=== PATIENT | male | born 1935 | race Caucasian/White ===

== ENCOUNTER 2017-02-02 19:50 | Inpatient (IN) | payer MEDICARE, BC ==
[~2017-02-02] VITALS: Ht 175.3 cm; Wt 74.8 kg
[2017-02-02] MEDS ORDERED: IODIXANOL 320 MG/ML 10 ML VIAL (for Rad CT) IVCONTRAST ONE (19:51)
[2017-02-02 19:54] VITALS: BP 140/73; PULSE 87; RESP 20; TEMP 98.4; O2SAT 96
[2017-02-02] MEDS ORDERED: ASPIRIN 81 MG CHEW TAB PO ONE (20:30)
[2017-02-02] MEDS ORDERED: SODIUM CHLORIDE 0.9% FLUSH 10 ML FLUSH IVF PRN (20:30)
--- NOTE | 2017-02-02 20:37 | PD ---
HPI Chief Complaint: Chest Pain Time Seen by Provider: 20:18 Travel History International Travel<30 days: No Contact w/Intl Traveler<30days: No Traveled to known affect area: No History of Present Illness HPI 81-year-old male with PMH of HTN, DM presents to the ED for evaluation of 3 day history of substernal chest pain. Described as a pressure. He rated 6/10 maximally, 2/10 on presentation. Patient denies associated radiation, shortness of breath, palpitations, nausea, vomiting, diaphoresis. He can identify no alleviating or exacerbating factors. He is a current smoker. He endorses chronic nonproductive cough, no worse today. He states that he drove his RV from [place] approximately 8 days ago. He denies lower extremity edema or calf pain. He does not take any blood thinners. He's never had a cardiac evaluation. He is followed by , podiatry. No primary care in the area. PFSH Past Medical History High Cholesterol: Yes COPD: Yes Diabetes: Yes Patient Takes Glucophage: No Diminished Hearing: Yes Hypertension: Yes Tetanus Vaccination: Unknown Influenza Vaccination: No Past Surgical History Cholecystectomy: Yes Social History Alcohol Use: Yes (OCCASSIONALLY) Tobacco Use: Yes (PIPE) Substance Use: No Allergies-Medications (Allergen,Severity, Reaction): Coded Allergies: No Known Allergies (Unverified , 02/02/17) Reported Meds & Prescriptions Reported Meds & Active Scripts Active Reported Jardiance (Empagliflozin) 10 Mg Tab 10 Mg PO DAILY Multiple Vitamin 1 Tab 1 Tab PO DAILY Vitamin D3 (Cholecalciferol) 1,000 Unit Chew 1,000 Units CHEW BID Januvia (Sitagliptin Phosphate) 100 Mg Tab 100 Mg PO DAILY Levemir Flextouch Pen Inj (Insulin Detemir) 300 unit/3 ML Pen 45 Units SQ HS Pravastatin 10 Mg Tab 10 Mg PO DAILY Glimepiride 4 Mg Tab 4 Mg PO DAILY Lisinopril-Hctz 20-12.5 Mg Tab 1 Tab PO DAILY Metformin (Metformin HCl) 1,000 Mg Tab 1,000 Mg PO BID With a meal Review of Systems Except as stated in HPI: all other systems reviewed are Neg Physical Exam Narrative GENERAL: Well-nourished, well-developed white male in no acute distress. SKIN: Focused skin assessment warm/dry. Chronic wounds of the fourth and fifth toes of the right lower extremity. Well granulated, localized erythema. No warmth, drainage, lymphatic streaking. HEAD: Normocephalic. EYES: No scleral icterus. No injection or drainage. NECK: Supple, trachea midline. No JVD or lymphadenopathy. CARDIOVASCULAR: Regular rate and rhythm without murmurs, gallops, or rubs. RESPIRATORY: Breath sounds clear and equal bilaterally. No accessory muscle use. GASTROINTESTINAL: Abdomen soft, protuberant, nondistended. Mild tenderness to palpation in the epigastric region. Active bowel sounds. MUSCULOSKELETAL: No cyanosis, or edema. Negative Homans sign bilaterally. BACK: Nontender without obvious deformity. No CVA tenderness. Data Data Last Documented VS Vital Signs Date Time Temp Pulse Resp B/P (MAP) Pulse Ox O2 Delivery O2 Flow Rate FiO2 02/02/17 20:42 78 18 138/72 (94) 95 Room Air 02/02/17 19:54 98.4 Orders Orders Electrocardiogram (02/02/17 20:29) Ckmb (Isoenzyme) Profile (02/02/17 20:29) Complete Blood Count With Diff (02/02/17 20:29) Comprehensive Metabolic Panel (02/02/17 20:29) Magnesium (Mg) (02/02/17 20:29) Prothrombin Time / Inr (Pt) (02/02/17 20:29) Act Partial Throm Time (Ptt) (02/02/17 20:29) Troponin I (02/02/17 20:29) Chest, Single Ap (02/02/17 20:29) Ecg Monitoring (02/02/17 20:29) Bilateral Bp Monitoring (02/02/17 20:29) Iv Access Insert/Monitor (02/02/17 20:29) Oximetry (02/02/17 20:29) Aspirin Chew (Aspirin Chew) (02/02/17 20:30) Sodium Chloride 0.9% Flush (Ns Flush) (02/02/17 20:30) Lipase (02/02/17 20:38) Ct Pulmonary Angiogram (02/02/17 22:22) Labs Laboratory Tests Test 02/02/17 20:40 White Blood Count 8.7 TH/MM3 Red Blood Count 4.18 MIL/MM3 Hemoglobin 13.8 GM/DL Hematocrit 40.6 % Mean Corpuscular Volume 97.3 FL Mean Corpuscular Hemoglobin 32.9 PG Mean Corpuscular Hemoglobin Concent 33.8 % Red Cell Distribution Width 13.6 % Platelet Count 174 TH/MM3 Mean Platelet Volume 10.1 FL Neutrophils (%) (Auto) 82.0 % Lymphocytes (%) (Auto) 6.9 % Monocytes (%) (Auto) 9.6 % Eosinophils (%) (Auto) 1.0 % Basophils (%) (Auto) 0.5 % Neutrophils # (Auto) 7.1 TH/MM3 Lymphocytes # (Auto) 0.6 TH/MM3 Monocytes # (Auto) 0.8 TH/MM3 Eosinophils # (Auto) 0.1 TH/MM3 Basophils # (Auto) 0.0 TH/MM3 CBC Comment DIFF FINAL Differential Comment Prothrombin Time 10.8 SEC Prothromb Time International Ratio 1.0 RATIO Activated Partial Thromboplast Time 27.5 SEC Alanine Aminotransferase (ALT/SGPT) 442 U/L Lipase 217 U/L MDM Medical Decision Making Medical Screen Exam Complete: Yes Emergency Medical Condition: Yes Differential Diagnosis Chest pain versus PNA versus ACS versus PE versus anemia versus GERD versus pancreatitis versus other Narrative Course 81-year-old male with PMH of HTN, DM presents to the ED for evaluation of 3 day history of constant substernal chest pain. Described as a pressure. He rated 6 /10 maximally, 2/10 on presentation. He endorses chronic nonproductive cough, no worse today. He states that he drove his RV from [place] approximately 8 days ago. He does not take any blood thinners. He's never had a cardiac evaluation. He is followed by , podiatry. No local PCP. Vitals reviewed. Physical exam reveals epigastric tenderness to palpation but is otherwise unremarkable. IV was established. Patient was administered ASA by mouth. EKG rate 84, sinus rhythm. NH interval 156, QRS 103, QTC 399. Left axis deviation. Incomplete RBBB. No acute ST changes. Reviewed by Dr. Will. CXR: Patchy bilateral lower lobe infiltrates. Cardiac enzymes:pending CTA chest: pending CBC: No leukocytosis or anemia. CMP: pending Lipase: 217 Labs and CTA pending at end of shift. The patient is signed out to Dr. Will. Please see her note for disposition. Savannah Whaley Feb 02, 2017 20:37
[2017-02-02 20:42] VITALS: BP 138/72; PULSE 78; RESP 18; O2SAT 95
[2017-02-02] MEDS ORDERED: EMPA1TAB PO (20:55)
[2017-02-02] MEDS ORDERED: PRAV10TA PO (20:55)
[2017-02-02] MEDS ORDERED: GLIM4TAB PO (20:55)
[2017-02-02] MEDS ORDERED: INSU1INJ5 SQ (20:55)
[2017-02-02] MEDS ORDERED: SITA1TAB2 PO (20:55)
[2017-02-02] MEDS ORDERED: LISI20TA PO (20:55)
[2017-02-02] MEDS ORDERED: CHOL100025 CHEW (20:55)
[2017-02-02] MEDS ORDERED: MULTTAB67 PO (20:55)
[2017-02-02] MEDS ORDERED: METF1000 PO (20:55)
[2017-02-02 21:06] LABS: AUTOMATED NEUTROPHIL # 7.1 TH/MM3 (1.8-7.7); BASOPHIL % 0.5 % (0.0-2.0); EOSINOPHIL # 0.1 TH/MM3 (0-0.4); HEMATOCRIT 40.6 % (39.0-51.0); HEMO FLAGS DIFF FINAL; LYMPH % 6.9 % (9.0-44.0); LYMPHOCYTE # 0.6 TH/MM3 (1.0-4.8); MEAN CELL VOLUME 97.3 FL (80.0-100.0); MEAN CORPUSCULAR HEMOGLOBIN 32.9 PG (27.0-34.0); MEAN CORPUSCULAR HGB CONC 33.8 % (32.0-36.0); MONO % 9.6 % (0.0-8.0); PLATELET COUNT 174 TH/MM3 (150-450); RED BLOOD COUNT 4.18 MIL/MM3 (4.50-5.90); RED CELL DISTRIBUTION WIDTH 13.6 % (11.6-17.2); WHITE BLOOD COUNT 8.7 TH/MM3 (4.0-11.0)
[2017-02-02 21:17] LABS: ALT (GPT) 442 U/L (12-78)
[2017-02-02 21:25] LABS: APTT (PATIENT) 27.5 SEC (24.3-30.1); PROTHROMBIN TIME - PATIENT 10.8 SEC (9.8-11.6)
--- NOTE | 2017-02-02 21:46 | RADRPT ---
EXAM DATE/TIME: 02/02/2017 20:45 [facility] COMPARISON: No previous studies available for comparison. INDICATIONS : Chest pain. MEDICAL HISTORY : None. SURGICAL HISTORY : None. ENCOUNTER: Initial ACUITY: 1 day PAIN SCORE: 7/10 LOCATION: Bilateral chest FINDINGS: There are patchy infiltrates in the anteromedial lungs bilaterally, right greater than left. Both he midiaphragms remain well delineated. The heart is upper limits normal size for AP technique. Upper lungs are clear. CONCLUSION: Patchy bilateral lower lung infiltrates. Kevin Magana MD on February 02, 2017 at 21:44 Board Certified Radiologist. This report was verified electronically.
[2017-02-02 22:58] LABS: ALKALINE PHOSPHATASE 572 U/L (45-117); ANION GAP 9 MEQ/L (5-15); AST (GOT) 172 U/L (15-37); BICARBONATE 20.7 MEQ/L (21.0-32.0); BLOOD UREA NITROGEN 37 MG/DL (7-18); CHLORIDE 102 MEQ/L (98-107); CREATINE KINASE 152 U/L (39-308); GLOMERULAR FILTRATION RATE 38 ML/MIN (>89); MAGNESIUM 2.1 MG/DL (1.5-2.5); POTASSIUM 4.7 MEQ/L (3.5-5.1); SODIUM (NA) 132 MEQ/L (136-145); TOTAL BILIRUBIN ADULT 5.6 MG/DL (0.2-1.0)
--- NOTE | 2017-02-02 23:08 | PD ---
Physical Exam Date Seen by Provider: Feb 02, 2017 Time Seen by Provider: 23:02 Narrative accepted in transfer of care GENERAL: Well-developed well-nourished male in no acute distress no respiratory distress SKIN: Warm and dry. Appears mildly jaundiced HEAD: Normocephalic. EYES: Mild scleral icterus. No injection or drainage. NECK: Supple, trachea midline. No JVD or lymphadenopathy. CARDIOVASCULAR: Regular rate and rhythm without murmurs, gallops, or rubs. RESPIRATORY: Breath sounds equal bilaterally. No accessory muscle use. GASTROINTESTINAL: Abdomen soft, tender to palpation and right upper quadrant without guarding or rebound, nondistended. MUSCULOSKELETAL: No cyanosis, or edema. BACK: Nontender without obvious deformity. No CVA tenderness. Data Data Last Documented VS Vital Signs Date Time Temp Pulse Resp B/P (MAP) Pulse Ox O2 Delivery O2 Flow Rate FiO2 02/02/17 23:19 74 18 132/74 (93) 95 Room Air 02/02/17 19:54 98.4 Orders Orders Electrocardiogram (02/02/17 20:29) Ckmb (Isoenzyme) Profile (02/02/17 20:29) Complete Blood Count With Diff (02/02/17 20:29) Comprehensive Metabolic Panel (02/02/17 20:29) Magnesium (Mg) (02/02/17 20:29) Prothrombin Time / Inr (Pt) (02/02/17 20:29) Act Partial Throm Time (Ptt) (02/02/17 20:29) Troponin I (02/02/17 20:29) Chest, Single Ap (02/02/17 20:29) Ecg Monitoring (02/02/17 20:29) Bilateral Bp Monitoring (02/02/17 20:29) Iv Access Insert/Monitor (02/02/17 20:29) Oximetry (02/02/17 20:29) Aspirin Chew (Aspirin Chew) (02/02/17 20:30) Sodium Chloride 0.9% Flush (Ns Flush) (02/02/17 20:30) Lipase (02/02/17 20:38) Ct Pulmonary Angiogram (02/02/17 22:22) CKMB (02/02/17 20:40) CKMB% (02/02/17 20:40) Ct Abd/Pel W Iv Contrast(Rout) (02/02/17 ) Iodixanol 320 Inj (Rad Ct) (Visipaque 32 (02/02/17 19:51) Urinalysis - C+S If Indicated (02/03/17 00:18) Labs Laboratory Tests Test 02/02/17 20:40 White Blood Count 8.7 TH/MM3 Red Blood Count 4.18 MIL/MM3 Hemoglobin 13.8 GM/DL Hematocrit 40.6 % Mean Corpuscular Volume 97.3 FL Mean Corpuscular Hemoglobin 32.9 PG Mean Corpuscular Hemoglobin Concent 33.8 % Red Cell Distribution Width 13.6 % Platelet Count 174 TH/MM3 Mean Platelet Volume 10.1 FL Neutrophils (%) (Auto) 82.0 % Lymphocytes (%) (Auto) 6.9 % Monocytes (%) (Auto) 9.6 % Eosinophils (%) (Auto) 1.0 % Basophils (%) (Auto) 0.5 % Neutrophils # (Auto) 7.1 TH/MM3 Lymphocytes # (Auto) 0.6 TH/MM3 Monocytes # (Auto) 0.8 TH/MM3 Eosinophils # (Auto) 0.1 TH/MM3 Basophils # (Auto) 0.0 TH/MM3 CBC Comment DIFF FINAL Differential Comment Prothrombin Time 10.8 SEC Prothromb Time International Ratio 1.0 RATIO Activated Partial Thromboplast Time 27.5 SEC Blood Urea Nitrogen 37 MG/DL Creatinine 1.74 MG/DL Random Glucose 178 MG/DL Total Protein 8.2 GM/DL Albumin 3.4 GM/DL Calcium Level 8.6 MG/DL Magnesium Level 2.1 MG/DL Alkaline Phosphatase 572 U/L Aspartate Amino Transf (AST/SGOT) 172 U/L Alanine Aminotransferase (ALT/SGPT) 442 U/L Total Bilirubin 5.6 MG/DL Sodium Level 132 MEQ/L Potassium Level 4.7 MEQ/L Chloride Level 102 MEQ/L Carbon Dioxide Level 20.7 MEQ/L Anion Gap 9 MEQ/L Estimat Glomerular Filtration Rate 38 ML/MIN Total Creatine Kinase 152 U/L Creatine Kinase MB 4.0 NG/ML Troponin I LESS THAN 0.02 NG/ML Lipase 217 U/L [facility] Medical Record Reviewed: Yes Supervised Visit with YA: No Interpretation(s) EKG: Normal sinus rhythm rate 84 incomplete right bundle branch block pattern left anterior fascicular block no acute ST elevation or depression or ectopy noted Last Impressions Chest X-Ray 11/21/17 2029 Signed Impressions: Service Date/Time: Thursday, February 02, 2017 20:45 - CONCLUSION: Patchy bilateral lower lung infiltrates. Kevin Magana MD CBC & BMP Diagram 02/02/17 20:40 Total Protein 8.2, Albumin 3.4, Calcium Level 8.6, Magnesium Level 2.1, Alkaline Phosphatase 572 H, Aspartate Amino Transf (AST/SGOT) 172 H, Alanine Aminotransferase (ALT/SGPT) 442 H, Total Bilirubin 5.6 H Vital Signs Date Time Temp Pulse Resp B/P (MAP) Pulse Ox O2 Delivery O2 Flow Rate FiO2 02/02/17 23:19 74 18 132/74 (93) 95 Room Air 02/02/17 20:42 78 18 138/72 (94) 95 Room Air 02/02/17 19:54 98.4 87 20 140/73 (95) 96 Troponin I: Less than 0.02, not elevated; CK total 152, not elevated CK-MB however is elevated but MB percent is 2.60% which is not elevated Coagulation studies grossly normal range CT pulmonary angiogram: CONCLUSION: 1. No pulmonary embolus or other acute cardiopulmonary disease demonstrated. 2. Coronary artery calcification. 3. Old right rib fractures. 4. Small hiatal hernia. CT abd/pel: CONCLUSION: 1. Vague mass of the pancreatic head, malignant until proven otherwise. Tumor is locally advanced. Please see above. 2. No evidence of metastatic disease. 3. Small to moderate hiatal hernia. 4. Benign appearing left renal cysts. 5. Sigmoid colon diverticulosis without diverticulitis. Shai Armijo MD on February 03, 2017 at 0:14 Board Certified Radiologist. This report was verified electronically. Shai Armijo MD on February 03, 2017 at 0:09 Board Certified Radiologist. This report was verified electronically. Differential Diagnosis Chest pain, ACS, PE, pneumonia, bronchitis, musculoskeletal pain, pleurisy Narrative Course Patient identified to have patchy infiltrates on chest x-ray patient with recent long distance travel chemistries pending with plan to send patient for CT pulmonary angiogram injury imaging. Patient otherwise stable voicing no concerns or complaints. 11:35 PM patient's chemistries have been resulted patient is identified to have elevated LFTs specifically total bilirubin of 5.6 which fits with patient's physical exam as patient does appear jaundiced with scleral icterus patient is identified at bedside to have dark urine suspect urobilinogen and will send off urine specimen for resulting patient is noted left upper quadrant abdominal pain 3 days. Patient's had no fever or chills. Patient has chronic cough. Patient has history of chronic renal insufficiency. Patient is identified to have elevated BUN/creatinine with creatinine 1.74 and GFR of 38. D-dimer to patient's regimen to see if needed proceed with VQ scan in the interim while canceled CT pulmonary angiogram with contrast and will order CT abdomen and pelvis noncontrast. Physician Communication Physician Communication call placed to [facility] service MD --per Dr Irving will accept for admission Diagnosis Primary Impression: Chest pain Additional Impressions: Pancreatic mass Abnormal LFTs Diabetic foot ulcer Renal insufficiency Admitting Information Admitting Physician Requests: Admit Sofía Will MD Feb 02, 2017 23:08
[2017-02-02 23:19] VITALS: BP 132/74; PULSE 74; RESP 18; O2SAT 95
[2017-02-03] VITALS (10 sets, daily range): BP systolic 117–133; BP diastolic 58–72; PULSE 65–85; RESP 18–20; TEMP 97.4–98.1; O2SAT 92–97
--- NOTE | 2017-02-03 00:12 | RADRPT ---
EXAM DATE/TIME: 02/02/2017 23:50 [facility] COMPARISON: No previous studies available for comparison. INDICATIONS : Shortness of breath. IV CONTRAST: 50 cc Visipaque (iodixanol) IV ; Cumulative dose for multiple exams. RADIATION DOSE: 23.38 CTDIvol (mGy) MEDICAL HISTORY : Hypertension. Chronic obstructive pulmonary disease. Diabetes mellitus type 2. SURGICAL HISTORY : None. ENCOUNTER: Initial ACUITY: 1 day PAIN SCALE: 5/10 LOCATION: Bilateral chest TECHNIQUE: Volumetric scanning of the chest was performed using a pulmonary embolism protocol MIP images were re constructed. Using automated exposure control and adjustment of the mA and/or kV according to patien t size, radiation dose was kept as low as reasonably achievable to obtain optimal diagnostic quality images. DICOM format image data is available electronically for review and comparison. Follow-up recommendations for detected pulmonary nodules are based at a minimum on nodule size and pa tient risk factors according to Fleischner Society Guidelines. FINDINGS: PULMONARY ARTERIES: No filling defects are seen in the pulmonary arteries through the segmental level. LUNGS: There is no consolidation or pneumothorax . No concerning pulmonary nodule is visualized. PLEURAE: There is no pleural thickening or pleural effusion. MEDIASTINUM: There is good visualization of the great vessels of the middle mediastinum. No evidence of mediastin al or hilar adenopathy/mass. Heart size within normal limits. There is coronary artery calcification noted, especially the left anterior descending. Small hiatal hernia noted. MUSCULOSKELETAL: No acute bony abnormality demonstrated. There are old, healed right rib fractures. MISCELLANEOUS: The visualized upper abdominal organs demonstrate no acute abnormality. CONCLUSION: 1. No pulmonary embolus or other acute cardiopulmonary disease demonstrated. 2. Coronary artery calcification. 3. Old right rib fractures. 4. Small hiatal hernia. Shai Armijo MD on February 03, 2017 at 0:09 Board Certified Radiologist. This report was verified electronically.
--- NOTE | 2017-02-03 00:22 | RADRPT ---
EXAM DATE/TIME: 02/02/2017 23:50 [facility] COMPARISON: No previous studies available for comparison. INDICATIONS : Right upper qaudrant pain. IV CONTRAST: 50 cc Visipaque (iodixanol) IV ; Cumulative dose for multiple exams. ORAL CONTRAST: No oral contrast ingested. RADIATION DOSE: 11.56 CTDIvol (mGy) MEDICAL HISTORY : Hypertension. Chronic obstructive pulmonary disease. Diabetes mellitus type 2. SURGICAL HISTORY : None. ENCOUNTER: Initial ACUITY: 1 day PAIN SCALE: 6/10 LOCATION: Right upper quadrant TECHNIQUE: Volumetric scanning of the abdomen and pelvis was performed. Using automated exposure control and ad justment of the mA and/or kV according to patient size, radiation dose was kept as low as reasonably achievable to obtain optimal diagnostic quality images. DICOM format image data is available electro nically for review and comparison. FINDINGS: Although very vague, there is a suspected mildly lobulated, mostly hypodensity/hypoenhancing mass of the pancreatic head estimated at 2.7 x 3.7 x 3.1 cm in size. There is intrahepatic and extrahepatic b iliary distention. There is also pancreatic duct distention and atrophy of the tail. Lateral margin o f the superior mesenteric vein is irregular and similar findings are seen of the inferior margin of t he proximal portal vein. A believe there may be a small and definitely nonocclusive thrombus within t he proximal portal vein on series 5 image 33. This could be tumor thrombus versus bland thrombus. No focal liver lesion. Spleen and adrenal glands are normal. Several cysts are seen of the left kidne y measuring up to 2.5 cm in size. Small to moderate hiatal hernia noted. There is diverticulosis of the sigmoid colon without evidence of diverticulitis. Atherosclerosis seen of the abdominal aorta and iliac arteries. No aneurysm. No acute bony abnormality demonstrated. Degenerative changes are seen of the spine, sacroiliac joints and pubic symphysis with some reactive appearing sclerosis. I don't see a lytic or sclerotic lesion. CONCLUSION: 1. Vague mass of the pancreatic head, malignant until proven otherwise. Tumor is locally advanced. Pl ease see above. 2. No evidence of metastatic disease. 3. Small to moderate hiatal hernia. 4. Benign appearing left renal cysts. 5. Sigmoid colon diverticulosis without diverticulitis. Shai Armijo MD on February 03, 2017 at 0:14 Board Certified Radiologist. This report was verified electronically.
[2017-02-03] MEDS ORDERED: SODIUM CHLORIDE 0.9% FLUSH 10 ML FLUSH IV FLUSH PRN (01:45)
[2017-02-03] MEDS ORDERED: GLUCAGON 1 MG/ML VIAL OTHER PRN (01:45)
[2017-02-03] MEDS ORDERED: ACETAMINOPHEN 500 MG CPLT PO PRN (01:45)
[2017-02-03] MEDS ORDERED: DEXTROSE 50% IN WATER 50 ML VIAL(D50) IV PUSH PRN (01:45)
--- NOTE | 2017-02-03 01:54 | HHI.HP ---
[facility] Service [facility] Primary Care Physician No Primary Care Physician Admission Diagnosis chest pain; pancreatic mass; diabetic foot ulcer; renal insufficienc Diagnoses: Travel History International Travel<30 Days: No Contact w/Intl Traveler <30 Da: No Traveled to Known Affected Are: No History of Present Illness 81-year-old male presents to the emergency department with a one to two-week history of increasing chest and abdominal pain. Patient has a past medical history significant for hypertension and insulin-dependent diabetes mellitus. He reports that his chest pain is present at rest. He describes it as a sharp pressure that is similar to when he had gallbladder disease. He states he started feeling worse today and his brought him to the emergency department. He denies associated shortness of breath or nausea/vomiting. He does report a 10 pound weight loss over the past 2 weeks. EKG showed an incomplete RBBB with no acute ST changes. Initial troponin negative. CT of the abdomen/pelvis significant for a mass of the pancreatic head, malignant until proven otherwise. The tumor is locally advanced. Review of Systems Denies fever or chills Denies blurry vision, otorrhea, rhinorrhea Denies sore throat and cough Positive chest pain. No palpitations or shortness of breath Positive epigastric pain Denies constipation/diarrhea/nausea/vomiting Denies muscle pain/weakness No rashes Past Family Social History Past Medical History Type 2 diabetes mellitus, insulin-dependent Hypertension Hyperlipidemia Diabetic nephropathy Diabetic ulcers Past Surgical History Cholecystectomy Left knee arthroplasty Right knee repair Reported Medications Reported Meds & Active Scripts Active Reported Jardiance (Empagliflozin) 10 Mg Tab 10 Mg PO DAILY Multiple Vitamin 1 Tab 1 Tab PO DAILY Vitamin D3 (Cholecalciferol) 1,000 Unit Chew 1,000 Units CHEW BID Januvia (Sitagliptin Phosphate) 100 Mg Tab 100 Mg PO DAILY Levemir Flextouch Pen Inj (Insulin Detemir) 300 unit/3 ML Pen 45 Units SQ HS Pravastatin 10 Mg Tab 10 Mg PO DAILY Glimepiride 4 Mg Tab 4 Mg PO DAILY Lisinopril-Hctz 20-12.5 Mg Tab 1 Tab PO DAILY Metformin (Metformin HCl) 1,000 Mg Tab 1,000 Mg PO BID With a meal Allergies: Coded Allergies: No Known Allergies (Unverified , 02/02/17) Family History Denies family history of heart disease or diabetes Social History Smokes a pipe. Rare alcohol. No illicit drugs. Physical Exam Vital Signs Vital Signs Date Time Temp Pulse Resp B/P (MAP) Pulse Ox O2 Delivery O2 Flow Rate FiO2 02/02/17 23:19 74 18 132/74 (93) 95 Room Air 02/02/17 20:42 78 18 138/72 (94) 95 Room Air 02/02/17 19:54 98.4 87 20 140/73 (95) 96 Physical Exam GENERAL: male lying in bed SKIN: No rashes. 2 diabetic ulcers noted between right toes 3-4 and 4-5. Ulcer between toes 3-4 dry. Ulcer between toes 4-5 with purulent drainage. HEAD: Atraumatic. Normocephalic. No temporal or scalp tenderness. EYES: Pupils equal round and reactive. Extraocular motions intact. No scleral icterus. No injection or drainage. ENT: Nose without bleeding, purulent drainage or septal hematoma. Throat without erythema, tonsillar hypertrophy or exudate. Uvula midline. Airway patent. NECK: Trachea midline. No JVD or lymphadenopathy. Supple, nontender, no meningeal signs. CARDIOVASCULAR: Regular rate and rhythm without murmurs, gallops, or rubs. RESPIRATORY: Clear to auscultation. Breath sounds equal bilaterally. No wheezes , rales, or rhonchi. GASTROINTESTINAL: Abdomen soft, nondistended. Diffusely tender to palpation in the epigastric region. No hepato-splenomegaly, or palpable masses. No guarding. MUSCULOSKELETAL: Extremities without clubbing, cyanosis, or edema. No joint tenderness, effusion, or edema noted. No calf tenderness. Negative Homans sign bilaterally. NEUROLOGICAL: Awake and alert. Cranial nerves II through XII intact. Motor and sensory grossly within normal limits. Five out of 5 muscle strength in all muscle groups. Normal speech. Laboratory Laboratory Tests Test 02/02/17 20:40 White Blood Count 8.7 Red Blood Count 4.18 Hemoglobin 13.8 Hematocrit 40.6 Mean Corpuscular Volume 97.3 Mean Corpuscular Hemoglobin 32.9 Mean Corpuscular Hemoglobin Concent 33.8 Red Cell Distribution Width 13.6 Platelet Count 174 Mean Platelet Volume 10.1 Neutrophils (%) (Auto) 82.0 Lymphocytes (%) (Auto) 6.9 Monocytes (%) (Auto) 9.6 Eosinophils (%) (Auto) 1.0 Basophils (%) (Auto) 0.5 Neutrophils # (Auto) 7.1 Lymphocytes # (Auto) 0.6 Monocytes # (Auto) 0.8 Eosinophils # (Auto) 0.1 Basophils # (Auto) 0.0 CBC Comment DIFF FINAL Differential Comment Prothrombin Time 10.8 Prothromb Time International Ratio 1.0 Activated Partial Thromboplast Time 27.5 Blood Urea Nitrogen 37 Creatinine 1.74 Random Glucose 178 Total Protein 8.2 Albumin 3.4 Calcium Level 8.6 Magnesium Level 2.1 Alkaline Phosphatase 572 Aspartate Amino Transf (AST/SGOT) 172 Alanine Aminotransferase (ALT/SGPT) 442 Total Bilirubin 5.6 Sodium Level 132 Potassium Level 4.7 Chloride Level 102 Carbon Dioxide Level 20.7 Anion Gap 9 Estimat Glomerular Filtration Rate 38 Total Creatine Kinase 152 Creatine Kinase MB 4.0 Troponin I LESS THAN 0.02 Lipase 217 Result Diagram: 02/02/17203902/02/172039 Imaging Last Impressions CT Angiography 02/02/172221 Signed Impressions: Service Date/Time: Thursday, February 02, 2017 23:50 - CONCLUSION: 1. No pulmonary embolus or other acute cardiopulmonary disease demonstrated. 2. Coronary artery calcification. 3. Old right rib fractures. 4. Small hiatal hernia. Shai Armijo MD Chest X-Ray 02/02/172028 Signed Impressions: Service Date/Time: Thursday, February 02, 2017 20:45 - CONCLUSION: Patchy bilateral lower lung infiltrates. Kevin Magana MD Abdomen/Pelvis CT 02/02/17 0000 Signed Impressions: Service Date/Time: Thursday, February 02, 2017 23:50 - CONCLUSION: 1. Vague mass of the pancreatic head, malignant until proven otherwise. Tumor is locally advanced. Please see above. 2. No evidence of metastatic disease. 3. Small to moderate hiatal hernia. 4. Benign appearing left renal cysts. 5. Sigmoid colon diverticulosis without diverticulitis. MD Dianne Greeni VTE Risk Assessment Caprini VTE Risk Assessment: Mod/High Risk (score >= 2) Caprini Risk Assessment Model Point Value = 1 Point Value = 2 Point Value = 3 Point Value = 5 Age 41-60 Minor surgery BMI > 25 kg/m2 Swollen legs Varicose veins or History of unexplained or recurrent spontaneous Oral contraceptives or hormone replacement Sepsis (< 1 month) Serious lung disease, including pneumonia (< 1 month) Abnormal pulmonary function Acute myocardial infarction Congestive heart failure (< 1 month) History of inflammatory bowel disease Medical patient at bed rest Age 61-74 Arthroscopic surgery Major open surgery (> 45 min) Laparoscopic surgery (> 45 min) Malignancy Confined to bed (> 72 hours) Immobilizing plaster cast Central venous access Age >= 75 History of VTE Family history of VTE Factor V Leiden Prothrombin [id number] Lupus anticoagulant Anticardiolipin antibodies Elevated serum homocysteine Heparin-induced thrombocytopenia Other congenital or acquired thrombophilia Stroke (< 1 month) Elective arthroplasty Hip, pelvis, or leg fracture Acute spinal cord injury (< 1 month) Prophylaxis Regimen Total Risk Factor Score Risk Level Prophylaxis Regimen 0-1 Low Early ambulation 2 Moderate Order ONE of the following: *Sequential Compression Device (SCD) *Heparin 5000 units SQ BID 3-4 Higher Order ONE of the following medications: *Heparin 5000 units SQ TID *Enoxaparin/Lovenox 40 mg SQ daily (WT < 150 kg, CrCl > 30 mL/min) *Enoxaparin/Lovenox 30 mg SQ daily (WT < 150 kg, CrCl > 10-29 mL/min) *Enoxaparin/Lovenox 30 mg SQ BID (WT < 150 kg, CrCl > 30 mL/min) AND/OR *Sequential Compression Device (SCD) 5 or more Highest Order ONE of the following medications: *Heparin 5000 units SQ TID (Preferred with Epidurals) *Enoxaparin/Lovenox 40 mg SQ daily (WT < 150 kg, CrCl > 30 mL/min) *Enoxaparin/Lovenox 30 mg SQ daily (WT < 150 kg, CrCl > 10-29 mL/min) *Enoxaparin/Lovenox 30 mg SQ BID (WT < 150 kg, CrCl > 30 mL/min) AND *Sequential Compression Device (SCD) Assessment and Plan Assessment and Plan 81-year-old male with a past medical history significant for hypertension, hyperlipidemia, diabetic nephropathy and type 2 diabetes mellitus presents with a two-week history of atypical chest pain. CT of the abdomen/pelvis significant for mass in the head of the pancreas with local invasion. 1. Atypical chest pain EKG showed normal sinus rhythm with incomplete right bundle branch block, reviewed by me. No ST segment elevations or depressions ACS rule out pending; serial troponins/EKGs 2. Pancreatic mass CT of the abdomen and pelvis significant for locally invasive mass in the head of the pancreas Patient with 10 pound unintentional weight loss over 2 weeks Transaminitis with elevated T bili CA 19-9 pending Oncology consulted, appreciate recommendations 3. Hypertension Patient reports he has been hypotensive at home (90s/50s) and has not taken his antihypertensive medications in approximately 4-5 days Holding home and hypertensives as patient is currently normotensive Monitor and restart home regimen prn 4. Type 2 diabetes mellitus Patient takes oral anti-hyperglycemics in addition to 45 units of Levemir daily at bedtime Holding home Levemir today as patient has not eaten, restart Levemir tomorrow SSI 4. Diabetic nephropathy Patient with known CKD secondary to his diabetes Creatinine 1.74, baseline unknown Gentle hydration and monitor FEN Heart healthy diet Electrolytes: monitor and replete prn Heparin Spoke with ED physician at length Susy Irving MD Feb 03, 2017 01:54
[2017-02-03 02:28] LABS: BLOOD, URINE NEG (NEG); COMMENT (UR) CULT NOT INDICATED; CULTURE IF INDICATED CULT NOT INDICATED; GLUCOSE,URINE 1000 mg/dL (NEG); KETONE, URINE NEG (NEG); MUCUS URINE FEW /lpf (OCC); NITRITE,URINE NEG (NEG); PH, URINE 5.5 (5.0-8.5); URINE COLOR YELLOW (YELLW/STRAW)
[2017-02-03] MEDS: SODIUM CHLOR 0.9% 1000 ML INJ 1,000 ML IV SCH ×2 (02:38→14:37)
[2017-02-03 03:23] LABS: CREATINE KINASE 97 U/L (39-308)
[2017-02-03 04:46] LABS: AUTOMATED NEUTROPHIL # 6.3 TH/MM3 (1.8-7.7); BASOPHIL % 0.4 % (0.0-2.0); EOSINOPHIL # 0.1 TH/MM3 (0-0.4); EOSINOPHIL % 0.9 % (0.0-4.0); HEMATOCRIT 39.2 % (39.0-51.0); HEMO FLAGS DIFF FINAL; LYMPH % 8.6 % (9.0-44.0); LYMPHOCYTE # 0.7 TH/MM3 (1.0-4.8); MEAN CELL VOLUME 97.5 FL (80.0-100.0); MEAN CORPUSCULAR HEMOGLOBIN 32.6 PG (27.0-34.0); MEAN CORPUSCULAR HGB CONC 33.4 % (32.0-36.0); MONO % 12.2 % (0.0-8.0); NEUT % 77.9 % (16.0-70.0); PLATELET COUNT 168 TH/MM3 (150-450); RED BLOOD COUNT 4.02 MIL/MM3 (4.50-5.90); RED CELL DISTRIBUTION WIDTH 13.3 % (11.6-17.2); WHITE BLOOD COUNT 8.1 TH/MM3 (4.0-11.0)
[2017-02-03 05:16] LABS: ANION GAP 9 MEQ/L (5-15); AST (GOT) 141 U/L (15-37); BICARBONATE 18.6 MEQ/L (21.0-32.0); BLOOD UREA NITROGEN 33 MG/DL (7-18); CHLORIDE 105 MEQ/L (98-107); GLOMERULAR FILTRATION RATE 51 ML/MIN (>89); SODIUM (NA) 133 MEQ/L (136-145)
[2017-02-03 05:17] LABS: ALT (GPT) 390 U/L (12-78)
[2017-02-03 05:19] LABS: ALKALINE PHOSPHATASE 533 U/L (45-117); TOTAL BILIRUBIN ADULT 5.5 MG/DL (0.2-1.0)
[2017-02-03] MEDS: HEPARIN SODIUM - SQ 10,000 UNITS/ML VIAL SQ SCH ×3 (05:25→20:40)
[2017-02-03] MEDS: INSULIN ASPART SUPPLEMENTAL SCALE SQ SCH ×4 (08:00→22:35)
[2017-02-03] MEDS: SODIUM CHLORIDE 0.9% FLUSH 10 ML FLUSH IV FLUSH SCH ×2 (09:00→20:41)
[2017-02-03] MEDS ORDERED: PRAVASTATIN SOD 10 MG TAB PO SCH (09:00)
--- NOTE | 2017-02-03 09:16 | MB ---
cc: AMAURI CHANDLER M.D. DATE OF CONSULTATION: 02/03/[address] Irving. REASON FOR CONSULTATION Oncology was consulted to render opinion regarding patient with pancreatic mass. HISTORY OF PRESENT ILLNESS The patient is a 81-year-old male who presented to the emergency room complaining of mid epigastric/chest pain for 1-2 weeks. He is not a very good historian. He stated the pain is more pressure like and is constant, there is no radiation to the back. The pain was progressively getting worse and he was brought into the emergency room. He has lost about 10 pounds over the last 2 weeks. He denies any nausea or vomiting. He denies any change in bowel habit. Denies any melena or hematochezia. He has no fever or chills, night sweat. He denies any shortness of breath or cough. He denies any change in urinary habit. He denies any other pain. PAST MEDICAL HISTORY 1. Hypertension. 2. Diabetes mellitus on insulin. 3. Hyperlipidemia. 4. Chronic kidney disease. PAST SURGICAL HISTORY 1. Cholecystectomy. 2. Bilateral knee surgery. FAMILY HISTORY One sister is healthy and he has a son who is healthy. SOCIAL HISTORY Drinks occasionally. She smokes pipe. His primary residence is in [place]. He spends his winter in the [place]. He has no local physician. ALLERGIES He has no known drug allergies. MEDICATIONS 1. Pravastatin. 2. Insulin. REVIEW OF SYSTEMS CONSTITUTIONAL: As above. EYES: Negative. ENT: Negative. CARDIOVASCULAR: Denies chest pressure, palpitation. RESPIRATORY: Denies shortness of breath or cough. GI: As above. : Negative. MUSCULOSKELETAL: Negative. HEMATOLOGY: Negative. ENDOCRINE: Negative. DERMATOLOGY: Negative. PSYCHIATRIC: Negative. NEUROLOGIC: Negative. PHYSICAL EXAMINATION VITAL SIGNS: Temperature 98, blood pressure 117/68, O2 saturation 94% on room air. GENERAL: He is alert and oriented x3, hard in hearing. HEENT: Atraumatic, normocephalic. Pupils equal, round, reactive to light. Extraocular muscles intact. No scleral icterus. Oropharynx dry mucosa. NECK: No thyromegaly. No palpable masses. LYMPHATIC: No palpable cervical, clavicular, axillary or inguinal lymph node. CARDIOVASCULAR: Regular, S1-S2. No murmur. LUNGS: Clear to auscultation bilaterally. No wheezing or rhonchi. ABDOMEN: Soft, a little tender in mid epigastric area. I could not palpate any mass. EXTREMITIES: No cyanosis, clubbing or edema. SKIN: No rash or petechiae. NEUROLOGIC: Nonfocal. LABORATORY DATA Reviewed. ASSESSMENT 1. Obstructive jaundice. He presented with mid epigastric pain for 1-2 weeks. He also lost about [address] abdomen and pelvis showed vague 2.7 x 3.7 x 3.1 mass in the head of pancreas. There was pancreatic ductal dilation and pancreatic tail atrophy. There is also intrahepatic and extrahepatic biliary distension. There is possibly tumor thrombus versus bland thrombus in the proximal portal vein. No metastatic disease or adenopathy noted on CT scan. This is worrisome for primary pancreatic cancer. The CA 19-9 is still pending. I would like to get an MRI for further evaluation but given his chronic kidney disease and just received CT contrast, will hold off on getting MRI at this time. I am going to consult gastroenterology for possible EUS and biopsy. He will also need ERCP with stent placement. If his disease is localized will consult a surgeon to see if the patient is a candidate for surgery. Given his advanced age and borderline performance status, he may not be a surgical candidate. The patient's primary residence is in [place]. He is also going to talk to his and he may be considering going back to [place] to get his treatment. 2. Hypertension. 3. Diabetes mellitus on insulin. 4. Chronic kidney disease. 5. Hyperlipidemia. RECOMMENDATION 1. Consult GI for evaluation of obstructive jaundice and possible EUS and biopsy of pancreatic mass. 2. Await tumor marker. 3. Will get MRI if renal function improves. 4. May need surgical consult if he has localized pancreatic cancer. 5. Extensive discussion with the patient. Thank you Dr. Irving for asking me to see this patient. MD FRANCISCA Alexander/GILL /8:24 AM /8:58 AM TIGIST
--- NOTE | 2017-02-03 09:42 | EKG ---
Date Performed: 02/02/2017 Time Performed: 20:27:10 PTAGE: 81 years EKG: Sinus rhythm INCOMPLETE RIGHT BUNDLE BRANCH BLOCK LEFT ANTERIOR FASCICULAR BLOCK ABNORMAL ECG NO PREVIOUS TRACING DOCTOR: Kervin Smith Interpretating Date/Time 02/03/2017 09:40:12
--- NOTE | 2017-02-03 09:59 | PD.CONS ---
HPI History of Present Illness This is a 81 year old male who presented to the emergency room for evaluation of midepigastric/chest pain for the past few weeks. He describes this as a "gassy" type discomfort in his chest and mid epigastric area that is intermittent. He denies any aggravating or alleviating factors, but did not try any OTC medications. He is not currently having any abdominal pain, nausea , vomiting, heartburn, reflux, constipation, diarrhea. He reports that his appetite has been good, but that he has lost about 10 lbs over the past few weeks. His reports that he had a low grade fever of 99.3 at home prior to coming to the hospital. His noticed last night here in the hospital that his eyes were yellow. He came to the ER for further evaluation and was noted to have elevated LFTs- T. Bili 5.5, AST 141, ALT 390, Alk Phosph 533. Ca19-[address] scan abdomen/pelvis (02/02/17) revealed vague mass of the pancreatic head, malignant until proven otherwise. Tumor is locally advanced. Please see above. No evidence of metastatic disease. Small to moderate hiatal hernia. Benign-appearing left renal cyst. Sigmoid colon diverticulosis without diverticulitis. GI was consulted for further evaluation of obstructive jaundice and for EUS with FNA. (Azalea Martinez) PFSH Past Medical History Type 2 diabetes mellitus, insulin-dependent Hypertension Hyperlipidemia Diabetic ulcers right 4/5th toes Chronic kidney disease Past Surgical History Cholecystectomy Left knee arthroplasty Right knee repair Colonoscopy (Azalea Martinez) Coded Allergies: No Known Allergies (Unverified , 02/02/17) Medications Last Impressions CT Angiography 02/02/172221 Signed Impressions: Service Date/Time: Thursday, February 02, 2017 23:50 - CONCLUSION: 1. No pulmonary embolus or other acute cardiopulmonary disease demonstrated. 2. Coronary artery calcification. 3. Old right rib fractures. 4. Small hiatal hernia. Shai Armijo MD Chest X-Ray 02/02/172028 Signed Impressions: Service Date/Time: Thursday, February 02, 2017 20:45 - CONCLUSION: Patchy bilateral lower lung infiltrates. Kevin Magana MD Abdomen/Pelvis CT 02/02/17 0000 Signed Impressions: Service Date/Time: Thursday, February 02, 2017 23:50 - CONCLUSION: 1. Vague mass of the pancreatic head, malignant until proven otherwise. Tumor is locally advanced. Please see above. 2. No evidence of metastatic disease. 3. Small to moderate hiatal hernia. 4. Benign appearing left renal cysts. 5. Sigmoid colon diverticulosis without diverticulitis. Shai Armijo MD Family History No family hx of cancer Social History Smokes a pipe. Rare alcohol. No illicit drugs. (Azalea Martinez) Review of Systems Constitutional: COMPLAINS OF: Fever, Weight loss, DENIES: Change in appetite Respiratory: DENIES: Cough Cardiovascular: COMPLAINS OF: Chest pain Gastrointestinal: COMPLAINS OF: Abdominal pain, DENIES: Black stools, Bloody stools, Constipation, Diarrhea, Nausea, Vomiting, Anorexia, Swelling of Abdomen , Heartburn Musculoskeletal: DENIES: Back pain Integumentary: COMPLAINS OF: Jaundice Neurologic: DENIES: Headache Psychiatric: DENIES: Confusion (Azalea Martinez) GI Exam Vitals I&O Vital Signs Date Time Temp Pulse Resp B/P (MAP) Pulse Ox O2 Delivery O2 Flow Rate FiO2 02/03/17 08:57 85 02/03/17 07:28 98.0 71 20 117/68 (84) 94 02/03/17 05:03 66 02/03/17 04:49 97.9 85 18 127/72 (90) 92 02/03/17 03:15 98.0 74 18 123/72 (89) 95 02/03/17 02:54 02/03/17 02:25 67 18 128/65 (86) 97 Room Air 02/02/17 23:19 74 18 132/74 (93) 95 Room Air 02/02/17 20:42 78 18 138/72 (94) 95 Room Air 02/02/17 19:54 98.4 87 20 140/73 (95) 96 I/O 02/02/17 02/02/17 02/02/17 02/03/17 02/03/17 02/03/17 07:00 15:00 23:00 07:00 15:00 23:00 Output Total 800 ml Balance -800 ml Output Urine Total 800 ml # Voids 1 [address] Angiography 02/02/172221 Signed Impressions: Service Date/Time: Thursday, February 02, 2017 23:50 - CONCLUSION: 1. No pulmonary embolus or other acute cardiopulmonary disease demonstrated. 2. Coronary artery calcification. 3. Old right rib fractures. 4. Small hiatal hernia. Shai Armijo MD Chest X-Ray 02/02/172028 Signed Impressions: Service Date/Time: Thursday, February 02, 2017 20:45 - CONCLUSION: Patchy bilateral lower lung infiltrates. Kevin Magana MD Abdomen/Pelvis CT 02/02/17 0000 Signed Impressions: Service Date/Time: Thursday, February 02, 2017 23:50 - CONCLUSION: 1. Vague mass of the pancreatic head, malignant until proven otherwise. Tumor is locally advanced. Please see above. 2. No evidence of metastatic disease. 3. Small to moderate hiatal hernia. 4. Benign appearing left renal cysts. 5. Sigmoid colon diverticulosis without diverticulitis. Shai Armijo MD Laboratory Test 02/02/17 20:40 02/03/17 02:00 02/03/17 02:35 02/03/17 04:23 White Blood Count 8.7 TH/MM3 8.1 TH/MM3 Red Blood Count 4.18 MIL/MM3 4.02 MIL/MM3 Hemoglobin 13.8 GM/DL 13.1 GM/DL Hematocrit 40.6 % 39.2 % Mean Corpuscular Volume 97.3 FL 97.5 FL Mean Corpuscular Hemoglobin 32.9 PG 32.6 PG Mean Corpuscular Hemoglobin Concent 33.8 % 33.4 % Red Cell Distribution Width 13.6 % 13.3 % Platelet Count 174 TH/MM3 168 TH/MM3 Mean Platelet Volume 10.1 FL 9.9 FL Neutrophils (%) (Auto) 82.0 % 77.9 % Lymphocytes (%) (Auto) 6.9 % 8.6 % Monocytes (%) (Auto) 9.6 % 12.2 % Eosinophils (%) (Auto) 1.0 % 0.9 % Basophils (%) (Auto) 0.5 % 0.4 % Neutrophils # (Auto) 7.1 TH/MM3 6.3 TH/MM3 Lymphocytes # (Auto) 0.6 TH/MM3 0.7 TH/MM3 Monocytes # (Auto) 0.8 TH/MM3 1.0 TH/MM3 Eosinophils # (Auto) 0.1 TH/MM3 0.1 TH/MM3 Basophils # (Auto) 0.0 TH/MM3 0.0 TH/MM3 CBC Comment DIFF FINAL DIFF FINAL Differential Comment Prothrombin Time 10.8 SEC Prothromb Time International Ratio 1.0 RATIO Activated Partial Thromboplast Time 27.5 SEC Blood Urea Nitrogen 37 MG/DL 33 MG/DL Creatinine 1.74 MG/DL 1.34 MG/DL Random Glucose 178 MG/DL 137 MG/DL Total Protein 8.2 GM/DL 7.6 GM/DL Albumin 3.4 GM/DL 3.2 GM/DL Calcium Level 8.6 MG/DL 8.6 MG/DL Magnesium Level 2.1 MG/DL Alkaline Phosphatase 572 U/L 533 U/L Aspartate Amino Transf (AST/SGOT) 172 U/L 141 U/L Alanine Aminotransferase (ALT/SGPT) 442 U/L 390 U/L Total Bilirubin 5.6 MG/DL 5.5 MG/DL Sodium Level 132 MEQ/L 133 MEQ/L Potassium Level 4.7 MEQ/L 4.0 MEQ/L Chloride Level 102 MEQ/L 105 MEQ/L Carbon Dioxide Level 20.7 MEQ/L 18.6 MEQ/L Anion Gap 9 MEQ/L 9 MEQ/L Estimat Glomerular Filtration Rate 38 ML/MIN 51 ML/MIN Total Creatine Kinase 152 U/L 97 U/L Creatine Kinase MB 4.0 NG/ML Troponin I LESS THAN 0.02 NG/ML LESS THAN 0.02 NG/ML Lipase 217 U/L Urine Color YELLOW Urine Turbidity CLEAR Urine pH 5.5 Urine Specific [place] 1.037 Urine Protein TRACE mg/dL Urine Glucose (UA) 1000 mg/dL Urine Ketones NEG mg/dL Urine Occult Blood NEG Urine Nitrite NEG Urine Bilirubin SMALL Urine Urobilinogen LESS THAN 2.0 MG/DL Urine Leukocyte Esterase NEG Urine RBC 1 /hpf Urine WBC LESS THAN 1 /hpf Urine Amorphous Sediment RARE Urine Mucus FEW /lpf Microscopic Urinalysis Comment CULT NOT INDICATED CA 19-9 Antigen 1646.6 U/ML Test 02/03/17 08:43 Physical Examination HEENT: Normocephalic; atraumatic; + jaundice CHEST: CTA CARDIAC: RRR ABDOMEN: Soft, nondistended, mild RUQ tenderness; no hepatosplenomegaly; bowel sounds are present in all four quadrants. EXTREMITIES: No clubbing, cyanosis, or edema. SKIN: Normal; no rash; no jaundice. HAND SEWER: No focal deficits; alert and oriented times three. (Azalea Martinez) Assessment and Plan Plan ASSESSMENT: - Obstructive jaundice. Presented with "gassy" chest/epigastric discomfort. Noted to have elevated LFTs T. Bili 5.5, AST 141, ALT 390, Alk Phosph 533. CT scan abdomen/pelvis (02/02) revealed vague mass of the pancreatic head, malignant until proven otherwise. Tumor is locally advanced. Please see above. No evidence of metastatic disease. Small to moderate hiatal hernia. Benign- appearing left renal cyst. Sigmoid colon diverticulosis without diverticulitis. Ca19-9 1646.6. Oncology following, requesting eval. for obstructive jaundice and EUS with FNA. Afebrile. WBC nL. Will plan for ERCP with possible stent placement/brushings tomorrow. - Pancreatic head mass with elevated Ca19-[address] as above. 10 lb weight loss. Oncology following. Will proceed with ERCP with brushings stent placement. If nondiagnostic, will need EUS with FNA. - Abdominal pain, mild. Likely related to obstructive process as described above. PPI. - HTN, DM, Hyperlipidemia, Diabetic foot ulcer right 4/5th toes per attending. PLAN: - Plan for ERCP with possible stent placement and brushings - Obtain consents - NPO after MN - Hold Heparin after MN - Protonix 40mg po daily - Oncology following - Supportive care - LFT, CBC in am - Possible EUS with FNA, pending results of ERCP - Further recommendations to follow based on results of above - Pt seen and examined by Dr. Torres and myself and this note is written on his behalf (Azalea Martinez) Physician Comments Seen and examined with GEOFF, Probable pancreatic cancer with biliary obstruction. Had food earlier today so ercp/ biopsy/stent planned for tomorrow. EUS later as needed. Discussedw ith pt. and at e bedside. Will follow. Thankyou (Giuliana Torres MD) Azalea Martinez Feb 03, 2017 09:59 Giuliana Torres MD Feb 03, 2017 15:33
[2017-02-03 10:10] LABS: CREATINE KINASE 78 U/L (39-308)
--- NOTE | 2017-02-03 10:34 | HHI.PR ---
Subjective Remarks Follow up for abdominal pain, pancreatic mass. The patient reports his abdominal pain has subsided currently. He is currently eating breakfast and tolerating oral intake. He denies any nausea/vomiting. He was unaware of any diagnosis of a mass previously. He is from [place], in [place] for the winter, plan to stay until May. He denies any family history of cancers. He has smoked a pipe intermittently throughout his life. Denies any heavy alcohol use. Objective Vitals Vital Signs Date Time Temp Pulse Resp B/P (MAP) Pulse Ox O2 Delivery O2 Flow Rate FiO2 02/03/17 08:57 85 02/03/17 07:28 98.0 71 20 117/68 (84) 94 02/03/17 05:03 66 02/03/17 04:49 97.9 85 18 127/72 (90) 92 02/03/17 03:15 98.0 74 18 123/72 (89) 95 02/03/17 02:54 02/03/17 02:25 67 18 128/65 (86) 97 Room Air 02/02/17 23:19 74 18 132/74 (93) 95 Room Air 02/02/17 20:42 78 18 138/72 (94) 95 Room Air 02/02/17 19:54 98.4 87 20 140/73 (95) 96 I/O 02/02/17 02/02/17 02/02/17 02/03/17 02/03/17 02/03/17 07:00 15:00 23:00 07:00 15:00 23:00 Output Total 800 ml Balance -800 ml Output Urine Total 800 ml # Voids 1 1 Result Diagram: 02/03/1742202/03/[address] Angiography 02/02/172221 Signed Impressions: Service Date/Time: Thursday, February 02, 2017 23:50 - CONCLUSION: 1. No pulmonary embolus or other acute cardiopulmonary disease demonstrated. 2. Coronary artery calcification. 3. Old right rib fractures. 4. Small hiatal hernia. Shai Armijo MD Chest X-Ray 02/02/172028 Signed Impressions: Service Date/Time: Thursday, February 02, 2017 20:45 - CONCLUSION: Patchy bilateral lower lung infiltrates. Kevin Magana MD Abdomen/Pelvis CT 02/02/17 0000 Signed Impressions: Service Date/Time: Thursday, February 02, 2017 23:50 - CONCLUSION: 1. Vague mass of the pancreatic head, malignant until proven otherwise. Tumor is locally advanced. Please see above. 2. No evidence of metastatic disease. 3. Small to moderate hiatal hernia. 4. Benign appearing left renal cysts. 5. Sigmoid colon diverticulosis without diverticulitis. Shai Armijo MD Objective Remarks GENERAL: Well-nourished, well-developed pleasant elderly male patient in NAD. SKIN: Warm and dry. No rash. HEENT: Normocephalic. Atraumatic. Pupils equal and round. +scleral icterus. Mucous membranes pink and moist. NECK: Supple. Trachea midline. CARDIOVASCULAR: Regular rate and rhythm. S1, S2 noted. No murmur appreciated. RESPIRATORY: No accessory muscle use. Clear to auscultation. Breath sounds equal bilaterally. GASTROINTESTINAL: Abdomen soft, non-tender, nondistended. Normoactive bowel sounds x4. No palpable masses. MUSCULOSKELETAL: No obvious deformities. Extremities without clubbing, cyanosis , or edema. NEUROLOGICAL: Awake and alert. No obvious cranial nerve deficits. Motor grossly within normal limits. Normal speech. PSYCHIATRIC: Appropriate mood and affect; insight and judgment normal. Medications and IVs Current Medications Medications (Trade) Dose Ordered Sig/Leonel Route Start Time Stop Time Status Last Admin (NS Flush) 2 ml BID IV FLUSH 02/03/17 09:00 (NS Flush) 2 ml UNSCH PRN IV FLUSH 02/03/17 01:45 (Tylenol) 500 mg Q4H PRN PO 02/03/17 01:45 (Heparin Inj) 5,000 units Q8HR SQ 02/03/17 06:00 02/03/17 05:25 (D50w (Vial) Inj) 50 ml UNSCH PRN IV PUSH 02/03/17 01:45 (Glucagon Inj) 1 mg UNSCH PRN OTHER 02/03/17 01:45 (NovoLOG SUPPLEMENTAL SCALE) 1 ACHS SLIDING SCALE SQ 02/03/17 08:00 (Pravachol) 10 mg DAILY PO 02/03/17 09:00 02/03/17 09:37 Sodium Chloride 1,000 ml @ 84 mls/hr [id number] IV 02/03/17 02:00 02/03/17 02:38 A/P Problem List: (1) Pancreatic mass ICD Code: K86.9 - Disease of pancreas, unspecified Status: Acute (2) Abnormal LFTs ICD Code: R79.89 - Other specified abnormal findings of blood chemistry Status: Acute (3) Renal insufficiency ICD Code: N28.9 - Disorder of kidney and ureter, unspecified Status: Acute Assessment and Plan 81-year-old male with a PMH significant for HTN, HLD, DM, and diabetic nephropathy presents with a 2-week history of atypical chest pain. CT of the abdomen/pelvis significant for mass in the head of the pancreas with local invasion. Pancreatic mass: new diagnosis, found on imaging in the ED. CT abd/pelvis images reviewed, shows significant for locally invasive mass in the head of the pancreas. Patient with 10 pound unintentional weight loss over 2 weeks. -Transaminitis with elevated T bili, +scleral icterus on exam -CA 19-9 elevated at 1646 -Oncology consulted, appreciate recommendations -Consult GI for EUS/biopsy -supportive treatment with IVF, antiemetics, and pain control prn Atypical chest pain: suspect referred pain from pancreatic mass, however need to rule out ACS -EKG reviewed, showed NSR, incomplete RBBB; No ST segment elevations or depressions -ACS ruled out with negative serial cardiac enzymes x3 and EKG without acute ischemic changes -chest pain resolved currently Hypertension: Patient reports he has been hypotensive at home (90s/50s) and has not taken his antihypertensive medications in approximately 4-5 days. BP appears fairly well controlled here. -continue to hold home antihypertensives as patient is currently normotensive -Monitor BP and restart home regimen if needed Type 2 diabetes mellitus: Patient takes oral anti-hyperglycemics in addition to 45 units of Levemir daily at bedtime -Continue to hold home levemir for now as patient has minimal oral intake and will likely be NPO for procedure -Monitor Accu-cheks and cover with SSI MARK on CKD stage III secondary to Diabetic nephropathy: patient with known CKD secondary to his diabetes. Cr 1.74 upon arrival. -continue on IVF -renal function improving, Cr 1.34 -Avoid nephrotoxins DVT Prophylaxis: teds/SCDs, avoid chemoprophylaxis with likely upcoming procedure Yamile Lopez PA-C Feb 03, 2017 10:34 am
--- NOTE | 2017-02-03 18:14 | PD.WCN.NOT ---
Wound Consult Description: Received consult from Doctor Irving for wound management of R toes Communicated with: DEVENDRA Curry [address] [place] [address] and Doctor Bull Recommendation: 1. Consult podiatry for diabetic foot ulcers to R fourth and fifth toes 2.Please cleanse wounds to R fourth toe and R fifth toe with normal saline only and pat dry. Apply mary thick santyl ointment to R fifth toe only and cover with Maxorb II and dry 2x2 gauze pad Cover R fourth toe wound with maxorb II (Calcium alginate) and dry 2x2 gauze pad over wound bed Weave dry gauze between all toes to seperate and secure dressings with rolled gauze and tape. Change dressings daily, until seen by podiatry. Additional Information: Patient seen on [address] [place] [address] for evaluation of wound management for R fourth and fifth toes. Removed Calcium alginate and dry gauze in place to R fourth and fifth toes to reveal wounds. R fourth toe wound measures 0.6cm x 0.6cm x ~0.1cm. Wound bed presents with 100 % pink tissue and minimal serous drainage, that is without odor. Periwound is noted with maceration that is circumferential. R fifth toe wound measures 1.5cm x 1cm x slough. Wound bed presents with ~80% pink tissue and ~20% yellow adherent slough. Wound has serous drainage that is minimal without odor. Periwound is noted with dry discolored hyperkeratotic tissue from 9 and 12 o'clock and maceration between 1 and 6 o'clock. Cleansed both R toe wounds with normal saline and applied Calcium alginate over wound beds and covered with dry 2x2 gauze pads. Weaved gauze between interspaces of other toes on R foot before securing dressing with rolled gauze and tape. Natalie Carranza [facility] Feb 03, 2017 18:14
[2017-02-04] VITALS (8 sets, daily range): BP systolic 106–137; BP diastolic 57–69; PULSE 52–70; RESP 16–20; TEMP 97.6–97.9; O2SAT 93–97
[2017-02-04] MEDS: SODIUM CHLOR 0.9% 1000 ML INJ 1,000 ML IV SCH ×2 (02:21→14:59)
[2017-02-04 07:27] LABS: AUTOMATED NEUTROPHIL # 3.7 TH/MM3 (1.8-7.7); BASOPHIL % 0.7 % (0.0-2.0); EOSINOPHIL # 0.1 TH/MM3 (0-0.4); EOSINOPHIL % 2.4 % (0.0-4.0); HEMATOCRIT 37.3 % (39.0-51.0); HEMO FLAGS DIFF FINAL; LYMPHOCYTE # 0.8 TH/MM3 (1.0-4.8); MEAN CELL VOLUME 98.4 FL (80.0-100.0); MEAN CORPUSCULAR HGB CONC 33.5 % (32.0-36.0); MONO % 11.3 % (0.0-8.0); NEUT % 70.6 % (16.0-70.0); PLATELET COUNT 146 TH/MM3 (150-450); RED BLOOD COUNT 3.79 MIL/MM3 (4.50-5.90); RED CELL DISTRIBUTION WIDTH 13.6 % (11.6-17.2); WHITE BLOOD COUNT 5.2 TH/MM3 (4.0-11.0)
[2017-02-04 07:46] LABS: ALT (GPT) 280 U/L (12-78); ANION GAP 11 MEQ/L (5-15); AST (GOT) 107 U/L (15-37); BICARBONATE 16.2 MEQ/L (21.0-32.0); BLOOD UREA NITROGEN 25 MG/DL (7-18); CHLORIDE 110 MEQ/L (98-107); GLOMERULAR FILTRATION RATE 74 ML/MIN (>89); POTASSIUM 4.2 MEQ/L (3.5-5.1); SODIUM (NA) 137 MEQ/L (136-145)
[2017-02-04 07:49] LABS: ALKALINE PHOSPHATASE 485 U/L (45-117); TOTAL BILIRUBIN ADULT 5.2 MG/DL (0.2-1.0)
--- NOTE | 2017-02-04 07:55 | PD.ONC.PN ---
Subjective Subjective Remarks Feeling better. No abdominal pain/N/V. Await ERCP. Objective Data Date Time Temp Pulse Resp B/P (MAP) Pulse Ox O2 Delivery O2 Flow Rate FiO2 02/04/17 04:00 97.8 59 18 132/66 (88) 93 02/04/17 00:00 97.8 68 18 137/68 (91) 96 02/04/17 00:00 Room Air 02/03/17 20:05 67 02/03/17 20:00 97.4 76 20 133/64 (87) 95 02/03/17 16:00 98.1 65 18 128/58 (81) 94 02/03/17 11:36 97.6 75 20 125/69 (87) 94 02/03/17 08:57 85 02/04/17 02/04/17 02/04/17 07:00 15:00 23:00 Intake Total 0 ml Output Total 550 ml Balance -550 ml Result Diagram: 02/04/1761602/04/1717 Laboratory Results Laboratory Tests Test 02/03/17 08:43 02/04/17 06:17 Total Creatine Kinase 78 U/L Troponin I LESS THAN 0.02 NG/ML White Blood Count 5.2 TH/MM3 Red Blood Count 3.79 MIL/MM3 Hemoglobin 12.5 GM/DL Hematocrit 37.3 % Mean Corpuscular Volume 98.4 FL Mean Corpuscular Hemoglobin 33.0 PG Mean Corpuscular Hemoglobin Concent 33.5 % Red Cell Distribution Width 13.6 % Platelet Count 146 TH/MM3 Mean Platelet Volume 10.2 FL Neutrophils (%) (Auto) 70.6 % Lymphocytes (%) (Auto) 15.0 % Monocytes (%) (Auto) 11.3 % Eosinophils (%) (Auto) 2.4 % Basophils (%) (Auto) 0.7 % Neutrophils # (Auto) 3.7 TH/MM3 Lymphocytes # (Auto) 0.8 TH/MM3 Monocytes # (Auto) 0.6 TH/MM3 Eosinophils # (Auto) 0.1 TH/MM3 Basophils # (Auto) 0.0 TH/MM3 CBC Comment DIFF FINAL Differential Comment Blood Urea Nitrogen 25 MG/DL Creatinine 0.98 MG/DL Random Glucose 149 MG/DL Total Protein 6.9 GM/DL Albumin 2.7 GM/DL Calcium Level 8.4 MG/DL Alkaline Phosphatase 485 U/L Aspartate Amino Transf (AST/SGOT) 107 U/L Alanine Aminotransferase (ALT/SGPT) 280 U/L Total Bilirubin 5.2 MG/DL Sodium Level 137 MEQ/L Potassium Level 4.2 MEQ/L Chloride Level 110 MEQ/L Carbon Dioxide Level 16.2 MEQ/L Anion Gap 11 MEQ/L Estimat Glomerular Filtration Rate 74 ML/MIN Administered Medications Medications (Trade) Dose Ordered Sig/Leonel Route PRN Reason Start Time Stop Time Status Last Admin Dose Admin Sodium Chloride (NS Flush) 2 ml BID IV FLUSH 02/03/17 09:00 02/03/17 20:41 Heparin Sodium (Porcine) (Heparin Inj) 5,000 units Q8HR SQ 02/03/17 06:00 Future Hold 02/03/17 20:40 Insulin Aspart (NovoLOG SUPPLEMENTAL SCALE) 1 ACHS SLIDING SCALE SQ 02/03/17 08:00 02/03/17 22:35 Sodium Chloride 1,000 ml @ 84 mls/hr [id number] IV 02/03/17 02:00 02/04/17 02:21 Objective Remarks GENERAL: Well-nourished, well-developed patient. Hard in hearing. SKIN: Warm and dry. HEAD: Normocephalic. EYES: +scleral icterus. No injection or drainage. NECK: Supple, trachea midline. No JVD or lymphadenopathy. LYMPHATIC: No adenopathy. CARDIOVASCULAR: Regular rate and rhythm without murmurs. RESPIRATORY: Breath sounds equal bilaterally. No accessory muscle use. GASTROINTESTINAL: Abdomen soft, slightly tender MEQ, distended, +BS EXTREMITIES: No cyanosis, or edema. MUSCULOSKELETAL: Adequate muscle tone. NEUROLOGICAL: No obvious focal deficit. Awake, alert, and oriented x3. PSYCHIATRIC: Appropriate mood and affect; insight and judgment normal. Assessment/Plan Assessment 1. Obstructive jaundice. He presented with mid epigastric pain for 1-2 weeks. He also lost about [address] abdomen and pelvis showed vague 2.7 x 3.7 x 3.1 mass in the head of pancreas. There was pancreatic ductal dilation and pancreatic tail atrophy. There is also intrahepatic and extrahepatic biliary distension. There is possibly tumor thrombus versus bland thrombus in the proximal portal vein. No metastatic disease or adenopathy noted on CT scan. Ca19-9 - 1646. This is worrisome for primary pancreatic cancer. 2. Hypertension. 3. Diabetes mellitus on insulin. 4. Chronic kidney disease, creatinine has trended back down. 5. Hyperlipidemia. Plan RECOMMENDATION 1. Await ERCP and possible stent placement, may need EUS and biopsy. 2. Get MRI when renal function improves. 3. May need surgical consult if he has localized pancreatic cancer. 4. Continue DVT prophy with heparin. Bebeto Urias MD Feb 04, 2017 07:55
[2017-02-04] MEDS: INSULIN ASPART SUPPLEMENTAL SCALE SQ SCH ×4 (08:00→20:15)
[2017-02-04] MEDS ORDERED: SODIUM CHLORID 0.9% 500 ML IV PRN (08:15)
[2017-02-04] MEDS ORDERED: CHLORHEXIDINE GLUCONATE 2 % 1 PACK (2 CLOTHS) TOPICAL PRN (08:15)
[2017-02-04] MEDS ORDERED: LACTATED RINGER'S 1000 ML IV PRN (08:15)
[2017-02-04] MEDS ORDERED: METOPROLOL TARTRATE 25 MG TAB PO PRN (08:15)
[2017-02-04] MEDS ORDERED: POVIDONE IODINE 5% (ANTISEPSIS KIT) 4 APPLICATIONS EACH NARE PRN (08:15)
[2017-02-04] MEDS: PANTOPRAZOLE SOD 40 MG DELAYED RELEASE TAB PO SCH (08:15)
[2017-02-04] MEDS: SODIUM CHLORIDE 0.9% FLUSH 10 ML FLUSH IV FLUSH SCH ×2 (08:17→20:15)
--- NOTE | 2017-02-04 09:57 | GIPROC ---
[facility] [address] [facility]. [facility], [address] ERCP PROCEDURE REPORT EXAM DATE: 02/04/2017 PATIENT NAME: Isaac Jewell MR #: [id number] BIRTHDATE: 1935 ATTENDING: Giuliana Torres MD ORDER #: [id number] [employer] LABORER: Teodoro Ponce and Sharon Simon STATUS: inpatient INDICATIONS: The patient is a 81 yr old male here for an ERCP due to abnormal blood work and jaundice PROCEDURE PERFORMED: ERCP with stent placement ERCP with biopsy MEDICATIONS: None and Per Anesthesia. CONSENT: The patient understands the risks and benefits of the procedure and understands that these risks include, but are not limited to: sedation, allergic reaction, infection, perforation and/or bleeding. Alternative means of evaluation and treatment include, among others: physical exam, x-rays, and/or surgical intervention. The patient elects to proceed with this endoscopic procedure. medical equipment was checked for proper function. Hand hygiene and appropriate measures for infection prevention was taken. After the risks, benefits and alternatives of the procedure were thoroughly explained, Informed was verified, confirmed and timeout was successfully executed by the treatment team. With the patient in left semi-prone position, medications were administered intravenously.The Pentax [id number] was passed from the mouth into the esophagus and further advanced from the esophagus into the stomach. From stomach scope was directed to the second portion of the duodenum. Major papilla was aligned with the duodenoscope. The scope position was confirmed fluoroscopically. Rest of the findings/therapeutics are given below. The scope was then completely withdrawn from the patient and the procedure completed. The pulse, BP, and O2 saturation were monitored and documented by the physician and the nursing staff throughout the entire procedure. The patient was cared for as planned according to standard protocol. The patient was then discharged to recovery in stable condition and with appropriate post procedure care. 3 cm stricture/mass distal CBD. Normal IHD, and CHD. Brushings obtained. 8.5 x 7 cm stent placed. Multiple superficial ulcers in the duodenum with duodenitis. ADVERSE EVENT: There were no complications. IMPRESSIONS: 3 cm stricture/mass distal CBD. Normal IHD, and CHD. Brushings obtained. 8.5 x 7 cm stent placed. Multiple superficial ulcers in the duodenum with duodenitis RECOMMENDATIONS: 1. Antibiotics 2. Await biopsy results 3. Liver enzymes REPEAT EXAM: Return 2 months ERCP Giuliana Torres MD eSigned: Giuliana Torres MD 02/04/2017 9:57 AM cc:
[2017-02-04] MEDS ORDERED: DO NOT ADM ANY ANTICOAGULANT DRUGS PRN (10:04)
--- NOTE | 2017-02-04 10:10 | RADRPT ---
EXAM DATE/TIME: 02/04/2017 09:33 [facility] COMPARISON: No previous studies available for comparison. INDICATIONS : Obstruction. FLUORO TIME: 2.98 minutes IMAGE COUNT: 2 CONTRAST: Instilled by Ordering Physician MEDICAL HISTORY : Hypertension. Chronic obstructive pulmonary disease. Diabetes mellitus type II. SURGICAL HISTORY : None. ENCOUNTER: Initial ACUITY: 1 day PAIN SCORE: Non-responsive. LOCATION: abdomen, biliary FINDINGS: An ERCP was performed by the ordering physician. There is a stent in the biliary system on the 2nd image. CONCLUSION: ERCP as above. Kevin Magana MD on February 04, 2017 at 10:08 Board Certified Radiologist. This report was verified electronically.
[2017-02-04] MEDS ORDERED: MORPHINE SULFATE 4 MG/ML INJ IV PUSH PRN (11:45)
[2017-02-04] MEDS ORDERED: NALOXONE HCL 0.4 MG/ML AMP IV PUSH PRN (11:45)
[2017-02-04] MEDS ORDERED: MIDAZOLAM HCL 2 MG/2 ML VIAL IV ONE (12:00)
[2017-02-04] MEDS ORDERED: PROPOFOL 200 MG/20 ML AMP IV ONE (12:00)
--- NOTE | 2017-02-04 12:09 | MB ---
cc: JAZZY BUSTOS DPM DATE OF CONSULTATION: 02/04/2017 REASON FOR CONSULTATION Right foot fourth and fifth digit ulcer with cellulitis. HISTORY OF PRESENT ILLNESS This is a 81-year-old male who was admitted with a 1-2 week history of increasing chest pain, abdominal pain. He has a past medical history of hypertension and diabetes. He is currently undergoing evaluation by GI, obstructive jaundice with pancreatic mass. GI has performed biopsy of the mass. Currently I am seeing the patient bedside. They do not live here year-round. Apparently the patient was followed by a wound care doctor in which debridements were being performed of the digit, specifically the right fourth digit and there appeared to be bone exposure at sometime, no mention of osteomyelitis per the past history but it appears to be improving. PAST MEDICAL HISTORY Past medical history is positive for: 1. Type 2 diabetes, insulin dependent. 2. Hypertension. 3. Hyperlipidemia. 4. Diabetic nephropathy. 5. Diabetic ulcers. PAST SURGICAL HISTORY 1. Cholecystectomy. 2. Left knee arthroplasty. 3. Right knee arthroplasty. OUTPATIENT MEDICATIONS 1. Jardiance. 2. Multivitamins. 3. Januvia. 4. Levemir. 5. Pravastatin. 6. Glimepiride. 7. Lisinopril. 8. Metformin. ALLERGIES None listed. FAMILY HISTORY Noncontributory. SOCIAL HISTORY Smokes a pipe. Rare alcohol usage. No illicit drug use. INPATIENT MEDICATIONS Reviewed. No mention of antibiotics. Wound care Santyl has been ordered. ALLERGIES None listed. PHYSICAL EXAMINATION VITAL SIGNS: Temperature is 97.9, pulse rate 59, respiratory rate 20, blood pressure 117/69, sating 96% on room air. This is an alert and somewhat tired, softly spoken male. He appears to be uncomfortable. Weight is 72.7 kilograms. He is able to move the upper and lower extremities. Upon evaluating the right lower extremity there is a partial borderline full thickness ulcer of the medial aspect of the fourth digit. It does not probe directly to bone, but possibly down to joint capsule. There appears to be a mixed fibrotic granular base. There is a similar type wound of the medial aspect of the fifth digit with very mild superficial heme callus, both these ulcers measure just about the size of a number two pencil eraser. There appears to be mild swelling with minimal drainage. No odor. Pulses are hard to palpate but they are audible via Doppler. The foot is warm. There is significant decrease in sensation to light touch and deep pressure below the ankle. Left lower extremity pulses are decreased as well, similar minimal sensation below the ankle but there is no open lesions. LABORATORY DATA White blood cell 5.2, hemoglobin/hematocrit 12 and 37, platelet count is 146. Chem-7 sodium 137, potassium 4.2, chloride 110, CO2 16.2, BUN is 25, random glucose is 149, bilirubin 5.2, AST 107, ALT 180, alkaline phosphatase 485. IMAGING STUDIES None specific to the extremity. 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 Wound culture taken. Continue wound care. Agree with plan from wound care nurse. X-rays ordered. I will advise pending the x-rays and the patient's progression and also pending the microbial findings. If positive the patient may need oral versus IV antibiotics. I will follow along. JOSE Aceves/GILL /11:11 AM /11:34 AM
--- NOTE | 2017-02-04 12:39 | RADRPT ---
EXAM DATE/TIME: 02/04/2017 10:14 [facility] COMPARISON: No previous studies available for comparison. INDICATIONS : Right foot swelling. MEDICAL HISTORY : Hypertension. Chronic obstructive pulmonary disease. Diabetes mellitus type II. SURGICAL HISTORY : None. ENCOUNTER: Initial ACUITY: 1 day PAIN SCORE: 0/10 LOCATION: Right foot FINDINGS: Three view examination of the right foot demonstrates no fracture or dislocation. The tarsal bones appear intact. The interphalangeal and metatarsophalangeal joints are intact. The there is a well-c orticated ossific fragment adjacent to the medial metaphysis of the distal phalanx of the 1st digit s uggesting old avulsion injury. The calcaneus is intact. Mild soft tissue thickening lateral to the 5th MTP joint. Bony mineralization is normal. CONCLUSION: No evidence of recent bony injury. Kevin Magana MD on February 04, 2017 at 12:36 Board Certified Radiologist. This report was verified electronically.
--- NOTE | 2017-02-04 14:47 | HHI.PR ---
Subjective Remarks Follow-up pancreatic mass. Tolerated ERCP. Complains of minimal abdominal pain. Seen with . Discussed with RN and podiatry. Objective Vitals Vital Signs Date Time Temp Pulse Resp B/P (MAP) Pulse Ox O2 Delivery O2 Flow Rate FiO2 02/04/17 12:17 68 02/04/17 12:00 97.6 70 20 137/65 (89) 97 02/04/17 10:29 97.6 54 20 140/74 (96) 97 Room Air 02/04/17 10:15 60 20 138/72 (94) 99 Room Air 02/04/17 10:04 97.4 57 14 153/73 (99) 99 Nasal Cannula 2 02/04/17 08:00 97.9 59 20 117/69 (85) 96 02/04/17 04:00 97.8 59 18 132/66 (88) 93 02/04/17 00:00 97.8 68 18 137/68 (91) 96 02/04/17 00:00 Room Air 02/03/17 20:05 67 02/03/17 20:00 97.4 76 20 133/64 (87) 95 02/03/17 16:00 98.1 65 18 128/58 (81) 94 I/O 02/03/17 02/03/17 02/03/17 02/04/17 02/04/17 02/04/17 07:00 15:00 23:00 07:00 15:00 23:00 Intake Total 1000 ml 0 ml 561 ml Output Total 1000 ml 200 ml 550 ml Balance 0 ml -200 ml -550 ml 561 ml Intake Oral 0 ml 0 ml IV Total 1000 ml 261 ml Other 300 ml Output Urine Total 1000 ml 200 ml 550 ml # Voids 1 0 # Bowel Movements 0 Result Diagram: 02/04/1761602/04/1717 Imaging Last Impressions GI Procedure 02/04/17 0000 Signed Impressions: Service Date/Time: January 09:33 - CONCLUSION: ERCP as above. Kevin Magana MD Foot X-Ray 02/04/17 0000 Signed Impressions: Service Date/Time: January 10:14 - CONCLUSION: No evidence of recent bony injury. Kevin Magana MD CT Angiography 02/02/172221 Signed Impressions: Service Date/Time: Thursday, February 02, 2017 23:50 - CONCLUSION: 1. No pulmonary embolus or other acute cardiopulmonary disease demonstrated. 2. Coronary artery calcification. 3. Old right rib fractures. 4. Small hiatal hernia. Shai Armijo MD Chest X-Ray 02/02/172028 Signed Impressions: Service Date/Time: Thursday, February 02, 2017 20:45 - CONCLUSION: Patchy bilateral lower lung infiltrates. Kevin Magana MD Abdomen/Pelvis CT 02/02/17 0000 Signed Impressions: Service Date/Time: Thursday, February 02, 2017 23:50 - CONCLUSION: 1. Vague mass of the pancreatic head, malignant until proven otherwise. Tumor is locally advanced. Please see above. 2. No evidence of metastatic disease. 3. Small to moderate hiatal hernia. 4. Benign appearing left renal cysts. 5. Sigmoid colon diverticulosis without diverticulitis. Shai Armijo MD Objective Remarks GENERAL: Well-nourished, well-developed pleasant elderly male patient in mild distress due to pain SKIN: Warm and dry. No rash. HEENT: Normocephalic. Atraumatic. Pupils equal and round. +scleral icterus. Mucous membranes pink and moist. CARDIOVASCULAR: Regular rate and rhythm. S1, S2 noted. No murmur appreciated. RESPIRATORY: No accessory muscle use. Clear to auscultation. Breath sounds equal bilaterally. GASTROINTESTINAL: Abdomen soft, slightly tender epigastric, nondistended. Normoactive bowel sounds x4. No palpable masses. MUSCULOSKELETAL: No obvious deformities. Extremities without clubbing, cyanosis , or edema. NEUROLOGICAL: Awake and alert. No obvious cranial nerve deficits. Motor grossly within normal limits. Normal speech. PSYCHIATRIC: Appropriate mood and affect; insight and judgment normal. Procedures ERCP A/P Problem List: (1) Pancreatic mass ICD Code: K86.9 - Disease of pancreas, unspecified Status: Acute (2) Abnormal LFTs ICD Code: R79.89 - Other specified abnormal findings of blood chemistry Status: Acute (3) Renal insufficiency ICD Code: N28.9 - Disorder of kidney and ureter, unspecified Status: Acute Assessment and Plan 81-year-old male with a PMH significant for HTN, HLD, DM, and diabetic nephropathy presents with a 2-week history of atypical chest pain. CT of the abdomen/pelvis significant for mass in the head of the pancreas with local invasion. Pancreatic mass: new diagnosis, found on imaging in the ED. CT abd/pelvis images reviewed, shows significant for locally invasive mass in the head of the pancreas. Patient with 10 pound unintentional weight loss over 2 weeks. -Transaminitis with elevated T bili, +scleral icterus on exam -CA 19-9 elevated at 1646 -Oncology consulted, appreciate recommendations. Will order MRI if renal function continues to improve -ERCP with 3 cm stricture/mass distal CBD status post stenting. Follow-up biopsy. Start Zosyn -supportive treatment with IVF, antiemetics, and pain control prn Atypical chest pain: suspect referred pain from pancreatic mass, however need to rule out ACS -EKG reviewed, showed NSR, incomplete RBBB; No ST segment elevations or depressions -ACS ruled out with negative serial cardiac enzymes x3 and EKG without acute ischemic changes -chest pain resolved currently Hypertension: Patient reports he has been hypotensive at home (90s/50s) and has not taken his antihypertensive medications in approximately 4-5 days. BP appears fairly well controlled here. -continue to hold home antihypertensives as patient is currently normotensive -Monitor BP and restart home regimen if needed Type 2 diabetes mellitus: Patient takes oral anti-hyperglycemics in addition to 45 units of Levemir daily at bedtime -Continue to hold home levemir for now as patient has minimal oral intake -Monitor Accu-cheks and cover with SSI MARK on CKD stage III secondary to Diabetic nephropathy: patient with known CKD secondary to his diabetes. Cr 1.74 upon arrival. -continue on IVF -renal function improving, -Avoid nephrotoxins Diabetic foot ulcers. Wound care. Follow-up imaging study without bony changes. Podiatry consulted DVT Prophylaxis: teds/SCDs, restart chemoprophylaxis Luke Deleon MD Feb 04, 2017 14:47
[2017-02-04] MEDS: PIPERACIL-TAZO 3.375 GM PREMIX 50 ML IV SCH ×2 (15:45→20:14)
[2017-02-04] MEDS: HEPARIN SODIUM - SQ 10,000 UNITS/ML VIAL SQ SCH (20:18)
[2017-02-05] VITALS (9 sets, daily range): BP systolic 101–132; BP diastolic 52–74; PULSE 52–67; RESP 16–20; TEMP 97.6–98.1; O2SAT 96–98
[2017-02-05] MEDS: SODIUM CHLOR 0.9% 1000 ML INJ 1,000 ML IV SCH ×2 (01:55→16:15)
[2017-02-05] MEDS: PIPERACIL-TAZO 3.375 GM PREMIX 50 ML IV SCH ×4 (01:56→20:50)
[2017-02-05] MEDS: HEPARIN SODIUM - SQ 10,000 UNITS/ML VIAL SQ SCH ×3 (04:33→20:51)
[2017-02-05] MEDS: INSULIN ASPART SUPPLEMENTAL SCALE SQ SCH ×4 (08:00→20:50)
[2017-02-05 08:27] LABS: ANION GAP 7 MEQ/L (5-15); AST (GOT) 96 U/L (15-37); BICARBONATE 19.8 MEQ/L (21.0-32.0); BLOOD UREA NITROGEN 18 MG/DL (7-18); CHLORIDE 109 MEQ/L (98-107); GLOMERULAR FILTRATION RATE 70 ML/MIN (>89); POTASSIUM 3.7 MEQ/L (3.5-5.1); SODIUM (NA) 136 MEQ/L (136-145)
[2017-02-05 08:29] LABS: ALT (GPT) 228 U/L (12-78)
[2017-02-05 08:30] LABS: ALKALINE PHOSPHATASE 431 U/L (45-117); TOTAL BILIRUBIN ADULT 3.4 MG/DL (0.2-1.0)
--- NOTE | 2017-02-05 08:46 | EKG ---
Date Performed: 02/03/2017 Time Performed: 07:38:31 PTAGE: 81 years EKG: Sinus rhythm WITH MARKED SINUS ARRHYTHMIA MARKED LEFT AXIS DEVIATION ABNORMAL ECG PREVIOUS TRACING : 02/03/2017 02.28 DOCTOR: Kervin Smith Interpretating Date/Time 02/05/2017 08:44:38
--- NOTE | 2017-02-05 08:48 | EKG ---
Date Performed: 02/03/2017 Time Performed: 02:28:57 PTAGE: 81 years EKG: Sinus rhythm WITH OCCASIONAL SUPRAVENTRICULAR PREMATURE COMPLEXES MARKED LEFT AXIS DEVIATION ABNORMAL ECG PREVIOUS TRACING : 02/02/2017 20.27 DOCTOR: Kervin Smith Interpretating Date/Time 02/05/2017 08:46:31
[2017-02-05] MEDS ORDERED: INSULIN DETEMIR 100 UNITS/ML VIAL SQ ONE (09:00)
[2017-02-05] MEDS: SODIUM CHLORIDE 0.9% FLUSH 10 ML FLUSH IV FLUSH SCH ×2 (09:54→20:51)
[2017-02-05] MEDS: PANTOPRAZOLE SOD 40 MG DELAYED RELEASE TAB PO SCH (09:54)
--- NOTE | 2017-02-05 10:10 | HHI.GIFU ---
Subjective Remarks Sitting on edge of bed in no distress. Would like diet advanced. No fevers. Denies n/v/abdominal pain. (Azalea Martinez) Objective Vitals I&O Vital Signs Date Time Temp Pulse Resp B/P (MAP) Pulse Ox O2 Delivery O2 Flow Rate FiO2 02/05/17 09:26 97 Nasal Cannula 2.00 02/05/17 08:00 98.1 57 16 118/60 (79) 97 02/05/17 04:00 97.9 55 18 101/52 (68) 96 02/05/17 00:00 97.6 61 18 127/74 (91) 97 02/04/17 20:00 97.7 64 16 106/57 (73) 97 02/04/17 20:00 52 02/04/17 20:00 Nasal Cannula 2.00 02/04/17 19:17 97 Nasal Cannula 2.00 02/04/17 16:00 97.9 66 20 130/63 (85) 97 02/04/17 12:17 68 02/04/17 12:00 97.6 70 20 137/65 (89) 97 02/04/17 10:39 Nasal Cannula 2.00 02/04/17 10:29 97.6 54 20 140/74 (96) 97 Room Air 02/04/17 10:15 60 20 138/72 (94) 99 Room Air I/O 02/04/17 02/04/17 02/04/17 02/05/17 02/05/17 02/05/17 07:00 15:00 23:00 07:00 15:00 23:00 Intake Total 0 ml 1383 ml 50 ml 1398 ml Output Total 550 ml 100 ml Balance -550 ml 1383 ml -50 ml 1398 ml Intake Oral 0 ml 480 ml 240 ml IV Total 603 ml 50 ml 1158 ml Other 300 ml Output Urine Total 550 ml 100 ml # Voids 0 3 # Bowel Movements 0 1 Laboratory Laboratory Tests Test 02/05/17 07:42 Blood Urea Nitrogen 18 Creatinine 1.02 Random Glucose 121 Total Protein 6.4 Albumin 2.6 Calcium Level 8.1 Alkaline Phosphatase 431 Aspartate Amino Transf (AST/SGOT) 96 Alanine Aminotransferase (ALT/SGPT) 228 Total Bilirubin 3.4 Sodium Level 136 Potassium Level 3.7 Chloride Level 109 Carbon Dioxide Level 19.8 Anion Gap 7 Estimat Glomerular Filtration Rate 70 Date/Time Source Procedure Growth Status 02/04/17 11:00 Wound Toe Gram Stain - Final Resulted 02/04/17 11:00 Wound Toe Wound Culture Pending Resulted Imaging Last Impressions GI Procedure 02/04/17 0000 Signed Impressions: Service Date/Time: January 09:33 - CONCLUSION: ERCP as above. Kevin Magana MD Foot X-Ray 02/04/17 0000 Signed Impressions: Service Date/Time: January 10:14 - CONCLUSION: No evidence of recent bony injury. Kevin Magana MD CT Angiography 02/02/172221 Signed Impressions: Service Date/Time: Thursday, February 02, 2017 23:50 - CONCLUSION: 1. No pulmonary embolus or other acute cardiopulmonary disease demonstrated. 2. Coronary artery calcification. 3. Old right rib fractures. 4. Small hiatal hernia. Shai Armijo MD Chest X-Ray 02/02/172028 Signed Impressions: Service Date/Time: Thursday, February 02, 2017 20:45 - CONCLUSION: Patchy bilateral lower lung infiltrates. Kevin Magana MD Abdomen/Pelvis CT 02/02/17 0000 Signed Impressions: Service Date/Time: Thursday, February 02, 2017 23:50 - CONCLUSION: 1. Vague mass of the pancreatic head, malignant until proven otherwise. Tumor is locally advanced. Please see above. 2. No evidence of metastatic disease. 3. Small to moderate hiatal hernia. 4. Benign appearing left renal cysts. 5. Sigmoid colon diverticulosis without diverticulitis. Shai Armijo MD Physical Exam HEENT: Normocephalic; atraumatic; no jaundice. CHEST: CTA CARDIAC: RRR ABDOMEN: Soft, nondistended, nontender; no hepatosplenomegaly; bowel sounds are present in all four quadrants. EXTREMITIES: No clubbing, cyanosis, or edema. SKIN: Normal; no rash; no jaundice. 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 (Azalea Martinez) Assessment and Plan Plan ASSESSMENT: - Obstructive jaundice. CT scan abdomen/pelvis (02/02/17) revealed vague mass of the pancreatic head, malignant until proven otherwise. Tumor is locally advanced. Please see above. No evidence of metastatic disease. Small to moderate hiatal hernia. Benign-appearing left renal cyst. Sigmoid colon diverticulosis without diverticulitis. Ca19- 9 1646.6. S/P ERCP with stent placement (02/04/17)---> 3 cm stricture/mass distal CBD. Normal IHD, and CHD. Brushings obtained. 8.5 x 7 cm stent placed. Multiple superficial ulcers in the duodenum with duodenitis. Brushings pending. Rpt. labs trending down. T. Bili 3.4, 96, 228, 431. No abdominal pain. - Pancreatic head mass with elevated Ca19-[address] as above. 10 lb weight loss. Oncology following. S/P ERCP as above, brushings from CBD stricture pending. If nondiagnostic, will need EUS with FNA. - Abdominal pain, mild. Likely related to obstructive process as described above. IMPROVED. PPI. - HTN, DM, Hyperlipidemia, Diabetic foot ulcer right 4/5th toes per attending. PLAN: - Heart healthy diabetic diet - Await brushings from CBD stricture - Protonix 40mg po daily - Monitor labs - Oncology following - May need EUS with FNA - Further recommendations to follow based on results of above - Pt seen and examined by Dr. Torres and myself and this note is written on his behalf (Azalea Martinez) Physician Comments Seen and examined with GEOFF, s/p ercp/stent. Await brushings. Needs EUS. Advance diet Check CA 19-9. (Giuliana Torres MD) Azalea Martinez Feb 05, 2017 10:10 Giuliana Torres MD Feb 05, 2017 14:19
[2017-02-05] MEDS ORDERED: OXYC-392 PO (13:18)
[2017-02-05] MEDS ORDERED: PANT40TA3 PO (13:18)
[2017-02-05] MEDS ORDERED: INSU1INJ5 SQ (13:18)
--- NOTE | 2017-02-05 13:19 | HHI.DCPOC ---
Discharge Care Plan Diagnosis: (1) Pancreatic mass Your Health Problems Are: Difficulty with ADL Exercise Tolerance Goals to Promote Your Health * To prevent worsening of your condition and complications * To maintain your health at the optimal level Directions to Meet Your Goals Take your medications as prescribed Follow your dietary instruction Follow activity as directed Keep your appointments as scheduled Take your immunizations and boosters as scheduled If your symptoms worsen call your PCP, if no PCP go to Urgent Care Center or Emergency Room Smoking is Dangerous to Your Health. Avoid second hand smoke Call the 24-hour hour crisis hotline for domestic abuse at Luke Deleon MD Feb 05, 2017 13:19
[2017-02-05] MEDS ORDERED: AUGM875T3 PO (13:22)
--- NOTE | 2017-02-05 13:24 | HHI.PR ---
Subjective Remarks Follow-up. Prostatic mass. He is feeling much better denies abdominal pain and tolerating diet. Seen with . Discussed with GI, could be discharged today with outpatient EUS with FNA. Discussed with oncology, obtain MRI of the abdomen. Objective Vitals Vital Signs Date Time Temp Pulse Resp B/P (MAP) Pulse Ox O2 Delivery O2 Flow Rate FiO2 02/05/17 12:00 97.9 64 16 132/68 (89) 98 02/05/17 09:26 97 Nasal Cannula 2.00 02/05/17 08:00 98.1 57 16 118/60 (79) 97 02/05/17 08:00 Room Air 02/05/17 04:00 97.9 55 18 101/52 (68) 96 02/05/17 00:00 97.6 61 18 127/74 (91) 97 02/04/17 20:00 97.7 64 16 106/57 (73) 97 02/04/17 20:00 52 02/04/17 20:00 Nasal Cannula 2.00 02/04/17 19:17 97 Nasal Cannula 2.00 02/04/17 16:00 97.9 66 20 130/63 (85) 97 I/O 02/04/17 02/04/17 02/04/17 02/05/17 02/05/17 02/05/17 07:00 15:00 23:00 07:00 15:00 23:00 Intake Total 0 ml 1383 ml 50 ml 1398 ml Output Total 550 ml 100 ml Balance -550 ml 1383 ml -50 ml 1398 ml Intake Oral 0 ml 480 ml 240 ml IV Total 603 ml 50 ml 1158 ml Other 300 ml Output Urine Total 550 ml 100 ml # Voids 0 3 # Bowel Movements 0 1 Result Diagram: 02/04/17 0617 02/05/17 0742 Imaging Last Impressions GI Procedure 02/04/17 0000 Signed Impressions: Service Date/Time: January 09:33 - CONCLUSION: ERCP as above. Kevin Magana MD Foot X-Ray 02/04/17 0000 Signed Impressions: Service Date/Time: January 10:14 - CONCLUSION: No evidence of recent bony injury. Kevin Magana MD CT Angiography 02/02/172221 Signed Impressions: Service Date/Time: Thursday, February 02, 2017 23:50 - CONCLUSION: 1. No pulmonary embolus or other acute cardiopulmonary disease demonstrated. 2. Coronary artery calcification. 3. Old right rib fractures. 4. Small hiatal hernia. Shai Armijo MD Chest X-Ray 02/02/172028 Signed Impressions: Service Date/Time: Thursday, February 02, 2017 20:45 - CONCLUSION: Patchy bilateral lower lung infiltrates. Kevin Magana MD Abdomen/Pelvis CT 02/02/17 0000 Signed Impressions: Service Date/Time: Thursday, February 02, 2017 23:50 - CONCLUSION: 1. Vague mass of the pancreatic head, malignant until proven otherwise. Tumor is locally advanced. Please see above. 2. No evidence of metastatic disease. 3. Small to moderate hiatal hernia. 4. Benign appearing left renal cysts. 5. Sigmoid colon diverticulosis without diverticulitis. Shai Armijo MD Objective Remarks GENERAL: Well-nourished, well-developed pleasant elderly male patient in no distress SKIN: Warm and dry. No rash. HEENT: Normocephalic. Atraumatic. Pupils equal and round. +scleral icterus. Mucous membranes pink and moist. CARDIOVASCULAR: Regular rate and rhythm. S1, S2 noted. No murmur appreciated. RESPIRATORY: No accessory muscle use. Clear to auscultation. Breath sounds equal bilaterally. GASTROINTESTINAL: Abdomen soft, nontender, nondistended. Normoactive bowel sounds x4. MUSCULOSKELETAL: No obvious deformities. Extremities without clubbing, cyanosis , or edema. NEUROLOGICAL: Awake and alert. No obvious cranial nerve deficits. Motor grossly within normal limits. Normal speech. PSYCHIATRIC: Appropriate mood and affect; insight and judgment normal. Procedures ERCP A/P Problem List: (1) Pancreatic mass ICD Code: K86.9 - Disease of pancreas, unspecified Status: Acute (2) Abnormal LFTs ICD Code: R79.89 - Other specified abnormal findings of blood chemistry Status: Acute (3) Renal insufficiency ICD Code: N28.9 - Disorder of kidney and ureter, unspecified Status: Acute Assessment and Plan 81-year-old male with a PMH significant for HTN, HLD, DM, and diabetic nephropathy presents with a 2-week history of atypical chest pain. CT of the abdomen/pelvis significant for mass in the head of the pancreas with local invasion. Pancreatic mass: new diagnosis, found on imaging in the ED. CT abd/pelvis images reviewed, shows significant for locally invasive mass in the head of the pancreas. Patient with 10 pound unintentional weight loss over 2 weeks. -Transaminitis with elevated T bili, +scleral icterus on exam -CA 19-9 elevated at 1646 -Oncology consulted, appreciate recommendations. Will order MRI if renal function continues to improve -ERCP with 3 cm stricture/mass distal CBD status post stenting. Follow-up biopsy. Continues shows and switch to Augmentin on discharge -supportive treatment with IVF discontinue if tolerating diet, antiemetics, and pain control prn counseled regarding narcotics Atypical chest pain: suspect referred pain from pancreatic mass, however need to rule out ACS -EKG reviewed, showed NSR, incomplete RBBB; No ST segment elevations or depressions -ACS ruled out with negative serial cardiac enzymes x3 and EKG without acute ischemic changes -chest pain resolved currently Hypertension: Patient reports he has been hypotensive at home (90s/50s) and has not taken his antihypertensive medications in approximately 4-5 days. BP appears fairly well controlled here. -continue to hold home antihypertensives as patient is currently normotensive -Monitor BP and restart home regimen if needed Type 2 diabetes mellitus: Patient takes oral anti-hyperglycemics in addition to 45 units of Levemir daily at bedtime -Hyperglycemic will restart Levemir at a lower dose and adjust accordingly. Continue to hold by mouth medications. If discharge May restart jardiance if needed but we'll continue to hold metformin, glipizide and Januvia secondary to abnormal liver function tests -Monitor Accu-cheks and cover with SSI MARK on CKD stage III secondary to Diabetic nephropathy: patient with known CKD secondary to his diabetes. Cr 1.74 upon arrival. -continue on IVF -renal function improving, -Avoid nephrotoxins Diabetic foot ulcers. Wound care. Follow-up imaging study without bony changes. Podiatry consulted follow-up culture DVT Prophylaxis: teds/SCDs, restart chemoprophylaxis Discharge Planning Possible discharge later today pending MRI Luke Deleon MD Feb 05, 2017 13:24
--- NOTE | 2017-02-05 13:27 | HHI.DS ---
Discharge Summary Admission Date Feb 03, 2017 at 10:03 Discharge Date: Feb 07, 2017 Admitting Diagnosis chest pain; pancreatic mass; diabetic foot ulcer; renal insufficienc (1) Pancreatic mass ICD Code: K86.9 - Disease of pancreas, unspecified Diagnosis: Principal Status: Acute (2) Abnormal LFTs ICD Code: R79.89 - Other specified abnormal findings of blood chemistry Diagnosis: Principal Status: Acute Procedures ERCP, right foot fourth digit amputation Brief History - From Admission 81-year-old male presents to the emergency department with a one to two-week history of increasing chest and abdominal pain. Patient has a past medical history significant for hypertension and insulin-dependent diabetes mellitus. He reports that his chest pain is present at rest. He describes it as a sharp pressure that is similar to when he had gallbladder disease. He states he started feeling worse today and his brought him to the emergency department. He denies associated shortness of breath or nausea/vomiting. He does report a 10 pound weight loss over the past 2 weeks. EKG showed an incomplete RBBB with no acute ST changes. Initial troponin negative. CT of the abdomen/pelvis significant for a mass of the pancreatic head, malignant until proven otherwise. The tumor is locally advanced. CBC/BMP: 02/04/17 0617 02/05/17 0742 Significant Findings Laboratory Tests Test 02/02/17 20:40 02/03/17 02:00 02/03/17 02:35 02/03/17 04:23 Red Blood Count 4.18 MIL/MM3 (4.50-5.90) 4.02 MIL/MM3 (4.50-5.90) Neutrophils (%) (Auto) 82.0 % (16.0-70.0) 77.9 % (16.0-70.0) Lymphocytes (%) (Auto) 6.9 % (9.0-44.0) 8.6 % (9.0-44.0) Monocytes (%) (Auto) 9.6 % (0.0-8.0) 12.2 % (0.0-8.0) Lymphocytes # (Auto) 0.6 TH/MM3 (1.0-4.8) 0.7 TH/MM3 (1.0-4.8) Blood Urea Nitrogen 37 MG/DL (7-18) 33 MG/DL (7-18) Creatinine 1.74 MG/DL (0.60-1.30) 1.34 MG/DL (0.60-1.30) Random Glucose 178 MG/DL (74-106) 137 MG/DL (74-106) Alkaline Phosphatase 572 U/L (45-117) 533 U/L (45-117) Aspartate Amino Transf (AST/SGOT) 172 U/L (15-37) 141 U/L (15-37) Alanine Aminotransferase (ALT/SGPT) 442 U/L (12-78) 390 U/L (12-78) Total Bilirubin 5.6 MG/DL (0.2-1.0) 5.5 MG/DL (0.2-1.0) Sodium Level 132 MEQ/L (136-145) 133 MEQ/L (136-145) Carbon Dioxide Level 20.7 MEQ/L (21.0-32.0) 18.6 MEQ/L (21.0-32.0) Estimat Glomerular Filtration Rate 38 ML/MIN (>89) 51 ML/MIN (>89) Creatine Kinase MB 4.0 NG/ML (0.5-3.6) Troponin I LESS THAN 0.02 NG/ML LESS THAN 0.02 NG/ML Urine Specific [place] 1.037 (1.002-1.035) Urine Glucose (UA) 1000 mg/dL (NEG) Urine Bilirubin SMALL (NEG) Urine Mucus FEW /lpf (OCC) Monocytes # (Auto) 1.0 TH/MM3 (0-0.9) Albumin 3.2 GM/DL (3.4-5.0) CA 19-9 Antigen 1646.6 U/ML (0.0-35.0) Test 02/03/17 08:43 02/04/17 06:17 02/05/17 07:42 Troponin I LESS THAN 0.02 NG/ML Red Blood Count 3.79 MIL/MM3 (4.50-5.90) Hemoglobin 12.5 GM/DL (13.0-17.0) Hematocrit 37.3 % (39.0-51.0) Platelet Count 146 TH/MM3 (150-450) Neutrophils (%) (Auto) 70.6 % (16.0-70.0) Monocytes (%) (Auto) 11.3 % (0.0-8.0) Lymphocytes # (Auto) 0.8 TH/MM3 (1.0-4.8) Blood Urea Nitrogen 25 MG/DL (7-18) Random Glucose 149 MG/DL (74-106) 121 MG/DL (74-106) Albumin 2.7 GM/DL (3.4-5.0) 2.6 GM/DL (3.4-5.0) Calcium Level 8.4 MG/DL (8.5-10.1) 8.1 MG/DL (8.5-10.1) Alkaline Phosphatase 485 U/L (45-117) 431 U/L (45-117) Aspartate Amino Transf (AST/SGOT) 107 U/L (15-37) 96 U/L (15-37) Alanine Aminotransferase (ALT/SGPT) 280 U/L (12-78) 228 U/L (12-78) Total Bilirubin 5.2 MG/DL (0.2-1.0) 3.4 MG/DL (0.2-1.0) Chloride Level 110 MEQ/L (98-107) 109 MEQ/L (98-107) Carbon Dioxide Level 16.2 MEQ/L (21.0-32.0) 19.8 MEQ/L (21.0-32.0) Estimat Glomerular Filtration Rate 74 ML/MIN (>89) 70 ML/MIN (>89) Imaging Last Impressions GI Procedure 02/04/17 0000 Signed Impressions: Service Date/Time: January 09:33 - CONCLUSION: ERCP as above. Kevin Magana MD Foot X-Ray 02/04/17 0000 Signed Impressions: Service Date/Time: January 10:14 - CONCLUSION: No evidence of recent bony injury. Kevin Magana MD CT Angiography 02/02/172221 Signed Impressions: Service Date/Time: Thursday, February 02, 2017 23:50 - CONCLUSION: 1. No pulmonary embolus or other acute cardiopulmonary disease demonstrated. 2. Coronary artery calcification. 3. Old right rib fractures. 4. Small hiatal hernia. Shai Armijo MD Chest X-Ray 02/02/172028 Signed Impressions: Service Date/Time: Thursday, February 02, 2017 20:45 - CONCLUSION: Patchy bilateral lower lung infiltrates. Kevin Magana MD Abdomen/Pelvis CT 02/02/17 0000 Signed Impressions: Service Date/Time: Thursday, February 02, 2017 23:50 - CONCLUSION: 1. Vague mass of the pancreatic head, malignant until proven otherwise. Tumor is locally advanced. Please see above. 2. No evidence of metastatic disease. 3. Small to moderate hiatal hernia. 4. Benign appearing left renal cysts. 5. Sigmoid colon diverticulosis without diverticulitis. Shai Armijo MD PE at Discharge GENERAL: Well-nourished, well-developed pleasant elderly male patient in no distress SKIN: Warm and dry. No rash. HEENT: Normocephalic. Atraumatic. Pupils equal and round. +scleral icterus. Mucous membranes pink and moist. CARDIOVASCULAR: Regular rate and rhythm. S1, S2 noted. No murmur appreciated. RESPIRATORY: No accessory muscle use. Clear to auscultation. Breath sounds equal bilaterally. GASTROINTESTINAL: Abdomen soft, nontender, nondistended. Normoactive bowel sounds x4. MUSCULOSKELETAL: No obvious deformities. Extremities without clubbing, cyanosis , or edema. NEUROLOGICAL: Awake and alert. No obvious cranial nerve deficits. Motor grossly within normal limits. Normal speech. PSYCHIATRIC: Appropriate mood and affect; insight and judgment normal. Hospital Course 81-year-old male with a PMH significant for HTN, HLD, DM, and diabetic nephropathy presents with a 2-week history of atypical chest pain. CT of the abdomen/pelvis significant for mass in the head of the pancreas with local invasion. Pancreatic mass: new diagnosis, found on imaging in the ED. CT abd/pelvis images reviewed, shows significant for locally invasive mass in the head of the pancreas. Patient with 10 pound unintentional weight loss over 2 weeks. -Transaminitis with elevated T bili, +scleral icterus on exam -CA 19-9 elevated at 1646 -Oncology consulted, appreciate recommendations. Discussed findings of splenic vein thrombosis, will monitor for now as patient is asymptomatic -ERCP with 3 cm stricture/mass distal CBD status post stenting. Follow-up biopsy. Continue IV Zosyn. Discussed with GI, preferred to undergo EUS with FNA outpatient -supportive treatment with IVF discontinue if tolerating diet, antiemetics, and pain control prn counseled regarding narcotics Atypical chest pain: suspect referred pain from pancreatic mass, however need to rule out ACS -EKG reviewed, showed NSR, incomplete RBBB; No ST segment elevations or depressions -ACS ruled out with negative serial cardiac enzymes x3 and EKG without acute ischemic changes -chest pain resolved currently Hypertension: Patient reports he has been hypotensive at home (90s/50s) and has not taken his antihypertensive medications in approximately 4-5 days. BP appears fairly well controlled here. -continue to hold home antihypertensives as patient is currently normotensive -Monitor BP and restart home regimen if needed Type 2 diabetes mellitus: Patient takes oral anti-hyperglycemics in addition to 45 units of Levemir daily at bedtime -Improving continue Levemir 20 units in the morning and decrease Levemir to 12 units at bedtime. Continue to hold by mouth medications. If discharge May restart jardiance if needed but we'll continue to hold metformin, glipizide and Januvia secondary to abnormal liver function tests -Monitor Accu-cheks and cover with SSI MARK on CKD stage III secondary to Diabetic nephropathy: patient with known CKD secondary to his diabetes. Cr 1.74 upon arrival. 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 Per ID, culture growing coag negative likely contaminant and recommends no antibiotic after surgery DVT Prophylaxis: teds/SCDs, restart chemoprophylaxis postoperatively Pt Condition on Discharge: Stable Discharge Disposition: Discharge Home Discharge Time: > 30 minutes Discharge Instructions DIET: Follow Instructions for: Diabetic Diet Activities you can perform: Regular-No Restrictions Activities to Avoid: Driving Follow up Referrals: Gastroenterology - 1 Week Oncology - 1 Week PCP Follow-up - 1 Week Podiatry - 1 Week New Medications: Amoxicillin-Clavulanate (Augmentin) 875-125 Mg Tab 1 TAB PO BID for Infection, #14 TAB 0 Refills Insulin Detemir Inj (Levemir Inj) 1,000 unit/ 10 ML Vial 20 UNITS SQ DAILYAC for Blood Sugar Management, #30 INJECTION Do not mix with any other Insulin. Insulin Detemir Inj (Levemir Inj) 1,000 unit/ 10 ML Vial 12 UNITS SQ HS for Blood Sugar Management, #30 INJECTION Do not mix with any other Insulin. Oxycodone (Oxycodone) 5 Mg Tab 5 MG PO Q8H PRN for pain, #21 TAB Pantoprazole (Pantoprazole) 40 Mg Tab 40 MG PO DAILY for Manage Heartburn, #30 TAB Changed Medications: Insulin Detemir Inj (Levemir Flextouch Pen Inj) 300 unit/3 ML Pen 15 UNITS SQ HS for Blood Sugar Management for 30 Days, #30 PEN 0 Refills ( Changed from: 45 UNITS) Continued Medications: Cholecalciferol (Vitamin D3) 1,000 Unit Chew 1000 UNITS CHEW BID for Nutritional Supplement, #1 BOTTLE 0 Refills Empagliflozin (Jardiance) 10 Mg Tab 10 MG PO DAILY for Blood Sugar Management, #30 TAB 0 Refills Multiple Vitamin (Multiple Vitamin) 1 Tab 1 TAB PO DAILY for Nutritional Supplement, TAB 0 Refills Discontinued Medications: Glimepiride (Glimepiride) 4 Mg Tab 4 MG PO DAILY for Blood Sugar Management, #60 TAB 0 Refills Lisinopril-Hctz (Lisinopril-Hctz) 20-12.5 Mg Tab 1 TAB PO DAILY for Blood Pressure Management, #30 TAB 0 Refills Metformin (Metformin) 1,000 Mg Tab 1000 MG PO BID for Blood Sugar Management, #30 TAB 0 Refills With a meal Pravastatin (Pravastatin) 10 Mg Tab 10 MG PO DAILY for Cholesterol Management, #30 TAB 0 Refills Sitagliptin (Januvia) 100 Mg Tab 100 MG PO DAILY for Blood Sugar Management, #30 TAB 0 Refills Luke Deleon MD Feb 05, 2017 13:27
--- NOTE | 2017-02-05 14:00 | PD.ONC.PN ---
Subjective Subjective Remarks Afebrile Feeling much better "I haven't had to take a pain pill since yesterday" Trying to decide whether to pursue treatment here or back in [place] Objective Data Date Time Temp Pulse Resp B/P (MAP) Pulse Ox O2 Delivery O2 Flow Rate FiO2 02/05/17 12:00 97.9 64 16 132/68 (89) 98 02/05/17 09:26 97 Nasal Cannula 2.00 02/05/17 08:00 98.1 57 16 118/60 (79) 97 02/05/17 08:00 Room Air 02/05/17 04:00 97.9 55 18 101/52 (68) 96 02/05/17 00:00 97.6 61 18 127/74 (91) 97 02/04/17 20:00 97.7 64 16 106/57 (73) 97 02/04/17 20:00 52 02/04/17 20:00 Nasal Cannula 2.00 02/04/17 19:17 97 Nasal Cannula 2.00 02/04/17 16:00 97.9 66 20 130/63 (85) 97 02/05/17 02/05/17 02/05/17 07:00 15:00 23:00 Intake Total 1398 ml Balance 1398 ml Result Diagram: 02/04/17 0617 02/05/17 0742 Laboratory Results Laboratory Tests Test 02/05/17 07:42 Blood Urea Nitrogen 18 MG/DL Creatinine 1.02 MG/DL Random Glucose 121 MG/DL Total Protein 6.4 GM/DL Albumin 2.6 GM/DL Calcium Level 8.1 MG/DL Alkaline Phosphatase 431 U/L Aspartate Amino Transf (AST/SGOT) 96 U/L Alanine Aminotransferase (ALT/SGPT) 228 U/L Total Bilirubin 3.4 MG/DL Sodium Level 136 MEQ/L Potassium Level 3.7 MEQ/L Chloride Level 109 MEQ/L Carbon Dioxide Level 19.8 MEQ/L Anion Gap 7 MEQ/L Estimat Glomerular Filtration Rate 70 ML/MIN Culture Results Microbiology Date/Time Source Procedure Growth Status 02/04/17 11:00 Wound Toe Gram Stain - Final Resulted 02/04/17 11:00 Wound Toe Wound Culture - Preliminary Resulted Administered Medications Medications (Trade) Dose Ordered Sig/Leonel Route PRN Reason Start Time Stop Time Status Last Admin Dose Admin Sodium Chloride (NS Flush) 2 ml BID IV FLUSH 02/03/17 09:00 02/05/17 09:54 Heparin Sodium (Porcine) (Heparin Inj) 5,000 units Q8HR SQ 02/03/17 06:00 Future hold 02/05/17 04:33 Insulin Aspart (NovoLOG SUPPLEMENTAL SCALE) 1 ACHS SLIDING SCALE SQ 02/03/17 08:00 02/05/17 12:23 Sodium Chloride 1,000 ml @ 84 mls/hr [id number] IV 02/03/17 02:00 02/05/17 01:55 Pantoprazole Sodium (Protonix) 40 mg DAILY PO 02/04/17 09:00 02/05/17 09:54 Oxycodone HCl (Roxicodone) 5 mg Q4H PRN PO PAIN SCALE 3 TO 5 02/04/17 11:45 02/04/17 17:29 Piperacillin Sod/ Tazobactam Sod 50 ml @ 100 mls/hr Q6H IV 02/04/17 15:00 02/05/17 09:54 Objective Remarks GENERAL: Older male, sitting up on side of bed in no acute distress. SKIN: Warm and dry. HEAD: Normocephalic. +AMBLER EYES: +scleral icterus. No injection or drainage. NECK: Supple, trachea midline. No JVD or lymphadenopathy. CARDIOVASCULAR: Regular rate and rhythm without murmurs. RESPIRATORY: Breath sounds equal bilaterally. No accessory muscle use. GASTROINTESTINAL: Abdomen protuberant, but soft. + BS EXTREMITIES: No cyanosis, or edema. MUSCULOSKELETAL: Adequate muscle tone. NEUROLOGICAL: No obvious focal deficit. Awake, alert, and oriented x3. Assessment/Plan Assessment 1. Obstructive jaundice. He presented with mid epigastric pain for 1-2 weeks. He also lost about [address] abdomen and pelvis showed vague 2.7 x 3.7 x 3.1 mass in the head of pancreas. There was pancreatic ductal dilation and pancreatic tail atrophy. There is also intrahepatic and extrahepatic biliary distension. There is possibly tumor thrombus versus bland thrombus in the proximal portal vein. No metastatic disease or adenopathy noted on CT scan. Ca19-9 - 1646. This is worrisome for primary pancreatic cancer. 2. Hypertension. 3. Diabetes mellitus on insulin. 4. Chronic kidney disease, creatinine has trended back down. 5. Hyperlipidemia. Plan 1. Okay for discharge from oncology standpoint 2. Await results of pathology from recent ERCP 3. Facesheet faxed to new patient referrals 4. Follow-up in clinic once a diagnosis has been established Attending Statement The exam, history, and the medical decision-making described in the above note were completed with the assistance of the mid-level provider. I reviewed and agree with the findings presented. I attest that I had a [id number] encounter with the patient on the same day, and personally performed and documented my assessment and findings in the medical record. (late entry) Pt has no new symptoms, LFT improving after stent placement. Cytology pending. Discussed with . If cytology inconclusive, will need EUS and biopsy but Gi plan to do procedure as outpt. F/u oncology after d/c. Discussed with pt's . Latisha Mathias Feb 05, 2017 14:00 Bebeto Urias MD Feb 08, 2017 06:57
--- NOTE | 2017-02-05 14:35 | PD.POD ---
Subjective Remarks pt in the MRI scanner not in room spoke with Past Med/Surg/Social History Social History Smoking Status: Current Every Day Smoker Objective Vital Signs Vital Signs Date Time Temp Pulse Resp B/P (MAP) Pulse Ox O2 Delivery O2 Flow Rate FiO2 02/05/17 12:00 97.9 64 16 132/68 (89) 98 02/05/17 09:26 97 Nasal Cannula 2.00 02/05/17 08:00 98.1 57 16 118/60 (79) 97 02/05/17 08:00 Room Air 02/05/17 04:00 97.9 55 18 101/52 (68) 96 02/05/17 00:00 97.6 61 18 127/74 (91) 97 02/04/17 20:00 97.7 64 16 106/57 (73) 97 02/04/17 20:00 52 02/04/17 20:00 Nasal Cannula 2.00 02/04/17 19:17 97 Nasal Cannula 2.00 02/04/17 16:00 97.9 66 20 130/63 (85) 97 Coded Allergies: No Known Allergies (Unverified , 02/02/17) Medications and IVs Administered Medications Medications (Trade) Dose Ordered Sig/Leonel Route PRN Reason Start Time Stop Time Status Last Admin Dose Admin Sodium Chloride (NS Flush) 2 ml BID IV FLUSH 02/03/17 09:00 02/05/17 09:54 Heparin Sodium (Porcine) (Heparin Inj) 5,000 units Q8HR SQ 02/03/17 06:00 Future hold 02/05/17 04:33 Insulin Aspart (NovoLOG SUPPLEMENTAL SCALE) 1 ACHS SLIDING SCALE SQ 02/03/17 08:00 02/05/17 12:23 Sodium Chloride 1,000 ml @ 84 mls/hr [id number] IV 02/03/17 02:00 02/05/17 01:55 Pantoprazole Sodium (Protonix) 40 mg DAILY PO 02/04/17 09:00 02/05/17 09:54 Oxycodone HCl (Roxicodone) 5 mg Q4H PRN PO PAIN SCALE 3 TO 5 02/04/17 11:45 02/04/17 17:29 Piperacillin Sod/ Tazobactam Sod 50 ml @ 100 mls/hr Q6H IV 02/04/17 15:00 02/05/17 09:54 Other Results Laboratory Tests Test 02/04/17 06:17 White Blood Count 5.2 TH/MM3 Red Blood Count 3.79 MIL/MM3 Hemoglobin 12.5 GM/DL Hematocrit 37.3 % Mean Corpuscular Volume 98.4 FL Mean Corpuscular Hemoglobin 33.0 PG Mean Corpuscular Hemoglobin Concent 33.5 % Red Cell Distribution Width 13.6 % Platelet Count 146 TH/MM3 Mean Platelet Volume 10.2 FL Neutrophils (%) (Auto) 70.6 % Lymphocytes (%) (Auto) 15.0 % Monocytes (%) (Auto) 11.3 % Eosinophils (%) (Auto) 2.4 % Basophils (%) (Auto) 0.7 % Neutrophils # (Auto) 3.7 TH/MM3 Lymphocytes # (Auto) 0.8 TH/MM3 Monocytes # (Auto) 0.6 TH/MM3 Eosinophils # (Auto) 0.1 TH/MM3 Basophils # (Auto) 0.0 TH/MM3 CBC Comment DIFF FINAL Differential Comment Laboratory Tests Test 02/04/17 06:17 02/05/17 07:42 Blood Urea Nitrogen 25 MG/DL 18 MG/DL Creatinine 0.98 MG/DL 1.02 MG/DL Random Glucose 149 MG/DL 121 MG/DL Total Protein 6.9 GM/DL 6.4 GM/DL Albumin 2.7 GM/DL 2.6 GM/DL Calcium Level 8.4 MG/DL 8.1 MG/DL Alkaline Phosphatase 485 U/L 431 U/L Aspartate Amino Transf (AST/SGOT) 107 U/L 96 U/L Alanine Aminotransferase (ALT/SGPT) 280 U/L 228 U/L Total Bilirubin 5.2 MG/DL 3.4 MG/DL Sodium Level 137 MEQ/L 136 MEQ/L Potassium Level 4.2 MEQ/L 3.7 MEQ/L Chloride Level 110 MEQ/L 109 MEQ/L Carbon Dioxide Level 16.2 MEQ/L 19.8 MEQ/L Anion Gap 11 MEQ/L 7 MEQ/L Estimat Glomerular Filtration Rate 74 ML/MIN 70 ML/MIN Microbiology Date/Time Source Procedure Growth Status 02/04/17 11:00 Wound Toe Gram Stain - Final Resulted 02/04/17 11:00 Wound Toe Wound Culture - Preliminary Resulted Last 72 hours Impressions GI Procedure 02/04/17 0000 Signed Impressions: Service Date/Time: January 09:33 - CONCLUSION: ERCP as above. Kevin Magana MD Foot X-Ray 02/04/17 0000 Signed Impressions: Service Date/Time: January 10:14 - CONCLUSION: No evidence of recent bony injury. Kevin Magana MD CT Angiography 02/02/172221 Signed Impressions: Service Date/Time: Thursday, February 02, 2017 23:50 - CONCLUSION: 1. No pulmonary embolus or other acute cardiopulmonary disease demonstrated. 2. Coronary artery calcification. 3. Old right rib fractures. 4. Small hiatal hernia. Shai Armijo MD Chest X-Ray 02/02/172028 Signed Impressions: Service Date/Time: Thursday, February 02, 2017 20:45 - CONCLUSION: Patchy bilateral lower lung infiltrates. Kevin Magana MD Xray appear per my read to have mild radiolucency of the 4th digit PIPJ, possible OM, MRI ordered. Assessment & Plan Diagnosis: (1) Diabetic foot ulcer ICD Codes: E11.621 - Type 2 diabetes mellitus with foot ulcer; L97.509 - Non- pressure chronic ulcer of other part of unspecified foot with unspecified severity Status: Acute A/P MRI ordered to R/O OM, spoke with and medicine, continue woundcare for now however if OM will likely need digit amp. Problem Qualifiers (1) Diabetic foot ulcer: Germain Lewis DPM Feb 05, 2017 14:35
[2017-02-05] MEDS ORDERED: GADODIAMIDE PF 287 MG/ML 20 ML VIAL (for RAD MRI) IVCONTRAST ONE (16:11)
--- NOTE | 2017-02-05 16:12 | RADRPT ---
EXAM DATE/TIME: 02/05/2017 14:25 [facility] COMPARISON: No previous studies available for comparison. INDICATIONS : Pancreatic mass. CONTRAST: 20 cc Omniscan (gadodiamide) IV MEDICAL HISTORY : Renal insufficiency, chronic. Hypertension. Diabetes mellitus type 2. SURGICAL HISTORY : Cholecystectomy. ENCOUNTER: Initial ACUITY: 1 day PAIN SCORE: 4/10 LOCATION: Abdomen. TECHNIQUE: Multiplanar, multisequence magnetic resonance imaging of the abdomen was performed wit hout and with intravenous contrast. FINDINGS: Multiplanar, multisequence imaging of the abdomen was performed with and without contra st. The MRI does show a small area of thrombus between the splenic vein and the SMV. The pancreas adjacent to that is somewhat inhomogeneous. There is not an obvious mass on the MRI but I am still c oncerned about the appearance of the CT scan and the fact that there is some adjacent thrombus. Ther e does appear to be some ductal dilatation proximal to the pancreatic neck region a secondary sign of malignancy. I do not see a significant amount of atrophy involving the tail of the pancreas. The c ommon bile duct is unremarkable. The liver is mildly inhomogeneous without any focal masses. There are a few benign renal cysts, left greater than right. CONCLUSION: I agree the appearance of the CT scan is somewhat concerning but I do not clearly see a mass on this exam. There is some thrombus in the splenic vein portal vein confluence. There is d uctal dilatation of the pancreatic duct proximal to that region of the pancreas but it is difficult t o call a mass on this exam. Kervin Jain MD on February 05, 2017 at 16:04 Board Certified Radiologist. This report was verified electronically.
--- NOTE | 2017-02-05 16:33 | RADRPT ---
EXAM DATE/TIME: 02/05/2017 14:25 [facility] COMPARISON: No previous studies available for comparison. INDICATIONS : Osteomyelitis. Foot pain. CONTRAST: 20 cc Omniscan (gadodiamide) IV MEDICAL HISTORY : Hypertension. Diabetes mellitus type 2. Renal insufficiency, chronic. SURGICAL HISTORY : Cholecystectomy. ENCOUNTER: Initial ACUITY: 1 day PAIN SCORE: 0/10 LOCATION: Right foot TECHNIQUE: Multiplanar, multisequence MRI examination was performed without contrast and after th e intravenous administration of gadolinium. FINDINGS: Multiplanar, multisequence of the right foot was performed with and without contrast. There does appear to be abnormal marrow in the fourth middle phalangeal bone. There is bony edema an d marked enhancement of the entire fourth toe concerning for osteomyelitis. The fifth toe marrow is relatively well preserved. No discreet ulceration is identified on the axial images. On the coronal T2 images there is low-grade edema in the fifth distal phalangeal bone but I do not se e any definite marrow replacement on the T1 images. 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 CONCLUSION: 1. Abnormal signal in the fourth toe concerning for osteomyelitis. Specifically the middle phalangea l bone is diffusely replaced in marrow signal. I am also concerned about the fourth distal phalangea l bone. Kervin Jain MD on February 05, 2017 at 16:15 Board Certified Radiologist. This report was verified electronically.
[2017-02-05] MEDS ORDERED: VANCOMYCIN INJ 1,450 MG in SODIUM CHLORID 0.9% 500 ML INJ 500 ML IV ONE (17:15)
[2017-02-05] MEDS ORDERED: Vancomycin Consult Pharmacy 1 EA OTHER SCH (17:15)
[2017-02-05] MEDS ORDERED: VANCOMYCIN INJ 1,750 MG in SODIUM CHLORID 0.9% 500 ML INJ 500 ML IV ONE (19:00)
[2017-02-05] MEDS ORDERED: INSULIN DETEMIR 100 UNITS/ML VIAL SQ SCH (21:00)
[2017-02-05] MEDS ORDERED: INSULIN DETEMIR 45 UNIT SQ SCH (21:00)
[2017-02-06] VITALS (7 sets, daily range): BP systolic 108–133; BP diastolic 55–73; PULSE 59–94; RESP 16–20; TEMP 97.6–98.9; O2SAT 95–98
[2017-02-06] MEDS: PIPERACIL-TAZO 3.375 GM PREMIX 50 ML IV SCH ×4 (03:20→21:30)
[2017-02-06] MEDS: SODIUM CHLOR 0.9% 1000 ML INJ 1,000 ML IV SCH ×2 (06:29→21:29)
[2017-02-06] MEDS: INSULIN ASPART SUPPLEMENTAL SCALE SQ SCH ×4 (08:00→21:31)
[2017-02-06] MEDS ORDERED: INSULIN DETEMIR 100 UNITS/ML VIAL SQ SCH ×2 (08:15→21:00)
[2017-02-06] MEDS: PANTOPRAZOLE SOD 40 MG DELAYED RELEASE TAB PO SCH (08:16)
[2017-02-06] MEDS: COLLAGENASE OINT 30 GM TUBE TOPICAL SCH (08:16)
[2017-02-06] MEDS: SODIUM CHLORIDE 0.9% FLUSH 10 ML FLUSH IV FLUSH SCH ×2 (08:16→21:00)
[2017-02-06] MEDS ORDERED: DEXTROSE 50% IN WATER 50 ML SYRINGE ONE (08:28)
[2017-02-06 08:31] LABS: ANION GAP 10 MEQ/L (5-15); AST (GOT) 70 U/L (15-37); BICARBONATE 18.5 MEQ/L (21.0-32.0); BLOOD UREA NITROGEN 20 MG/DL (7-18); CHLORIDE 109 MEQ/L (98-107); GLOMERULAR FILTRATION RATE 64 ML/MIN (>89); MAGNESIUM 1.8 MG/DL (1.5-2.5); POTASSIUM 3.9 MEQ/L (3.5-5.1); SODIUM (NA) 137 MEQ/L (136-145)
[2017-02-06 08:32] LABS: ALT (GPT) 186 U/L (12-78)
[2017-02-06 08:34] LABS: ALKALINE PHOSPHATASE 394 U/L (45-117); TOTAL BILIRUBIN ADULT 2.2 MG/DL (0.2-1.0)
--- NOTE | 2017-02-06 10:10 | PD.POD ---
Subjective Remarks Agrees to surgery, understands Om from MR Past Med/Surg/Social History Social History Smoking Status: Current Every Day Smoker Objective Vital Signs Vital Signs Date Time Temp Pulse Resp B/P (MAP) Pulse Ox O2 Delivery O2 Flow Rate FiO2 02/06/17 08:00 98.9 64 16 123/64 (83) 96 02/06/17 04:00 97.9 62 20 108/55 (72) 95 02/06/17 03:56 Room Air 02/06/17 00:37 Room Air 02/06/17 00:00 98.0 64 20 121/57 (78) 96 02/05/17 20:00 Room Air 02/05/17 20:00 98.1 67 20 131/63 (85) 97 02/05/17 19:06 98 Nasal Cannula 2.00 02/05/17 14:00 63 02/05/17 12:00 97.9 64 16 132/68 (89) 98 Coded Allergies: No Known Allergies (Unverified , 02/02/17) Medications and IVs Administered Medications Medications (Trade) Dose Ordered Sig/Leonel Route PRN Reason Start Time Stop Time Status Last Admin Dose Admin Sodium Chloride (NS Flush) 2 ml BID IV FLUSH 02/03/17 09:00 02/05/17 20:51 Heparin Sodium (Porcine) (Heparin Inj) 5,000 units Q8HR SQ 02/03/17 06:00 Future Hold 02/05/17 20:51 Insulin Aspart (NovoLOG SUPPLEMENTAL SCALE) 1 ACHS SLIDING SCALE SQ 02/03/17 08:00 02/05/17 20:50 Sodium Chloride 1,000 ml @ 84 mls/hr [id number] IV 02/03/17 02:00 02/06/17 06:29 Pantoprazole Sodium (Protonix) 40 mg DAILY PO 02/04/17 09:00 02/06/17 08:16 Oxycodone HCl (Roxicodone) 5 mg Q4H PRN PO PAIN SCALE 3 TO 5 02/04/17 11:45 02/04/17 17:29 Piperacillin Sod/ Tazobactam Sod 50 ml @ 100 mls/hr Q6H IV 02/04/17 15:00 02/06/17 09:10 Insulin Detemir (Levemir Inj) 15 units HS SQ 02/05/17 21:00 02/05/17 20:50 Collagenase (Santyl Oint) 1 applic DAILY TOPICAL 02/06/17 09:00 02/06/17 08:16 Other Results Laboratory Tests Test 02/05/17 07:42 02/06/17 07:09 Blood Urea Nitrogen 18 MG/DL 20 MG/DL Creatinine 1.02 MG/DL 1.11 MG/DL Random Glucose 121 MG/DL 65 MG/DL Total Protein 6.4 GM/DL 6.8 GM/DL Albumin 2.6 GM/DL 2.6 GM/DL Calcium Level 8.1 MG/DL 8.3 MG/DL Alkaline Phosphatase 431 U/L 394 U/L Aspartate Amino Transf (AST/SGOT) 96 U/L 70 U/L Alanine Aminotransferase (ALT/SGPT) 228 U/L 186 U/L Total Bilirubin 3.4 MG/DL 2.2 MG/DL Sodium Level 136 MEQ/L 137 MEQ/L Potassium Level 3.7 MEQ/L 3.9 MEQ/L Chloride Level 109 MEQ/L 109 MEQ/L Carbon Dioxide Level 19.8 MEQ/L 18.5 MEQ/L Anion Gap 7 MEQ/L 10 MEQ/L Estimat Glomerular Filtration Rate 70 ML/MIN 64 ML/MIN Magnesium Level 1.8 MG/DL Microbiology Date/Time Source Procedure Growth Status 02/04/17 11:00 Wound Toe Gram Stain - Final Complete 02/04/17 11:00 Wound Culture - Final Staph Sp Coagulase Negative Complete Microbiology Date/Time Source Procedure Growth Status 02/04/17 11:00 Wound Toe Gram Stain - Final Complete 02/04/17 11:00 Wound Culture - Final Staph Sp Coagulase Negative Complete Last 72 hours Impressions Foot MRI 02/05/17 0000 Signed Impressions: Service Date/Time: Sunday, February 05, 2017 14:25 - CONCLUSION: 1. Abnormal signal in the fourth toe concerning for osteomyelitis. Specifically the middle phalangeal bone is diffusely replaced in marrow signal. I am also concerned about the fourth distal phalangeal bone. Kervin Jain MD Abdomen MRI 02/05/17 0000 Signed Impressions: Service Date/Time: Sunday, February 05, 2017 14:25 - CONCLUSION: I agree the appearance of the CT scan is somewhat concerning but I do not clearly see a mass on this exam. There is some thrombus in the splenic vein portal vein confluence. There is ductal dilatation of the pancreatic duct proximal to that region of the pancreas but it is difficult to call a mass on this exam. Kervin Jain MD GI Procedure 02/04/17 0000 Signed Impressions: Service Date/Time: January 09:33 - CONCLUSION: ERCP as above. Kevin Magana MD Foot X-Ray 02/04/17 0000 Signed Impressions: Service Date/Time: January 10:14 - CONCLUSION: No evidence of recent bony injury. Kevin Magana MD Exam-Podiatry Remarks Right lower extremity there is a partial borderline full thickness ulcer of the medial aspect of the fourth digit. It does not probe directly to bone, but possibly down to joint capsule. There appears to be a mixed fibrotic granular base. There is a similar type wound of the medial aspect of the fifth digit with very mild superficial heme callus, both these ulcers measure just about the size of a number two pencil eraser. There appears to be mild swelling with minimal drainage, improved. No odor. Pulses are hard to palpate but they are audible via Doppler. The foot is warm. There is significant decrease in sensation to light touch and deep pressure below the ankle. Left lower extremity pulses are decreased as well, similar minimal sensation below the ankle but there is no open lesions. Assessment & Plan Diagnosis: (1) Diabetic foot ulcer ICD Codes: E11.621 - Type 2 diabetes mellitus with foot ulcer; L97.509 - Non- pressure chronic ulcer of other part of unspecified foot with unspecified severity Status: Acute A/P MRI reviewed, Plan for surgery in AM, right 4th digit amputation. Mild risk of poor healing due to decreased circulation CORNELIUS's ordered for base line, if bleeding is an issue will consult vascular after surgery. Problem Qualifiers (1) Diabetic foot ulcer: Germain Lewis DPLata Feb 06, 2017 10:10
--- NOTE | 2017-02-06 13:42 | HHI.PR ---
Subjective Remarks Follow-up osteomyelitis. He want to proceed with surgery. Discussed with podiatry patient will receive MAC and local, he has good exercise tolerance walks up 20 step stairs 3 times a day without symptoms. Denies abdominal pain. Objective Vitals Vital Signs Date Time Temp Pulse Resp B/P (MAP) Pulse Ox O2 Delivery O2 Flow Rate FiO2 02/06/17 12:00 97.9 59 16 126/71 (89) 98 02/06/17 09:00 96 Room Air 02/06/17 08:15 21 02/06/17 08:00 98.9 64 16 123/64 (83) 96 02/06/17 04:00 97.9 62 20 108/55 (72) 95 02/06/17 03:56 Room Air 02/06/17 00:37 Room Air 02/06/17 00:00 98.0 64 20 121/57 (78) 96 02/05/17 20:00 Room Air 02/05/17 20:00 98.1 67 20 131/63 (85) 97 02/05/17 19:06 98 Nasal Cannula 2.00 02/05/17 14:00 63 I/O 02/05/17 02/05/17 02/05/17 02/06/17 02/06/17 02/06/17 07:00 15:00 23:00 07:00 15:00 23:00 Intake Total 1398 ml 1367.5 ml 1191 ml Balance 1398 ml 1367.5 ml 1191 ml Intake Oral 240 ml 800 ml 240 ml IV Total 1158 ml 567.5 ml 951 ml # Voids 3 3 4 # Bowel Movements 1 0 2 Result Diagram: 02/04/17 0617 02/06/17 0709 Imaging Last Impressions Foot MRI 02/05/17 0000 Signed Impressions: Service Date/Time: Sunday, February 05, 2017 14:25 - CONCLUSION: 1. Abnormal signal in the fourth toe concerning for osteomyelitis. Specifically the middle phalangeal bone is diffusely replaced in marrow signal. I am also concerned about the fourth distal phalangeal bone. Kervin Jain MD Abdomen MRI 02/05/17 0000 Signed Impressions: Service Date/Time: Sunday, February 05, 2017 14:25 - CONCLUSION: I agree the appearance of the CT scan is somewhat concerning but I do not clearly see a mass on this exam. There is some thrombus in the splenic vein portal vein confluence. There is ductal dilatation of the pancreatic duct proximal to that region of the pancreas but it is difficult to call a mass on this exam. Kervin Jain MD GI Procedure 02/04/17 0000 Signed Impressions: Service Date/Time: January 09:33 - CONCLUSION: ERCP as above. Kevin Magana MD Foot X-Ray 02/04/17 0000 Signed Impressions: Service Date/Time: January 10:14 - CONCLUSION: No evidence of recent bony injury. Kevin Magana MD CT Angiography 02/02/172221 Signed Impressions: Service Date/Time: Thursday, February 02, 2017 23:50 - CONCLUSION: 1. No pulmonary embolus or other acute cardiopulmonary disease demonstrated. 2. Coronary artery calcification. 3. Old right rib fractures. 4. Small hiatal hernia. Shai Armijo MD Chest X-Ray 02/02/[id number] Signed Impressions: Service Date/Time: Thursday, February 02, 2017 20:45 - CONCLUSION: Patchy bilateral lower lung infiltrates. Kevin Magana MD Abdomen/Pelvis CT 02/02/17 0000 Signed Impressions: Service Date/Time: Thursday, February 02, 2017 23:50 - CONCLUSION: 1. Vague mass of the pancreatic head, malignant until proven otherwise. Tumor is locally advanced. Please see above. 2. No evidence of metastatic disease. 3. Small to moderate hiatal hernia. 4. Benign appearing left renal cysts. 5. Sigmoid colon diverticulosis without diverticulitis. Shai Armijo MD Objective Remarks GENERAL: Well-nourished, well-developed pleasant elderly male patient in no distress SKIN: Warm and dry. No rash. HEENT: Normocephalic. Atraumatic. Pupils equal and round. +scleral icterus. Mucous membranes pink and moist. CARDIOVASCULAR: Regular rate and rhythm. S1, S2 noted. No murmur appreciated. RESPIRATORY: No accessory muscle use. Clear to auscultation. Breath sounds equal bilaterally. GASTROINTESTINAL: Abdomen soft, nontender, nondistended. Normoactive bowel sounds x4. MUSCULOSKELETAL: No obvious deformities. Extremities without clubbing, cyanosis , or edema. Dry dressing right foot NEUROLOGICAL: Awake and alert. No obvious cranial nerve deficits. Motor grossly within normal limits. Normal speech. PSYCHIATRIC: Appropriate mood and affect; insight and judgment normal. Procedures ERCP A/P Problem List: (1) Pancreatic mass ICD Code: K86.9 - Disease of pancreas, unspecified Status: Acute (2) Abnormal LFTs ICD Code: R79.89 - Other specified abnormal findings of blood chemistry Status: Acute Assessment and Plan 81-year-old male with a PMH significant for HTN, HLD, DM, and diabetic nephropathy presents with a 2-week history of atypical chest pain. CT of the abdomen/pelvis significant for mass in the head of the pancreas with local invasion. Pancreatic mass: new diagnosis, found on imaging in the ED. CT abd/pelvis images reviewed, shows significant for locally invasive mass in the head of the pancreas. Patient with 10 pound unintentional weight loss over 2 weeks. -Transaminitis with elevated T bili, +scleral icterus on exam -CA 19-9 elevated at 1646 -Oncology consulted, appreciate recommendations. Discussed findings of splenic vein thrombosis, will monitor for now as patient is asymptomatic -ERCP with 3 cm stricture/mass distal CBD status post stenting. Follow-up biopsy. Continue IV Zosyn. Will alert GI patient still in-house will proceed with EUS with FNA -supportive treatment with IVF discontinue if tolerating diet, antiemetics, and pain control prn counseled regarding narcotics Atypical chest pain: suspect referred pain from pancreatic mass, however need to rule out ACS -EKG reviewed, showed NSR, incomplete RBBB; No ST segment elevations or depressions -ACS ruled out with negative serial cardiac enzymes x3 and EKG without acute ischemic changes -chest pain resolved currently Hypertension: Patient reports he has been hypotensive at home (90s/50s) and has not taken his antihypertensive medications in approximately 4-5 days. BP appears fairly well controlled here. -continue to hold home antihypertensives as patient is currently normotensive -Monitor BP and restart home regimen if needed Type 2 diabetes mellitus: Patient takes oral anti-hyperglycemics in addition to 45 units of Levemir daily at bedtime -Erratic control hyperglycemic yesterday afternoon but hypoglycemic this morning. Start Levemir 12 units in the morning and decrease Levemir to 12 units at bedtime. Continue to hold by mouth medications. If discharge May restart jardiance if needed but we'll continue to hold metformin, glipizide and Januvia secondary to abnormal liver function tests -Monitor Accu-cheks and cover with SSI MARK on CKD stage III secondary to Diabetic nephropathy: patient with known CKD secondary to his diabetes. Cr 1.74 upon arrival. -continue on IVF -renal function improving, -Avoid nephrotoxins Diabetic foot infection with osteomyelitis for surgery in the morning. IV vancomycin added to IV Zosyn. Consult infectious disease. DVT Prophylaxis: teds/SCDs, restart chemoprophylaxis postoperatively Discharge Planning Not ready for discharge Luke Deleon MD Feb 06, 2017 13:42
[2017-02-06] MEDS ORDERED: VANCOMYCIN INJ 1,250 MG in SODIUM CHLOR 0.9% 250 ML INJ 250 ML IV SCH (14:00)
--- NOTE | 2017-02-06 14:23 | RADRPT ---
EXAM DATE/TIME: 02/06/2017 00:00 [facility] COMPARISON: No previous studies available for comparison. INDICATIONS : Diabetic Foot Ulcer TECHNIQUE: Five-station segmental examination of the lower extremities was performed. Pulsed-cuff waveform tracings and pressures were recorded. Ankle-brachial indices and toe-brachial indices were calculated. PRESSURES (mmHg): Brachial (arm): Right 123 Left IV Site Lower Thigh: Right 161 Left 163 Calf: Right 128 Left 120 Ankle: Right 75 Left 128 Toe: Right 61 Left 95 CORNELIUS: Right 0.61 Left 1.04 TBI: Right 0.50 Left 0.77 PULSED CUFF WAVEFORMS: Diminished amplitude bilaterally at the ankles. CONCLUSION: 1. Moderate obstructive disease right lower extremity. Mil Peralta MD on February 06, 2017 at 14:20 Board Certified Radiologist. This report was verified electronically.
--- NOTE | 2017-02-06 14:51 | MB ---
cc: RUFINA DOMINGUEZ MD, JOSE R. MD DATE OF CONSULTATION: 02/06/[address] Deleon. REASON FOR CONSULTATION Diabetic foot infection, osteomyelitis on MRI. HISTORY OF PRESENT ILLNESS This is a 81-year-old white male who presented to the emergency department on 02/02 with chest pain. The patient is down here from [place]. He reports that he has had a wound of his right foot involving the fourth toe for about four weeks. The patient's is at bedside and she also volunteered information on the patient's condition. He was evaluated in the emergency department and admitted for workup of the chest pain. He was found to have a pancreatic mass. The patient was also evaluated for the right fourth toe wound and x-ray of the foot was performed on 02/04 which showed no evidence of bony injury. The patient had previously seen a roll contour grinder. He had further evaluation of the toe and an MRI was performed and it showed abnormal signal in the fourth toe concerning for osteomyelitis specifically at the middle phalangeal bone. There was also concern about the fourth distal phalangeal bone as well. The right fourth toe is mildly erythematous. The right fifth toe has pruritic discoloration at the tip. A culture was taken from the wound and there was heavy growth of three different morphologies of Staph coagulase-negative. There is no drainage coming from the toe currently. I see no visible significant ulceration at the fourth toe. The patient denies fever, chills or nausea. He is awake and alert. He communicates very little. The patient was evaluated by Podiatry and plans are for resection of the fourth toe on the right foot because of osteomyelitis tomorrow. PAST MEDICAL HISTORY 1. Type 2 diabetes mellitus. 2. Hypertension. 3. Hyperlipidemia. 4. Diabetic neuropathy. 5. Cholecystectomy. 6. Left knee arthroplasty. 7. Right knee repair. 8. History of stage IV kidney disease. ALLERGIES NO KNOWN DRUG ALLERGIES. MEDICATIONS 1. Piperacillin/tazobactam. 2. Levemir. 3. Oxycodone p.r.n. SOCIAL HISTORY The patient is . The patient uses tobacco by a pipe. Occasional alcohol. No illicit drugs. FAMILY HISTORY Noncontributory. REVIEW OF SYSTEMS Negative on 10-point review. PHYSICAL EXAMINATION GENERAL: This is a well-developed male who is in no acute distress. He is awake and alert and oriented. VITAL SIGNS: Temperature 98.9, blood pressure 123/64, respirations 16, heart rate 64. HEENT: Extraocular movements grossly intact. Pupils reactive to light without icterus. Oropharynx - moist mucosa without lesions. NECK: Supple without adenopathy. LUNGS: Clear to auscultation. HEART: Regular, S1 and S2. No murmurs, rubs or gallops. ABDOMEN: Bowel sounds present, soft, nontender. RECTAL: Not performed. EXTREMITIES: No clubbing, cyanosis or edema. The right fourth toe with very minimal edema and no swelling. The right fifth toe has purplish dry eschar at the tip and there is a tiny pressure-type ulceration approximately 2 mm in diameter at the inner aspect of the left fifth toe where it abuts the fourth toe. SKIN: No diffuse rash. NEUROLOGIC: Nonfocal. LABORATORY DATA WBC 5.2, platelets 146, hemoglobin 12.5, estimated GFR 64, creatinine 1.1, BUN 20. IMPRESSION 1. Osteomyelitis of the right fourth toe. 2. Diabetes mellitus. 3. Stage IV chronic kidney disease. RECOMMENDATIONS Since the plan is to perform amputation of the right fourth toe, the antibiotics can be discontinued after the surgical procedure is performed since he will not require antibiotics after the amputation. The culture of the foot has Staph coagulase negative which is likely skin contaminants. I recommend stopping antibiotics after the surgical procedure is performed and the patient can be monitored for wound healing after the surgery. Thank you this consultation. The patient can be discharged from my standpoint after he has the procedure and is cleared by Podiatry. Rufina Dominguez MD FD/MELISSA /12:17 PM /2:13 PM
[2017-02-07] VITALS: BP 121/65; PULSE 61; RESP 18; TEMP 97.7; O2SAT 96
[2017-02-07] MEDS: SODIUM CHLOR 0.9% 1000 ML INJ 1,000 ML IV SCH (01:20)
[2017-02-07] MEDS: PIPERACIL-TAZO 3.375 GM PREMIX 50 ML IV SCH ×2 (02:32→09:03)
[2017-02-07 04:00] VITALS: BP 127/68; PULSE 64; RESP 21; TEMP 98.1; O2SAT 95
[2017-02-07] MEDS ORDERED: BUPIVACAINE HCL PF 0.5% 30 ML VIAL ONE (07:03)
[2017-02-07] MEDS ORDERED: NEOMYCIN/POLYMYXIN 1 ML G.U. IRRIGANT ONE (07:05)
[2017-02-07] MEDS ORDERED: INSULIN DETEMIR 100 UNITS/ML VIAL SQ SCH (08:00)
[2017-02-07] MEDS ORDERED: DO NOT ADM ANY ANTICOAGULANT DRUGS PRN (08:05)
[2017-02-07] MEDS: INSULIN ASPART SUPPLEMENTAL SCALE SQ SCH (08:24)
--- NOTE | 2017-02-07 08:30 | HHI.PR ---
Immediate Post Op Note Procedure Date: Feb 07, 2017 Pre Op Diagnosis: (1) Osteomyelitis of toe of right foot (2) Diabetic foot ulcer Post Op Diagnosis: (1) Osteomyelitis of toe of right foot (2) Diabetic foot ulcer Surgeon: Germain Rosario Marketing Analytics Analyst(s): scrub Procedure: Right 4th digit amputation Findings: good bleeding at the time of surgery, margin of amputation appears to have no signs of infection Additional Information: Pt is clear to follow up out pt 3-5 days, PO ABX for 7 days ok at this point, heel WB in post op shoe Complications: none Specimen(s) removed: digit for path, deep wound cx Anesthesia: TIVA, Local Drains: None IVF Tourniquet time (min at mmHg) 8 min 215 mmhg ankle right Patient Condition: Good Implant/Devices: SEE IMPLANT LOG (if applicable) Date/Time of Procedure: SEE SURGICAL CARE RECORD Germain RosarioM Feb 07, 2017 08:30
[2017-02-07 09:00] VITALS: BP 138/71; PULSE 58; RESP 20; TEMP 98; O2SAT 95
[2017-02-07] MEDS: COLLAGENASE OINT 30 GM TUBE TOPICAL SCH (09:04)
[2017-02-07] MEDS: PANTOPRAZOLE SOD 40 MG DELAYED RELEASE TAB PO SCH (09:04)
[2017-02-07] MEDS: SODIUM CHLORIDE 0.9% FLUSH 10 ML FLUSH IV FLUSH SCH (09:04)
--- NOTE | 2017-02-07 09:13 | MP ---
cc: JAZZY BUSTOS M DATE OF SURGERY: 02/07/2017 PREOPERATIVE DIAGNOSIS: Right foot fourth digit ulcer with osteomyelitis. POSTOPERATIVE DIAGNOSIS: Right foot fourth digit ulcer with osteomyelitis. OPERATION: Right fourth digit amputation. COMPLICATIONS None SPECIMEN Digit for pathological analysis. Deep wound culture for microbial analysis. ANESTHESIA TIVA with local anesthesia. DRAINS: None. IV FLUIDS Please see anesthesia report. TOURNIQUET TIME 8 minutes at a setting of 215 mmHg about the patient's right ankle. CONDITION: Good. INTRAOPERATIVE FINDINGS Good bleeding at amputation site with no signs of infection. JUSTIFICATION FOR PROCEDURE: The patient is a 81 year-old male who was admitted for epigastric pain. There was noted to be a pancreatic mass. Upon further evaluation the patient has a chronic diabetic foot ulcer that has a history of bone exposure. Radiographic findings per my read showed radiolucency of the fourth digit proximal phalanx. MRI confirmed suspicion for likely osteomyelitis. I advised the patient digit amputation is likely the best option. However, long-term IV antibiotics may help. We opted to move forward with digit amputation to prevent any possible renal complication due to new onset diagnosis of suspicious pancreatic mass. No guarantees were given or implied regarding the outcome. The patient understood there is a possibility of delayed healing, poor healing and need for more surgery at a later date. PROCEDURE IN DETAIL Under mild sedation the patient is brought to the operating room, placed on the operative table in the supine position. Following the induction of total IV antibiotics, local anesthesia was obtained about the forefoot utilizing standard block fashion. The right foot was then scrubbed, prepped and draped in the usual aseptic fashion. The foot was elevated, exsanguinated and previously placed mid ankle tourniquet was inflated 215 mmHg. An elliptical fishmouth type incision was made at the level of the right fourth digit. The digit was then sharply disarticulated to the level of the fourth MPJ. The articular surface of the fourth metatarsal head was intact without any signs of softness or clinical signs of osteomyelitis. The skin appeared to be viable. Upon relieving the tourniquet there is good perfusion to the amputation site. No pulsatile bleeding. However, the Bovie was needed to ligate venous and arterial structures. The wound was then flushed with copious amounts of normal saline. Deep culture taken. Deep reapproximation of tissue took place utilizing Vicryl. Skin was closed utilizing nylon. A bulky bandage placed. The patient transferred from OR to PACU with all vital signs stable. Per podiatry the patient can followup outpatient on empiric antibiotics for 5-7 days. Postoperative shoe has been ordered. The patient is a heel weight bear to tolerance. Will likely follow the patient in the clinic, or if the patient is still in the hospital for the next 3-5 days we will of course change the bandage. JOSE Aceves /8:33 AM /8:45 AM
--- NOTE | 2017-02-07 10:32 | HHI.PR ---
Subjective Remarks Follow-up right fourth toe osteomyelitis. Patient tolerated surgery does not have any complaints no nausea and pain. Discussed with podiatry and RN. Patient agrees to proceed with EUS, we'll contact GI Objective Vitals Vital Signs Date Time Temp Pulse Resp B/P (MAP) Pulse Ox O2 Delivery O2 Flow Rate FiO2 02/07/17 08:45 56 16 128/72 (90) 96 Room Air 02/07/17 08:30 54 16 129/76 (93) 96 Room Air 02/07/17 08:15 98.0 58 16 117/69 (85) 96 02/07/17 04:00 98.1 64 21 127/68 (87) 95 02/07/17 04:00 Room Air 02/07/17 00:00 Room Air 02/07/17 00:00 97.7 61 18 121/65 (83) 96 02/06/17 20:00 69 02/06/17 20:00 97.6 64 20 133/73 (93) 96 02/06/17 20:00 Room Air 02/06/17 17:42 97 21 02/06/17 16:00 97.6 61 18 123/65 (84) 97 02/06/17 12:00 97.9 59 16 126/71 (89) 98 I/O 02/06/17 02/06/17 02/06/17 02/07/17 02/07/17 02/07/17 07:00 15:00 23:00 07:00 15:00 23:00 Intake Total 1191 ml 1490 ml 50 ml 210 ml Output Total 650 ml 5 ml Balance 1191 ml 1490 ml -600 ml 205 ml Intake Oral 240 ml 1440 ml 0 ml IV Total 951 ml 50 ml 50 ml 10 ml Other 200 ml Output Urine Total 650 ml Estimated Blood Loss 5 ml # Voids 4 6 # Bowel Movements 2 2 2 Result Diagram: 02/04/17 0617 02/06/17 0709 Imaging Last Impressions Foot MRI 02/05/17 0000 Signed Impressions: Service Date/Time: Sunday, February 05, 2017 14:25 - CONCLUSION: 1. Abnormal signal in the fourth toe concerning for osteomyelitis. Specifically the middle phalangeal bone is diffusely replaced in marrow signal. I am also concerned about the fourth distal phalangeal bone. Kervin Jain MD Abdomen MRI 02/05/17 0000 Signed Impressions: Service Date/Time: Sunday, February 05, 2017 14:25 - CONCLUSION: I agree the appearance of the CT scan is somewhat concerning but I do not clearly see a mass on this exam. There is some thrombus in the splenic vein portal vein confluence. There is ductal dilatation of the pancreatic duct proximal to that region of the pancreas but it is difficult to call a mass on this exam. Kervin Jain MD GI Procedure 02/04/17 0000 Signed Impressions: Service Date/Time: January 09:33 - CONCLUSION: ERCP as above. Kevin Magana MD Foot X-Ray 02/04/17 0000 Signed Impressions: Service Date/Time: January 10:14 - CONCLUSION: No evidence of recent bony injury. Kevin Magana MD CT Angiography 02/02/172221 Signed Impressions: Service Date/Time: Thursday, February 02, 2017 23:50 - CONCLUSION: 1. No pulmonary embolus or other acute cardiopulmonary disease demonstrated. 2. Coronary artery calcification. 3. Old right rib fractures. 4. Small hiatal hernia. Shai Armijo MD Chest X-Ray 02/02/172028 Signed Impressions: Service Date/Time: Thursday, February 02, 2017 20:45 - CONCLUSION: Patchy bilateral lower lung infiltrates. Kevin Magana MD Abdomen/Pelvis CT 02/02/17 0000 Signed Impressions: Service Date/Time: Thursday, February 02, 2017 23:50 - CONCLUSION: 1. Vague mass of the pancreatic head, malignant until proven otherwise. Tumor is locally advanced. Please see above. 2. No evidence of metastatic disease. 3. Small to moderate hiatal hernia. 4. Benign appearing left renal cysts. 5. Sigmoid colon diverticulosis without diverticulitis. Shai Armijo MD Objective Remarks GENERAL: Well-nourished, well-developed pleasant elderly male patient in no distress SKIN: Warm and dry. No rash. HEENT: Normocephalic. Atraumatic. Pupils equal and round. +scleral icterus. Mucous membranes pink and moist. CARDIOVASCULAR: Regular rate and rhythm. S1, S2 noted. No murmur appreciated. RESPIRATORY: No accessory muscle use. Clear to auscultation. Breath sounds equal bilaterally. GASTROINTESTINAL: Abdomen soft, nontender, nondistended. Normoactive bowel sounds x4. MUSCULOSKELETAL: No obvious deformities. Extremities without clubbing, cyanosis , or edema. Dry dressing right foot NEUROLOGICAL: Awake and alert. No obvious cranial nerve deficits. Motor grossly within normal limits. Normal speech. Procedures ERCP Right foot fourth digit amputation A/P Problem List: (1) Pancreatic mass ICD Code: K86.9 - Disease of pancreas, unspecified Status: Acute (2) Abnormal LFTs ICD Code: R79.89 - Other specified abnormal findings of blood chemistry Status: Acute Assessment and Plan 81-year-old male with a PMH significant for HTN, HLD, DM, and diabetic nephropathy presents with a 2-week history of atypical chest pain. CT of the abdomen/pelvis significant for mass in the head of the pancreas with local invasion. Pancreatic mass: new diagnosis, found on imaging in the ED. CT abd/pelvis images reviewed, shows significant for locally invasive mass in the head of the pancreas. Patient with 10 pound unintentional weight loss over 2 weeks. -Transaminitis with elevated T bili, +scleral icterus on exam -CA 19-9 elevated at 1646 -Oncology consulted, appreciate recommendations. Discussed findings of splenic vein thrombosis, will monitor for now as patient is asymptomatic -ERCP with 3 cm stricture/mass distal CBD status post stenting. Follow-up biopsy. Continue IV Zosyn. Discussed with GI, preferred to undergo EUS with FNA outpatient -supportive treatment with IVF discontinue if tolerating diet, antiemetics, and pain control prn counseled regarding narcotics Atypical chest pain: suspect referred pain from pancreatic mass, however need to rule out ACS -EKG reviewed, showed NSR, incomplete RBBB; No ST segment elevations or depressions -ACS ruled out with negative serial cardiac enzymes x3 and EKG without acute ischemic changes -chest pain resolved currently Hypertension: Patient reports he has been hypotensive at home (90s/50s) and has not taken his antihypertensive medications in approximately 4-5 days. BP appears fairly well controlled here. -continue to hold home antihypertensives as patient is currently normotensive -Monitor BP and restart home regimen if needed Type 2 diabetes mellitus: Patient takes oral anti-hyperglycemics in addition to 45 units of Levemir daily at bedtime -Improving continue Levemir 20 units in the morning and decrease Levemir to 12 units at bedtime. Continue to hold by mouth medications. If discharge May restart jardiance if needed but we'll continue to hold metformin, glipizide and Januvia secondary to abnormal liver function tests -Monitor Accu-cheks and cover with SSI MARK on CKD stage III secondary to Diabetic nephropathy: patient with known CKD secondary to his diabetes. Cr 1.74 upon arrival. 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 Per ID, culture growing coag negative likely contaminant and recommends no antibiotic after surgery DVT Prophylaxis: teds/SCDs, restart chemoprophylaxis postoperatively Discharge Planning Possible discharge today if pain under control Luke Deleon MD Feb 07, 2017 10:32
[2017-02-07] MEDS ORDERED: LEVEMIR SQ ×2 (10:36)
[2017-02-07] MEDS ORDERED: PROPOFOL 200 MG/20 ML AMP IV ONE (12:00)
[2017-02-07] MEDS ORDERED: MIDAZOLAM HCL 2 MG/2 ML VIAL IV ONE (12:00)
[2017-02-08] MEDS ORDERED: PHARMACY ORDERED LAB ONE (13:45)
== END 2017-02-07 11:55 | disposition home or self-care (01) | DRG 503 ==
LOC: NEPC 19:50 → NEDA 02-03 00:46 → UNDOADMIN 02-03 00:46 → NEDA 02-03 01:38 → INTOOBSV 02-03 01:38 → NEPHCDU 02-03 02:39 → OBSVTOIN 02-03 10:03 → N04B 02-03 14:47
PROVIDERS: ADMIT Internal Medicine; ATTEND Internal Medicine
PROC: 0FB98ZX Excision of Common Bile Duct, Via Natural or Artificial Opening Endoscopic, Diagnostic (ICD-10-PCS; 2017-02-04)
PROC: 0F798DZ Dilation of Common Bile Duct with Intraluminal Device, Via Natural or Artificial Opening Endoscopic (ICD-10-PCS; 2017-02-04)
PROC: 0Y6V0Z0 Detachment at Right 4th Toe, Complete, Open Approach (ICD-10-PCS; principal; 2017-02-07 07:28)
DX: M86.171 Other acute osteomyelitis, right ankle and foot (principal); K83.1 Obstruction of bile duct; N18.4 Chronic kidney disease, stage 4 (severe); N17.9 Acute kidney failure, unspecified; E11.21 Type 2 diabetes mellitus with diabetic nephropathy; E11.621 Type 2 diabetes mellitus with foot ulcer; L97.519 Non-pressure chronic ulcer of other part of right foot with unspecified severity; Z79.4 Long term (current) use of insulin; Z79.84 Long term (current) use of oral hypoglycemic drugs; K86.9 Disease of pancreas, unspecified; R94.5 Abnormal results of liver function studies; K29.80 Duodenitis without bleeding; I10 Essential (primary) hypertension; E78.5 Hyperlipidemia, unspecified; F17.290 Nicotine dependence, other tobacco product, uncomplicated; R07.89 Other chest pain; H91.90 Unspecified hearing loss, unspecified ear; J44.9 Chronic obstructive pulmonary disease, unspecified; K44.9 Diaphragmatic hernia without obstruction or gangrene; K57.30 Diverticulosis of large intestine without perforation or abscess without bleeding
CPT/HCPCS: 71010; 71275; 73630; 73720; 74177; 74183; 74330; 80053; 81001; 82550; 82552; 82948; 83690; 83735; 84484; 85025; 85610; 85730; 86301; 86403; 87015; 87070; 87102; 87116; 87205; 87206; 88305; 88311; 93005; 93923; A9579; C1769; C2625; J1644; J1815; J2250; J2543; J3010; J3370; J7030; J7040; J7050; Q9967

== ENCOUNTER 2017-02-11 14:19 | Inpatient (IN) | payer MEDICARE, BC ==
[2017-02-11] VITALS (7 sets, daily range): BP systolic 99–157; BP diastolic 61–78; PULSE 64–90; RESP 16–28; TEMP 96.5–102; O2SAT 88–98
[~2017-02-11] VITALS: Ht 165.1 cm; Wt 76.5 kg
[~2017-02-11 14:19] MED LIST: AUGM875T3 PO; CHOL100025 CHEW; EMPA1TAB PO; INSU1INJ5 SQ; LEVEMIR SQ; LIDOCAINE HCL 1% PF 5 ML SYRINGE OTHER ONE; MULTTAB67 PO; OXYC-392 PO; PANT40TA3 PO; PHENYLEPH/NS 1000 MCG/10 ML SYR IV ONE; PROPOFOL 200 MG/20 ML AMP IV ONE
--- NOTE | 2017-02-11 14:33 | PD ---
HPI Chief Complaint: altered mental status Time Seen by Provider: 14:33 Travel History International Travel<30 days: No Contact w/Intl Traveler<30days: No Traveled to known affect area: No History of Present Illness HPI 81-year-old male was brought to the emergency room by EMS with history of altered mental status has progressively worsening as per his and low-grade fever. 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 He is on Augmentin. His temperature was 102 on route. Patient looks lethargic but upon asking he answers the questions appropriately. Rest of his vital signs appear to be stable. His came in the room shortly after patient's arrival and gave further history. He has been taking his medications like is supposed to. She was concerned about him for past couple days given his low-grade temperature and his increased sleepiness but today when he thinks that worse she decided to call 911. Patient has history of a pancreatic mass he said. His blood pressure wasn't 300s as per EMS. [facility] Past Medical History Narrative Medical List of his past medical, surgical, social and family history is reviewed from the nursing note. Arthritis: No Asthma: No Heart Rhythm Problems: No Cancer: No Cardiovascular Problems: Yes High Cholesterol: Yes Chest Pain: Yes Congestive Heart Failure: No COPD: Yes Diabetes: Yes (type 2 diabetes) Diminished Hearing: Yes GERD: No Genitourinary: Yes Hiatal Hernia: No Hypertension: Yes Immune Disorder: No Kidney Stones: No Musculoskeletal: No Neurologic: No Psychiatric: No Reproductive: No Respiratory: Yes Renal Failure: No Sickle Cell Disease: No Sleep Apnea: No Thyroid Disease: No Ulcer: No Past Surgical History Abdominal Surgery: Yes Body Medical Devices: screws in knee Cholecystectomy: Yes Joint Replacement: Yes (knee replacement) Social History Alcohol Use: Yes (OCCASSIONALLY) Tobacco Use: Yes (PIPE) Substance Use: No Allergies-Medications (Allergen,Severity, Reaction): Coded Allergies: No Known Allergies (Unverified , 02/02/17) Comments No known drug allergies. Reported Meds & Prescriptions Reported Meds & Active Scripts Active Levemir Inj (Insulin Detemir) 1,000 unit/ 10 ML Vial 12 Units SQ HS Do not mix with any other Insulin. Levemir Inj (Insulin Detemir) 1,000 unit/ 10 ML Vial 20 Units SQ DAILYAC Do not mix with any other Insulin. Augmentin (Amoxicillin-Clavulanate) 875-125 Mg Tab 1 Tab PO BID Pantoprazole (Pantoprazole Sodium) 40 Mg Tab 40 Mg PO DAILY Oxycodone (Oxycodone HCl) 5 Mg Tab 5 Mg PO Q8H PRN Levemir Flextouch Pen Inj (Insulin Detemir) 300 unit/3 ML Pen 15 Units SQ HS 30 Days Reported Jardiance (Empagliflozin) 10 Mg Tab 10 Mg PO DAILY Multiple Vitamin 1 Tab 1 Tab PO DAILY Vitamin D3 (Cholecalciferol) 1,000 Unit Chew 1,000 Units CHEW BID Narrative Medication List of his home medications reviewed from the nursing note. Review of Systems ROS Limitations: Altered Mental Status Except as stated in HPI: all other systems reviewed are Neg General / Constitutional: Positive: Fever Physical Exam Narrative GENERAL: Lethargic but answers questions appropriately, moderate distress SKIN: Focused skin assessment warm/dry. Right middle toe amputated with surrounding skin on the dorsum of the foot red and warm to touch HEAD: Atraumatic. Normocephalic. EYES: Pupils equal and round. No scleral icterus. No injection or drainage. ENT: No nasal bleeding or discharge. Mucous membranes pink and moist. NECK: Trachea midline. No JVD. CARDIOVASCULAR: Regular rate and rhythm. No murmur appreciated. RESPIRATORY: No accessory muscle use. Clear to auscultation. Breath sounds equal bilaterally. GASTROINTESTINAL: Abdomen soft, non-tender, nondistended. Hepatic and splenic margins not palpable. MUSCULOSKELETAL: No obvious deformities. No clubbing. No cyanosis. No edema. NEUROLOGICAL: Lethargic, GCS of 14. No obvious cranial nerve deficits. Motor grossly within normal limits. Normal speech. PSYCHIATRIC: Appropriate mood and affect; insight and judgment normal. Data Data Last Documented VS Vital Signs Date Time Temp Pulse Resp B/P (MAP) Pulse Ox O2 Delivery O2 Flow Rate FiO2 02/11/17 15:39 28 98 Nasal Cannula 2.00 02/11/17 15:37 99.2 90 Orders Orders Sepsis Workup Initiated (02/11/17 ) Complete Blood Count With Diff (02/11/17 14:36) Comprehensive Metabolic Panel (02/11/17 14:36) Lactic Acid Sepsis Protocol (02/11/17 14:36) Urinalysis - C+S If Indicated (02/11/17 14:36) Blood Culture (02/11/17 14:36) Chest, Single Ap (02/11/17 14:36) Blood Glucose (02/11/17 14:36) Ecg Monitoring (02/11/17 14:36) Iv Access Insert/Monitor (02/11/17 14:36) Oximetry (02/11/17 14:36) Oxygen Administration (02/11/17 14:36) Piperacil-Tazo 4.5 Gm Premix (Zosyn 4.5 (02/11/17 14:36) Vancomycin Inj (Vancomycin Inj) (02/11/17 14:36) Sodium Chlor 0.9% 1000 Ml Inj (Ns 1000 M (02/11/17 14:36) Sodium Chlor 0.9% 1000 Ml Inj (Ns 1000 M (02/11/17 14:36) Sodium Chlor 0.9% 1000 Ml Inj (Ns 1000 M (02/11/17 14:36) Acetaminophen (Tylenol) (02/11/17 14:45) Foot, Limited (2vws) (02/11/17 ) Abdomen, Upright Only (02/11/17 16:05) Consent (02/11/17 16:11) Diet Npo (02/11/17 Dinner) Consult Gastroenterology (02/11/17 ) Admit Order (Ed Use Only) (02/11/17 16:30) Labs Laboratory Tests Test 02/11/17 14:30 02/11/17 14:50 Urine Color YELLOW Urine Turbidity CLEAR Urine pH 7.0 Urine Specific [place] 1.027 Urine Protein TRACE mg/dL Urine Glucose (UA) 1000 mg/dL Urine Ketones NEG mg/dL Urine Occult Blood NEG Urine Nitrite NEG Urine Bilirubin NEG Urine Urobilinogen LESS THAN 2.0 MG/DL Urine Leukocyte Esterase NEG Urine WBC LESS THAN 1 /hpf Microscopic Urinalysis Comment CULT NOT INDICATED White Blood Count 9.7 TH/MM3 Red Blood Count 4.30 MIL/MM3 Hemoglobin 14.3 GM/DL Hematocrit 42.3 % Mean Corpuscular Volume 98.3 FL Mean Corpuscular Hemoglobin 33.4 PG Mean Corpuscular Hemoglobin Concent 33.9 % Red Cell Distribution Width 13.7 % Platelet Count 227 TH/MM3 Mean Platelet Volume 11.0 FL Neutrophils (%) (Auto) 95.2 % Lymphocytes (%) (Auto) 0.8 % Monocytes (%) (Auto) 2.3 % Eosinophils (%) (Auto) 0.2 % Basophils (%) (Auto) 1.5 % Neutrophils # (Auto) 9.3 TH/MM3 Lymphocytes # (Auto) 0.1 TH/MM3 Monocytes # (Auto) 0.2 TH/MM3 Eosinophils # (Auto) 0.0 TH/MM3 Basophils # (Auto) 0.1 TH/MM3 CBC Comment DIFF FINAL Differential Comment Blood Urea Nitrogen 24 MG/DL Creatinine 1.53 MG/DL Random Glucose 282 MG/DL Total Protein 8.9 GM/DL Albumin 3.6 GM/DL Calcium Level 9.6 MG/DL Alkaline Phosphatase 856 U/L Aspartate Amino Transf (AST/SGOT) 661 U/L Alanine Aminotransferase (ALT/SGPT) 563 U/L Total Bilirubin 3.8 MG/DL Sodium Level 131 MEQ/L Potassium Level 4.5 MEQ/L Chloride Level 96 MEQ/L Carbon Dioxide Level 25.8 MEQ/L Anion Gap 9 MEQ/L Estimat Glomerular Filtration Rate 44 ML/MIN Lactic Acid Level 1.9 mmol/L MDM Medical Decision Making Medical Screen Exam Complete: Yes Emergency Medical Condition: Yes Medical Record Reviewed: Yes Differential Diagnosis Sepsis, postsurgical infection, pneumonia, UTI Narrative Course 5 PM blood test results came back and patient has significantly elevated LFTs. He also has left shift on the CBC. I looked at his previous LFTs and the one from today is definitely increased. Patient had a CAT scan done before he left the hospital which showed the pancreatic mass. I discussed the case with Dr. Boudreaux from GI and as per her patient does not require an MRCP because he had an ERCP done during this past admission and a biliary stent put in. Just a plain x -ray is sufficient at this point to confirm the position of the biliary stent. I discussed all this with his and patient is admitted. He was given antibiotic and fluid as per sepsis protocol. Critical Care Narrative Aggregate critical care time was 30 minutes. Time to perform other separately billable procedures was not included in the critical care time. My time did not include minutes spent treating any other patients simultaneously or on activities that did not directly contribute to the patient's treatment. The services I provided to this patient were to treat and/or prevent clinically significant deterioration that could result in: Sepsis, sepsis protocol I provided critical care services requiring my management, as noted below: Chart data review, documentation time, medication orders and management, vital sign assessments/reviewing monitor data, ordering and reviewing lab tests, ordering and interpreting/reviewing x-rays and diagnostic studies, care of the patient and discussion of the patient with the admitting physicians. Procedures EKG Prior to Arrival: No Physician Communication Physician Communication Dr. Boudreaux Diagnosis Primary Impression: Altered mental status Qualified Codes: R40.0 - Somnolence Additional Impressions: Sepsis Qualified Codes: A41.9 - Sepsis, unspecified organism Status post amputation of toe of right foot Hyperglycemia Pancreatic cancer Qualified Codes: C25.7 - Malignant neoplasm of other parts of pancreas Admitting Information Admitting Physician Requests: it Roe Acosta MD Feb 11, 2017 14:33
[2017-02-11] MEDS ORDERED: PIPERACIL-TAZO 4.5 GM PREMIX 100 ML IV STA (14:36)
[2017-02-11] MEDS ORDERED: SODIUM CHLOR 0.9% 1000 ML INJ 400 ML IV ONE (14:36)
[2017-02-11] MEDS ORDERED: SODIUM CHLOR 0.9% 1000 ML INJ 1,000 ML IV ONE ×2 (14:36)
[2017-02-11] MEDS ORDERED: VANCOMYCIN INJ 1,000 MG in SODIUM CHLOR 0.9% 250 ML INJ 250 ML IV STA (14:36)
[2017-02-11] MEDS ORDERED: ACETAMINOPHEN 325 MG TAB PO ONE (14:45)
[2017-02-11 15:17] LABS: BLOOD, URINE NEG (NEG); GLUCOSE,URINE 1000 mg/dL (NEG); KETONE, URINE NEG (NEG); NITRITE,URINE NEG (NEG); URINE COLOR YELLOW (YELLW/STRAW)
[2017-02-11 15:17] LABS: AUTOMATED NEUTROPHIL # 9.3 TH/MM3 (1.8-7.7); BASOPHIL # 0.1 TH/MM3 (0-0.2); BASOPHIL % 1.5 % (0.0-2.0); EOSINOPHIL % 0.2 % (0.0-4.0); HEMATOCRIT 42.3 % (39.0-51.0); HEMO FLAGS DIFF FINAL; LYMPH % 0.8 % (9.0-44.0); LYMPHOCYTE # 0.1 TH/MM3 (1.0-4.8); MEAN CELL VOLUME 98.3 FL (80.0-100.0); MEAN CORPUSCULAR HEMOGLOBIN 33.4 PG (27.0-34.0); MEAN CORPUSCULAR HGB CONC 33.9 % (32.0-36.0); MONO % 2.3 % (0.0-8.0); NEUT % 95.2 % (16.0-70.0); PLATELET COUNT 227 TH/MM3 (150-450); RED CELL DISTRIBUTION WIDTH 13.7 % (11.6-17.2); WHITE BLOOD COUNT 9.7 TH/MM3 (4.0-11.0)
[2017-02-11 15:20] LABS: COMMENT (UR) CULT NOT INDICATED; CULTURE IF INDICATED CULT NOT INDICATED
[2017-02-11 15:27] LABS: ALT (GPT) 563 U/L (12-78); ANION GAP 9 MEQ/L (5-15); AST (GOT) 661 U/L (15-37); BICARBONATE 25.8 MEQ/L (21.0-32.0); BLOOD UREA NITROGEN 24 MG/DL (7-18); CHLORIDE 96 MEQ/L (98-107); GLOMERULAR FILTRATION RATE 44 ML/MIN (>89); POTASSIUM 4.5 MEQ/L (3.5-5.1); SODIUM (NA) 131 MEQ/L (136-145)
[2017-02-11 15:30] LABS: ALKALINE PHOSPHATASE 856 U/L (45-117); TOTAL BILIRUBIN ADULT 3.8 MG/DL (0.2-1.0)
--- NOTE | 2017-02-11 15:41 | RADRPT ---
EXAM DATE/TIME: 02/11/2017 15:05 [facility] COMPARISON: MRI FOOT RIGHT W & W/O CONTRAST, February 05, 2017, 14:25. FOOT RIGHT COMPLETE ([id number]), January 142016, 10:14. INDICATIONS : Fever. Status post amputation of the fourth digit last week for osteomyelitis. MEDICAL HISTORY : Diabetes mellitus type II. Hypertension Renal insufficiency. SURGICAL HISTORY : 4th digit right foot amputated last week. ENCOUNTER: Initial ACUITY: 1 day PAIN SCORE: Non-responsive. LOCATION: Right foot FINDINGS: AP, lateral and oblique views of the right foot was obtained and demonstrates interval amputation of the fourth digit to the level of the metatarsal. The other bony structures are intact with no destruc tive change or periosteal new bone formation. Mild degenerative changes are present. There is soft ti ssue prominence over the distal foot. CONCLUSION: Status post interval amputation of the fourth digit. The remaining bony structures ar e intact. Viraj Ramirez MD on February 11, 2017 at 15:33 Board Certified Radiologist. This report was verified electronically.
--- NOTE | 2017-02-11 16:24 | PD.CONS ---
HPI History of Present Illness This is a 81 year old who was recently hospitalized for obstructive jaundice. During that hospitalization, he had a CT scan (02/02/17)---> vague mass of the pancreatic head, malignant until proven otherwise. Tumor is locally advanced. Please see above. No evidence of metastatic disease. Small to moderate hiatal hernia. Benign-appearing left renal cyst. Sigmoid colon diverticulosis without diverticulitis. Ca19-9 1646.6. S/P ERCP with stent placement (02/04/17)- --> 3 cm stricture/mass distal CBD. Normal IHD, and CHD. Brushings obtained. 8.5 x 7 cm stent placed. Multiple superficial ulcers in the duodenum with duodenitis. Brushings of distal common bile duct with few groups of highly atypical glandular epithelial cells suspicious for adenocarcinoma. Of note, he also had right foot fourth toe amputation for osteomyelitis during that hospitalization. He was discharged home on 02/07. His significant other reports that he has been fatigued, but was doing well at home. He woke up this morning and ate breakfast. Afterwards, he took a nap. When he woke up this afternoon, he was extremely lethargic with significant generalized weakness. His reports that he was so weak, that he could barely walk. He has not had any nausea/vomiting. He is not having any abdominal pain. He had a bowel movement earlier today. He felt warm and his took took his temperature and it was 99.0 at home. However, on arrival to the emergency room this was 102.0. He last ate at breakfast, had rice Krispies and Rasberries at 9am. (Azalea Martinez) PFSH Past Medical History Type 2 diabetes mellitus, insulin-dependent Hypertension Hyperlipidemia Diabetic ulcers right 4/5th toes Chronic kidney disease Pancreatic head mass, CBD brushings- Brushings of distal common bile duct with few groups of highly atypical glandular epithelial cells suspicious for adenocarcinoma. Obstructive jaundice Past Surgical History Cholecystectomy Left knee arthroplasty Right knee repair Colonoscopy ERCP (Azalea Martinez) Coded Allergies: No Known Allergies (Unverified , 02/02/17) Medications Allergies Coded Allergies Type Severity Reaction Last Updated Verified No Known Allergies 02/02/17 No Active Scripts Medications Dose Route/Sig Max Daily Dose Days Date Category Dose Instructions Levemir Inj (Insulin Detemir) 1,000 unit/ 10 ML Vial 12 Units SQ HS 02/07/17 Rx Do not mix with any other Insulin. Levemir Inj (Insulin Detemir) 1,000 unit/ 10 ML Vial 20 Units SQ DAILYAC 02/07/17 Rx Do not mix with any other Insulin. Augmentin (Amoxicillin-Clavulanate) 875-125 Mg Tab 1 Tab PO BID 02/05/17 Rx Pantoprazole (Pantoprazole Sodium) 40 Mg Tab 40 Mg PO DAILY 02/05/17 Rx Oxycodone (Oxycodone HCl) 5 Mg Tab 5 Mg PO Q8H PRN 02/05/17 Rx Levemir Flextouch Pen Inj (Insulin Detemir) 300 unit/3 ML Pen 15 Units SQ HS 30 02/05/17 Rx Jardiance (Empagliflozin) 10 Mg Tab 10 Mg PO DAILY 02/02/17 Reported Multiple Vitamin 1 Tab 1 Tab PO DAILY 02/02/17 Reported Vitamin D3 (Cholecalciferol) 1,000 Unit Chew 1,000 Units CHEW BID 02/02/17 Reported Family History No family hx of cancer Social History Smokes a pipe. Rare alcohol. No illicit drugs. (Azalea Martinez) Review of Systems Constitutional: COMPLAINS OF: Fatigue, Fever, Chills Psychiatric: COMPLAINS OF: Confusion ROS lethargic, poor historian (Azalea Martinez) GI Exam Vitals I&O Vital Signs Date Time Temp Pulse Resp B/P (MAP) Pulse Ox O2 Delivery O2 Flow Rate FiO2 02/11/17 15:39 28 98 Nasal Cannula 2.00 02/11/17 15:37 99.2 90 28 157/77 (103) 88 Room Air 2.00 02/11/17 15:14 16 96 Room Air 02/11/17 15:14 98 Room Air 02/11/17 15:14 96 Room Air 02/11/17 14:50 102.0 87 16 152/78 (102) 98 Imaging Last Impressions Foot X-Ray 02/11/17 0000 Signed Impressions: Service Date/Time: January 15:05 - CONCLUSION: Status post interval amputation of the fourth digit. The remaining bony structures are intact. Viraj Ramirez MD Laboratory Test 02/11/17 14:30 02/11/17 14:50 Urine Color YELLOW Urine Turbidity CLEAR Urine pH 7.0 Urine Specific [place] 1.027 Urine Protein TRACE mg/dL Urine Glucose (UA) 1000 mg/dL Urine Ketones NEG mg/dL Urine Occult Blood NEG Urine Nitrite NEG Urine Bilirubin NEG Urine Urobilinogen LESS THAN 2.0 MG/DL Urine Leukocyte Esterase NEG Urine WBC LESS THAN 1 /hpf Microscopic Urinalysis Comment CULT NOT INDICATED White Blood Count 9.7 TH/MM3 Red Blood Count 4.30 MIL/MM3 Hemoglobin 14.3 GM/DL Hematocrit 42.3 % Mean Corpuscular Volume 98.3 FL Mean Corpuscular Hemoglobin 33.4 PG Mean Corpuscular Hemoglobin Concent 33.9 % Red Cell Distribution Width 13.7 % Platelet Count 227 TH/MM3 Mean Platelet Volume 11.0 FL Neutrophils (%) (Auto) 95.2 % Lymphocytes (%) (Auto) 0.8 % Monocytes (%) (Auto) 2.3 % Eosinophils (%) (Auto) 0.2 % Basophils (%) (Auto) 1.5 % Neutrophils # (Auto) 9.3 TH/MM3 Lymphocytes # (Auto) 0.1 TH/MM3 Monocytes # (Auto) 0.2 TH/MM3 Eosinophils # (Auto) 0.0 TH/MM3 Basophils # (Auto) 0.1 TH/MM3 CBC Comment DIFF FINAL Differential Comment Blood Urea Nitrogen 24 MG/DL Creatinine 1.53 MG/DL Random Glucose 282 MG/DL Total Protein 8.9 GM/DL Albumin 3.6 GM/DL Calcium Level 9.6 MG/DL Alkaline Phosphatase 856 U/L Aspartate Amino Transf (AST/SGOT) 661 U/L Alanine Aminotransferase (ALT/SGPT) 563 U/L Total Bilirubin 3.8 MG/DL Sodium Level 131 MEQ/L Potassium Level 4.5 MEQ/L Chloride Level 96 MEQ/L Carbon Dioxide Level 25.8 MEQ/L Anion Gap 9 MEQ/L Estimat Glomerular Filtration Rate 44 ML/MIN Lactic Acid Level 1.9 mmol/L Date/Time Source Procedure Growth Status 02/11/17 14:50 Blood Peripheral Aerobic Blood Culture Pending Received 02/11/17 14:50 Blood Peripheral Anaerobic Blood Culture Pending Received Physical Examination HEENT: Normocephalic; atraumatic; + mildly jaundice. CHEST: Resp even/unlabored CARDIAC: RRR ABDOMEN: Soft, nondistended, nontender; no hepatosplenomegaly; bowel sounds are present in all four quadrants. EXTREMITIES: right foot drsg d/i SKIN: Normal; no rash; no jaundice. [employer]: Lethargic, poor historian (Azalea Martinez) Assessment and Plan Plan ASSESSMENT: - Biliary obstruction, suspected cholangitis. Recently hospitalized and found to have a pancreatic head mass with elevated Ca19-9 1646.6. S/P ERCP with stent placement (02/04/17)---> 3 cm stricture/mass distal CBD. Normal IHD, and CHD. Brushings obtained. 8.5 x 7 cm stent placed. Multiple superficial ulcers in the duodenum with duodenitis. Brushings of distal common bile duct with few groups of highly atypical glandular epithelial cells suspicious for adenocarcinoma. He was evaluated Dr. Urias, but the pathology was still pending at the time of discharge. He was doing well, but had the sudden onset of lethargy and severe weakness, confusion. T. Max on arrival to ER 102. LFTs elevated in obstructive pattern- T. Bili 3.8, AST 661, ALT 563, ALk PHopsh 856. No abdominal pain or n/v, but confused and poor historian. Plan for ERCP with possible stent exchange today. Zosyn. Had rice crispies and rasberries at 9am. - Sepsis, suspected cholangitis. S/P one time dose of zosyn and vanco. Add Zosyn. - Metabolic encephalopathy, secondary to above/fever. - Resp. Insufficiency. Hypoxia 88 2L, RR 28. Per attending. - MARK, Creat 1.53. - Recent OM, S/P amputation of right fourth toe. - HTN, DM, Hyperlipidemia, Diabetic foot ulcer right 4/5th toes per attending. PLAN: - Plan for ercp with possible stent exchange - Obtain consents - NPO - Add zosyn - Add Lipase - CBC, CMP in am - Consult Dr. Urias, known to you - Supportive care - Further recommendations to follow based on results of above - Pt seen and examined by Dr. Hardin and myself and this ntoe is written on his behalf (Azalea Martinez) Plan Patient was seen and examined, possible cholangitis, plan for ERCP with stent exchange today (Rena Hardin MD) Azalea Martinez Feb 11, 2017 16:24 Rena Hardin MD Feb 12, 2017 14:55
--- NOTE | 2017-02-11 16:26 | RADRPT ---
EXAM DATE/TIME: 02/11/2017 16:13 [facility] COMPARISON: GI LAB ERCP, February 04, 2017, 9:33. INDICATIONS : Evaluate CBD stent position MEDICAL HISTORY : Renal insufficiency, chronic. Hypertension. Diabetes mellitus type 2. SURGICAL HISTORY : Cholecystectomy. Common bile duct stent ENCOUNTER: Initial ACUITY: 1 day PAIN SCORE: Non-responsive. LOCATION: Abdomen FINDINGS: 2 AP erect views of the chest were obtained and demonstrate a relative paucity of bowel gas with chucho ral loops of nondilated air containing bowel in the central left abdomen. There is no evidence of aleksandar e air. Patient is status post cholecystectomy with surgical clips in right upper quadrant. There is b lunting of the costophrenic angles the heart size appears prominent. A biliary stent catheter is chris tly visualized projecting over the central and right abdomen. CONCLUSION: 1. Nonspecific gas pattern. 2. The biliary stent catheter is projected over the central and right of the abdomen. Viraj Ramirez MD on February 11, 2017 at 16:22 Board Certified Radiologist. This report was verified electronically.
--- NOTE | 2017-02-11 16:27 | HHI.HP ---
[facility] Service Family Medicine Primary Care Physician No Primary Care Physician Admission Diagnosis Diagnoses: International Travel<30 Days: No Contact w/Intl Traveler<30days: No Known Affected Area: No History of Present Illness 81-year-old male with a complicated recent past medical history. Patient was recently evaluated and discharged on February 07. Discharge summary reviewed. Patient recently diagnosed with pancreatic mass, biopsy results concerning and suspicious for pancreatic adenocarcinoma. Patient is also status post amputation of the right fourth toe. Patient has been taking Augmentin twice a day as directed since discharge. In the course of his last hospitalization, the patient was closely followed by gastroenterology, infectious disease, podiatry, oncology (Dr Urias). The patient returns with his today because of disorientation around 1 PM this afternoon. The patient's says he was his normal self yesterday and even this morning. However early in the afternoon today he started to feel cold and tired. He then became disoriented and confused. He was feeling weak and "out of it", per the . She states he looked uncoordinated. He is not in any pain. He denies fever. He denies nausea, vomiting, chest pain , shortness of breath. Review of Systems Constitutional: COMPLAINS OF: Fatigue, Chills, DENIES: Fever Eyes: DENIES: Blurred vision, Diplopia Ears, nose, mouth, throat: DENIES: Hearing loss, Vertigo Respiratory: DENIES: Cough, Shortness of breath Cardiovascular: DENIES: Chest pain, Syncope Gastrointestinal: DENIES: Abdominal pain, Black stools Neurologic: DENIES: Headache Psychiatric: DENIES: Anxiety, Confusion Past Family Social History Past Medical History Type 2 diabetes mellitus, insulin-dependent Hypertension Hyperlipidemia Diabetic nephropathy Diabetic ulcers Pancreatic mass Past Surgical History Cholecystectomy Left knee arthroplasty Right knee repair Reported Medications Reported Meds & Active Scripts Active Levemir Inj (Insulin Detemir) 1,000 unit/ 10 ML Vial 12 Units SQ HS Do not mix with any other Insulin. Levemir Inj (Insulin Detemir) 1,000 unit/ 10 ML Vial 20 Units SQ DAILYAC Do not mix with any other Insulin. Augmentin (Amoxicillin-Clavulanate) 875-125 Mg Tab 1 Tab PO BID Pantoprazole (Pantoprazole Sodium) 40 Mg Tab 40 Mg PO DAILY Oxycodone (Oxycodone HCl) 5 Mg Tab 5 Mg PO Q8H PRN Levemir Flextouch Pen Inj (Insulin Detemir) 300 unit/3 ML Pen 15 Units SQ HS 30 Days Reported Jardiance (Empagliflozin) 10 Mg Tab 10 Mg PO DAILY Multiple Vitamin 1 Tab 1 Tab PO DAILY Vitamin D3 (Cholecalciferol) 1,000 Unit Chew 1,000 Units CHEW BID Allergies: Coded Allergies: No Known Allergies (Unverified , 02/02/17) Active Ordered Medications Active Medications Acetaminophen (Tylenol) 650 mg ONCE ONCE PO Last administered on 02/11/17 15: 17; Admin Dose 650 MG; Start 02/11/17 at 14:45; Stop 02/11/17 at 14:46; Status DC Piperacillin Sod/ Tazobactam Sod 100 ml @ 200 mls/hr ONCE STAT IV Last administered on 02/11/17 15:17; Admin Dose 200 MLS/HR; Start 02/11/17 at 14: 36; Stop 02/11/17 at 15:05; Status DC Sodium Chloride 400 ml @ 1,000 mls/hr Q24M ONCE IV; Start 02/11/17 at 14:36; Stop 02/11/17 at 14:59; Status DC Sodium Chloride 1,000 ml @ 1,000 mls/hr Q1H ONCE IV Last administered on 15:17; Admin Dose 1,000 MLS/HR; Start 02/11/17 at 14:36; Stop 02/11/17 at 15:35; Status DC Sodium Chloride 1,000 ml @ 1,000 mls/hr Q1H ONCE IV; Start 02/11/17 at 14:36; Stop 02/11/17 at 15:35; Status DC Vancomycin HCl 1000 mg/Sodium Chloride 250 ml @ 250 mls/hr ONCE STAT IV; Start 02/11/17 at 14:36; Stop 02/11/17 at 15:35; Status DC Family History Denies family history of heart disease or diabetes Social History Smokes a pipe. Rare alcohol. No illicit drugs. Physical Exam Vital Signs Vital Signs Date Time Temp Pulse Resp B/P (MAP) Pulse Ox O2 Delivery O2 Flow Rate FiO2 02/11/17 15:39 28 98 Nasal Cannula 2.00 02/11/17 15:37 99.2 90 28 157/77 (103) 88 Room Air 2.00 02/11/17 15:14 16 96 Room Air 02/11/17 15:14 98 Room Air 02/11/17 15:14 96 Room Air 02/11/17 14:50 102.0 87 16 152/78 (102) 98 Physical Exam GENERAL: Pleasant elderly male, no acute distress. Awake alert and oriented 3. Answering questions appropriately. SKIN: Warm and dry. Right fourth digit, status post amputation. Surrounding erythema. Wound looks clean dry and intact. HEAD: Atraumatic. Normocephalic. No temporal or scalp tenderness. EYES: Pupils equal round and reactive. Extraocular motions intact. No scleral icterus. No injection or drainage. ENT: Nose without bleeding, purulent drainage or septal hematoma. Throat without erythema, tonsillar hypertrophy or exudate. Uvula midline. Airway patent. NECK: Trachea midline. No JVD or lymphadenopathy. Supple, nontender, no meningeal signs. CARDIOVASCULAR: Regular rate and rhythm without murmurs, gallops, or rubs. RESPIRATORY: Clear to auscultation. Breath sounds equal bilaterally. No wheezes , rales, or rhonchi. GASTROINTESTINAL: Abdomen soft, non-tender, nondistended. No hepato-splenomegaly , or palpable masses. No guarding. MUSCULOSKELETAL: Extremities without clubbing, cyanosis, or edema. No joint tenderness, effusion, or edema noted. No calf tenderness. Negative Homans sign bilaterally. NEUROLOGICAL: Awake and alert. Cranial nerves II through XII intact. Motor and sensory grossly within normal limits. Five out of 5 muscle strength in all muscle groups. Normal speech. Laboratory Laboratory Tests Test 02/11/17 14:30 02/11/17 14:50 Urine Color YELLOW Urine Turbidity CLEAR Urine pH 7.0 Urine Specific [place] 1.027 Urine Protein TRACE Urine Glucose (UA) 1000 Urine Ketones NEG Urine Occult Blood NEG Urine Nitrite NEG Urine Bilirubin NEG Urine Urobilinogen LESS THAN 2.0 Urine Leukocyte Esterase NEG Urine WBC LESS THAN 1 Microscopic Urinalysis Comment CULT NOT INDICATED White Blood Count 9.7 Red Blood Count 4.30 Hemoglobin 14.3 Hematocrit 42.3 Mean Corpuscular Volume 98.3 Mean Corpuscular Hemoglobin 33.4 Mean Corpuscular Hemoglobin Concent 33.9 Red Cell Distribution Width 13.7 Platelet Count 227 Mean Platelet Volume 11.0 Neutrophils (%) (Auto) 95.2 Lymphocytes (%) (Auto) 0.8 Monocytes (%) (Auto) 2.3 Eosinophils (%) (Auto) 0.2 Basophils (%) (Auto) 1.5 Neutrophils # (Auto) 9.3 Lymphocytes # (Auto) 0.1 Monocytes # (Auto) 0.2 Eosinophils # (Auto) 0.0 Basophils # (Auto) 0.1 CBC Comment DIFF FINAL Differential Comment Blood Urea Nitrogen 24 Creatinine 1.53 Random Glucose 282 Total Protein 8.9 Albumin 3.6 Calcium Level 9.6 Alkaline Phosphatase 856 Aspartate Amino Transf (AST/SGOT) 661 Alanine Aminotransferase (ALT/SGPT) 563 Total Bilirubin 3.8 Sodium Level 131 Potassium Level 4.5 Chloride Level 96 Carbon Dioxide Level 25.8 Anion Gap 9 Estimat Glomerular Filtration Rate 44 Lactic Acid Level 1.9 Date/Time Source Procedure Growth Status 02/11/17 14:50 Blood Peripheral Aerobic Blood Culture Pending Received 02/11/17 14:50 Blood Peripheral Anaerobic Blood Culture Pending Received Result Diagram: 02/11/17 1450 02/11/17 1450 Imaging Last Impressions Abdomen X-Ray 02/11/17 1605 Signed Impressions: Service Date/Time: January 16:13 - CONCLUSION: 1. Nonspecific gas pattern. 2. The biliary stent catheter is projected over the central and right of the abdomen. Viraj Ramirez MD Chest X-Ray 02/11/17 1436 Signed Impressions: Service Date/Time: January 15:04 - CONCLUSION: Focal density within the right paratracheal stripe. This could relate to tortuosity of the patient's vasculature given the rotation of the film. I cannot exclude an infiltrate. Otherwise, clear lungs. Kevin Montgomery Jr., MD Foot X-Ray 02/11/17 0000 Signed Impressions: Service Date/Time: January 15:05 - CONCLUSION: Status post interval amputation of the fourth digit. The remaining bony structures are intact. Viraj Ramirez MD Caprini VTE Risk Assessment Caprini VTE Risk Assessment: Mod/High Risk (score >= 2) Caprini Risk Assessment Model Point Value = 1 Point Value = 2 Point Value = 3 Point Value = 5 Age 41-60 Minor surgery BMI > 25 kg/m2 Swollen legs Varicose veins or History of unexplained or recurrent spontaneous Oral contraceptives or hormone replacement Sepsis (< 1 month) Serious lung disease, including pneumonia (< 1 month) Abnormal pulmonary function Acute myocardial infarction Congestive heart failure (< 1 month) History of inflammatory bowel disease Medical patient at bed rest Age 61-74 Arthroscopic surgery Major open surgery (> 45 min) Laparoscopic surgery (> 45 min) Malignancy Confined to bed (> 72 hours) Immobilizing plaster cast Central venous access Age >= 75 History of VTE Family history of VTE Factor V Leiden Prothrombin [id number] Lupus anticoagulant Anticardiolipin antibodies Elevated serum homocysteine Heparin-induced thrombocytopenia Other congenital or acquired thrombophilia Stroke (< 1 month) Elective arthroplasty Hip, pelvis, or leg fracture Acute spinal cord injury (< 1 month) Prophylaxis Regimen Total Risk Factor Score Risk Level Prophylaxis Regimen 0-1 Low Early ambulation 2 Moderate Order ONE of the following: *Sequential Compression Device (SCD) *Heparin 5000 units SQ BID 3-4 Higher Order ONE of the following medications: *Heparin 5000 units SQ TID *Enoxaparin/Lovenox 40 mg SQ daily (WT < 150 kg, CrCl > 30 mL/min) *Enoxaparin/Lovenox 30 mg SQ daily (WT < 150 kg, CrCl > 10-29 mL/min) *Enoxaparin/Lovenox 30 mg SQ BID (WT < 150 kg, CrCl > 30 mL/min) AND/OR *Sequential Compression Device (SCD) 5 or more Highest Order ONE of the following medications: *Heparin 5000 units SQ TID (Preferred with Epidurals) *Enoxaparin/Lovenox 40 mg SQ daily (WT < 150 kg, CrCl > 30 mL/min) *Enoxaparin/Lovenox 30 mg SQ daily (WT < 150 kg, CrCl > 10-29 mL/min) *Enoxaparin/Lovenox 30 mg SQ BID (WT < 150 kg, CrCl > 30 mL/min) AND *Sequential Compression Device (SCD) Assessment and Plan Assessment and Plan 81-year-old male with findings concerning for primary pancreatic adenocarcinoma presenting with elevated liver enzymes status post ERCP by gastroenterology. Also concern for sepsis with possible ascending cholangitis versus other. Patient will be admitted for gastroenterology, oncology consultation. Code Status Full- counseled patient and likely poor prognosis of CPR providing quality outcome. They are considering this. Problem List: (1) Sepsis ICD Codes: A41.9 - Sepsis, unspecified organism Plan: Patient with fever, increased RR, 88% on room air. Possible ascending cholangitis vs other as source. Recent toe amputation site looks clean dry and intact. Blood cultures pending Vanc and zosyn given in ER Continue Zosyn q6 hours given concern for ascending cholangitis Normal saline 140 ml/hr (2) Biliary obstruction ICD Codes: K83.1 - Obstruction of bile duct Status: Acute Plan: GI consulted suspected cholangitis. Recently hospitalized and found to have a pancreatic head mass with elevated Ca19-9 1646.6. S/P ERCP with stent placement (02/04/17)---> 3 cm stricture/mass distal CBD. LFTs elevated in obstructive pattern- T. Bili 3.8, AST 661, ALT 563, ALk PHopsh 856 Planning for immediate ERCP with possible stent exchange. (3) Diabetes ICD Codes: E11.9 - Type 2 diabetes mellitus without complications Status: Chronic Plan: Holding by mouth medications He takes Levemir 20 units in the morning and 12 units at bedtime. Given nothing by mouth status, provide Levemir 10 units at bedtime. Sliding scale insulin Adjust long-acting dose of Levemir pending bedside sugars and when eating (4) Pancreatic adenocarcinoma ICD Codes: C25.9 - Malignant neoplasm of pancreas, unspecified Status: Acute Plan: Recent biopsy suspicious for adenocarcinoma. Consult oncology, Dr. Urias GI consulted for repeat ERCP. (5) MARK (acute kidney injury) ICD Codes: N17.9 - Acute kidney failure, unspecified Status: Acute Plan: Likely from sepsis and dehydration Treatment and fluid hydration as above. (6) S/P amputation of lesser toe ICD Codes: Z89.429 - Acquired absence of other toe(s), unspecified side Status: Acute Plan: Wound is clean dry and intact. Consult wound care nurse. Antibiotics as above (7) FEN/PPX Status: Acute Plan: Fluids: NS at 140 ml/hr Electrolytes: monitor and replace as needed Nutrition: NPO for now, regular diet after ERCP PPX: SCDs, heparin Physician Certification 2 Midnight Certification Type: Admission for Inpatient Services Order for Inpatient Services The services are ordered in accordance with Medicare regulations or non- Medicare payer requirements, as applicable. In the case of services not specified as inpatient-only, they are appropriately provided as inpatient services in accordance with the 2-midnight benchmark. Estimated LOS (days): 3 days is the estimated time the patient will need to remain in the hospital, assuming treatment plan goals are met and no additional complications. Post-Hospital Plan: Not yet determined Problem Qualifiers (1) Sepsis: Qualified Codes: A41.9 - Sepsis, unspecified organism (2) Diabetes: Qualified Codes: E11.21 - Type 2 diabetes mellitus with diabetic nephropathy; Z79.4 - [facility] (current) use of insulin (3) S/P amputation of lesser toe: Qualified Codes: Z89.421 - Acquired absence of other right toe(s) Satya Pepe MD, R3 Feb 11, 2017 16:27
--- NOTE | 2017-02-11 16:33 | RADRPT ---
EXAM DATE/TIME: 02/11/2017 15:04 [facility] COMPARISON: CHEST SINGLE AP, February 02, 2017, 20:45. INDICATIONS : Fever. MEDICAL HISTORY : Hypertension. Diabetes mellitus type II. Renal insufficiency. SURGICAL HISTORY : 4th digit right foot amputated last week ENCOUNTER: Initial ACUITY: 1 day PAIN SCORE: Non-responsive. LOCATION: Bilateral chest FINDINGS: A single portable frontal view the chest is a focal density involving the right paratracheal stripe. The basilar infiltrates have resolved from the prior study. No effusions. Heart normal in size. Degen erative spine. CONCLUSION: Focal density within the right paratracheal stripe. This could relate to tortuosity of the patient's vasculature given the rotation of the film. I cannot exclude an infiltrate. Otherwise, clear lungs. Kevin Montgomery Jr., MD on February 11, 2017 at 16:28 Board Certified Radiologist. This report was verified electronically.
[2017-02-11] MEDS ORDERED: LACTULOSE SYRUP 20 GM/30 ML CUP PO PRN (17:00)
[2017-02-11] MEDS ORDERED: ONDANSETRON HCL 4 MG/2 ML VIAL IVP PRN (17:00)
[2017-02-11] MEDS ORDERED: BISACODYL 10 MG SUPP RECTAL PRN (17:00)
[2017-02-11] MEDS ORDERED: SENNOSIDES 8.6 MG TAB PO PRN (17:00)
[2017-02-11] MEDS ORDERED: ACETAMINOPHEN 325 MG TAB PO PRN (17:00)
[2017-02-11] MEDS ORDERED: MAGNESIUM HYDROXIDE SUSP 30 ML CUP PO PRN (17:00)
[2017-02-11] MEDS ORDERED: NALOXONE HCL 0.4 MG/ML AMP IV PUSH PRN (17:00)
[2017-02-11] MEDS ORDERED: DEXTROSE 50% IN WATER 50 ML VIAL(D50) IV PUSH PRN (17:15)
[2017-02-11] MEDS ORDERED: GLUCAGON 1 MG/ML VIAL OTHER PRN (17:15)
[2017-02-11] MEDS: SODIUM CHLOR 0.9% 1000 ML INJ 1,000 ML IV SCH (18:00)
--- NOTE | 2017-02-11 18:06 | PD.PROCEDR ---
GI Procedure PROCEDURE PERFORMED EGD with stent placement ERCP with sphincterotomy, balloon sweep of the duct retrieving stone and sludge Stent placement with ERCP INDICATION FOR PROCEDURE Elevated liver function test, pancreatic cancer, cholangitis PROCEDURE: The procedure, risks and benefits were discussed with Mr. Jewell and informed consent was obtained. Anesthesia sedated him with Diprivan. He was placed in the left lateral decubitus position. EGD: The Pentax videoscope was introduced through the oropharynx and advanced to the second portion of the duodenum under direct visualization. The stent was identified, removed by a snare scope withdrawal back to the stomach then from the mouth without any immediate complication FINDINGS: Common bile duct stent removal as above ERCP: Patient was placed in a prone position. The Pentax videoscope was introduced through the oropharynx and advanced to the second portion of the duodenum where the ampula was identified. Cannulation was performed without difficulty, cholangiogram was done which showed distal common bile duct stricture, sphincterotomy was performed, sweeping the duct with the balloon was done because there was questionable filling defect above the stricture, significant amount of sludge and small stone was retrieved with the balloon sweep, a 10 Croatian 9 cm stent was placed without difficulty, flushing the duct with normal saline was achieved with significant amount of pus coming out from the duct FINDINGS: Distal common bile duct stricture consistent with mass Sludge and stone in the common bile duct Cholangitis Stent placed Patient received antibiotic ESTIMATED BLOOD LOSS: None SPECIMENS REMOVED: None COMPLICATIONS: None PLAN: Nothing by mouth until a.m. Check liver function tests in the morning Further plan per oncology Patient may need metal stent in the future Rena Hardin MD Feb 11, 2017 18:06
[2017-02-11] MEDS ORDERED: IOHEXOL 350 MG/ML 50 ML BTL (for RAD DIAG) OTHER ONE (18:31)
--- NOTE | 2017-02-11 18:57 | RADRPT ---
EXAM DATE/TIME: 02/11/2017 18:03 [facility] COMPARISON: GI LAB ERCP, February 04, 2017, 9:33. INDICATIONS : Evaluate for obstruction. FLUORO TIME: 1.55 minutes IMAGE COUNT: 3 CONTRAST: Instilled by Ordering Physician MEDICAL HISTORY : Renal insufficiency, chronic. Diabetes mellitus type II. Hypertension. SURGICAL HISTORY : Cholecystectomy. Common bile duct stent. ENCOUNTER: Subsequent ACUITY: 2 days PAIN SCORE: Non-responsive. LOCATION: Abdomen. FINDINGS: An ERCP was performed by the ordering physician. 3 images have been submitted. On the first 2 images, contrast is seen within the biliary ducts. There is a balloon inflated in the distal common bile duct. There is a possible filling defect in the more proximal central intrahepatic region seen on the first 2 images. On third image, there has been a st ent placed. This appears well placed. CONCLUSION: ERCP as above with a possible filling defect in the central intrahepatic biliary duct region and a st ent seen on the last image.. Shai Pulido MD on February 11, 2017 at 18:53 Board Certified Radiologist. This report was verified electronically.
[2017-02-11] MEDS ORDERED: DO NOT ADM ANY ANTICOAGULANT DRUGS PRN (19:15)
[2017-02-11] MEDS: INSULIN ASPART SUPPLEMENTAL SCALE SQ SCH (21:00)
[2017-02-11] MEDS: INSULIN DETEMIR 100 UNITS/ML VIAL SQ SCH (21:00)
[2017-02-11] MEDS ORDERED: INSULIN DETEMIR 100 UNITS/ML VIAL SQ SCH (21:00)
[2017-02-11] MEDS: DOCUSATE SODIUM 50 MG/SENNA 8.6 MG TAB PO SCH (21:00)
[2017-02-11] MEDS: PIPERACIL-TAZO 3.375 GM PREMIX 50 ML IV SCH (21:29)
[2017-02-11] MEDS: SODIUM CHLORIDE 0.9% FLUSH 10 ML FLUSH IV FLUSH SCH (21:30)
[2017-02-12] MEDS: SODIUM CHLOR 0.9% 1000 ML INJ 1,000 ML IV SCH ×2 (01:09→19:42)
[2017-02-12] MEDS: PIPERACIL-TAZO 3.375 GM PREMIX 50 ML IV SCH ×4 (02:44→23:35)
[2017-02-12 04:06] VITALS: BP 106/63; PULSE 64; RESP 17; TEMP 99.8; O2SAT 97
[2017-02-12] MEDS: HEPARIN SODIUM - SQ 10,000 UNITS/ML VIAL SQ SCH ×2 (04:54→18:50)
[2017-02-12 08:00] VITALS: BP 104/51; PULSE 85; RESP 17; TEMP 98.8; O2SAT 92
[2017-02-12] MEDS: INSULIN ASPART SUPPLEMENTAL SCALE SQ SCH ×3 (08:00→23:32)
--- NOTE | 2017-02-12 08:25 | MB ---
cc: AMAURI CHANDLER M.D. DATE OF CONSULTATION 02/12/[address] Pepe REASON FOR CONSULTATION Oncology consulted to render opinion regarding patient with pancreatic cancer admitted with fever and weakness. HISTORY OF PRESENT ILLNESS The patient is a 81-year-old male first admitted to the hospital about 10 days ago with obstructive jaundice. Workup showed a mass in the head of the pancreas. He had an ERCP which showed stricture and possible mass. Brushing was done. Cytology showed atypical glandular epithelial cells suspicious for adenocarcinoma. His tumor marker CA19-9 was more than 1600. He had a stent placement at that time. He was discharged home yesterday afternoon. He woke up from his nap and was feeling very weak and could barely walk. He was brought back into the hospital. He was found to have a temperature of 102. He was evaluated by gastroenterology and underwent an ERCP which showed cholangitis. He was started on antibiotic. He is feeling a little better this morning. I have also talked to his on the phone. The patient denies any nausea or vomiting or abdominal pain. Denies change in bowel habits. Denies dysuria or hematuria. Denies chest pain, shortness of breath or cough. He does not complaint of pain in the right foot. He had an amputation of the right fourth toe during his last admission. PAST MEDICAL HISTORY 1. Hypertension 2. Diabetes mellitus on insulin 3. Hyperlipidemia 4. Chronic kidney disease 5. Pancreatic cancer 6. Obstructive jaundice PAST SURGICAL HISTORY 1. Cholecystectomy 2. Bilateral knee surgery 3. Recent amputation of the right fourth toe. FAMILY HISTORY One sister is healthy. He has a daughter, but he has no contact with her. Denies any family history of cancer. SOCIAL HISTORY Drinks occasionally. He smokes a pipe. His primary residence is in [place]. He spends his rdz in [place]. He has no local physician. ALLERGIES NO KNOWN DRUG ALLERGIES. CURRENT MEDICATIONS 1. Protonix 2. Heparin 3. Zosyn 4. Marlnee-Colace REVIEW OF SYSTEMS He has lost more than 10 pounds recently. He has increased weakness as above. EYES: Negative. ENT: Negative. CARDIOVASCULAR: No chest pressure, or palpitations. RESPIRATORY: Denies any shortness of breath or cough. GI: As above. : No dysuria or hematuria. MUSCULOSKELETAL: Pain in the right foot. HEMATOLOGY: Negative. ENDOCRINE: Negative. DERMATOLOGY: Negative. PSYCHIATRIC: Negative. NEUROLOGIC: Negative. PHYSICAL EXAMINATION VITALS: Temperature 99.8, blood pressure 106/63, o2 saturation 97% on room air. GENERAL: He is alert and oriented x3 in no acute distress. HEENT: Atraumatic, normocephalic. Pupils equal, round and reactive to light. Extraocular muscles intact. No sclerae icterus. Oropharynx dry mucosa. No lesion or thrush. NECK: No thyromegaly. No palpable masses. LYMPHATICS: No palpable cervical, clavicular, or axillary lymph nodes. CARDIOVASCULAR: Regular S1-S2. No murmur. LUNGS: Clear to auscultation without wheezing or rhonchi. ABDOMEN: Soft, no significant tenderness. Positive bowel sounds. I could not palpate any mass. EXTREMITIES: No cyanosis, no significant edema. Right foot dressing is dry in a brace. SKIN: No rash or petechia. NEUROLOGIC: Exam is nonfocal. LABORATORY DATA I reviewed blood work dated February 11, 2017. CBC was normal. Creatinine 1.53, total bilirubin 3.8. Liver transaminase all elevated. IMPRESSION 1. Pancreatic cancer. He presented with obstructive jaundice about 10 days ago. He also lost more than [address] showed a 2.7 x 3.7 x 3.1 mass in the head of the pancreas. He subsequently had an MRI which did not clearly show the mass. However, I have reviewed his MRI at the tumor board and the radiologist felt that there is a mass in the head of the pancreas consistent with a finding of the CT scan. There is no significant adenopathy noted. There is some thrombus in the splenic vein and portal vein confluence which could be bland thrombus versus tumor thrombus. He had an ERCP which showed stricture in the distal common bile duct consistent with a mass. Brushing cytology showed a few groups of highly atypical glandular epithelial cells suspicious for adenocarcinoma. His tumor marker CA19-9 was 1646. The clinical picture is most consistent with pancreatic adenocarcinoma. I have had an extensive discussion with the patient. I have also called his this morning and discussed with her over the phone. We discussed the radiologic finding, pathology, diagnosis and treatment options. It appeared that his disease is localized, however, I think a PET scan as an outpatient will be helpful for further staging. We discussed the option of surgical resection, radiation and chemotherapy. Given his advanced age, poor performance status and multiple comorbidities, he likely is not a candidate for surgery. However, his would like an opinion from the surgeon as well. As such, I will consult surgery to see him. If he is not a surgical candidate, we could treat him with radiation in combination with chemotherapy. I told them that the prognosis is guarded and pancreatic cancer tends to be aggressive and difficult to treat. The patient's had a close relative that just of pancreatic cancer and she understands the morbidity of this disease. We also talked about supportive care, but for now, she wants to explore all her options first. 2. Ascending cholangitis. He presented with a fever of 102 and weakness. ERCP showed a stricture in the distal common bile duct with sludge and stone in the common bile duct. Cholangitis also noted. He is currently on antibiotic. His liver transaminase and bilirubin were significantly elevated. 3. Hypertension, stable. 4. Diabetes mellitus on insulin. 5. Chronic kidney disease, stable. PLAN 1. Extensive discussion with the patient and his . 2. Consult surgery to get an opinion to see if the patient is a surgical candidate. 3. Continue antibiotics per primary team. 4. Continue heparin for DVT prophylaxis. Thank you Dr. Pepe for asking us to see this patient. MD FRANCISCA Alexander/SCAR /7:30 AM /8:07 AM TIGIST
[2017-02-12 08:59] LABS: AUTOMATED NEUTROPHIL # 13.4 TH/MM3 (1.8-7.7); BASOPHIL % 0.2 % (0.0-2.0); EOSINOPHIL % 0.2 % (0.0-4.0); HEMATOCRIT 34.8 % (39.0-51.0); HEMO FLAGS DIFF FINAL; LYMPH % 3.2 % (9.0-44.0); LYMPHOCYTE # 0.5 TH/MM3 (1.0-4.8); MEAN CELL VOLUME 97.7 FL (80.0-100.0); MEAN CORPUSCULAR HGB CONC 33.7 % (32.0-36.0); NEUT % 89.4 % (16.0-70.0); PLATELET COUNT 175 TH/MM3 (150-450); RED BLOOD COUNT 3.56 MIL/MM3 (4.50-5.90)
[2017-02-12] MEDS: PANTOPRAZOLE SOD 40 MG DELAYED RELEASE TAB PO SCH (09:17)
[2017-02-12] MEDS: DOCUSATE SODIUM 50 MG/SENNA 8.6 MG TAB PO SCH ×2 (09:17→21:00)
[2017-02-12] MEDS ORDERED: NALOXONE HCL 0.4 MG/ML AMP IV PUSH PRN (09:30)
[2017-02-12 09:32] LABS: ALKALINE PHOSPHATASE 570 U/L (45-117); ALT (GPT) 388 U/L (12-78); ANION GAP 11 MEQ/L (5-15); BICARBONATE 22.2 MEQ/L (21.0-32.0); BLOOD UREA NITROGEN 21 MG/DL (7-18); CHLORIDE 105 MEQ/L (98-107); GLOMERULAR FILTRATION RATE 53 ML/MIN (>89); SODIUM (NA) 138 MEQ/L (136-145); TOTAL BILIRUBIN ADULT 4.2 MG/DL (0.2-1.0)
[2017-02-12 09:33] LABS: AST (GOT) 374 U/L (15-37); POTASSIUM 4.2 MEQ/L (3.5-5.1)
--- NOTE | 2017-02-12 09:45 | HHI.GIFU ---
Subjective Remarks Resting in the bed present Patient more alert and answering questions today Hungry Afebrile, this a.m. but fever has been as high as 99. 8 through the a.m. (Maki Black) Objective Vitals I&O Vital Signs Date Time Temp Pulse Resp B/P (MAP) Pulse Ox O2 Delivery O2 Flow Rate FiO2 02/12/17 08:00 98.8 85 17 104/51 (68) 92 02/12/17 05:54 20 02/12/17 04:06 99.8 64 17 106/63 (77) 97 02/11/17 23:54 96.5 64 17 99/61 (74) 95 02/11/17 20:48 98.8 82 18 107/66 (80) 98 02/11/17 19:20 97.8 90 17 101/59 (73) 94 Nasal Cannula 3 02/11/17 19:00 83 17 98/59 (72) 95 Nasal Cannula 3 02/11/17 18:45 76 16 98/58 (71) 95 Nasal Cannula 3 02/11/17 18:30 82 16 100/58 (72) 94 Nasal Cannula 3 02/11/17 18:11 97.8 81 16 109/57 (74) 96 Nasal Cannula 3 02/11/17 17:10 99.6 87 16 133/70 (91) 96 Nasal Cannula 2.00 02/11/17 15:39 98 Nasal Cannula 2.00 02/11/17 15:39 28 98 Nasal Cannula 2.00 02/11/17 15:37 99.2 90 28 157/77 (103) 88 Room Air 2.00 02/11/17 15:14 16 96 Room Air 02/11/17 15:14 98 Room Air 02/11/17 15:14 96 Room Air 02/11/17 14:50 102.0 87 16 152/78 (102) 98 I/O 02/11/17 02/11/17 02/11/17 02/12/17 02/12/17 02/12/17 07:00 15:00 23:00 07:00 15:00 23:00 Intake Total 550 ml 1350 ml Output Total 170 ml 960 ml Balance 380 ml 390 ml Intake IV Total 50 ml 1350 ml Other 500 ml Output Urine Total 170 ml 960 ml # Bowel Movements 1 3 Laboratory Laboratory Tests Test 02/11/17 14:30 02/11/17 14:50 02/12/17 07:34 Urine Color YELLOW Urine Turbidity CLEAR Urine pH 7.0 Urine Specific [place] 1.027 Urine Protein TRACE Urine Glucose (UA) 1000 Urine Ketones NEG Urine Occult Blood NEG Urine Nitrite NEG Urine Bilirubin NEG Urine Urobilinogen LESS THAN 2.0 Urine Leukocyte Esterase NEG Urine WBC LESS THAN 1 Microscopic Urinalysis Comment CULT NOT INDICATED White Blood Count 9.7 15.0 Red Blood Count 4.30 3.56 Hemoglobin 14.3 11.7 Hematocrit 42.3 34.8 Mean Corpuscular Volume 98.3 97.7 Mean Corpuscular Hemoglobin 33.4 33.0 Mean Corpuscular Hemoglobin Concent 33.9 33.7 Red Cell Distribution Width 13.7 14.0 Platelet Count 227 175 Mean Platelet Volume 11.0 11.1 Neutrophils (%) (Auto) 95.2 89.4 Lymphocytes (%) (Auto) 0.8 3.2 Monocytes (%) (Auto) 2.3 7.0 Eosinophils (%) (Auto) 0.2 0.2 Basophils (%) (Auto) 1.5 0.2 Neutrophils # (Auto) 9.3 13.4 Lymphocytes # (Auto) 0.1 0.5 Monocytes # (Auto) 0.2 1.1 Eosinophils # (Auto) 0.0 0.0 Basophils # (Auto) 0.1 0.0 CBC Comment DIFF FINAL DIFF FINAL Differential Comment Blood Urea Nitrogen 24 21 Creatinine 1.53 1.30 Random Glucose 282 71 Total Protein 8.9 7.0 Albumin 3.6 2.5 Calcium Level 9.6 8.4 Alkaline Phosphatase 856 570 Aspartate Amino Transf (AST/SGOT) 661 374 Alanine Aminotransferase (ALT/SGPT) 563 388 Total Bilirubin 3.8 4.2 Sodium Level 131 138 Potassium Level 4.5 4.2 Chloride Level 96 105 Carbon Dioxide Level 25.8 22.2 Anion Gap 9 11 Estimat Glomerular Filtration Rate 44 53 Lactic Acid Level 1.9 Date/Time Source Procedure Growth Status 02/11/17 14:50 Blood Peripheral Aerobic Blood Culture Pending Received 02/11/17 14:50 Blood Peripheral Anaerobic Blood Culture Pending Received Imaging Last Impressions Abdomen X-Ray 02/11/17 1605 Signed Impressions: Service Date/Time: January 16:13 - CONCLUSION: 1. Nonspecific gas pattern. 2. The biliary stent catheter is projected over the central and right of the abdomen. Viraj Ramirez MD Chest X-Ray 02/11/17 1436 Signed Impressions: Service Date/Time: January 15:04 - CONCLUSION: Focal density within the right paratracheal stripe. This could relate to tortuosity of the patient's vasculature given the rotation of the film. I cannot exclude an infiltrate. Otherwise, clear lungs. Kevin Montgomery Jr., MD GI Procedure 02/11/17 0000 Signed Impressions: Service Date/Time: January 18:03 - CONCLUSION: ERCP as above with a possible filling defect in the central intrahepatic biliary duct region and a stent seen on the last image.. Shai Pulido MD Foot X-Ray 02/11/17 0000 Signed Impressions: Service Date/Time: January 15:05 - CONCLUSION: Status post interval amputation of the fourth digit. The remaining bony structures are intact. Viraj Ramirez MD Physical Exam HEENT: Pupils round and reactive to light; normocephalic; atraumatic; no jaundice, pale Throat is clean NECK: Neck is supple, no JVD, no lymphadenopathy. CHEST: Chest is clear without wheezes or rhonchi, low to medium volumes CARDIAC: Regular rate and rhythm, distant ABDOMEN: Obese , Soft, mild distention, nontender; bowel sounds are soft in all four quadrants. EXTREMITIES: No clubbing, cyanosis, or edema., Right foot dressing fourth toe amputation, dressing dry and intact SKIN: Normal; no rash; no jaundice. DAYCARE DIRECTOR: Awake, answers simple questions appropriately for the present (Maki Black) Assessment and Plan Plan ASSESSMENT: - Biliary obstruction Recently hospitalized and found to have a pancreatic head mass with elevated Ca19-9 1646.6. S/P ERCP with stent placement (02/04/17)---> 3 cm stricture/mass distal CBD. Normal IHD, and CHD. Brushings obtained. 8.5 x 7 cm stent placed. Multiple superficial ulcers in the duodenum with duodenitis. Brushings of distal common bile duct with few groups of highly atypical glandular epithelial cells suspicious for adenocarcinoma. He was doing well, but had the sudden onset of lethargy and severe weakness, confusion on admission. No abdominal pain or n/v on admission. LFTs still elevated but trending down, leukocytosis noted 15, Will recheck LFTs at 1600 today. Hungry this am, requesting food. Procedure 02/11 ERCP done on admission. showed stricture in the distal common bile duct consistent with a mass. Brushing cytology showed a few groups of highly atypical glandular epithelial cells suspicious for adenocarcinoma.Zosyn. - Pancreatic adenocarcinoma . He presented with obstructive jaundice about 10 days ago. He also lost more than [address] showed a 2.7 x 3.7 x 3.1 mass in the head of the pancreas. There is no significant adenopathy noted. There is some thrombus in the splenic vein and portal vein confluence which could be bland thrombus versus tumor thrombus. tumor marker CA19-9 was 1646. Options have been discussed including surgery radiation chemotherapy prognosis is guarded will be followed per Dr. Urias, surgical consult will be pending -Ascending cholangitis. fever of 102 on admission and weakness. ERCP showed a stricture in the distal common bile duct with sludge and stone in the common bile duct. Cholangitis also noted with ERCP. 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 PLAN: Advance diet to full liquids, ADA, if no further N&V, increase supper to solid food, soft ADA Consult surgery to get an opinion to see if the patient is a surgical candidate. Dr. Urias following for adenocarcinoma and treatment regimen. Monitor bowel regimen Monitor labs, recheck in the morning CBC, LFTs at 1600 today Continue antibiotics PPI Continue heparin for DVT prophylaxis. Supportive care Further recommendations to follow based on results of above - Pt seen and examined by Dr. Boudreaux and myself and this note is written on his behalf (Maki Black) Maki Black Feb 12, 2017 09:45 Whitney Boudreaux MD Feb 12, 2017 19:34
[2017-02-12 10:58] VITALS: O2SAT 97
--- NOTE | 2017-02-12 11:06 | HHI.HP ---
[facility] Service Family Medicine Primary Care Physician No Primary Care Physician Admission Diagnosis Diagnoses: (1) Sepsis Diagnosis: Principal (2) Biliary obstruction Diagnosis: Principal (3) Diabetes Diagnosis: Principal (4) Pancreatic adenocarcinoma Diagnosis: Principal (`) (5) MARK (acute kidney injury) Diagnosis: Principal (6) S/P amputation of lesser toe Diagnosis: Principal (7) FEN/PPX Diagnosis: Principal International Travel<30 Days: No Contact w/Intl Traveler<30days: No Known Affected Area: No History of Present Illness Mr Jewell is a 81-year-old male with a complicated recent past medical history. Patient was evaluated and discharged from the hospital on February 07 of this year. Discharge summary reviewed. Patient recently diagnosed with pancreatic mass, biopsy results concerning and suspicious for pancreatic adenocarcinoma. Patient is also status post amputation of the right fourth toe. Patient has been taking Augmentin twice a day as directed since discharge. In the course of his last hospitalization, the patient was closely followed by gastroenterology, infectious disease, podiatry, oncology (Dr Urias). The patient returned with his because of disorientation around 1 PM the day of admission. The patient's says he was his normal self the day of admission and even that morning. However early in the afternoon he started to feel cold and tired. He then became disoriented and confused. He was feeling weak and "out of it", per the . She states he looked uncoordinated. He is not in any pain. He denies fever. He denies nausea, vomiting, chest pain , shortness of breath. He had emergent ERCP and a new stent placed to drain the sludge and stones and probable infection out of his common bile duct. He felt better almost immediately and today was ambulating with PT and eating well. However, he has 4/ 4 positive blood cultures for gram negative rods though the cultures are still pending plus his biopsy returned with adenocarcinoma of the pancreas. Surgery and palliative have been consulted to speak to pt and his to see what they wish to do regarding this tumor. Review of Systems Other Constitutional: COMPLAINS OF: Fatigue, Chills, DENIES: Fever Eyes: DENIES: Blurred vision, Diplopia Ears, nose, mouth, throat: DENIES: Hearing loss, Vertigo Respiratory: DENIES: Cough, Shortness of breath Cardiovascular: DENIES: Chest pain, Syncope Gastrointestinal: DENIES: Abdominal pain, Black stools Neurologic: DENIES: Headache Psychiatric: DENIES: Anxiety, Confusion Past Family Social History Past Medical History Type 2 diabetes mellitus, insulin-dependent Hypertension Hyperlipidemia Diabetic nephropathy Diabetic ulcers Pancreatic mass Past Surgical History Cholecystectomy Left knee arthroplasty Right knee repair Allergies: Coded Allergies: No Known Allergies (Unverified , 02/02/17) Family History Denies family history of heart disease or diabetes Social History Smokes a pipe. Rare alcohol. No illicit drugs. Physical Exam Vital Signs Vital Signs Date Time Temp Pulse Resp B/P (MAP) Pulse Ox O2 Delivery O2 Flow Rate FiO2 02/12/17 10:58 97 Nasal Cannula 3.00 02/12/17 08:00 98.8 85 17 104/51 (68) 92 02/12/17 05:54 20 02/12/17 04:06 99.8 64 17 106/63 (77) 97 02/11/17 23:54 96.5 64 17 99/61 (74) 95 02/11/17 20:48 98.8 82 18 107/66 (80) 98 02/11/17 19:20 97.8 90 17 101/59 (73) 94 Nasal Cannula 3 02/11/17 19:00 83 17 98/59 (72) 95 Nasal Cannula 3 02/11/17 18:45 76 16 98/58 (71) 95 Nasal Cannula 3 02/11/17 18:30 82 16 100/58 (72) 94 Nasal Cannula 3 02/11/17 18:11 97.8 81 16 109/57 (74) 96 Nasal Cannula 3 02/11/17 17:10 99.6 87 16 133/70 (91) 96 Nasal Cannula 2.00 02/11/17 15:39 98 Nasal Cannula 2.00 02/11/17 15:39 28 98 Nasal Cannula 2.00 02/11/17 15:37 99.2 90 28 157/77 (103) 88 Room Air 2.00 02/11/17 15:14 16 96 Room Air 02/11/17 15:14 98 Room Air 02/11/17 15:14 96 Room Air 02/11/17 14:50 102.0 87 16 152/78 (102) 98 Physical Exam GENERAL: Pleasant elderly male, no acute distress. Awake alert and oriented 3. Answering questions appropriately. slight jaundice seen face. hungry and eating well today SKIN: Warm and dry. Right fourth digit, status post I and D. Surrounding erythema. Wound looks clean dry and intact. HEAD: Atraumatic. Normocephalic. EYES: Pupils equal round and reactive. Extraocular motions intact. No scleral icterus. No injection or drainage. ENT: Nose without bleeding, purulent drainage or septal hematoma. Airway patent. NECK: Trachea midline. No JVD or lymphadenopathy. Supple, nontender, no meningeal signs. CARDIOVASCULAR: Regular rate and rhythm without murmurs, gallops, or rubs. RESPIRATORY: Clear to auscultation. Breath sounds equal bilaterally. No wheezes , rales, or rhonchi. GASTROINTESTINAL: Abdomen soft, non-tender, nondistended. No hepato-splenomegaly , or palpable masses. No guarding. MUSCULOSKELETAL: Extremities without clubbing, cyanosis, or edema. No joint tenderness, effusion, or edema noted. No calf tenderness. Negative Homans sign bilaterally. NEUROLOGICAL: Awake and alert. Cranial nerves II through XII intact. Motor and sensory grossly within normal limits. Five out of 5 muscle strength in all muscle groups. Normal speech. Laboratory Laboratory Tests Test 02/11/17 14:30 02/11/17 14:50 02/12/17 07:34 Urine Color YELLOW Urine Turbidity CLEAR Urine pH 7.0 Urine Specific [place] 1.027 Urine Protein TRACE Urine Glucose (UA) 1000 Urine Ketones NEG Urine Occult Blood NEG Urine Nitrite NEG Urine Bilirubin NEG Urine Urobilinogen LESS THAN 2.0 Urine Leukocyte Esterase NEG Urine WBC LESS THAN 1 Microscopic Urinalysis Comment CULT NOT INDICATED White Blood Count 9.7 15.0 Red Blood Count 4.30 3.56 Hemoglobin 14.3 11.7 Hematocrit 42.3 34.8 Mean Corpuscular Volume 98.3 97.7 Mean Corpuscular Hemoglobin 33.4 33.0 Mean Corpuscular Hemoglobin Concent 33.9 33.7 Red Cell Distribution Width 13.7 14.0 Platelet Count 227 175 Mean Platelet Volume 11.0 11.1 Neutrophils (%) (Auto) 95.2 89.4 Lymphocytes (%) (Auto) 0.8 3.2 Monocytes (%) (Auto) 2.3 7.0 Eosinophils (%) (Auto) 0.2 0.2 Basophils (%) (Auto) 1.5 0.2 Neutrophils # (Auto) 9.3 13.4 Lymphocytes # (Auto) 0.1 0.5 Monocytes # (Auto) 0.2 1.1 Eosinophils # (Auto) 0.0 0.0 Basophils # (Auto) 0.1 0.0 CBC Comment DIFF FINAL DIFF FINAL Differential Comment Blood Urea Nitrogen 24 21 Creatinine 1.53 1.30 Random Glucose 282 71 Total Protein 8.9 7.0 Albumin 3.6 2.5 Calcium Level 9.6 8.4 Alkaline Phosphatase 856 570 Aspartate Amino Transf (AST/SGOT) 661 374 Alanine Aminotransferase (ALT/SGPT) 563 388 Total Bilirubin 3.8 4.2 Sodium Level 131 138 Potassium Level 4.5 4.2 Chloride Level 96 105 Carbon Dioxide Level 25.8 22.2 Anion Gap 9 11 Estimat Glomerular Filtration Rate 44 53 Lactic Acid Level 1.9 Lipase 45 Date/Time Source Procedure Growth Status 02/11/17 14:50 Blood Peripheral Aerobic Blood Culture - Preliminary Gram Negative Coleman Resulted 02/11/17 14:50 Anaerobic Blood Culture - Preliminary Gram Negative Coleman Resulted Result Diagram: 02/12/17 0734 02/12/17 0734 Imaging Last Impressions Abdomen X-Ray 02/11/17 1605 Signed Impressions: Service Date/Time: January 16:13 - CONCLUSION: 1. Nonspecific gas pattern. 2. The biliary stent catheter is projected over the central and right of the abdomen. Viraj Ramirez MD Chest X-Ray 02/11/17 1436 Signed Impressions: Service Date/Time: January 15:04 - CONCLUSION: Focal density within the right paratracheal stripe. This could relate to tortuosity of the patient's vasculature given the rotation of the film. I cannot exclude an infiltrate. Otherwise, clear lungs. Kevin Montgomery Jr., MD Foot X-Ray 02/11/17 0000 Signed Impressions: Service Date/Time: January 15:05 - CONCLUSION: Status post interval amputation of the fourth digit. The remaining bony structures are intact. Viraj Ramirez MD Caprini VTE Risk Assessment Caprini VTE Risk Assessment: Mod/High Risk (score >= 2) Caprini Risk Assessment Model Point Value = 1 Point Value = 2 Point Value = 3 Point Value = 5 Age 41-60 Minor surgery BMI > 25 kg/m2 Swollen legs Varicose veins or History of unexplained or recurrent spontaneous Oral contraceptives or hormone replacement Sepsis (< 1 month) Serious lung disease, including pneumonia (< 1 month) Abnormal pulmonary function Acute myocardial infarction Congestive heart failure (< 1 month) History of inflammatory bowel disease Medical patient at bed rest Age 61-74 Arthroscopic surgery Major open surgery (> 45 min) Laparoscopic surgery (> 45 min) Malignancy Confined to bed (> 72 hours) Immobilizing plaster cast Central venous access Age >= 75 History of VTE Family history of VTE Factor V Leiden Prothrombin [id number] Lupus anticoagulant Anticardiolipin antibodies Elevated serum homocysteine Heparin-induced thrombocytopenia Other congenital or acquired thrombophilia Stroke (< 1 month) Elective arthroplasty Hip, pelvis, or leg fracture Acute spinal cord injury (< 1 month) Prophylaxis Regimen Total Risk Factor Score Risk Level Prophylaxis Regimen 0-1 Low Early ambulation 2 Moderate Order ONE of the following: *Sequential Compression Device (SCD) *Heparin 5000 units SQ BID 3-4 Higher Order ONE of the following medications: *Heparin 5000 units SQ TID *Enoxaparin/Lovenox 40 mg SQ daily (WT < 150 kg, CrCl > 30 mL/min) *Enoxaparin/Lovenox 30 mg SQ daily (WT < 150 kg, CrCl > 10-29 mL/min) *Enoxaparin/Lovenox 30 mg SQ BID (WT < 150 kg, CrCl > 30 mL/min) AND/OR *Sequential Compression Device (SCD) 5 or more Highest Order ONE of the following medications: *Heparin 5000 units SQ TID (Preferred with Epidurals) *Enoxaparin/Lovenox 40 mg SQ daily (WT < 150 kg, CrCl > 30 mL/min) *Enoxaparin/Lovenox 30 mg SQ daily (WT < 150 kg, CrCl > 10-29 mL/min) *Enoxaparin/Lovenox 30 mg SQ BID (WT < 150 kg, CrCl > 30 mL/min) AND *Sequential Compression Device (SCD) Assessment and Plan Assessment and Plan 81-year-old male with findings concerning for primary pancreatic adenocarcinoma presenting with elevated liver enzymes status post ERCP by gastroenterology. Also concern for sepsis with possible ascending cholangitis versus other. Patient admitted for gastroenterology, oncology consultation. Problem List: (1) Sepsis ICD Codes: A41.9 - Sepsis, unspecified organism Status: Acute Plan: Patient with fever, increased RR, 88% on room air. Possible ascending cholangitis vs other as source. Recent toe amputation site looks clean dry and intact. Blood cultures pending but preliminary 4/4 bottles of gram negative rods Vanc and zosyn given in ER Continue Zosyn q6 hours given concern for ascending cholangitis Normal saline 140 ml/hr will see what the cultures are but clinically he is doing very well since the infection in his duct was drained. will see what is needed on his abx but he is improving with his vitals and appearance (2) Biliary obstruction ICD Codes: K83.1 - Obstruction of bile duct Status: Acute Plan: GI consulted suspected cholangitis. Recently hospitalized and found to have a pancreatic head mass with elevated Ca19-9 1646.6. S/P ERCP with stent placement (02/04/17)---> 3 cm stricture/mass distal CBD. LFTs elevated in obstructive pattern- T. Bili 3.8, AST 661, ALT 563, ALk PHopsh 856 had immediate ERCP with stent exchange. doing very well today (3) Diabetes ICD Codes: E11.9 - Type 2 diabetes mellitus without complications Status: Chronic Plan: Holding by mouth medications He takes Levemir 20 units in the morning and 12 units at bedtime. Given nothing by mouth status, provide Levemir 10 units at bedtime. Sliding scale insulin Adjust long-acting dose of Levemir pending bedside sugars and when eating based on having pancreatic cancer I believe in liberalizing diet as people can lose tremendous amounts of weight no matter what they decide to do. can cover with extra insulin for now and see how he does (4) Pancreatic adenocarcinoma ICD Codes: C25.9 - Malignant neoplasm of pancreas, unspecified Status: Acute Plan: Recent biopsy suspicious for adenocarcinoma. Consulted oncology, Dr. Urias GI consulted for repeat ERCP. appreciate their help (5) MARK (acute kidney injury) ICD Codes: N17.9 - Acute kidney failure, unspecified Status: Acute Plan: Likely from sepsis and dehydration Treatment and fluid hydration as above. (6) S/P amputation of lesser toe ICD Codes: Z89.429 - Acquired absence of other toe(s), unspecified side Status: Acute Plan: Wound is clean dry and intact. Consulted wound care nurse. Antibiotics as above (7) FEN/PPX Status: Acute Plan: Fluids: NS at 140 ml/hr Electrolytes: monitor and replace as needed Nutrition: regular diet now PPX: SCDs, heparin Problem Qualifiers (1) Sepsis: Qualified Codes: A41.9 - Sepsis, unspecified organism (2) Diabetes: Qualified Codes: E11.21 - Type 2 diabetes mellitus with diabetic nephropathy; Z79.4 - manager terminal (current) use of insulin (3) S/P amputation of lesser toe: Qualified Codes: Z89.421 - Acquired absence of other right toe(s) Veronica Borja MD Feb 12, 2017 11:06
[2017-02-12 12:00] VITALS: BP 102/59; PULSE 60; RESP 17; TEMP 96.7; O2SAT 94
--- NOTE | 2017-02-12 13:31 | PD.WCN.NOT ---
Wound Consult Description: Received consult from Doctor Satya Pepe MD R3 for wound management of R foot. Communicated with: DEVENDRA Bonner and call placed to Resident vp communications for Doctor Borja for orders Recommendation: 1. Consult podiatry 2.Please keep dry dressing in place until seen by podiatry. Additional Information: Patient seen on for evaluation of R foot wound. Removed post op shoe, elastic wrap, rolled gauze and non stick dressing in place to reveal R fourth toe amputation site. Wound is noted ~8 sutures that are dry and intact. Periwound is unremarkable. Covered with dry 4x4 gauze. Secured dressing with rolled gauze, tape and elastic wrap. Reapplied post op shoe.Recommendations noted above Natalie Carranza [facility] Feb 12, 2017 13:31
--- NOTE | 2017-02-12 14:33 | PD.CONS ---
Consult Service Palliative Care Consult Requested By Dr. Lamas. Primary Care Physician No Primary Care Physician Reason for Consultation a. To assist with evaluation and management of symptoms including: Pain and debility. b. To assist medical decision maker(s) with: better understanding of current medical conditions; weighing benefits/burdens of medical treatment options; making medical treatment decisions. . HPI History of Present Illness Mr. Jewell is a 81-year-old male with a medical history significant for newly diagnosed pancreatic cancer, insulin-dependent diabetes mellitus type 2, diabetic neuropathy and diabetic ulcers presented to the ED on 02/11/17 for evaluation of altered mental status and fever. Patient status post ERCP with stents on 02/04/17 in amputation of right fourth toe on 02/07/17. ED workup to include chest x-ray revealing focal density within the right paratracheal stripe , unable to exclude infiltrate. Abdominal x-ray revealing biliary stent catheter projected over the central and right of the abdomen. Laboratory workup revealing WBC 9.7, Hgb stable at 14.3, platelet count 227. Sodium 141, potassium 4.5, lactic acid 1.9. Elevated liver enzymes to include total bilirubin 3.8, AST 6 is 1, ALT 563, alkaline phosphatase 850. Patient arrived with a temperature of 102. UA negative for nitrates or leukocyte. Blood cultures obtained and patient was admitted for further management. GI consulted for biliary obstruction, suspected cholangitis. Patient recently hospitalized from 02/03/17 to 02/07/17. Abdomen/pelvis CT 02/02/17 revealing pancreatic mass, tumor locally advanced with no evidence of metastatic disease. Patient with obstructive jaundice. Percent with mid epigastric pain for the previous 1-2 weeks as well as significant weight loss. Oncology, Dr. Urias and GI Dr. Mcmahon consulted. Tumor marker CA-[id number] more than 1600. Patient underwent ERCP with stent placement on 02/04/17. Cytology of distal common bile duct brushing suspicious for adenocarcinoma. Patient was instructed to follow-up with oncology as outpatient. Clinical course complicated by diabetes foot infection, osteomyelitis on MRI. Patient underwent amputation of right fourth toe on 02/07/17. Dr. Urias consulted on 02/12/17. It appears that his disease is localized, however, recommended outpatient PET scan for further staging. Pending surgical consultation, unclear if patient is a surgical candidate at this time given his poor performance status, advanced age and multiple comorbidities. As per oncology, patient may be a candidate for chemotherapy and/or radiation if surgical intervention is not an option. Patient seen in his room. He was sitting up in bed in no acute distress. Jaylin at bedside. Patient denies any pain, nausea/vomiting or abdominal discomfort. He feels that since ERCP of yesterday, his symptoms have mostly resolved. Patient afebrile, stable hemodynamically. Currently tolerating O2 via nasal cannula at 3 L, oxygen saturation in the mid to high 90s. Blood cultures 02/11/17 positive for gram-negative rods. Patient currently on Zosyn. Laboratory workup today revealing leukocytosis 15.0 from 9.7 yesterday, Hgb 11.7, platelet count 175. BUN/creatinine 04/04.. Liver enzymes remain elevated. Lipase 45. No new imaging for review. In this first visit, reviewed the role of palliative care in advanced illness in regards to symptom management as well as support surrounding goals of care and advance care planning. Patient and receptive to my visit. Obtained past medical history and psychosocial history. Reviewed prior acute recent hospitalization, and events leading to this hospitalization, clinical course and current recommendations. Patient is a poor historian, most information obtained from . report that patient has experience approximately 20 pounds weight loss since December of this year. She reports that his appetite and oral intake has remained consistent, however, continued loosing weight. Patient and are residents of [place], spend approximately 4-5 months in [place] every fall and winter. Patient reports that he would likely stay in [place] for his treatment [place] very poor access to healthcare. Patient and verbalized that they will like to seek aggressive management, waiting recommendations from surgery and oncology. Likely to proceed with surgical intervention, if patient is not a candidate, likely to proceed with chemotherapy and/or radiation. Hospice philosophy and benefits introduced, familiar with hospice services. Patient and receptive to hospice should patient's clinical condition continues to worsen, additional functional decline or increased symptom burden. Reviewed risks, benefits and limitations of CPR, intubation and mechanical ventilation given poor performance status, advanced age and multiple comorbidities. Patient electing to remain full code. All questions were answered in great detail. Patient and receptive to palliative care follow-up for further clarifications of goals of care. . Function/Cognitive Trajectory Patient residing in private home with his . Independent with all ADLs. No assistive device for ambulation. No cognitive deficit reported or observed. . Review of Systems ROS Limitations: Poor Historian Constitutional: COMPLAINS OF: Fatigue, Fever, Weight loss, Change in appetite, Pain, Generalized weakness Endocrine: DENIES: Heat/cold intolerance Eyes: DENIES: Eye pain, Double Vision Ears, nose, mouth, throat: COMPLAINS OF: Hearing loss, DENIES: Throat pain, Ear Pain, Running Nose Respiratory: COMPLAINS OF: Shortness of breath, DENIES: Apneas, Sputum production Cardiovascular: DENIES: Chest pain, Dyspnea on Exertion, Lower Extremity Edema Gastrointestinal: DENIES: Constipation, Diarrhea, Nausea, Vomiting, Difficulty Swallowing Musculoskeletal: DENIES: Joint pain, Neck pain Integumentary: COMPLAINS OF: Non-healing sores, DENIES: Abnormal pigmentation Hematologic/Lymphatics: DENIES: Bruising Immunologic/Allergic: DENIES: Eczema Neurologic: DENIES: Abnormal gait, Speech Problems, Tremor, Poor Balance Psychiatric: COMPLAINS OF: Confusion, DENIES: Mood changes, Depression, Hallucinations, Agitation Past Family Social History Coded Allergies: No Known Allergies (Unverified , 02/02/17) Past Medical History Type 2 diabetes mellitus, insulin-dependent Hypertension Hyperlipidemia Diabetic ulcers right 4/5th toes Chronic kidney disease Pancreatic head mass, CBD brushings- Brushings of distal common bile duct with few groups of highly atypical glandular epithelial cells suspicious for adenocarcinoma. Obstructive jaundice . Past Surgical History Cholecystectomy Left knee arthroplasty Right knee repair Colonoscopy ERCP with stent placement 02/04/17 and 02/11/17 . Reported Medications Levemir Inj (Insulin Detemir) 1,000 unit/ 10 ML Vial 12 Units SQ HS Levemir Inj (Insulin Detemir) 1,000 unit/ 10 ML Vial 20 Units SQ DAILYAC Augmentin (Amoxicillin-Clavulanate) 875-125 Mg Tab 1 Tab PO BID Pantoprazole (Pantoprazole Sodium) 40 Mg Tab 40 Mg PO DAILY Oxycodone (Oxycodone HCl) 5 Mg Tab 5 Mg PO Q8H PRN Levemir Flextouch Pen Inj (Insulin Detemir) 300 unit/3 ML Pen 15 Units SQ HS 30 Days Jardiance (Empagliflozin) 10 Mg Tab 10 Mg PO DAILY Multiple Vitamin 1 Tab 1 Tab PO DAILY Vitamin D3 (Cholecalciferol) 1,000 Unit Chew 1,000 Units CHEW BID . Current Medications Medications (Trade) Dose Ordered Sig/Leonel Route Start Time Stop Time Status Last Admin Piperacillin Sod/ Tazobactam Sod 50 ml @ 100 mls/hr Q6H IV 02/11/17 21:00 02/12/17 09:17 Sodium Chloride 1,000 ml @ 140 mls/hr Q7H9M IV 02/11/17 18:00 (NS Flush) 2 ml UNSCH PRN IV FLUSH 02/11/17 17:00 (NS Flush) 2 ml BID IV FLUSH 02/11/17 21:00 02/11/17 21:30 (Tylenol) 650 mg Q6HR PRN PO 02/11/17 17:00 02/12/17 04:54 (Zofran Inj) 4 mg Q6H PRN IVP 02/11/17 17:00 (Heparin Inj) 5,000 units Q12H SQ 02/12/17 06:00 02/12/17 04:54 (Narcan Inj) 0.4 mg UNSCH PRN IV PUSH 02/11/17 17:00 (Marlene-Colace) 1 tab BID PO 02/11/17 21:00 02/12/17 09:17 (Milk Of Magnesia Liq) 30 ml Q12H PRN PO 02/11/17 17:00 (Senokot) 17.2 mg Q12H PRN PO 02/11/17 17:00 (Dulcolax Supp) 10 mg DAILY PRN RECTAL 02/11/17 17:00 (Lactulose Liq) 30 ml DAILY PRN PO 02/11/17 17:00 (Protonix) 40 mg DAILY PO 02/12/17 09:00 02/12/17 09:17 (D50w (Vial) Inj) 50 ml UNSCH PRN IV PUSH 02/11/17 17:15 (Glucagon Inj) 1 mg UNSCH PRN OTHER 02/11/17 17:15 (NovoLOG SUPPLEMENTAL SCALE) 1 ACHS SLIDING SCALE SQ 02/11/17 21:00 02/12/17 12:42 (Levemir Inj) 10 units HS SQ 02/11/17 21:00 Miscellaneous Information ALL NURSING DEPARTME... UNSCH PRN .XX 02/11/17 19:15 02/12/17 19:14 (Roxicodone) 5 mg Q4H PRN PO 02/12/17 09:30 (Roxicodone) 10 mg Q4H PRN PO 02/12/17 09:30 (Narcan Inj) 0.4 mg UNSCH PRN IV PUSH 02/12/17 09:30 Family History Both parents of old age in their 80s. . Substance Use Tobacco: Smokes a pipe. Alcohol: Socially. Prescription med abuse: Denies. Illicits: Denies. . Psychosocial History Patient originally from [place]. Has been coming to [place] for the past 17 years to spend the fall/winter. to current for the past 8 years, no children together. Patient has 1 daughter, has no contact with her. 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 . Spiritual/Cultural Factors Hindu laurie. . Living Will: Never completed Health Care Surrogate: Never completed Durable Power of Photo Optics Technician: Never completed Health Care Surrogate(s): Healthcare proxy decision maker is patient's Jaylin Jewell. . Today's verbally stated goals: Full code. Patient wishing for aggressive management, pending surgical consult. . Family/friends goals: Patient's Jaylin fully supportive of patient's wishes. . Ethical and Legal Issues No ethical legal issues identified. Patient participating in medical decision- making. . Physical Exam Vital Signs Date Time Temp Pulse Resp B/P (MAP) Pulse Ox O2 Delivery O2 Flow Rate FiO2 02/12/17 12:00 96.7 60 17 102/59 (73) 94 02/12/17 10:58 97 Nasal Cannula 3.00 02/12/17 08:00 98.8 85 17 104/51 (68) 92 02/12/17 05:54 20 02/12/17 04:06 99.8 64 17 106/63 (77) 97 02/11/17 23:54 96.5 64 17 99/61 (74) 95 02/11/17 20:48 98.8 82 18 107/66 (80) 98 02/11/17 19:20 97.8 90 17 101/59 (73) 94 Nasal Cannula 3 02/11/17 19:00 83 17 98/59 (72) 95 Nasal Cannula 3 02/11/17 18:45 76 16 98/58 (71) 95 Nasal Cannula 3 02/11/17 18:30 82 16 100/58 (72) 94 Nasal Cannula 3 02/11/17 18:11 97.8 81 16 109/57 (74) 96 Nasal Cannula 3 02/11/17 17:10 99.6 87 16 133/70 (91) 96 Nasal Cannula 2.00 02/11/17 15:39 98 Nasal Cannula 2.00 02/11/17 15:39 28 98 Nasal Cannula 2.00 02/11/17 15:37 99.2 90 28 157/77 (103) 88 Room Air 2.00 02/11/17 15:14 16 96 Room Air 02/11/17 15:14 98 Room Air 02/11/17 15:14 96 Room Air 02/11/17 14:50 102.0 87 16 152/78 (102) 98 02/12/17 02/13/17 19:00 07:00 Intake Total 50 ml Balance 50 ml Intake IV Total 50 ml Exam CONSTITUTIONAL/GENERAL: This is an adequately nourished patient, in no apparent distress. TUBES/LINES/DRAINS: PIV's, nasal cannula. SKIN: No jaundice, rashes, or lesions. Ecchymoses on upper extremities. No wounds seen anteriorly. Skin temperature appropriate. Not diaphoretic. HEAD: Atraumatic. Normocephalic. EYES: Pupils equal and round and reactive. Extraocular motions intact. Scleral icterus. No injection or drainage. ENT: Hard of hearing. Nose without bleeding or purulent drainage. Moist oral mucosa. NECK: Trachea midline. Supple, nontender. CARDIOVASCULAR: Regular rate and rhythm without murmurs. Peripheral pulses symmetric. RESPIRATORY/CHEST: Symmetric, unlabored respirations. Clear to auscultation. Breath sounds equal bilaterally. No wheezes, rales, or rhonchi. GASTROINTESTINAL: Abdomen soft, nondistended. No guarding. Bowel sounds present. GENITOURINARY: Without palpable bladder distension. MUSCULOSKELETAL: Extremities without clubbing, cyanosis, or edema. Right fourth toe status post amputation, currently present in place. Appears dry, clean and intact. NEUROLOGICAL: Awake and alert. Motor and sensory grossly within normal limits. Follows commands. Moves all extremities. PSYCHIATRIC: Flat affect. No anxiety noted. . Diagnostic Tests Laboratory Laboratory Tests Test 02/11/17 14:30 02/11/17 14:50 02/12/17 07:34 Urine Color YELLOW (YELLW/STRAW) Urine Turbidity CLEAR (CLEAR) Urine pH 7.0 (5.0-8.5) Urine Specific [place] 1.027 (1.002-1.035) Urine Protein TRACE mg/dL (NEG-TRACE) Urine Glucose (UA) 1000 mg/dL (NEG) Urine Ketones NEG mg/dL (NEG) Urine Occult Blood NEG (NEG) Urine Nitrite NEG (NEG) Urine Bilirubin NEG (NEG) Urine Urobilinogen LESS THAN 2.0 MG/DL (LESS Urine Leukocyte Esterase NEG (NEG) Urine WBC LESS THAN 1 /hpf (0-5) Microscopic Urinalysis Comment CULT NOT INDICATED White Blood Count 9.7 TH/MM3 (4.0-11.0) 15.0 TH/MM3 (4.0-11.0) Red Blood Count 4.30 MIL/MM3 (4.50-5.90) 3.56 MIL/MM3 (4.50-5.90) Hemoglobin 14.3 GM/DL (13.0-17.0) 11.7 GM/DL (13.0-17.0) Hematocrit 42.3 % (39.0-51.0) 34.8 % (39.0-51.0) Mean Corpuscular Volume 98.3 FL (80.0-100.0) 97.7 FL (80.0-100.0) Mean Corpuscular Hemoglobin 33.4 PG (27.0-34.0) 33.0 PG (27.0-34.0) Mean Corpuscular Hemoglobin Concent 33.9 % (32.0-36.0) 33.7 % (32.0-36.0) Red Cell Distribution Width 13.7 % (11.6-17.2) 14.0 % (11.6-17.2) Platelet Count 227 TH/MM3 (150-450) 175 TH/MM3 (150-450) Mean Platelet Volume 11.0 FL (7.0-11.0) 11.1 FL (7.0-11.0) Neutrophils (%) (Auto) 95.2 % (16.0-70.0) 89.4 % (16.0-70.0) Lymphocytes (%) (Auto) 0.8 % (9.0-44.0) 3.2 % (9.0-44.0) Monocytes (%) (Auto) 2.3 % (0.0-8.0) 7.0 % (0.0-8.0) Eosinophils (%) (Auto) 0.2 % (0.0-4.0) 0.2 % (0.0-4.0) Basophils (%) (Auto) 1.5 % (0.0-2.0) 0.2 % (0.0-2.0) Neutrophils # (Auto) 9.3 TH/MM3 (1.8-7.7) 13.4 TH/MM3 (1.8-7.7) Lymphocytes # (Auto) 0.1 TH/MM3 (1.0-4.8) 0.5 TH/MM3 (1.0-4.8) Monocytes # (Auto) 0.2 TH/MM3 (0-0.9) 1.1 TH/MM3 (0-0.9) Eosinophils # (Auto) 0.0 TH/MM3 (0-0.4) 0.0 TH/MM3 (0-0.4) Basophils # (Auto) 0.1 TH/MM3 (0-0.2) 0.0 TH/MM3 (0-0.2) CBC Comment DIFF FINAL DIFF FINAL Differential Comment Blood Urea Nitrogen 24 MG/DL (7-18) 21 MG/DL (7-18) Creatinine 1.53 MG/DL (0.60-1.30) 1.30 MG/DL (0.60-1.30) Random Glucose 282 MG/DL (74-106) 71 MG/DL (74-106) Total Protein 8.9 GM/DL (6.4-8.2) 7.0 GM/DL (6.4-8.2) Albumin 3.6 GM/DL (3.4-5.0) 2.5 GM/DL (3.4-5.0) Calcium Level 9.6 MG/DL (8.5-10.1) 8.4 MG/DL (8.5-10.1) Alkaline Phosphatase 856 U/L (45-117) 570 U/L (45-117) Aspartate Amino Transf (AST/SGOT) 661 U/L (15-37) 374 U/L (15-37) Alanine Aminotransferase (ALT/SGPT) 563 U/L (12-78) 388 U/L (12-78) Total Bilirubin 3.8 MG/DL (0.2-1.0) 4.2 MG/DL (0.2-1.0) Sodium Level 131 MEQ/L (136-145) 138 MEQ/L (136-145) Potassium Level 4.5 MEQ/L (3.5-5.1) 4.2 MEQ/L (3.5-5.1) Chloride Level 96 MEQ/L (98-107) 105 MEQ/L (98-107) Carbon Dioxide Level 25.8 MEQ/L (21.0-32.0) 22.2 MEQ/L (21.0-32.0) Anion Gap 9 MEQ/L (5-15) 11 MEQ/L (5-15) Estimat Glomerular Filtration Rate 44 ML/MIN (>89) 53 ML/MIN (>89) Lactic Acid Level 1.9 mmol/L (0.4-2.0) Lipase 45 U/L (73-393) Result Diagram: 02/12/17 0734 02/12/17 0734 Microbiology Microbiology Date/Time Source Procedure Growth Status 02/11/17 14:50 Blood Peripheral Aerobic Blood Culture - Preliminary Enterobacter Species Resulted 02/11/17 14:50 Anaerobic Blood Culture - Preliminary Gram Negative Coleman Resulted 02/11/17 14:45 Blood Peripheral Aerobic Blood Culture - Preliminary Gram Negative Coleman Resulted 02/11/17 14:45 Anaerobic Blood Culture - Preliminary Gram Negative Coleman Resulted Imaging Last Impressions Abdomen X-Ray 02/11/17 1605 Signed Impressions: Service Date/Time: January 16:13 - CONCLUSION: 1. Nonspecific gas pattern. 2. The biliary stent catheter is projected over the central and right of the abdomen. Viraj Ramirez MD Chest X-Ray 02/11/17 1436 Signed Impressions: Service Date/Time: January 15:04 - CONCLUSION: Focal density within the right paratracheal stripe. This could relate to tortuosity of the patient's vasculature given the rotation of the film. I cannot exclude an infiltrate. Otherwise, clear lungs. Kevin Montgomery Jr., MD GI Procedure 02/11/17 0000 Signed Impressions: Service Date/Time: January 18:03 - CONCLUSION: ERCP as above with a possible filling defect in the central intrahepatic biliary duct region and a stent seen on the last image.. Shai Pulido MD Foot X-Ray 02/11/17 0000 Signed Impressions: Service Date/Time: January 15:05 - CONCLUSION: Status post interval amputation of the fourth digit. The remaining bony structures are intact. Viraj Ramirez MD Procedures * 02/11/17 -EGD with stent placement, ERCP with sphincterotomy, balloon sweep of the duct retrieving stone and sludge. . Patient/Family Conference Present at Family Conference: Patient and Jaylin. Family Conference Time (mins): 46 Family Conference Location: Bedside Issues Discussed: * Palliative care role, purpose, approach * Additional medical, psychosocial, and spiritual history * Patients general health, functional status, and cognitive changes in the months leading up to the current hospitalization * Patient/family understanding of the current medical problems -pancreatic cancer, physical deconditioning, multiple comorbidities. * Patient/family understanding of prognosis -poor prognosis for a prolonged survival in the setting of pancreatic cancer * Patients goals of care as best understood from advance directives and/or conversations and/or values * Current medical treatment options and benefits/burdens of those options * Likely scenarios comparing ongoing aggressive care with a transition to comfort measures only * Questions answered to the best of my ability * Palliative care contact information provided * Hospice philosophy and benefits * Risks, benefits and limitations of CPR, intubation and mechanical ventilation . Assessment and Plan Disease Oriented Problem List: (1) Sepsis (2) Pancreatic adenocarcinoma (3) Diabetes (4) Physical deconditioning Symptom Scale: (1) Pain 0-10 Scale: 0 Comment: Secondary to burden of disease. (2) Debility 0-10 Scale: Unable to quantify Comment: Progressive. Pertinent Non-Medical Issues Psychosocial: Patient originally from [place]. Has been coming to [place] for the past 17 years to spend the fall/winter. to current for the past 8 years, no children together. Patient has 1 daughter, has no contact with her. 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 Spiritual: Hindu laurie. Legal: No advance directives completed. Ethical issues impacting care: No ethical legal issues identified. . Important Contacts Patient's Jaylin Jewell . . Prognosis Mr. Jewell is a 81-year-old male with a medical history significant for newly diagnosed pancreatic cancer, insulin-dependent diabetes mellitus type 2, diabetic neuropathy and diabetic ulcers presented to the ED on 02/11/17 for evaluation of altered mental status and fever. Patient status post ERCP with stents on 02/04/17 in amputation of right fourth toe on 02/07/17. Repeat ERCP with stent placement on 02/11/17. Patient's overall prognosis is poor given pancreatic cancer, advanced age, profound physical deconditioning and multiple comorbidities. Patient at high risk for further complications, continue decline and . Patient appears hospice appropriate should he elects comfort -directed care. . Code Status: Full Code Plan * CODE STATUS: Full code. Risks, benefits and limitations of CPR, intubation and mechanical ventilation had been discussed with patient and . * HEALTHCARE DECISION-MAKING: Patient participating in medical decision-making. He appears to have a fair understanding of his clinical condition and newly diagnosed pancreatic cancer. Appears to retain the ability to weight benefits versus burdens of treatment options. No advance directives completed. As per [place] statute, healthcare proxy decision-making falls to patient's Jaylin Jewell. * GOALS OF CARE: Patient considering aggressive management to include surgical intervention, pending surgical consult for eligibility. If patient is not a surgical candidate, may consider chemotherapy and/or radiation. Goal of therapy is for improvement of quality of life and prolongation of survival. Hospice philosophy and benefits introduced, patient and family receptive should patient's clinical course worsen or increased symptom burden. * SYMPTOMS: = Pain, secondary to pancreatic cancer, and recent amputation to right fourth toe. Denies pain during my visit. Oxycodone 5-10 mg q4hr PRN available. None used of the past 24 hours. = Debility, progressive given burden of disease. PT following, home with no PT recommended. * Palliative care contact information has been provided to patient and . * Palliative care will continue to follow-up for further clarifications of goals of care has patient's clinical course continues to evolve. . Time Spent Total Floor Time (mins): 62 (Total time to include review and summarization of available medical records to include prior acute hospitalization, physical exam , goals of care conversation with patient and family.) >50% Counseling/Coord of Care: Yes Thank you for the opportunity to participate in the care of Mr. Jewell. Attestation To help prompt me to consider important information that might be impacting today's encounter and assessment, information from prior notes written by myself or my colleagues may have been "brought forward" into today's note. My signature on this note, however, is an attestation that I personally performed the exam, history, and/or decision-making noted today, and, unless otherwise indicated, the interactions with patient, family, and staff as well as the review of records all occurred today. I also attest that the listed assessment and stated plan reflect my best clinical judgment today based on the combination of historical information, prior notes, and today's exam/ interactions. When time spent is documented, it refers only to time spent today by the signer, or if indicated, combined time spent today by collaborating physician/nurse practitioner. Janelle Moffett Feb 12, 2017 14:33
[2017-02-12 16:00] VITALS: BP 127/68; PULSE 58; RESP 16; TEMP 97.1; O2SAT 92
[2017-02-12] MEDS: SODIUM CHLORIDE 0.9% FLUSH 10 ML FLUSH IV FLUSH SCH ×2 (16:26→21:00)
[2017-02-12 17:14] LABS: INDIRECT BILIRUBIN 0.5 MG/DL (0.0-0.8); TOTAL BILIRUBIN ADULT 4.1 MG/DL (0.2-1.0)
[2017-02-12 20:00] VITALS: BP 131/64; PULSE 68; RESP 16; TEMP 94.3; O2SAT 97
[2017-02-12] MEDS: INSULIN DETEMIR 100 UNITS/ML VIAL SQ SCH (23:34)
[2017-02-13] VITALS: BP 112/64; PULSE 64; RESP 17; TEMP 98.1; O2SAT 93
[2017-02-13] MEDS: PIPERACIL-TAZO 3.375 GM PREMIX 50 ML IV SCH ×4 (02:21→21:37)
[2017-02-13] MEDS: SODIUM CHLOR 0.9% 1000 ML INJ 1,000 ML IV SCH ×3 (02:24→11:05)
[2017-02-13] MEDS: HEPARIN SODIUM - SQ 10,000 UNITS/ML VIAL SQ SCH ×2 (06:35→17:24)
[2017-02-13 06:45] LABS: BASOPHIL % 0.3 % (0.0-2.0); EOSINOPHIL # 0.3 TH/MM3 (0-0.4); EOSINOPHIL % 2.7 % (0.0-4.0); HEMATOCRIT 32.6 % (39.0-51.0); HEMO FLAGS DIFF FINAL; LYMPH % 5.6 % (9.0-44.0); LYMPHOCYTE # 0.5 TH/MM3 (1.0-4.8); MEAN CELL VOLUME 97.4 FL (80.0-100.0); MEAN CORPUSCULAR HEMOGLOBIN 32.9 PG (27.0-34.0); MEAN CORPUSCULAR HGB CONC 33.8 % (32.0-36.0); MONO % 5.1 % (0.0-8.0); NEUT % 86.3 % (16.0-70.0); PLATELET COUNT 157 TH/MM3 (150-450); RED BLOOD COUNT 3.35 MIL/MM3 (4.50-5.90); WHITE BLOOD COUNT 9.2 TH/MM3 (4.0-11.0)
[2017-02-13 07:13] LABS: ANION GAP 9 MEQ/L (5-15); AST (GOT) 142 U/L (15-37); BLOOD UREA NITROGEN 22 MG/DL (7-18); CHLORIDE 106 MEQ/L (98-107); GLOMERULAR FILTRATION RATE 51 ML/MIN (>89); POTASSIUM 3.7 MEQ/L (3.5-5.1); SODIUM (NA) 136 MEQ/L (136-145)
[2017-02-13 07:17] LABS: ALKALINE PHOSPHATASE 463 U/L (45-117); ALT (GPT) 251 U/L (12-78); TOTAL BILIRUBIN ADULT 3.8 MG/DL (0.2-1.0)
[2017-02-13 07:35] VITALS: BP 130/78; PULSE 64; RESP 17; TEMP 99.3; O2SAT 93
[2017-02-13] MEDS: DOCUSATE SODIUM 50 MG/SENNA 8.6 MG TAB PO SCH ×2 (07:44→21:37)
[2017-02-13] MEDS: PANTOPRAZOLE SOD 40 MG DELAYED RELEASE TAB PO SCH (07:44)
[2017-02-13] MEDS: SODIUM CHLORIDE 0.9% FLUSH 10 ML FLUSH IV FLUSH SCH ×2 (07:44→21:37)
[2017-02-13] MEDS: INSULIN ASPART SUPPLEMENTAL SCALE SQ SCH ×4 (08:02→21:49)
--- NOTE | 2017-02-13 08:39 | HHI.FPPN ---
Subjective Remarks Patient was seen and evaluated this morning. Patient denies chest pain, heart palpitations, shortness of breath, nausea/vomiting, diarrhea and constipation. Patient is requesting a regular diet. Per , patient with some facial swelling. All questions were answered. (Trina Aguilar MD R1) Objective Vitals Vital Signs Date Time Temp Pulse Resp B/P (MAP) Pulse Ox O2 Delivery O2 Flow Rate FiO2 02/13/17 07:35 99.3 64 17 130/78 (95) 93 02/13/17 00:00 98.1 64 17 112/64 (80) 93 02/12/17 20:00 94.3 68 16 131/64 (86) 97 02/12/17 16:00 97.1 58 16 127/68 (87) 92 02/12/17 12:00 96.7 60 17 102/59 (73) 94 02/12/17 10:58 97 Nasal Cannula 3.00 I/O 02/12/17 02/12/17 02/12/17 02/13/17 02/13/17 02/13/17 07:00 15:00 23:00 07:00 15:00 23:00 Intake Total 1350 ml 50 ml 1920 ml 240 ml Output Total 960 ml Balance 390 ml 50 ml 1920 ml 240 ml Intake Oral 1920 ml 240 ml IV Total 1350 ml 50 ml Output Urine Total 960 ml # Voids 5 2 # Bowel Movements 3 2 (Trina Aguilar MD R1) Result Diagram: 02/13/17 0542 02/13/17 0542 Imaging Last Impressions Abdomen X-Ray 02/11/17 1605 Signed Impressions: Service Date/Time: January 16:13 - CONCLUSION: 1. Nonspecific gas pattern. 2. The biliary stent catheter is projected over the central and right of the abdomen. Viraj Ramirez MD Chest X-Ray 02/11/17 1436 Signed Impressions: Service Date/Time: January 15:04 - CONCLUSION: Focal density within the right paratracheal stripe. This could relate to tortuosity of the patient's vasculature given the rotation of the film. I cannot exclude an infiltrate. Otherwise, clear lungs. Kevni Montgomery Jr., MD GI Procedure 02/11/17 0000 Signed Impressions: Service Date/Time: January 18:03 - CONCLUSION: ERCP as above with a possible filling defect in the central intrahepatic biliary duct region and a stent seen on the last image.. Shai Pulido MD Foot X-Ray 02/11/17 0000 Signed Impressions: Service Date/Time: January 15:05 - CONCLUSION: Status post interval amputation of the fourth digit. The remaining bony structures are intact. Viraj Ramirez MD Objective Remarks GENERAL: Pleasant elderly male, no acute/respiratory distress. Awake alert and oriented 3. Answering questions appropriately. Hungry. SKIN: Warm and dry. Minimal jaundice noted in face and on chest. Right fourth digit, status post I&D, with surrounding erythema. Wound covered with dry gauze today. HEAD: Atraumatic. Normocephalic. EYES: Pupils equal round. Extraocular motions intact. No scleral icterus. No injection or drainage. ENT: Nose without bleeding, purulent drainage or septal hematoma. Airway patent. NECK: Trachea midline. No JVD. CARDIOVASCULAR: Regular rate and rhythm without murmurs, gallops, or rubs. RESPIRATORY: Clear to auscultation. Breath sounds equal bilaterally. No wheezes , rales, or rhonchi. GASTROINTESTINAL: Abdomen soft, non-tender, nondistended. No hepato-splenomegaly , or palpable masses. No guarding. MUSCULOSKELETAL: Extremities without clubbing, cyanosis, or edema. No joint tenderness, effusion, or edema noted. No calf tenderness. NEUROLOGICAL: Awake and alert. Cranial nerves II through XII intact. Motor and sensory grossly within normal limits. Normal speech. Procedures ERCP with stent placement on 02/11. Medications and IVs Current Medications Medications (Trade) Dose Ordered Sig/Leonel Route Start Time Stop Time Status Last Admin Piperacillin Sod/ Tazobactam Sod 50 ml @ 100 mls/hr Q6H IV 02/11/17 21:00 02/13/17 07:44 Sodium Chloride 1,000 ml @ 140 mls/hr Q7H9M IV 02/11/17 18:00 02/13/17 02:24 (NS Flush) 2 ml UNSCH PRN IV FLUSH 02/11/17 17:00 (NS Flush) 2 ml BID IV FLUSH 02/11/17 21:00 02/12/17 16:26 (Tylenol) 650 mg Q6HR PRN PO 02/11/17 17:00 02/12/17 04:54 (Zofran Inj) 4 mg Q6H PRN IVP 02/11/17 17:00 (Heparin Inj) 5,000 units Q12H SQ 02/12/17 06:00 02/13/17 06:35 (Narcan Inj) 0.4 mg UNSCH PRN IV PUSH 02/11/17 17:00 (Marlene-Colace) 1 tab BID PO 02/11/17 21:00 02/12/17 09:17 (Milk Of Magnesia Liq) 30 ml Q12H PRN PO 02/11/17 17:00 (Senokot) 17.2 mg Q12H PRN PO 02/11/17 17:00 (Dulcolax Supp) 10 mg DAILY PRN RECTAL 02/11/17 17:00 (Lactulose Liq) 30 ml DAILY PRN PO 02/11/17 17:00 (Protonix) 40 mg DAILY PO 02/12/17 09:00 02/12/17 09:17 (D50w (Vial) Inj) 50 ml UNSCH PRN IV PUSH 02/11/17 17:15 (Glucagon Inj) 1 mg UNSCH PRN OTHER 02/11/17 17:15 (NovoLOG SUPPLEMENTAL SCALE) 1 ACHS SLIDING SCALE SQ 02/11/17 21:00 02/13/17 08:02 (Levemir Inj) 10 units HS SQ 02/11/17 21:00 02/12/17 23:34 (Roxicodone) 5 mg Q4H PRN PO 02/12/17 09:30 (Roxicodone) 10 mg Q4H PRN PO 02/12/17 09:30 (Narcan Inj) 0.4 mg UNSCH PRN IV PUSH 02/12/17 09:30 (Trina Aguilar MD R1) Urinary Catheter: No (Trina Aguilar MD R1) Vascular Central Line Catheter: No (Trina Aguilar MD R1) A/P Assessment and Plan 81-year-old male, s/p recent ERCP with stent placement findings concerning for primary pancreatic adenocarcinoma, presented to ED with confusion x several hours. T 102.0. Possible source of infection; ascending cholangitis. (Trina Aguilar MD R1) Attending Attestation Patient seen and examined. Case reviewed and discussed with the resident team. Agree with plan of care as discussed with me and documented in the resident note. fortunately, he feels much better and is considering his options with the help of his (Veronica Borja MD) Problem List: (1) Ascending cholangitis ICD Codes: K83.0 - Cholangitis Status: Acute Plan: Clinically improving. On admission, patient with T 102.0, RR 28, 88% on room air, requiring 2L O2 via NC. Suspected source of infection: ascending cholangitis. Labs: * WBC: 9.2 (02/13) <- 15.0 (02/12) <- 9.7 (02/11) * Hgb: 11 (02/13) <- 11.7 (02/12) <- 14.3 (02/11) * Lactic Acid: 1.9 (02/11) * Total Bilirubin: 3.8 (02/13) <- 4.1 (02/12) <- 3.8 (02/11) * Direct Bilirubin: 3.6 (02/12) * AST: 142 (02/13) <- 374 (02/12) <- 661 (02/11) * ALT: 251 (02/13) <- 388 (02/12) <- 563 (02/11) * Alk Phos: 463 (02/13) <- 570 (02/12) <- 856 (02/11) Microbiology: * Blood culture x4: Gram negative rods, Enterobacter species * New set of blood cultures ordered for today. Orders/Medications: * GI consulted. ERCP with stent placement shortly after admission on 02/11. * Zosyn 50 ml at 100 mls/hr q6hr IV. * NS 1,000 ml at 70 mls/hr IV. (2) Biliary obstruction ICD Codes: K83.1 - Obstruction of bile duct Status: Acute Plan: See Plan for Ascending cholangitis. (3) Pancreatic adenocarcinoma ICD Codes: C25.9 - Malignant neoplasm of pancreas, unspecified Status: Acute Plan: Recent biopsy suspicious for adenocarcinoma. Orders: * Oncology consult: Dr. Urias recommended palliative and surgery consult to discuss options. * Palliative consult: Patient and would like to talk to surgery to discuss all options. * Surgery consult: Patient to be seen on Wednesday. (4) MARK (acute kidney injury) ICD Codes: N17.9 - Acute kidney failure, unspecified Status: Acute Plan: Differential diagnosis: * Likely from dehydration. Labs: * BUN: 22 (02/13) <- 21 (02/12) <- 24 (02/11) * Cr: 1.32 (02/13) <- 1.30 (02/12) <- 1.53 (02/11) Medication: * NS 1,000 ml at 70 mls/hr IV. (5) S/P amputation of lesser toe ICD Codes: Z89.429 - Acquired absence of other toe(s), unspecified side Status: Acute Plan: Wound is clean dry and intact. Orders: * Wound care consult: Recommendations - Cover with dry 4x4 gauze, secure dressing with rolled gauze, tape and elastic wrap. Wear Post-op shoe. * Podiatry consult: Pending. (6) Diabetes ICD Codes: E11.9 - Type 2 diabetes mellitus without complications Status: Chronic Plan: Medications: * Hold home PO medications. * Levemir 10 units HS SQ. * SSI: Patient has required 2 Units NovoLOG SQ over past 24 hours. (7) FEN/PPX Status: Acute Plan: Fluids: * NS 1,000 ml at 70 mls/hr. Electrolytes: * Monitor and replace as needed. Nutrition: * Regular diet. DVT prophylaxis: * Heparin 5,000 units q12hr SQ. 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
--- NOTE | 2017-02-13 11:08 | PD.ONC.PN ---
Subjective Subjective Remarks Afebrile overnight Reports he was thirsty overnight but was NPO; diet has been changed this am Denies pain Objective Data Date Time Temp Pulse Resp B/P (MAP) Pulse Ox O2 Delivery O2 Flow Rate FiO2 02/13/17 07:35 99.3 64 17 130/78 (95) 93 02/13/17 00:00 98.1 64 17 112/64 (80) 93 02/12/17 20:00 94.3 68 16 131/64 (86) 97 02/12/17 16:00 97.1 58 16 127/68 (87) 92 02/12/17 12:00 96.7 60 17 102/59 (73) 94 02/13/17 02/13/17 02/13/17 07:00 15:00 23:00 Intake Total 240 ml Balance 240 ml Result Diagram: 02/13/17 0542 02/13/17 0542 Laboratory Results Laboratory Tests Test 02/12/17 15:24 02/13/17 05:42 Total Bilirubin 4.1 MG/DL 3.8 MG/DL Direct Bilirubin 3.6 MG/DL Indirect Bilirubin 0.5 MG/DL Aspartate Amino Transf (AST/SGOT) 266 U/L 142 U/L Alanine Aminotransferase (ALT/SGPT) 345 U/L 251 U/L Alkaline Phosphatase 536 U/L 463 U/L Total Protein 6.9 GM/DL 6.3 GM/DL Albumin 2.5 GM/DL 2.3 GM/DL White Blood Count 9.2 TH/MM3 Red Blood Count 3.35 MIL/MM3 Hemoglobin 11.0 GM/DL Hematocrit 32.6 % Mean Corpuscular Volume 97.4 FL Mean Corpuscular Hemoglobin 32.9 PG Mean Corpuscular Hemoglobin Concent 33.8 % Red Cell Distribution Width 14.0 % Platelet Count 157 TH/MM3 Mean Platelet Volume 11.1 FL Neutrophils (%) (Auto) 86.3 % Lymphocytes (%) (Auto) 5.6 % Monocytes (%) (Auto) 5.1 % Eosinophils (%) (Auto) 2.7 % Basophils (%) (Auto) 0.3 % Neutrophils # (Auto) 8.0 TH/MM3 Lymphocytes # (Auto) 0.5 TH/MM3 Monocytes # (Auto) 0.5 TH/MM3 Eosinophils # (Auto) 0.3 TH/MM3 Basophils # (Auto) 0.0 TH/MM3 CBC Comment DIFF FINAL Differential Comment Blood Urea Nitrogen 22 MG/DL Creatinine 1.34 MG/DL Random Glucose 141 MG/DL Calcium Level 7.9 MG/DL Sodium Level 136 MEQ/L Potassium Level 3.7 MEQ/L Chloride Level 106 MEQ/L Carbon Dioxide Level 21.0 MEQ/L Anion Gap 9 MEQ/L Estimat Glomerular Filtration Rate 51 ML/MIN Culture Results Microbiology Date/Time Source Procedure Growth Status 02/13/17 10:10 Blood Peripheral Aerobic Blood Culture Pending Received 02/13/17 10:10 Blood Peripheral Anaerobic Blood Culture Pending Received 02/13/17 10:05 Blood Peripheral Aerobic Blood Culture Pending Received 02/13/17 10:05 Blood Peripheral Anaerobic Blood Culture Pending Received 02/11/17 14:50 Blood Peripheral Aerobic Blood Culture - Preliminary Enterobacter Species Gram Negative Coleman Resulted 02/11/17 14:50 Anaerobic Blood Culture - Preliminary Gram Negative Coleman Resulted 02/11/17 14:45 Blood Peripheral Aerobic Blood Culture - Preliminary Gram Negative Coleman Resulted 02/11/17 14:45 Anaerobic Blood Culture - Preliminary Gram Negative Coleman Resulted Administered Medications Medications (Trade) Dose Ordered Sig/Leonel Route PRN Reason Start Time Stop Time Status Last Admin Dose Admin Piperacillin Sod/ Tazobactam Sod 50 ml @ 100 mls/hr Q6H IV 02/11/17 21:00 02/13/17 07:44 Sodium Chloride 1,000 ml @ 70 mls/hr [id number] IV 02/11/17 18:00 02/13/17 02:24 Sodium Chloride (NS Flush) 2 ml BID IV FLUSH 02/11/17 21:00 02/12/17 16:26 Acetaminophen (Tylenol) 650 mg Q6HR PRN PO TEMP > 100.4 02/11/17 17:00 02/12/17 04:54 Heparin Sodium (Porcine) (Heparin Inj) 5,000 units Q12H SQ 02/12/17 06:00 02/13/17 06:35 Senna/Docusate Sodium (Marlene-Colace) 1 tab BID PO 02/11/17 21:00 02/12/17 09:17 Pantoprazole Sodium (Protonix) 40 mg DAILY PO 02/12/17 09:00 02/12/17 09:17 Insulin Aspart (NovoLOG SUPPLEMENTAL SCALE) 1 ACHS SLIDING SCALE SQ 02/11/17 21:00 02/13/17 08:02 Insulin Detemir (Levemir Inj) 10 units HS SQ 02/11/17 21:00 02/12/17 23:34 Objective Remarks GENERAL: Chronically ill-appearing elderly male asleep in bed in no acute distress SKIN: Warm and dry. HEAD: Normocephalic. EYES: No injection or drainage. NECK: Supple, trachea midline. CARDIOVASCULAR: Regular rate and rhythm without murmurs. RESPIRATORY: Breath sounds equal bilaterally. No accessory muscle use. GASTROINTESTINAL: Abdomen soft, non-tender, nondistended. EXTREMITIES: No cyanosis, or edema. MUSCULOSKELETAL: Adequate muscle tone. NEUROLOGICAL: No obvious focal deficit. Awake, alert, and oriented x3. Assessment/Plan Problem List: (1) Pancreatic cancer ICD Codes: C25.9 - Malignant neoplasm of pancreas, unspecified Status: Acute Plan: He presented with mid epigastric pain for 1-2 weeks. He also lost about [address] abdomen and pelvis showed vague 2.7 x 3.7 x 3.1 mass in the head of pancreas. There was pancreatic ductal dilation and pancreatic tail atrophy. There is also intrahepatic and extrahepatic biliary distension. There is possibly tumor thrombus versus bland thrombus in the proximal portal vein. No metastatic disease or adenopathy noted on CT scan. Ca19-9 - 1646. --Brushings came back suspicious for adenocarcinoma (2) Sepsis ICD Codes: A41.9 - Sepsis, unspecified organism Status: Acute Plan: -- s/p ERCP with new stent placement -- BC re-drawn this am Assessment 81 y/o male with history of pancreatic cancer admitted with AMS and fever Plan 1. Pt and spouse wish to discuss surgical options. Will defer to Dr Abdi 2. Enzymes improving. Continue to monitor CMP 3. Continue Zosyn; monitor blood cultures Attending Statement The exam, history, and the medical decision-making described in the above note were completed with the assistance of the mid-level provider. I reviewed and agree with the findings presented. I attest that I had a [id number] encounter with the patient on the same day, and personally performed and documented my assessment and findings in the medical record. Feeling slightly better. No afebrile. BCX grew gram negative rods likely E.coli. Continue abx. Discussed with pt and his . They want aggressive care. Await surgical evaluation to see if he is a surgical candidate. If not can consider chemotx + XRT. Problem Qualifiers (1) Pancreatic cancer: Qualified Codes: C25.7 - Malignant neoplasm of other parts of pancreas (2) Sepsis: Qualified Codes: A41.9 - Sepsis, unspecified organism Latisha Mathias Feb 13, 2017 11:08 Bebeto Urias MD Feb 13, 2017 11:33
[2017-02-13 11:54] VITALS: BP 133/71; PULSE 59; RESP 17; TEMP 97.8; O2SAT 94
[2017-02-13 15:46] VITALS: BP 131/70; PULSE 65; RESP 17; TEMP 98.8; O2SAT 96
--- NOTE | 2017-02-13 16:57 | HHI.GIFU ---
Subjective Remarks Resting in bed lying on his left side No complaints of abdominal pain Mild abdominal distention States BM normal consistency (Maki Black) Objective Vitals I&O Vital Signs Date Time Temp Pulse Resp B/P (MAP) Pulse Ox O2 Delivery O2 Flow Rate FiO2 02/13/17 15:46 98.8 65 17 131/70 (90) 96 02/13/17 11:54 97.8 59 17 133/71 (91) 94 02/13/17 07:35 99.3 64 17 130/78 (95) 93 02/13/17 00:00 98.1 64 17 112/64 (80) 93 02/12/17 20:00 94.3 68 16 131/64 (86) 97 I/O 02/12/17 02/12/17 02/12/17 02/13/17 02/13/17 02/13/17 07:00 15:00 23:00 07:00 15:00 23:00 Intake Total 1350 ml 50 ml 1920 ml 240 ml 800 ml Output Total 960 ml Balance 390 ml 50 ml 1920 ml 240 ml 800 ml Intake Oral 1920 ml 240 ml 800 ml IV Total 1350 ml 50 ml Output Urine Total 960 ml # Voids 5 2 4 # Bowel Movements 3 2 Laboratory Laboratory Tests Test 02/13/17 05:42 White Blood Count 9.2 Red Blood Count 3.35 Hemoglobin 11.0 Hematocrit 32.6 Mean Corpuscular Volume 97.4 Mean Corpuscular Hemoglobin 32.9 Mean Corpuscular Hemoglobin Concent 33.8 Red Cell Distribution Width 14.0 Platelet Count 157 Mean Platelet Volume 11.1 Neutrophils (%) (Auto) 86.3 Lymphocytes (%) (Auto) 5.6 Monocytes (%) (Auto) 5.1 Eosinophils (%) (Auto) 2.7 Basophils (%) (Auto) 0.3 Neutrophils # (Auto) 8.0 Lymphocytes # (Auto) 0.5 Monocytes # (Auto) 0.5 Eosinophils # (Auto) 0.3 Basophils # (Auto) 0.0 CBC Comment DIFF FINAL Differential Comment Blood Urea Nitrogen 22 Creatinine 1.34 Random Glucose 141 Total Protein 6.3 Albumin 2.3 Calcium Level 7.9 Alkaline Phosphatase 463 Aspartate Amino Transf (AST/SGOT) 142 Alanine Aminotransferase (ALT/SGPT) 251 Total Bilirubin 3.8 Sodium Level 136 Potassium Level 3.7 Chloride Level 106 Carbon Dioxide Level 21.0 Anion Gap 9 Estimat Glomerular Filtration Rate 51 Date/Time Source Procedure Growth Status 02/13/17 10:10 Blood Peripheral Aerobic Blood Culture Pending Received 02/13/17 10:10 Blood Peripheral Anaerobic Blood Culture Pending Received Imaging Last Impressions Abdomen X-Ray 02/11/17 1605 Signed Impressions: Service Date/Time: January 16:13 - CONCLUSION: 1. Nonspecific gas pattern. 2. The biliary stent catheter is projected over the central and right of the abdomen. Viraj Ramirez MD Chest X-Ray 02/11/17 1436 Signed Impressions: Service Date/Time: January 15:04 - CONCLUSION: Focal density within the right paratracheal stripe. This could relate to tortuosity of the patient's vasculature given the rotation of the film. I cannot exclude an infiltrate. Otherwise, clear lungs. Kevin Montgomery Jr., MD GI Procedure 02/11/17 0000 Signed Impressions: Service Date/Time: January 18:03 - CONCLUSION: ERCP as above with a possible filling defect in the central intrahepatic biliary duct region and a stent seen on the last image.. Shai Pulido MD Foot X-Ray 02/11/17 0000 Signed Impressions: Service Date/Time: January 15:05 - CONCLUSION: Status post interval amputation of the fourth digit. The remaining bony structures are intact. Viraj Ramirez MD Physical Exam HEENT: Pupils round and reactive to light; normocephalic; atraumatic; no jaundice, pale Throat is clean NECK: Neck is supple, no JVD, no lymphadenopathy. CHEST: Chest is clear without wheezes or rhonchi, no active shortness of breath CARDIAC: Regular rate and rhythm, distant ABDOMEN: Obese , Soft, mild distention, nontender; bowel sounds are active EXTREMITIES: No clubbing, cyanosis, or edema., Right foot dressing fourth toe amputation, dressing dry and intact SKIN: Normal; no rash; no jaundice. 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 S/P ERCP with stent placement (02/04/17)---> 3 cm stricture/mass distal CBD. Normal IHD, and CHD. Brushings obtained. 8.5 x 7 cm stent placed. Multiple superficial ulcers in the duodenum with duodenitis. Brushings of distal common bile duct with few groups of highly atypical glandular epithelial cells suspicious for adenocarcinoma. This admission initially had weakness and fatigue, acute cholangitis, ERCP performed ,stent replaced on 02-12, Procedure 02/11 ERCP done on admission. showed stricture in the distal common bile duct consistent with a mass. Brushing cytology showed a few groups of highly atypical glandular epithelial cells suspicious for adenocarcinoma. - Pancreatic adenocarcinoma . He presented with obstructive jaundice about 10 days ago. He also lost more than [address] showed a 2.7 x 3.7 x 3.1 mass in the head of the pancreas. There is no significant adenopathy noted. There is some thrombus in the splenic vein and portal vein confluence which could be bland thrombus versus tumor thrombus. tumor marker CA19-9 was 1646. Options have been discussed including surgery radiation chemotherapy prognosis is guarded - Metabolic encephalopathy, secondary to above/fever., now resolved - HTN, DM,MARK, Hyperlipidemia, Diabetic foot ulcer right 4/5th toes per attending. PLAN: diet solid food, soft ADA Appreciate Consult surgery to get an opinion to see if the patient is a surgical candidate. Patient and would like to discuss further options Dr. Urias following for adenocarcinoma and treatment regimen. Monitor bowel regimen Continue antibiotics Monitor LFTs currently trending down PPI Supportive care Further recommendations to follow based on results of above - Pt seen and examined by Dr. Boudreaux and myself and this note is written on his behalf Patient was seen and examined, possible cholangitis, plan for ERCP with stent exchange today (Maki Black) Physician Comments seen, examined agree with above ok to dc home from gi point gi will sign off fu gi in 2 weeks consider metallic stent based on final treatment decision, may need eus too-can be done op call us as needed (Whitney Boudreaux MD) Maki Black Feb 13, 2017 16:57 Whitney Boudreaux MD Feb 13, 2017 17:32
[2017-02-13 20:00] VITALS: BP_SYST 136; BP_SYST 150; BP_DIAS 62; BP_DIAS 78; PULSE 65; PULSE 72; RESP 18; RESP 20; TEMP 96.1; TEMP 99.4; O2SAT 95; O2SAT 97
[2017-02-13] MEDS: INSULIN DETEMIR 100 UNITS/ML VIAL SQ SCH (21:49)
[2017-02-14] VITALS: BP 141/73; PULSE 67; RESP 20; TEMP 99.7; O2SAT 92
[2017-02-14] MEDS: HEPARIN SODIUM - SQ 10,000 UNITS/ML VIAL SQ SCH ×2 (04:25→18:35)
[2017-02-14] MEDS: PIPERACIL-TAZO 3.375 GM PREMIX 50 ML IV SCH ×4 (04:27→21:44)
[2017-02-14] MEDS: INSULIN ASPART SUPPLEMENTAL SCALE SQ SCH ×4 (07:25→21:42)
[2017-02-14] MEDS: SODIUM CHLORIDE 0.9% FLUSH 10 ML FLUSH IV FLUSH SCH ×2 (07:25→21:44)
[2017-02-14] MEDS: DOCUSATE SODIUM 50 MG/SENNA 8.6 MG TAB PO SCH ×2 (07:26→21:00)
[2017-02-14] MEDS: PANTOPRAZOLE SOD 40 MG DELAYED RELEASE TAB PO SCH (07:26)
[2017-02-14 08:00] VITALS: BP 134/68; PULSE 57; RESP 16; TEMP 98; O2SAT 94
--- NOTE | 2017-02-14 11:02 | HHI.FPPN ---
Subjective Remarks Mr Jewell is sleeping well and has no pain or complaints. He is happy to be able to eat as he was very hungry yesterday. His surgeon will see him tomorrow as well as palliative and Oncology. He and his need to make decisions on his future choices. He was bacteremic with4/4 positive cultures initially and all no growth so far on the new cultures. Surprisingly, he grew pseudomonas. Will ask ID with the 2 bacteria and his cancer and other problems plus he may be facing surgery or chemo, for assistance to treat this infection. Objective Vitals Vital Signs Date Time Temp Pulse Resp B/P (MAP) Pulse Ox O2 Delivery O2 Flow Rate FiO2 02/14/17 08:00 98.0 57 16 134/68 (90) 94 02/14/17 00:00 99.7 67 20 141/73 (95) 92 02/13/17 20:00 99.4 72 20 150/78 (102) 95 02/13/17 20:00 96.1 65 18 136/62 (86) 97 02/13/17 15:46 98.8 65 17 131/70 (90) 96 02/13/17 11:54 97.8 59 17 133/71 (91) 94 I/O 02/13/17 02/13/17 02/13/17 02/14/17 02/14/17 02/14/17 07:00 15:00 23:00 07:00 15:00 23:00 Intake Total 240 ml 1360 ml 240 ml Balance 240 ml 1360 ml 240 ml Intake Oral 240 ml 800 ml 240 ml IV Total 560 ml # Voids 2 4 3 Result Diagram: 02/13/17 0542 02/13/17 0542 Objective Remarks GENERAL: Pleasant elderly male, no acute/respiratory distress. sleeping when we entered the room. Answering questions appropriately. SKIN: Warm and dry. Minimal jaundice noted in face and on chest. Right fourth digit, status post amputation, with surrounding erythema. Wound covered with dry gauze today. HEAD: Atraumatic. Normocephalic. EYES: Pupils equal round. Extraocular motions intact. No scleral icterus. No injection or drainage. ENT: Nose without bleeding, purulent drainage or septal hematoma on admission. Airway patent. NECK: Trachea midline. No JVD. CARDIOVASCULAR: Regular rate and rhythm without murmurs, gallops, or rubs. RESPIRATORY: Clear to auscultation. Breath sounds equal bilaterally. No wheezes , rales, or rhonchi. GASTROINTESTINAL: Abdomen soft, non-tender, protuberant. No hepato-splenomegaly , or palpable masses. No guarding. MUSCULOSKELETAL: Extremities without clubbing, cyanosis, or edema. No joint tenderness, effusion, or edema noted. No calf tenderness. NEUROLOGICAL: Awake and alert. Cranial nerves II through XII intact. Motor and sensory grossly within normal limits. Normal speech. Procedures ERCP with stent placement on 02/11. Urinary Catheter: No Vascular Central Line Catheter: No A/P Assessment and Plan 81-year-old male, s/p recent ERCP with stent placement findings concerning for primary pancreatic adenocarcinoma, presented to ED with confusion x several hours. T 102.0. Possible source of infection; ascending cholangitis. Problem List: (1) Ascending cholangitis ICD Codes: K83.0 - Cholangitis Status: Acute Plan: Clinically improving. On admission, patient with T 102.0, RR 28, 88% on room air, requiring 2L O2 via NC. Suspected source of infection: ascending cholangitis. Labs: * WBC: 9.2 (02/13) <- 15.0 (02/12) <- 9.7 (02/11) * Hgb: 11 (02/13) <- 11.7 (02/12) <- 14.3 (02/11) * Lactic Acid: 1.9 (02/11) * Total Bilirubin: 3.8 (02/13) <- 4.1 (02/12) <- 3.8 (02/11) * Direct Bilirubin: 3.6 (02/12) * AST: 142 (02/13) <- 374 (02/12) <- 661 (02/11) * ALT: 251 (02/13) <- 388 (02/12) <- 563 (02/11) * Alk Phos: 463 (02/13) <- 570 (02/12) <- 856 (02/11) Microbiology: * Blood culture x4: Gram negative rods, Enterobacter species. now Pseudomonas was identified today * New set of blood cultures ordered for today. Orders/Medications: * GI consulted. ERCP with stent placement shortly after admission on 02/11. * Zosyn 50 ml at 100 mls/hr q6hr IV. this covers his bacteria. will ask ID about length of treatment and abx choice especially when he leaves the hospital * NS 1,000 ml at 70 mls/hr IV. (2) Pancreatic adenocarcinoma ICD Codes: C25.9 - Malignant neoplasm of pancreas, unspecified Status: Acute Plan: Recent biopsy suspicious for adenocarcinoma. Orders: * Oncology consult: Dr. Urias recommended palliative and surgery consult to discuss options. * Palliative consult: Patient and would like to talk to surgery to discuss all options. * Surgery consult: Patient to be seen on Wednesday. (3) MARK (acute kidney injury) ICD Codes: N17.9 - Acute kidney failure, unspecified Status: Acute Plan: Differential diagnosis: * Likely from dehydration. improving Labs: * BUN: 22 (02/13) <- 21 (02/12) <- 24 (02/11) * Cr: 1.32 (02/13) <- 1.30 (02/12) <- 1.53 (02/11) Medication: * NS 1,000 ml at 70 mls/hr IV. (4) S/P amputation of lesser toe ICD Codes: Z89.429 - Acquired absence of other toe(s), unspecified side Status: Acute Plan: Wound is clean dry and intact. Orders: * Wound care consult: Recommendations - Cover with dry 4x4 gauze, secure dressing with rolled gauze, tape and elastic wrap. Wear Post-op shoe. * Podiatry consult: Pending. (5) Diabetes ICD Codes: E11.9 - Type 2 diabetes mellitus without complications Status: Chronic Plan: Medications: * Hold home PO medications. * Levemir 10 units HS SQ. * SSI: Patient has required 5 Units NovoLOG SQ over past 24 hours. Unsure if he will be eating well so will not schedule more insulin for now. (6) FEN/PPX Status: Acute Plan: Fluids: * NS 1,000 ml at 70 mls/hr. Electrolytes: * Monitor and replace as needed. Nutrition: * Regular diet. DVT prophylaxis: * Heparin 5,000 units q12hr SQ. 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
[2017-02-14 11:07] LABS: HEMATOCRIT 33.7 % (39.0-51.0); MEAN CELL VOLUME 97.4 FL (80.0-100.0); MEAN CORPUSCULAR HEMOGLOBIN 32.8 PG (27.0-34.0); MEAN CORPUSCULAR HGB CONC 33.7 % (32.0-36.0); PLATELET COUNT 143 TH/MM3 (150-450); RED BLOOD COUNT 3.46 MIL/MM3 (4.50-5.90); RED CELL DISTRIBUTION WIDTH 14.3 % (11.6-17.2); REVIEW FLAG FINAL; WHITE BLOOD COUNT 5.7 TH/MM3 (4.0-11.0)
--- NOTE | 2017-02-14 11:19 | PD.ONC.PN ---
Subjective Subjective Remarks Patient had low grade temp of 99.7 overnight Reports he feels well Denies abdominal pain Objective Data Date Time Temp Pulse Resp B/P (MAP) Pulse Ox O2 Delivery O2 Flow Rate FiO2 02/14/17 08:00 98.0 57 16 134/68 (90) 94 02/14/17 00:00 99.7 67 20 141/73 (95) 92 02/13/17 20:00 99.4 72 20 150/78 (102) 95 02/13/17 20:00 96.1 65 18 136/62 (86) 97 02/13/17 15:46 98.8 65 17 131/70 (90) 96 02/13/17 11:54 97.8 59 17 133/71 (91) 94 02/14/17 02/14/17 02/14/17 07:00 15:00 23:00 Intake Total 240 ml Balance 240 ml Result Diagram: 02/14/17 1014 02/13/17 0542 Laboratory Results Laboratory Tests Test 02/14/17 10:14 White Blood Count 5.7 TH/MM3 Red Blood Count 3.46 MIL/MM3 Hemoglobin 11.4 GM/DL Hematocrit 33.7 % Mean Corpuscular Volume 97.4 FL Mean Corpuscular Hemoglobin 32.8 PG Mean Corpuscular Hemoglobin Concent 33.7 % Red Cell Distribution Width 14.3 % Platelet Count 143 TH/MM3 Mean Platelet Volume 11.2 FL Culture Results Microbiology Date/Time Source Procedure Growth Status 02/13/17 10:10 Blood Peripheral Aerobic Blood Culture - Preliminary NO GROWTH IN 1 DAY Resulted 02/13/17 10:10 Blood Peripheral Anaerobic Blood Culture - Preliminary NO GROWTH IN 1 DAY Resulted 02/13/17 10:05 Blood Peripheral Aerobic Blood Culture - Preliminary NO GROWTH IN 1 DAY Resulted 02/13/17 10:05 Blood Peripheral Anaerobic Blood Culture - Preliminary NO GROWTH IN 1 DAY Resulted 02/11/17 14:50 Blood Peripheral Aerobic Blood Culture - Final Enterobacter Cloacae Pseudomonas Aeruginosa Complete 02/11/17 14:50 Anaerobic Blood Culture - Final Enterobacter Cloacae Complete 02/11/17 14:45 Blood Peripheral Aerobic Blood Culture - Final Enterobacter Cloacae Pseudomonas Aeruginosa Complete 02/11/17 14:45 Anaerobic Blood Culture - Final Enterobacter Cloacae Pseudomonas Aeruginosa Complete Administered Medications Medications (Trade) Dose Ordered Sig/Leonel Route PRN Reason Start Time Stop Time Status Last Admin Dose Admin Piperacillin Sod/ Tazobactam Sod 50 ml @ 100 mls/hr Q6H IV 02/11/17 21:00 02/14/17 07:25 Sodium Chloride (NS Flush) 2 ml BID IV FLUSH 02/11/17 21:00 02/14/17 07:25 Acetaminophen (Tylenol) 650 mg Q6HR PRN PO TEMP > 100.4 02/11/17 17:00 02/12/17 04:54 Heparin Sodium (Porcine) (Heparin Inj) 5,000 units Q12H SQ 02/12/17 06:00 02/14/17 04:25 Senna/Docusate Sodium (Marlene-Colace) 1 tab BID PO 02/11/17 21:00 02/13/17 21:37 Pantoprazole Sodium (Protonix) 40 mg DAILY PO 02/12/17 09:00 02/12/17 09:17 Insulin Aspart (NovoLOG SUPPLEMENTAL SCALE) 1 ACHS SLIDING SCALE SQ 02/11/17 21:00 02/13/17 21:49 Insulin Detemir (Levemir Inj) 10 units HS SQ 02/11/17 21:00 02/13/17 21:49 Objective Remarks GENERAL: Chronically ill-appearing elderly male resting in bed in no acute distress SKIN: Warm and dry. HEAD: Normocephalic. EYES: No injection or drainage. Sclerae mildly icteric NECK: Supple, trachea midline. CARDIOVASCULAR: Regular rate and rhythm without murmurs. RESPIRATORY: Breath sounds equal bilaterally. No accessory muscle use. GASTROINTESTINAL: Abdomen soft, non-tender, nondistended. EXTREMITIES: No cyanosis, or edema. MUSCULOSKELETAL: Adequate muscle tone. NEUROLOGICAL: No obvious focal deficit. Awake, alert, and oriented x3. Assessment/Plan Problem List: (1) Pancreatic cancer ICD Codes: C25.9 - Malignant neoplasm of pancreas, unspecified Status: Acute Plan: He presented with mid epigastric pain for 1-2 weeks. He also lost about [address] abdomen and pelvis showed vague 2.7 x 3.7 x 3.1 mass in the head of pancreas. There was pancreatic ductal dilation and pancreatic tail atrophy. There is also intrahepatic and extrahepatic biliary distension. There is possibly tumor thrombus versus bland thrombus in the proximal portal vein. No metastatic disease or adenopathy noted on CT scan. Ca19-9 - 1646. --Brushings came back suspicious for adenocarcinoma (2) Sepsis ICD Codes: A41.9 - Sepsis, unspecified organism Status: Acute Plan: -- s/p ERCP with new stent placement -- Repeat BC drawn 02/13/17 showed no growth 1 day Assessment 81 y/o male with history of pancreatic cancer admitted with AMS and fever Plan 1. Patient and spouse wish to continue with aggressive care; await consultation with surgeon 2. Follow blood cultures 3. Recheck liver enzymes in am Attending Statement The exam, history, and the medical decision-making described in the above note were completed with the assistance of the mid-level provider. I reviewed and agree with the findings presented. I attest that I had a [id number] encounter with the patient on the same day, and personally performed and documented my assessment and findings in the medical record. Feels better, no abdominal pain. Less jaundice. Repeat BC 02/13 negative to date. Await surgical opinion to see if the pancreatic cancer is resectable. Will consult radiation oncology tomorrow. Problem Qualifiers (1) Pancreatic cancer: Qualified Codes: C25.7 - Malignant neoplasm of other parts of pancreas (2) Sepsis: Qualified Codes: A41.9 - Sepsis, unspecified organism Latisha Mathias Feb 14, 2017 11:19 Bebeto Urias MD Feb 14, 2017 13:43
[2017-02-14 11:36] LABS: BICARBONATE 21.7 MEQ/L (21.0-32.0); POTASSIUM 4.1 MEQ/L (3.5-5.1)
[2017-02-14 12:18] VITALS: BP 150/89; PULSE 55; RESP 14; TEMP 97.8
[2017-02-14 16:52] VITALS: BP 158/81; PULSE 56; RESP 14; TEMP 97.8; O2SAT 98
--- NOTE | 2017-02-14 18:02 | PD.ID.CON ---
History of Present Illness Service ID Consult Requested By Dr Torres Reason for Consult bacteremia, cholangiotis Primary Care Physician No Primary Care Physician Diagnoses: History of Present Illness Pt is a poor hoistorian History obtained form the chart 81 yo male with pancreatic adenocarcinoma presents with fever, chills abdominal pain On presentation he was found to heva leukocytosis up to 15 K , elevated LFTs Cholangitis was suspected based on clinical and CT findiongs Pt was started on zosyn On 02/11 he underwent EGD with stent placement ERCP with sphincterotomy, balloon sweep of the duct retrieving stone and sludge His blood clx are growing polimicrobial chau including PSAE, Enterobater cloacae, both S to zosyn Review of Systems ROS Limitations: Poor Historian Past Family Social History Allergies: Coded Allergies: No Known Allergies (Unverified , 02/02/17) Past Medical History 1. Hypertension 2. Diabetes mellitus on insulin 3. Hyperlipidemia 4. Chronic kidney disease 5. Pancreatic cancer 6. Obstructive jaundice Past Surgical History 4th R toe amputation Cholecystectomy Bilateral knee surgery Recent amputation of the right fourth toe. Active Ordered Medications Medications where reviewed in EMR Antibiotics Include: zosyn Family History One sister is healthy. He has a daughter, but he has no contact with her. Denies any family history of cancer. Social History Drinks occasionally. He smokes a pipe. His primary residence is in [place]. He spends his rdz in [place]. He has no local physician. Physical Exam Vital Signs Vital Signs Date Time Temp Pulse Resp B/P (MAP) Pulse Ox O2 Delivery O2 Flow Rate FiO2 02/14/17 16:52 97.8 56 14 158/81 (106) 98 02/14/17 12:18 97.8 55 14 150/89 (109) 02/14/17 08:00 98.0 57 16 134/68 (90) 94 02/14/17 00:00 99.7 67 20 141/73 (95) 92 02/13/17 20:00 99.4 72 20 150/78 (102) 95 02/13/17 20:00 96.1 65 18 136/62 (86) 97 Physical Exam CONSTITUTIONAL/GENERAL: This is an adequately nourished patient, in no apparent distress. TUBES/LINES/DRAINS: PIV LUE w/o e/o infection SKIN: No jaundice, rashes, or lesions. Skin temperature appropriate. Not diaphoretic. HEAD: Atraumatic. Normocephalic. EYES: Pupils equal and round and reactive. Extraocular motions intact. No scleral icterus. No injection or drainage. Fundi not examined. ENT: Hearing grossly normal. Nose without bleeding or purulent drainage. Throat without visible erythema, exudates, masses, or lesions. NECK: Trachea midline. Supple, nontender. CARDIOVASCULAR: Regular rate and rhythm without murmurs, gallops, or rubs. No JVD. Peripheral pulses symmetric. RESPIRATORY/CHEST: Symmetric, unlabored respirations. Clear to auscultation. Breath sounds equal bilaterally. No wheezes, rales, or rhonchi. GASTROINTESTINAL: Abdomen soft, non-tender, mildly distended. Baig negative. No hepato-splenomegaly, or palpable masses. No guarding. Bowel sounds present. GENITOURINARY: Without palpable bladder distension. MUSCULOSKELETAL: Extremities without clubbing, cyanosis, or edema. No calf tenderness. No mottling or clubbing. R foot inwith derssing and orthotic shoe in place, toese warm LYMPHATICS: No palpable cervical or supraclavicular adenopathy. NEUROLOGICAL: Awake and alert. Motor and sensory grossly within normal limits. Follows commands. Clear speech, but is a very poor histoprian. Moves all extremities. PSYCHIATRIC: very flat affect Laboratory Laboratory Tests Test 02/14/17 10:14 White Blood Count 5.7 Red Blood Count 3.46 Hemoglobin 11.4 Hematocrit 33.7 Mean Corpuscular Volume 97.4 Mean Corpuscular Hemoglobin 32.8 Mean Corpuscular Hemoglobin Concent 33.7 Red Cell Distribution Width 14.3 Platelet Count 143 Mean Platelet Volume 11.2 Blood Urea Nitrogen 18 Creatinine 1.13 Random Glucose 234 Calcium Level 8.4 Sodium Level 133 Potassium Level 4.1 Chloride Level 103 Carbon Dioxide Level 21.7 Anion Gap 8 Estimat Glomerular Filtration Rate 63 Date/Time Source Procedure Growth Status 02/13/17 10:10 Blood Peripheral Aerobic Blood Culture - Preliminary NO GROWTH IN 1 DAY Resulted 02/13/17 10:10 Blood Peripheral Anaerobic Blood Culture - Preliminary NO GROWTH IN 1 DAY Resulted Result Diagram: 02/14/17 1014 02/14/17 1014 Imaging Last Impressions Abdomen X-Ray 02/11/17 1605 Signed Impressions: Service Date/Time: January 16:13 - CONCLUSION: 1. Nonspecific gas pattern. 2. The biliary stent catheter is projected over the central and right of the abdomen. Viraj Ramirez MD Chest X-Ray 02/11/17 1436 Signed Impressions: Service Date/Time: January 15:04 - CONCLUSION: Focal density within the right paratracheal stripe. This could relate to tortuosity of the patient's vasculature given the rotation of the film. I cannot exclude an infiltrate. Otherwise, clear lungs. Kevin Montgomery Jr., MD GI Procedure 02/11/17 0000 Signed Impressions: Service Date/Time: January 18:03 - CONCLUSION: ERCP as above with a possible filling defect in the central intrahepatic biliary duct region and a stent seen on the last image.. Shai Pulido MD Foot X-Ray 02/11/17 0000 Signed Impressions: Service Date/Time: January 15:05 - CONCLUSION: Status post interval amputation of the fourth digit. The remaining bony structures are intact. Viraj Ramirez MD Assessment and Plan Assessment and Plan Pancreatic cancer Ascending cholangitis 2/2 biliary duct obstruction s/p stent placement PSAE/Enterobacter bacteremia cont zosyn when ready to go home OK to switch to oral therapy with Levaquine 500 mg daily and Flagyl to complete 7-10 days of treatment Di Sevilla MD Feb 14, 2017 18:02
[2017-02-14 20:02] VITALS: PULSE 75
[2017-02-14 20:46] VITALS: BP 152/92; PULSE 57; RESP 16; TEMP 97.6; O2SAT 96
[2017-02-14] MEDS: INSULIN DETEMIR 100 UNITS/ML VIAL SQ SCH (21:41)
[2017-02-15] VITALS (12 sets, daily range): BP systolic 106–146; BP diastolic 58–79; PULSE 54–65; RESP 16–20; TEMP 98.5–99.1; O2SAT 92–96
[2017-02-15] MEDS: PIPERACIL-TAZO 3.375 GM PREMIX 50 ML IV SCH ×4 (02:30→22:04)
[2017-02-15] MEDS: SODIUM CHLORIDE 0.9% FLUSH 10 ML FLUSH IV FLUSH PRN ×2 (02:30→03:32)
[2017-02-15 06:30] LABS: AUTOMATED NEUTROPHIL # 3.2 TH/MM3 (1.8-7.7); BASOPHIL # 0.1 TH/MM3 (0-0.2); BASOPHIL % 0.9 % (0.0-2.0); EOSINOPHIL # 0.2 TH/MM3 (0-0.4); EOSINOPHIL % 3.8 % (0.0-4.0); HEMO FLAGS DIFF FINAL; LYMPH % 31.9 % (9.0-44.0); LYMPHOCYTE # 1.8 TH/MM3 (1.0-4.8); MEAN CELL VOLUME 96.4 FL (80.0-100.0); MEAN CORPUSCULAR HEMOGLOBIN 32.7 PG (27.0-34.0); MONO % 7.2 % (0.0-8.0); NEUT % 56.2 % (16.0-70.0); PLATELET COUNT 160 TH/MM3 (150-450); RED BLOOD COUNT 3.63 MIL/MM3 (4.50-5.90); RED CELL DISTRIBUTION WIDTH 14.2 % (11.6-17.2); WHITE BLOOD COUNT 5.7 TH/MM3 (4.0-11.0)
[2017-02-15 06:49] LABS: ANION GAP 8 MEQ/L (5-15); AST (GOT) 87 U/L (15-37); BLOOD UREA NITROGEN 20 MG/DL (7-18); CHLORIDE 105 MEQ/L (98-107); GLOMERULAR FILTRATION RATE 65 ML/MIN (>89); POTASSIUM 3.8 MEQ/L (3.5-5.1); SODIUM (NA) 136 MEQ/L (136-145)
[2017-02-15 06:52] LABS: ALKALINE PHOSPHATASE 566 U/L (45-117); ALT (GPT) 168 U/L (12-78); TOTAL BILIRUBIN ADULT 2.4 MG/DL (0.2-1.0)
[2017-02-15] MEDS: HEPARIN SODIUM - SQ 10,000 UNITS/ML VIAL SQ SCH ×2 (06:55→17:30)
[2017-02-15] MEDS: INSULIN ASPART SUPPLEMENTAL SCALE SQ SCH ×4 (08:00→22:20)
[2017-02-15] MEDS: DOCUSATE SODIUM 50 MG/SENNA 8.6 MG TAB PO SCH ×3 (09:00→21:00)
[2017-02-15] MEDS: PANTOPRAZOLE SOD 40 MG DELAYED RELEASE TAB PO SCH ×2 (09:00→09:54)
[2017-02-15] MEDS: SODIUM CHLORIDE 0.9% FLUSH 10 ML FLUSH IV FLUSH SCH ×2 (09:54→22:05)
--- NOTE | 2017-02-15 10:06 | HHI.FPPN ---
Subjective Remarks Patient seen and examined this morning with at bedside. No acute events overnight per nursing staff. Vital signs remained within normal limits on room air. Patient currently has no questions or complaints. He denies any fevers, chills, shortness of breath, chest pain, NVD, abdominal pain, or calf tenderness. The patient and his are anxious to communicate with the oncologist, radiation oncologist, and surgical oncologist as they right now they wish to be aggressive with this treatment. Objective Vitals Vital Signs Date Time Temp Pulse Resp B/P (MAP) Pulse Ox O2 Delivery O2 Flow Rate FiO2 02/15/17 10:03 98.5 64 20 126/64 (84) 92 02/15/17 04:03 65 02/15/17 03:32 99.1 63 16 106/58 (74) 96 02/15/17 00:23 98.7 56 16 116/67 (83) 96 02/15/17 00:14 55 02/14/17 20:46 97.6 57 16 152/92 (112) 96 02/14/17 20:02 75 02/14/17 16:52 97.8 56 14 158/81 (106) 98 02/14/17 12:18 97.8 55 14 150/89 (109) I/O 02/14/17 02/14/17 02/14/17 02/15/17 02/15/17 02/15/17 07:00 15:00 23:00 07:00 15:00 23:00 Intake Total 240 ml 240 ml 55 ml 293 ml Output Total 350 ml 400 ml 1000 ml Balance 240 ml -110 ml -345 ml -707 ml Intake Oral 240 ml 240 ml 240 ml IV Total 55 ml 53 ml Output Urine Total 350 ml 400 ml 1000 ml # Voids 3 # Bowel Movements 0 0 Result Diagram: 02/15/17 0550 02/15/17 0550 Objective Remarks GENERAL: Elderly gentleman sitting on the bed with at bedside in no acute distress. SKIN: Warm and dry. Minimal jaundice noted in face and on chest. Right fourth digit, status post amputation, with surrounding erythema. HEENT: Atraumatic, normocephalic with EOMI. MMM. No rhinorrhea. No visible JVD or LAD appreciated. CARDIOVASCULAR: Regular rate and rhythm without murmurs, gallops, or rubs. RESPIRATORY: Clear to auscultation bilaterallywith no CRW. No increased work of breathing. GASTROINTESTINAL: Abdomen soft, non-tender, protuberant with positive bowel sounds. No hepatosplenomegaly appreciated. MUSCULOSKELETAL: Extremities without cyanosis or edema.. No joint tenderness, effusion, or edema noted. No calf tenderness. NEUROLOGICAL: Afocal. AO 3. Motor and sensory grossly within normal limits. Patient ambulating well per her report. Procedures ERCP with stent placement on 02/11. A/P Assessment and Plan 81-year-old male, s/p recent ERCP with stent placement findings concerning for primary pancreatic adenocarcinoma, presented to ED with confusion x several hours. T 102.0. Possible source of infection; ascending cholangitis. Discharge Planning Today pending surgical oncology and oncology final recommendations. Infectious disease recommends patient will be discharged home on Levaquin and Flagyl to complete a 10 day treatment cycle. Problem List: (1) Ascending cholangitis ICD Codes: K83.0 - Cholangitis Status: Acute Plan: Clinically improving. On admission, patient with T 102.0, RR 28, 88% on room air, requiring 2L O2 via NC. Suspected source of infection: ascending cholangitis. Labs: * WBC: 9.2 (02/13) <- 15.0 (02/12) <- 9.7 (02/11) * Hgb: 11 (02/13) <- 11.7 (02/12) <- 14.3 (02/11) * Lactic Acid: 1.9 (02/11) * Total Bilirubin: 3.8 (02/13) <- 4.1 (02/12) <- 3.8 (02/11) * Direct Bilirubin: 3.6 (02/12) * AST: 142 (02/13) <- 374 (02/12) <- 661 (02/11) * ALT: 251 (02/13) <- 388 (02/12) <- 563 (02/11) * Alk Phos: 463 (02/13) <- 570 (02/12) <- 856 (02/11) Microbiology: * Blood culture x4: Gram negative rods, Enterobacter species. now Pseudomonas was identified today * New set of blood cultures ordered for today. Orders/Medications: * GI consulted. ERCP with stent placement shortly after admission on 11/30. * Zosyn 50 ml at 100 mls/hr q6hr IV. this covers his bacteria. will ask ID about length of treatment and abx choice especially when he leaves the hospital * NS 1,000 ml at 70 mls/hr IV. (2) Pancreatic adenocarcinoma ICD Codes: C25.9 - Malignant neoplasm of pancreas, unspecified Status: Acute Plan: Recent biopsy suspicious for adenocarcinoma. Orders: * Oncology consult: Dr. Urias recommended palliative and surgery consult to discuss options. * Palliative consult: Patient and would like to talk to surgery to discuss all options. * Surgery consult: Patient to be seen on Wednesday. (3) MARK (acute kidney injury) ICD Codes: N17.9 - Acute kidney failure, unspecified Status: Acute Plan: Differential diagnosis: * Likely from dehydration. improving Labs: * BUN: 22 (02/13) <- 21 (02/12) <- 24 (02/11) * Cr: 1.32 (02/13) <- 1.30 (02/12) <- 1.53 (02/11) Medication: * NS 1,000 ml at 70 mls/hr IV. (4) S/P amputation of lesser toe ICD Codes: Z89.429 - Acquired absence of other toe(s), unspecified side Status: Acute Plan: Wound is clean dry and intact. Orders: * Wound care consult: Recommendations - Cover with dry 4x4 gauze, secure dressing with rolled gauze, tape and elastic wrap. Wear Post-op shoe. * Podiatry consult: Pending. (5) Diabetes ICD Codes: E11.9 - Type 2 diabetes mellitus without complications Status: Chronic Plan: Medications: * Hold home PO medications. * Levemir 10 units HS SQ. * SSI: Patient has required 5 Units NovoLOG SQ over past 24 hours. Unsure if he will be eating well so will not schedule more insulin for now. (6) FEN/PPX Status: Acute Plan: Fluids: * NS 1,000 ml at 70 mls/hr. Electrolytes: * Monitor and replace as needed. Nutrition: * Regular diet. DVT prophylaxis: * Heparin 5,000 units q12hr SQ. Problem Qualifiers (1) S/P amputation of lesser toe: Qualified Codes: Z89.421 - Acquired absence of other right toe(s) (2) Diabetes: Qualified Codes: E11.21 - Type 2 diabetes mellitus with diabetic nephropathy; Z79.4 - intermediate (current) use of insulin Frederick Lamas MD R2 Feb 15, 2017 10:06
--- NOTE | 2017-02-15 11:08 | PD.ONC.PN ---
Subjective Subjective Remarks Afebrile overnight. Patient sitting up in room eating breakfast. His is with him. He states he has had no pain since his ERCP. He has a good appetite, as well. Waiting to see Dr. Abdi and radiation oncology. Objective Data Date Time Temp Pulse Resp B/P (MAP) Pulse Ox O2 Delivery O2 Flow Rate FiO2 02/15/17 10:22 55 02/15/17 10:03 98.5 64 20 126/64 (84) 92 02/15/17 04:03 65 02/15/17 03:32 99.1 63 16 106/58 (74) 96 02/15/17 00:23 98.7 56 16 116/67 (83) 96 02/15/17 00:14 55 02/14/17 20:46 97.6 57 16 152/92 (112) 96 02/14/17 20:02 75 02/14/17 16:52 97.8 56 14 158/81 (106) 98 02/14/17 12:18 97.8 55 14 150/89 (109) 02/15/17 02/15/17 02/15/17 07:00 15:00 23:00 Intake Total 293 ml Output Total 1000 ml Balance -707 ml Result Diagram: 02/15/17 0550 02/15/17 0550 Laboratory Results Laboratory Tests Test 02/15/17 05:50 White Blood Count 5.7 TH/MM3 Red Blood Count 3.63 MIL/MM3 Hemoglobin 11.9 GM/DL Hematocrit 35.0 % Mean Corpuscular Volume 96.4 FL Mean Corpuscular Hemoglobin 32.7 PG Mean Corpuscular Hemoglobin Concent 34.0 % Red Cell Distribution Width 14.2 % Platelet Count 160 TH/MM3 Mean Platelet Volume 10.8 FL Neutrophils (%) (Auto) 56.2 % Lymphocytes (%) (Auto) 31.9 % Monocytes (%) (Auto) 7.2 % Eosinophils (%) (Auto) 3.8 % Basophils (%) (Auto) 0.9 % Neutrophils # (Auto) 3.2 TH/MM3 Lymphocytes # (Auto) 1.8 TH/MM3 Monocytes # (Auto) 0.4 TH/MM3 Eosinophils # (Auto) 0.2 TH/MM3 Basophils # (Auto) 0.1 TH/MM3 CBC Comment DIFF FINAL Differential Comment Blood Urea Nitrogen 20 MG/DL Creatinine 1.09 MG/DL Random Glucose 138 MG/DL Total Protein 7.0 GM/DL Albumin 2.3 GM/DL Calcium Level 8.4 MG/DL Alkaline Phosphatase 566 U/L Aspartate Amino Transf (AST/SGOT) 87 U/L Alanine Aminotransferase (ALT/SGPT) 168 U/L Total Bilirubin 2.4 MG/DL Sodium Level 136 MEQ/L Potassium Level 3.8 MEQ/L Chloride Level 105 MEQ/L Carbon Dioxide Level 23.0 MEQ/L Anion Gap 8 MEQ/L Estimat Glomerular Filtration Rate 65 ML/MIN Culture Results Microbiology Date/Time Source Procedure Growth Status 02/13/17 10:10 Blood Peripheral Aerobic Blood Culture - Preliminary NO GROWTH IN 1 DAY Resulted 02/13/17 10:10 Blood Peripheral Anaerobic Blood Culture - Preliminary NO GROWTH IN 1 DAY Resulted 02/13/17 10:05 Blood Peripheral Aerobic Blood Culture - Preliminary NO GROWTH IN 1 DAY Resulted 02/13/17 10:05 Blood Peripheral Anaerobic Blood Culture - Preliminary NO GROWTH IN 1 DAY Resulted Administered Medications Medications (Trade) Dose Ordered Sig/Leonel Route PRN Reason Start Time Stop Time Status Last Admin Dose Admin Piperacillin Sod/ Tazobactam Sod 50 ml @ 100 mls/hr Q6H IV 02/11/17 21:00 02/15/17 09:54 Sodium Chloride (NS Flush) 2 ml UNSCH PRN IV FLUSH FLUSH AFTER USING IV ACCESS 02/11/17 17:00 02/15/17 03:32 Sodium Chloride (NS Flush) 2 ml BID IV FLUSH 02/11/17 21:00 02/15/17 09:54 Acetaminophen (Tylenol) 650 mg Q6HR PRN PO TEMP > 100.4 02/11/17 17:00 02/12/17 04:54 Heparin Sodium (Porcine) (Heparin Inj) 5,000 units Q12H SQ 02/12/17 06:00 02/15/17 06:55 Senna/Docusate Sodium (Marlene-Colace) 1 tab BID PO 02/11/17 21:00 02/13/17 21:37 Pantoprazole Sodium (Protonix) 40 mg DAILY PO 02/12/17 09:00 02/12/17 09:17 Insulin Aspart (NovoLOG SUPPLEMENTAL SCALE) 1 ACHS SLIDING SCALE SQ 02/11/17 21:00 02/14/17 21:42 Insulin Detemir (Levemir Inj) 10 units HS SQ 02/11/17 21:00 02/14/17 21:41 Objective Remarks GENERAL: Elderly male sitting up in bed in nad. Eating breakfast. SKIN: Warm and dry. HEAD: Normocephalic. EYES: No injection or drainage. NECK: Supple, trachea midline. CARDIOVASCULAR: Regular rate and rhythm RESPIRATORY: Breath sounds equal bilaterally. No accessory muscle use. GASTROINTESTINAL: Abdomen mildly distended. non-tender. EXTREMITIES: No cyanosis NEUROLOGICAL: No obvious focal deficit. Awake, alert, and oriented x3. Assessment/Plan Problem List: (1) Pancreatic cancer ICD Codes: C25.9 - Malignant neoplasm of pancreas, unspecified Status: Acute Plan: ---mid epigastric pain for 1-2 weeks. -down 10 pounds. --CT ab/pelvis +vague 2.7 x 3.7 x 3.1 mass in the head of pancreas. +pancreatic ductal dilation and pancreatic tail atrophy. +intrahepatic and extrahepatic biliary distension. +possible tumor thrombus versus bland thrombus in the proximal portal vein. No metastatic disease or adenopathy noted on CT scan. --Ca19-9 - 1646. --Brushings came back suspicious for adenocarcinoma (2) Sepsis ICD Codes: A41.9 - Sepsis, unspecified organism Status: Acute Plan: -- s/p ERCP with new stent placement -- Repeat BC drawn 02/13/17 showed no growth 1 day Assessment 81 y/o male with history of pancreatic cancer admitted with AMS and fever Plan 1. await Dr. Abdi consult today 2. consult radiation oncology Attending Statement The exam, history, and the medical decision-making described in the above note were completed with the assistance of the mid-level provider. I reviewed and agree with the findings presented. I attest that I had a [id number]-hp-[id number] encounter with the patient on the same day, and personally performed and documented my assessment and findings in the medical record. Feeling better. No abdominal pain. Remains afebrile. Repeat BCX negative. Await surgery evaluation. Consult radiation oncology to consider XRT+chemo if not a surgical candidate. Discussed with pt's . Problem Qualifiers (1) Pancreatic cancer: Qualified Codes: C25.7 - Malignant neoplasm of other parts of pancreas (2) Sepsis: Qualified Codes: A41.9 - Sepsis, unspecified organism Sravanthi Dumont Feb 15, 2017 11:08 Bebeto Urias MD Feb 15, 2017 19:07
--- NOTE | 2017-02-15 15:15 | MB ---
cc: TIMMY SCHROEDER BEATRICE S. M.D. KROCHAK, RONALD J. M.D. CHEW, BOON Y. M.D. DATE OF CONSULTATION: 02/15/2017 DATE OF : 1935 HISTORY OF PRESENT ILLNESS This is a 81-year-old gentleman who was recently discharged from the hospital with a diagnosis of pancreatic cancer in association with insulin dependent diabetes. He had a work-up which included an ERCP with stenting for a mass noted in the head of the pancreas. His CA 19-9 at presentation was 1646. His ERCP revealed a 3 cm stricture/mass in the common bile duct in the head of the pancreas and brushings revealed highly atypical glandular epithelium suspicious for adenocarcinoma. Unfortunately he was re-admitted to the hospital when he developed fevers as high as 102. He was re-admitted to the hospital. He has been seen by GI and he has had a new stent placed. He is being referred now for consideration of radiation treatment. His initial work-up revealed a pancreatic mass measuring 2.7 x 3.7 x 3.1 cm. This was shown on the CT scan. Apparently an MRI was not as distinct but this was reviewed at the tumor board and according to Dr. Urias's notes a mass at the head of the pancreas was evident. This gentleman is currently feeling better after having his stent replaced and being treated for antibiotics for his ascending cholangitis. He is currently waiting to see Dr. Schroeder for a potential discussion of his surgical options. If this is not an option I am seeing him today for consideration of combined radiation treatment and chemotherapy. It is noted that he has had roughly a 10-pound weight loss prior to his initial hospitalization but that this is currently stable. He is also noted to have insulin-dependent diabetes, chronic renal disease and a previous cholecystectomy. PAST MEDICAL/SURGICAL HISTORY 1. Hypertension. 2. Diabetes on insulin. 3. Hyperlipidemia. 4. Chronic kidney disease. 5. Pancreatic cancer with obstructive jaundice and ascending cholangitis as noted above. 6. Previous cholecystectomy. 7. Previous bilateral knee surgeries. 8. Amputation of the right fourth toe. SOCIAL HISTORY/FAMILY HISTORY This gentleman is accompanied by his . They live in [place] where their daughter lives. They do not feel that is practical for him to return there for treatment as [place] town and traveling for treatment would be difficult. ALLERGIES None known. MEDICATIONS 1. Protonix. 2. Heparin. 3. Zosyn. 4. Marlene-Colace. REVIEW OF SYSTEMS This gentleman has had a 10-pound weight loss as noted. He has had generalized weakness. He has recently been admitted with fevers and chills and jaundice. He denies other cardiovascular, respiratory, ear, nose or throat, GI, , musculoskeletal, hematologic, endocrine or other complaints. PHYSICAL EXAMINATION GENERAL: Today on exam he looks well. He is resting comfortably in bed with no immediate complaints. VITAL SIGNS: He was noted to be afebrile with a pulse of 58 and regular, respiratory rate of 20, blood pressure 146/75 and an O2 sat on room air of 96%. HEENT: There was no jaundice. His conjunctiva and eyelids were normal. He had full EOMs. Inspection of his oral cavity is normal without mucosal surface lesions. Palpation of his head, neck reveals no adenopathy. LUNGS: His lung mcdonald were clear today without effusion. HEART: His heart sounds were normal without murmurs, rubs or bruits. ABDOMEN: There are no abdominal masses, tenderness or hepatosplenomegaly. NEUROLOGIC: Power testing was normal in all limbs. 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 Urias. I note that his present laboratory data shows that his white count has dropped from 15,000 to 5700. His hemoglobin is 11.09, platelet count 160,000. His total bilirubin has dropped from 4.1 to 2.4. His AST is now 87, alkaline phosphatase 566, total protein low at 7. His albumin is also low at 2.3. His pathology was previously noted to be suspicious but not diagnostic for pancreatic cancer and his diagnostic imaging does not reveal any evidence of metastases. Dr. Urias has suggested he undergo a PET/CT scan on an outpatient basis and I have also discussed this with the patient today. ASSESSMENT AND RECOMMENDATIONS I have reviewed with this gentleman and his the current findings of which they were well aware. I have discussed combination radiation treatment and chemotherapy if surgery is not recommended. We would like to have a PET/CT scan prior to initiating treatment to be sure that there is no evidence of metastatic disease and help define his a local disease more clearly. I have discussed how radiation is delivered as well as potential acute side effects including nausea, vomiting, diarrhea, symptoms of gastritis and fatigue. Nevertheless, we do expect these to resolve when treatment is completed. I have told him this is a serious disease which is very difficult to cure and if surgery is possible this has the greatest chance of cure, although with his other co-morbidities this may not be practical for him. We have also discussed returning to [place] for treatment but they have indicated that this is not practical as they live in a small community and they would have to travel in winter conditions for treatment. At this point we will await a consultation by Dr. Schroeder and then we as a group can decide this patient's best treatment approach. Thank you again. MD CHRISTOS Breaux/LIOR /1:39 PM /2:45 PM
--- NOTE | 2017-02-15 17:11 | HHI.HCPN ---
Reason for visit a. To assist with evaluation and management of symptoms including: Pain and debility. b. To assist medical decision maker(s) with: better understanding of current medical conditions; weighing benefits/burdens of medical treatment options; making medical treatment decisions. . Subjective/Interval History Mr. Jewell is a 81-year-old male with a medical history significant for newly diagnosed pancreatic cancer, insulin-dependent diabetes mellitus type 2, diabetic neuropathy and diabetic ulcers presented to the ED on 02/11/17 for evaluation of altered mental status and fever. Patient status post ERCP with stents on 02/04/17 in amputation of right fourth toe on 02/07/17. Repeat ERCP with stent placement on 02/11/17. Palliative care consulted for further clarifications of goals of care. Patient seen in his room. He was resting in bed in no acute distress. Jaylin at bedside. Patient denies any pain, nausea/vomiting or abdominal discomfort. Reports that appetite has improved over the weekend, last bowel movement earlier this morning. Patient afebrile, stable hemodynamically. Currently tolerating room air, oxygen saturation in the mid 90s. Laboratory workup today revealing WBC 5.7, Hgb 11.9, platelet count 160. Sodium 146, potassium 3.8, BUN/creatinine 20/1.09. Liver enzymes remain elevated, AST 87, ALT 168, alkaline phosphatase 566. No new imaging for review. Radiation oncology consulted, Dr. Huang. Pending surgery consultation to evaluate candidacy for surgical intervention. Discussed goals of care with patient and his Jaylin at bedside. Patient reports that he is still considering surgical intervention, however, if he is not a surgical candidate, patient to consider a combination of chemotherapy and radiation. Patient verbalizing aggressive goals of treatment to include full code. Hospice philosophy and benefits previously reviewed. Patient receptive to hospice should/when his clinical condition worsen or additional decline. All questions answered in great detail. Patient and appreciative of this follow-up visit. . Family/friend interactions See interval note. . Advance Directives Living Will: Never completed Health Care Surrogate: Never completed Durable Power of Data Analysis Intern: Never completed Advance Directive Specifics Health Care Surrogate(s): Healthcare proxy decision maker is patient's Jaylin Jewell. . Significant change in goals: Full code. Goals aggressive, pending surgical consultation. . Objective Vital Signs Date Time Temp Pulse Resp B/P (MAP) Pulse Ox O2 Delivery O2 Flow Rate FiO2 02/15/17 11:52 98.7 58 20 146/75 (98) 96 02/15/17 11:42 95 21 02/15/17 10:22 55 02/15/17 10:03 98.5 64 20 126/64 (84) 92 02/15/17 04:03 65 02/15/17 03:32 99.1 63 16 106/58 (74) 96 02/15/17 00:23 98.7 56 16 116/67 (83) 96 02/15/17 00:14 55 02/14/17 20:46 97.6 57 16 152/92 (112) 96 02/14/17 20:02 75 02/14/17 16:52 97.8 56 14 158/81 (106) 98 Intake & Output 02/15/17 02/15/17 07:00 19:00 Intake Total 348 ml Output Total 1400 ml Balance -1052 ml Intake Oral 240 ml IV Total 108 ml Output Urine Total 1400 ml # Bowel Movements 0 Physical Exam CONSTITUTIONAL/GENERAL: This is an adequately nourished patient, in no apparent distress. TUBES/LINES/DRAINS: PIV's, nasal cannula. SKIN: No jaundice, rashes, or lesions. Ecchymoses on upper extremities. No wounds seen anteriorly. Skin temperature appropriate. Not diaphoretic. HEAD: Atraumatic. Normocephalic. EYES: Pupils equal and round and reactive. Extraocular motions intact. Scleral icterus. No injection or drainage. ENT: Hard of hearing. Nose without bleeding or purulent drainage. Moist oral mucosa. NECK: Trachea midline. Supple, nontender. CARDIOVASCULAR: Regular rate and rhythm without murmurs. Peripheral pulses symmetric. RESPIRATORY/CHEST: Symmetric, unlabored respirations. Clear to auscultation. Breath sounds equal bilaterally. No wheezes, rales, or rhonchi. GASTROINTESTINAL: Abdomen soft, nondistended. No guarding. Bowel sounds present. GENITOURINARY: Without palpable bladder distension. MUSCULOSKELETAL: Extremities without clubbing, cyanosis, or edema. Right fourth toe status post amputation, currently present in place. Appears dry, clean and intact. NEUROLOGICAL: Awake and alert. Motor and sensory grossly within normal limits. Follows commands. Moves all extremities. PSYCHIATRIC: No anxiety noted. . Diagnostic Tests Laboratory Laboratory Tests Test 02/13/17 05:42 02/14/17 10:14 02/15/17 05:50 White Blood Count 9.2 TH/MM3 (4.0-11.0) 5.7 TH/MM3 (4.0-11.0) 5.7 TH/MM3 (4.0-11.0) Red Blood Count 3.35 MIL/MM3 (4.50-5.90) 3.46 MIL/MM3 (4.50-5.90) 3.63 MIL/MM3 (4.50-5.90) Hemoglobin 11.0 GM/DL (13.0-17.0) 11.4 GM/DL (13.0-17.0) 11.9 GM/DL (13.0-17.0) Hematocrit 32.6 % (39.0-51.0) 33.7 % (39.0-51.0) 35.0 % (39.0-51.0) Mean Corpuscular Volume 97.4 FL (80.0-100.0) 97.4 FL (80.0-100.0) 96.4 FL (80.0-100.0) Mean Corpuscular Hemoglobin 32.9 PG (27.0-34.0) 32.8 PG (27.0-34.0) 32.7 PG (27.0-34.0) Mean Corpuscular Hemoglobin Concent 33.8 % (32.0-36.0) 33.7 % (32.0-36.0) 34.0 % (32.0-36.0) Red Cell Distribution Width 14.0 % (11.6-17.2) 14.3 % (11.6-17.2) 14.2 % (11.6-17.2) Platelet Count 157 TH/MM3 (150-450) 143 TH/MM3 (150-450) 160 TH/MM3 (150-450) Mean Platelet Volume 11.1 FL (7.0-11.0) 11.2 FL (7.0-11.0) 10.8 FL (7.0-11.0) Neutrophils (%) (Auto) 86.3 % (16.0-70.0) 56.2 % (16.0-70.0) Lymphocytes (%) (Auto) 5.6 % (9.0-44.0) 31.9 % (9.0-44.0) Monocytes (%) (Auto) 5.1 % (0.0-8.0) 7.2 % (0.0-8.0) Eosinophils (%) (Auto) 2.7 % (0.0-4.0) 3.8 % (0.0-4.0) Basophils (%) (Auto) 0.3 % (0.0-2.0) 0.9 % (0.0-2.0) Neutrophils # (Auto) 8.0 TH/MM3 (1.8-7.7) 3.2 TH/MM3 (1.8-7.7) Lymphocytes # (Auto) 0.5 TH/MM3 (1.0-4.8) 1.8 TH/MM3 (1.0-4.8) Monocytes # (Auto) 0.5 TH/MM3 (0-0.9) 0.4 TH/MM3 (0-0.9) Eosinophils # (Auto) 0.3 TH/MM3 (0-0.4) 0.2 TH/MM3 (0-0.4) Basophils # (Auto) 0.0 TH/MM3 (0-0.2) 0.1 TH/MM3 (0-0.2) CBC Comment DIFF FINAL DIFF FINAL Differential Comment Blood Urea Nitrogen 22 MG/DL (7-18) 18 MG/DL (7-18) 20 MG/DL (7-18) Creatinine 1.34 MG/DL (0.60-1.30) 1.13 MG/DL (0.60-1.30) 1.09 MG/DL (0.60-1.30) Random Glucose 141 MG/DL (74-106) 234 MG/DL (74-106) 138 MG/DL (74-106) Total Protein 6.3 GM/DL (6.4-8.2) 7.0 GM/DL (6.4-8.2) Albumin 2.3 GM/DL (3.4-5.0) 2.3 GM/DL (3.4-5.0) Calcium Level 7.9 MG/DL (8.5-10.1) 8.4 MG/DL (8.5-10.1) 8.4 MG/DL (8.5-10.1) Alkaline Phosphatase 463 U/L (45-117) 566 U/L (45-117) Aspartate Amino Transf (AST/SGOT) 142 U/L (15-37) 87 U/L (15-37) Alanine Aminotransferase (ALT/SGPT) 251 U/L (12-78) 168 U/L (12-78) Total Bilirubin 3.8 MG/DL (0.2-1.0) 2.4 MG/DL (0.2-1.0) Sodium Level 136 MEQ/L (136-145) 133 MEQ/L (136-145) 136 MEQ/L (136-145) Potassium Level 3.7 MEQ/L (3.5-5.1) 4.1 MEQ/L (3.5-5.1) 3.8 MEQ/L (3.5-5.1) Chloride Level 106 MEQ/L (98-107) 103 MEQ/L (98-107) 105 MEQ/L (98-107) Carbon Dioxide Level 21.0 MEQ/L (21.0-32.0) 21.7 MEQ/L (21.0-32.0) 23.0 MEQ/L (21.0-32.0) Anion Gap 9 MEQ/L (5-15) 8 MEQ/L (5-15) 8 MEQ/L (5-15) Estimat Glomerular Filtration Rate 51 ML/MIN (>89) 63 ML/MIN (>89) 65 ML/MIN (>89) Result Diagram: 02/15/17 0550 02/15/17 0550 Microbiology Microbiology Date/Time Source Procedure Growth Status 02/13/17 10:10 Blood Peripheral Aerobic Blood Culture - Preliminary NO GROWTH IN 2 DAYS Resulted 02/13/17 10:10 Blood Peripheral Anaerobic Blood Culture - Preliminary NO GROWTH IN 2 DAYS Resulted 02/13/17 10:05 Blood Peripheral Aerobic Blood Culture - Preliminary NO GROWTH IN 2 DAYS Resulted 02/13/17 10:05 Blood Peripheral Anaerobic Blood Culture - Preliminary NO GROWTH IN 2 DAYS Resulted Procedures * 02/11/17 -EGD with stent placement, ERCP with sphincterotomy, balloon sweep of the duct retrieving stone and sludge. . Assessment and Plan Disease Oriented Problem List: (1) Pancreatic adenocarcinoma (2) Sepsis (3) Diabetes (4) Physical deconditioning Symptom Scale: (1) Pain 0-10 Scale: 0 Comment: Secondary to burden of disease. (2) Debility 0-10 Scale: Unable to quantify Comment: Progressive. Pertinent Non-Medical Issues Psychosocial: Patient originally from [place]. Has been coming to [place] for the past 17 years to spend the fall/winter. to current for the past 8 years, no children together. Patient has 1 daughter, has no contact with her. 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 Spiritual: Scientology laurie. Legal: No advance directives completed. Ethical issues impacting care: No ethical legal issues identified. . Important Contacts Patient's Jaylin Jewell . . Prognosis Mr. Jewell is a 81-year-old male with a medical history significant for newly diagnosed pancreatic cancer, insulin-dependent diabetes mellitus type 2, diabetic neuropathy and diabetic ulcers presented to the ED on 02/11/17 for evaluation of altered mental status and fever. Patient status post ERCP with stents on 02/04/17 in amputation of right fourth toe on 02/07/17. Repeat ERCP with stent placement on 02/11/17. Patient's overall prognosis is poor given pancreatic cancer, advanced age, profound physical deconditioning and multiple comorbidities. Patient at high risk for further complications, continue decline and . Patient appears hospice appropriate should he elects comfort -directed care. . Code Status: Full Code Plan * CODE STATUS: Full code. * HEALTHCARE DECISION-MAKING: Patient participating in medical decision-making. He appears to have a fair understanding of his clinical condition and newly diagnosed pancreatic cancer. Appears to retain the ability to weight benefits versus burdens of treatment options. No advance directives completed. As per [place] statute, healthcare proxy decision-making falls to patient's Jaylin Jewell. * GOALS OF CARE: Patient electing aggressive management to include FULL code and surgical intervention, pending surgical consult for eligibility. If patient is not a surgical candidate, pt to consider chemotherapy and/or radiation therapy. Goal of therapy is for improvement of quality of life and prolongation of survival. Hospice philosophy and benefits previously introduced , patient and family receptive to hospice when pt's clinical condition worsen or in the setting of increased symptom burden. * SYMPTOMS: = Pain, secondary to pancreatic cancer, and recent amputation to right fourth toe. Denies pain during my visit. Oxycodone 5-10 mg q4hr PRN available. None used of the past 24 hours. = Debility, progressive given burden of disease. PT following, home with no PT recommended. * Palliative care contact information has been provided to patient and . * Palliative care will continue to follow-up as needed for further clarifications of goals of care has patient's clinical course continues to evolve. Goals of therapy are established at this time. . Time Spent Total Floor Time (mins): 28 (Total time to include review medical records, physical exam, goals of care conversation with patient and .) >50% Counseling/Coord of Care: Yes Attestation To help prompt me to consider important information that might be impacting today's encounter and assessment, information from prior notes written by myself or my colleagues may have been "brought forward" into today's note. My signature on this note, however, is an attestation that I personally performed the exam, history, and/or decision-making noted today, and, unless otherwise indicated, the interactions with patient, family, and staff as well as the review of records all occurred today. I also attest that the listed assessment and stated plan reflect my best clinical judgment today based on the combination of historical information, prior notes, and today's exam/ interactions. When time spent is documented, it refers only to time spent today by the signer, or if indicated, combined time spent today by collaborating physician/nurse practitioner. Janelle Moffett Feb 15, 2017 17:11
[2017-02-15] MEDS: INSULIN DETEMIR 100 UNITS/ML VIAL SQ SCH (22:19)
[2017-02-16] VITALS (7 sets, daily range): BP systolic 117–153; BP diastolic 65–83; PULSE 43–58; RESP 16–20; TEMP 98.3–99; O2SAT 95–96
[2017-02-16] MEDS: SODIUM CHLORIDE 0.9% FLUSH 10 ML FLUSH IV FLUSH PRN (03:21)
[2017-02-16] MEDS: PIPERACIL-TAZO 3.375 GM PREMIX 50 ML IV SCH ×2 (03:21→08:56)
[2017-02-16] MEDS: HEPARIN SODIUM - SQ 10,000 UNITS/ML VIAL SQ SCH (06:20)
[2017-02-16 06:46] LABS: ANION GAP 9 MEQ/L (5-15); AST (GOT) 63 U/L (15-37); BICARBONATE 23.4 MEQ/L (21.0-32.0); BLOOD UREA NITROGEN 18 MG/DL (7-18); CHLORIDE 106 MEQ/L (98-107); GLOMERULAR FILTRATION RATE 56 ML/MIN (>89); SODIUM (NA) 138 MEQ/L (136-145)
[2017-02-16 06:49] LABS: ALKALINE PHOSPHATASE 591 U/L (45-117); ALT (GPT) 141 U/L (12-78); TOTAL BILIRUBIN ADULT 2.1 MG/DL (0.2-1.0)
[2017-02-16] MEDS ORDERED: INSULIN DETEMIR 100 UNITS/ML VIAL SQ SCH (07:00)
--- NOTE | 2017-02-16 07:33 | MB ---
cc: YADI ROCHA DATE OF CONSULTATION 02/15/2017 CHIEF COMPLAINT Status post right fourth toe amputation on February 03, 2017, by Dr. Germain Lewis. HISTORY OF PRESENT ILLNESS The patient is well known to my practice after he had a recent operation with Dr. Germain Lewis. He was unable to followup in the office due to readmission to the hospital so I was consulted for further evaluation and management. REVIEW OF SYSTEMS Please see the patient's chart for an in-depth review of systems. PHYSICAL EXAMINATION All sutures were intact. Skin edges were well coapted. No erythema, no drainage, no edema at fourth toe amputation. ASSESSMENT AND PLAN 1. Status post right fourth toe amputation with Dr. Lewis on February 03. 2. Sutures removed at bedside and proper bandaging applied. 3. Bandages clean, dry and intact for the next 72 hours. Continue to weight-bear in surgical shoe for 72 hours. 4. After 72 hours the patient does not need a bandage or a surgical shoe. 5. Follow up with Dr. Lewis in 3-5 days after discharge. 6. Please reconsult if any changes or concerns. Thank you. Yadi Rocha LMW/SSB /7:02 PM /7:25 AM
--- NOTE | 2017-02-16 07:51 | MB ---
cc: TIMMY SCHROEDER DATE OF CONSULTATION 02/15/[address] 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 HISTORY OF PRESENT ILLNESS The patient is a 81-year-old male with multiple comorbidities who was recently diagnosis with pancreatic carcinoma based on ERCP and imaging as well as elevated CA19-9. The patient developed abdominal pain, underwent a workup in January 2017. The workup shows a CT scan with a mass 3.7 cm in greatest dimension that appeared to be occluding the portal and SMV veins with reconstitution. The patient underwent further workup with MRI as well as an ERCP and stent placement for biliary obstruction and a biopsy which showed suspicions for adenocarcinoma. Again, the patient's CA19-9 was elevated at 1646. The patient was discharged for outpatient workup when he developed fever which required readmission to the hospital last week. The patient was found to have biliary obstruction due to failed stent and this was replaced and the patient is currently on antibiotics as recommended by Infectious Disease. The patient currently has bilirubin down to 2.4 from 4.1. He has no abdominal pain, no jaundice and is tolerating a diet, having bowel function. Surgery Oncology was consulted for concern for possible unresectable tumor. REVIEW OF SYSTEMS A 12-point review of systems done with the patient is negative except as mentioned above, other than recent toe infection. PAST MEDICAL HISTORY 1. Hypertension. 2. Diabetes, insulin dependent. 3. Hyperlipidemia. 4. Chronic kidney disease. 5. Arthritis. 6. Diabetic foot disease. 7. Neuropathy. PAST SURGICAL HISTORY 1. Cholecystectomy. 2. Knee replacement. 3. Amputation of the right fourth toe. ALLERGIES No known drug allergies. HOME MEDICATIONS 1. Oxycodone. 2. Protonix. 3. Jardiance. 4. Levemir. SOCIAL HISTORY The patient lives in [place] part of the year and [place] part of the year. Occasionally drinks alcohol and does smoke a pipe. FAMILY HISTORY Denies any family history of cancer. PHYSICAL EXAMINATION VITAL SIGNS: 98.8, 55, 142/79, respiratory rate 20. GENERAL: The patient is a chronically ill, elderly male in no acute distress. He does not appear acutely ill or septic or jaundiced. HEENT: Head is normocephalic, atraumatic. Pupils are round, reactive to accommodation and to light. Sclerae anicteric. Mucous membranes are moist. Airway is patent. NECK: Supple. No JVD. LUNGS: Breath sounds present bilaterally. Nonlabored breathing pattern. HEART: Regular rhythm. ABDOMEN: Soft, nondistended. No organomegaly, no ascites. Normal bowel sounds. BACK: No CVA tenderness. RECTAL EXAM: Deferred. EXTREMITIES: Trace edema. NEUROLOGIC EXAM: The patient ambulates, though unsteady. Nonfocal peripheral exam. Cranial II-XII grossly intact. Alert and oriented x3. ASSESSMENT AND PLAN The patient is a 81-year-old male with newly diagnosed pancreatic carcinoma of the head of the pancreas. This is borderline resectable criteria due to CT scan showing occlusion of the portal SMV vein with reconstitution. Due to the patient's poor performance status, he is a relatively poor candidate for Whipple surgery, particularly vein resection type surgery and, due to the tumor being borderline and being somewhat advanced with vein involvement and the large size tumor, I do not feel it is in this patient's best interest for up front surgery and would recommend chemotherapy or chemoradiation. This chemotherapy or chemoradiation prior to any consideration of surgery is also supported by NCCN guidelines even in more surgically fit patients. I discussed this with the patient and his for about 45 minutes with [id number] time and the patient and 's questions were answered to their satisfaction. They would like to continue to consider some treatment as well as would consider palliative care options. He can be discharged home from my standpoint and follow up with me on a p.r.n. basis. I do recommend they follow-up with radiation and medical oncology as well as the [facility] for continued support, management and treatment. Thank you very much for this consultation. We will sign off. MD HOLLIE Schulz/SSB /8:11 PM /7:30 AM
[2017-02-16] MEDS: INSULIN ASPART SUPPLEMENTAL SCALE SQ SCH ×2 (07:54→11:21)
[2017-02-16] MEDS: SODIUM CHLORIDE 0.9% FLUSH 10 ML FLUSH IV FLUSH SCH (08:56)
[2017-02-16] MEDS: DOCUSATE SODIUM 50 MG/SENNA 8.6 MG TAB PO SCH (08:56)
[2017-02-16] MEDS: PANTOPRAZOLE SOD 40 MG DELAYED RELEASE TAB PO SCH (08:56)
--- NOTE | 2017-02-16 10:38 | PD.ONC.PN ---
Subjective Subjective Remarks Afebrile overnight. Patient resting in room. Feeling somewhat down after being told his cancer is not resectable yesterday. Still eating well. Pain controlled. Objective Data Date Time Temp Pulse Resp B/P (MAP) Pulse Ox O2 Delivery O2 Flow Rate FiO2 02/16/17 08:00 98.4 51 20 152/80 (104) 95 02/16/17 07:00 43 02/16/17 03:57 52 02/16/17 03:17 98.7 56 16 117/65 (82) 96 02/16/17 00:35 99.0 54 16 142/78 (99) 95 02/16/17 00:04 58 02/15/17 20:49 98.7 56 18 142/78 (99) 95 02/15/17 20:03 54 02/15/17 17:36 98.8 55 20 142/79 (100) 95 02/15/17 17:35 96 21 02/15/17 11:52 98.7 58 20 146/75 (98) 96 02/15/17 11:42 95 21 02/16/17 02/16/17 02/16/17 07:00 15:00 23:00 Intake Total 55 ml Output Total 700 ml Balance -645 ml Result Diagram: 02/15/17 0550 02/16/17 0612 Laboratory Results Laboratory Tests Test 02/16/17 06:12 Blood Urea Nitrogen 18 MG/DL Creatinine 1.24 MG/DL Random Glucose 102 MG/DL Total Protein 7.0 GM/DL Albumin 2.3 GM/DL Calcium Level 8.8 MG/DL Alkaline Phosphatase 591 U/L Aspartate Amino Transf (AST/SGOT) 63 U/L Alanine Aminotransferase (ALT/SGPT) 141 U/L Total Bilirubin 2.1 MG/DL Sodium Level 138 MEQ/L Potassium Level 4.0 MEQ/L Chloride Level 106 MEQ/L Carbon Dioxide Level 23.4 MEQ/L Anion Gap 9 MEQ/L Estimat Glomerular Filtration Rate 56 ML/MIN Administered Medications Medications (Trade) Dose Ordered Sig/Leonel Route PRN Reason Start Time Stop Time Status Last Admin Dose Admin Piperacillin Sod/ Tazobactam Sod 50 ml @ 100 mls/hr Q6H IV 02/11/17 21:00 02/16/17 08:56 Sodium Chloride (NS Flush) 2 ml UNSCH PRN IV FLUSH FLUSH AFTER USING IV ACCESS 02/11/17 17:00 02/16/17 03:21 Sodium Chloride (NS Flush) 2 ml BID IV FLUSH 02/11/17 21:00 02/16/17 08:56 Acetaminophen (Tylenol) 650 mg Q6HR PRN PO TEMP > 100.4 02/11/17 17:00 02/12/17 04:54 Heparin Sodium (Porcine) (Heparin Inj) 5,000 units Q12H SQ 02/12/17 06:00 02/16/17 06:20 Senna/Docusate Sodium (Marlene-Colace) 1 tab BID PO 02/11/17 21:00 02/16/17 08:56 Pantoprazole Sodium (Protonix) 40 mg DAILY PO 02/12/17 09:00 02/16/17 08:56 Insulin Aspart (NovoLOG SUPPLEMENTAL SCALE) 1 ACHS SLIDING SCALE SQ 02/11/17 21:00 02/15/17 22:20 Insulin Detemir (Levemir Inj) 10 units HS SQ 02/11/17 21:00 02/15/17 22:19 Insulin Detemir (Levemir Inj) 5 units AC BREAKFAST SQ 02/16/17 07:00 02/16/17 08:56 Objective Remarks GENERAL: Elderly male upright in bed in nad. SKIN: Warm and dry. HEAD: Normocephalic. EYES: No injection or drainage. NECK: Supple, trachea midline. CARDIOVASCULAR: Regular rate and rhythm RESPIRATORY: diminished at bases, occasional rhonchi. GASTROINTESTINAL: Abdomen mildly distended. non-tender. EXTREMITIES: No cyanosis NEUROLOGICAL: awake and alert, normal speech. Assessment/Plan Problem List: (1) Pancreatic cancer ICD Codes: C25.9 - Malignant neoplasm of pancreas, unspecified Status: Acute Plan: ---mid epigastric pain for 1-2 weeks. -down 10 pounds. --CT ab/pelvis +vague 2.7 x 3.7 x 3.1 mass in the head of pancreas. +pancreatic ductal dilation and pancreatic tail atrophy. +intrahepatic and extrahepatic biliary distension. +possible tumor thrombus versus bland thrombus in the proximal portal vein. No metastatic disease or adenopathy noted on CT scan. --Ca19-9 - 1646. --Brushings came back suspicious for adenocarcinoma (2) Sepsis ICD Codes: A41.9 - Sepsis, unspecified organism Status: Acute Plan: --currently on Zosyn. discussed with ID (Dr. Sevilla) on 02/16, patient can go home on Levaquin and Flagyl. -- s/p ERCP with new stent placement -- Repeat BC drawn 02/13/17 showed no growth Assessment 81 y/o male with history of pancreatic cancer admitted with AMS and fever Plan 1. patient ok to go home once cleared by GI 2. follow up in clinic in [address] Urias and Dr. Huang. Attending Statement The exam, history, and the medical decision-making described in the above note were completed with the assistance of the mid-level provider. I reviewed and agree with the findings presented. I attest that I had a [id number] encounter with the patient on the same day, and personally performed and documented my assessment and findings in the medical record. No abdominal pain. Evaluated by and he is not a good candidate for Whipple. Recommend Outpt PET, if disease is localized, can consider Chemo+XRT. F/u with oncology. Problem Qualifiers (1) Pancreatic cancer: Qualified Codes: C25.7 - Malignant neoplasm of other parts of pancreas (2) Sepsis: Qualified Codes: A41.9 - Sepsis, unspecified organism Sravanthi Dumont Feb 16, 2017 10:38 Bebeto Urias MD Feb 16, 2017 11:30
[2017-02-16] MEDS ORDERED: LEVA500T33 PO (13:17)
[2017-02-16] MEDS ORDERED: METR-1 PO (13:17)
[2017-02-16] MEDS ORDERED: NOVOLOGP2 SQ (13:17)
[2017-02-16] MEDS ORDERED: LEVEMIR SQ (13:17)
--- NOTE | 2017-02-16 13:17 | HHI.DCPOC ---
Discharge Care Plan Diagnosis: (1) Altered mental status (2) Pancreatic adenocarcinoma (3) Ascending cholangitis (4) Diabetes (5) Hyperglycemia (6) Biliary obstruction Goals to Promote Your Health * To prevent worsening of your condition and complications * To maintain your health at the optimal level Directions to Meet Your Goals Take your medications as prescribed Follow your dietary instruction Follow activity as directed Keep your appointments as scheduled Take your immunizations and boosters as scheduled If your symptoms worsen call your PCP, if no PCP go to Urgent Care Center or Emergency Room Smoking is Dangerous to Your Health. Avoid second hand smoke Call the 24-hour hour crisis hotline for domestic abuse at Trina Aguilar MD R1 Feb 16, 2017 13:17
--- NOTE | 2017-02-16 13:53 | HHI.FPPN ---
Subjective Remarks Patient was seen and evaluated this morning. He feels well overall and is ready to go home. Patient denies chest pain, heart palpitations, shortness of breath, nausea/vomiting, diarrhea and constipation. Dr. Abdi, surgery, spoke to patient and last night. Patient was told that he is not a surgical candidate due to age and past medical history. At this time, patient will proceed with chemotherapy as per Dr. Urias. All questions were answered. Objective Vitals Vital Signs Date Time Temp Pulse Resp B/P (MAP) Pulse Ox O2 Delivery O2 Flow Rate FiO2 02/16/17 12:00 98.3 55 16 153/83 (106) 96 02/16/17 08:00 98.4 51 20 152/80 (104) 95 02/16/17 07:00 43 02/16/17 03:57 52 02/16/17 03:17 98.7 56 16 117/65 (82) 96 02/16/17 00:35 99.0 54 16 142/78 (99) 95 02/16/17 00:04 58 02/15/17 20:49 98.7 56 18 142/78 (99) 95 02/15/17 20:03 54 02/15/17 17:36 98.8 55 20 142/79 (100) 95 02/15/17 17:35 96 21 I/O 02/15/17 02/15/17 02/15/17 02/16/17 02/16/17 02/16/17 07:00 15:00 23:00 07:00 15:00 23:00 Intake Total 293 ml 55 ml 855 ml 55 ml Output Total 1000 ml 1050 ml 700 ml Balance -707 ml 55 ml -195 ml -645 ml Intake Oral 240 ml 745 ml IV Total 53 ml 55 ml 110 ml 55 ml Output Urine Total 1000 ml 1050 ml 700 ml # Bowel Movements 0 Result Diagram: 02/15/17 0550 02/16/17 0612 Imaging Last Impressions Abdomen X-Ray 02/11/17 1605 Signed Impressions: Service Date/Time: January 16:13 - CONCLUSION: 1. Nonspecific gas pattern. 2. The biliary stent catheter is projected over the central and right of the abdomen. Viraj Ramirez MD Chest X-Ray 02/11/17 1436 Signed Impressions: Service Date/Time: January 15:04 - CONCLUSION: Focal density within the right paratracheal stripe. This could relate to tortuosity of the patient's vasculature given the rotation of the film. I cannot exclude an infiltrate. Otherwise, clear lungs. Kevin Montgomery Jr., MD GI Procedure 02/11/17 0000 Signed Impressions: Service Date/Time: January 18:03 - CONCLUSION: ERCP as above with a possible filling defect in the central intrahepatic biliary duct region and a stent seen on the last image.. Shai Pulido MD Foot X-Ray 02/11/17 0000 Signed Impressions: Service Date/Time: January 15:05 - CONCLUSION: Status post interval amputation of the fourth digit. The remaining bony structures are intact. Viraj Ramirez MD Objective Remarks GENERAL: Elderly gentleman sitting on the bed with at bedside in no acute distress. SKIN: Warm and dry. Minimal jaundice noted in face and on chest. Right fourth digit, status post amputation, with surrounding erythema. HEENT: Atraumatic, normocephalic with extraocular motions intact. Mucous membranes moist. No rhinorrhea. No visible JVD or lymphadenopathy appreciated. CARDIOVASCULAR: Regular rate and rhythm without murmurs, gallops, or rubs. RESPIRATORY: Clear to auscultation bilaterallywith. No increased work of breathing. GASTROINTESTINAL: Abdomen soft, non-tender, protuberant with positive bowel sounds. No hepatosplenomegaly appreciated. MUSCULOSKELETAL: Extremities without cyanosis or edema. No joint tenderness, effusion, or edema noted. No calf tenderness. NEUROLOGICAL: Alert and oriented 3. Motor and sensory grossly within normal limits. Patient ambulating well per report. Procedures ERCP with stent placement on 02/11. Medications and IVs Current Medications Medications (Trade) Dose Ordered Sig/Leonel Route Start Time Stop Time Status Last Admin Piperacillin Sod/ Tazobactam Sod 50 ml @ 100 mls/hr Q6H IV 02/11/17 21:00 02/16/17 08:56 (NS Flush) 2 ml UNSCH PRN IV FLUSH 02/11/17 17:00 02/16/17 03:21 (NS Flush) 2 ml BID IV FLUSH 02/11/17 21:00 02/16/17 08:56 (Tylenol) 650 mg Q6HR PRN PO 02/11/17 17:00 02/12/17 04:54 (Zofran Inj) 4 mg Q6H PRN IVP 02/11/17 17:00 (Heparin Inj) 5,000 units Q12H SQ 02/12/17 06:00 02/16/17 06:20 (Narcan Inj) 0.4 mg UNSCH PRN IV PUSH 02/11/17 17:00 (Marlene-Colace) 1 tab BID PO 02/11/17 21:00 02/16/17 08:56 (Milk Of Magnesia Liq) 30 ml Q12H PRN PO 02/11/17 17:00 (Senokot) 17.2 mg Q12H PRN PO 02/11/17 17:00 (Dulcolax Supp) 10 mg DAILY PRN RECTAL 02/11/17 17:00 (Lactulose Liq) 30 ml DAILY PRN PO 02/11/17 17:00 (Protonix) 40 mg DAILY PO 02/12/17 09:00 02/16/17 08:56 (D50w (Vial) Inj) 50 ml UNSCH PRN IV PUSH 02/11/17 17:15 (Glucagon Inj) 1 mg UNSCH PRN OTHER 02/11/17 17:15 (NovoLOG SUPPLEMENTAL SCALE) 1 ACHS SLIDING SCALE SQ 02/11/17 21:00 02/16/17 11:21 (Levemir Inj) 10 units HS SQ 02/11/17 21:00 02/15/17 22:19 (Roxicodone) 5 mg Q4H PRN PO 02/12/17 09:30 (Roxicodone) 10 mg Q4H PRN PO 02/12/17 09:30 (Narcan Inj) 0.4 mg UNSCH PRN IV PUSH 02/12/17 09:30 (Levemir Inj) 5 units AC BREAKFAST SQ 02/16/17 07:00 02/16/17 08:56 Urinary Catheter: No Vascular Central Line Catheter: No A/P Assessment and Plan 81-year-old male, s/p recent ERCP with stent placement findings concerning for primary pancreatic adenocarcinoma, presented to ED with confusion x several hours. T 102.0. Possible source of infection; ascending cholangitis. Problem List: (1) Ascending cholangitis ICD Codes: K83.0 - Cholangitis Status: Acute Plan: Clinically improving. On admission, patient with T 102.0, RR 28, 88% on room air, requiring 2L O2 via NC. Suspected source of infection: ascending cholangitis. Labs: * WBC: 5.7 (/4) <- 5.7 (/3) <- 9.2 (02/13) <- 15.0 (02/12) <- 9.7 (02/11) * Hgb: 11.9 (/4) <- 11.4 (/) <- 11 (02/13) <- 11.7 (02/12) <- 14.3 (02/11) * Lactic Acid: 1.9 (02/11) * Total Bilirubin: 2.1 (/5) <- 2.4 (02/15) <- 3.8 (02/13) <- 4.1 (02/12) <- 3.8 ( 02/11) * Direct Bilirubin: 3.6 (02/12) * AST: 63 (/5) <- 87 (/) <- 142 (02/13) <- 374 (02/12) <- 661 (02/11) * ALT: 141 (/) <- 169 (/) <- 251 (02/13) <- 388 (02/12) <- 563 (02/11) * Alk Phos: 591 (/) <- 566 (02/15) <- 463 (02/13) <- 570 (02/12) <- 856 (02/11) Microbiology: * Blood culture x2 (02/13): No growth in 3 days. * Blood culture x4 (02/01): Enterobacter cloacae and Pseudomonas aeruginosa. Orders/Medications: * GI consulted. ERCP with stent placement shortly after admission on 02/11. * Zosyn 50 ml at 100 mls/hr q6hr IV. * Will be discharged on Levofloxacin 500mg PO daily and Flagyl 500mg PO TID x7 days. * Patient will be provided with lab order for repeat CMP as discharge. (2) Pancreatic adenocarcinoma ICD Codes: C25.9 - Malignant neoplasm of pancreas, unspecified Status: Acute Plan: Recent biopsy suspicious for adenocarcinoma. Orders: * Palliative consult: Patient and would like to discuss all options and make decision following consultations. * Oncology consult: Dr. Urias has arranged outpatient follow-up. * Radiation oncology consult: Dr. Huang has arranged outpatient follow-up. * Surgery consult: Patient not a surgical candidate due to age and past medical history. (3) MARK (acute kidney injury) ICD Codes: N17.9 - Acute kidney failure, unspecified Status: Resolved Plan: Resolved. Differential diagnosis: * Likely from dehydration. Labs: * BUN: 18 (02/16) <- 20 (02/15) <- 18 (02/14) <- 22 (02/13) <- 21 (02/12) <- 24 () * Cr: 1.24 (02/16) <- 1.09 (02/15) <- 1.13 (02/14) <- 1.34 (02/13) <- 1.30 (02/12) < - 1.53 (02/11) (4) S/P amputation of lesser toe ICD Codes: Z89.429 - Acquired absence of other toe(s), unspecified side Status: Acute Plan: Wound is clean dry and intact. Orders: * Wound care consult: Recommendations - Cover with dry 4x4 gauze, secure dressing with rolled gauze, tape and elastic wrap. Wear Post-op shoe. * Podiatry consult: Sutures removed at bedside and proper bandaging applied on 12/16. Patient instructed to continue to weight-bear in surgical shoe for 72 hours. After 72 hours, the patient does not need a bandage or surgical shoe. Follow up with Dr. Lewis in 3-5 days after discharge. (5) Diabetes ICD Codes: E11.9 - Type 2 diabetes mellitus without complications Status: Chronic Plan: Medications: * Hold home PO medications. * Levemir 10 units HS SQ. Added 5 units AC SQ on 02/16. * SSI: Patient has required 24 Units NovoLOG SQ over past 24 hours. * Will discharge on Levemir 10 units BID and NovoLOG supplemental scale. (6) FEN/PPX Status: Acute Plan: Fluids: * Good PO intake. Electrolytes: * Monitor and replace as needed. Nutrition: * Regular diet. DVT prophylaxis: * Heparin 5,000 units q12hr SQ. Problem Qualifiers (1) S/P amputation of lesser toe: Qualified Codes: Z89.421 - Acquired absence of other right toe(s) (2) Diabetes: Qualified Codes: E11.21 - Type 2 diabetes mellitus with diabetic nephropathy; Z79.4 - superintendent terminal (current) use of insulin Trina Aguilar MD R1 Feb 16, 2017 13:53
--- NOTE | 2017-02-16 15:41 | HHI.DS ---
Discharge Summary Admission Date Feb 11, 2017 at 16:32 Discharge Date: Feb 16, 2017 Admitting Diagnosis Sepsis, elevated LFTs, status post toe amputation (1) Biliary obstruction Diagnosis: Principal ICD Codes: K83.1 - Obstruction of bile duct Status: Resolved (2) Ascending cholangitis Diagnosis: Principal ICD Codes: K83.0 - Cholangitis Status: Acute (3) Diabetes ICD Codes: E11.9 - Type 2 diabetes mellitus without complications Status: Chronic (4) Pancreatic adenocarcinoma ICD Codes: C25.9 - Malignant neoplasm of pancreas, unspecified Status: Acute (5) MARK (acute kidney injury) ICD Codes: N17.9 - Acute kidney failure, unspecified Status: Resolved Brief History 81-year-old male, s/p recent ERCP with stent placement findings concerning for primary pancreatic adenocarcinoma, presented to ED with confusion x several hours. T 102.0. Possible source of infection; ascending cholangitis. CBC/BMP: 02/15/17 0550 02/16/17 0612 Significant Findings Laboratory Tests Test 02/14/17 10:14 02/15/17 05:50 02/16/17 06:12 Red Blood Count 3.46 MIL/MM3 (4.50-5.90) 3.63 MIL/MM3 (4.50-5.90) Hemoglobin 11.4 GM/DL (13.0-17.0) 11.9 GM/DL (13.0-17.0) Hematocrit 33.7 % (39.0-51.0) 35.0 % (39.0-51.0) Platelet Count 143 TH/MM3 (150-450) Mean Platelet Volume 11.2 FL (7.0-11.0) Random Glucose 234 MG/DL (74-106) 138 MG/DL (74-106) Calcium Level 8.4 MG/DL (8.5-10.1) 8.4 MG/DL (8.5-10.1) Sodium Level 133 MEQ/L (136-145) Estimat Glomerular Filtration Rate 63 ML/MIN (>89) 65 ML/MIN (>89) 56 ML/MIN (>89) Blood Urea Nitrogen 20 MG/DL (7-18) Albumin 2.3 GM/DL (3.4-5.0) 2.3 GM/DL (3.4-5.0) Alkaline Phosphatase 566 U/L (45-117) 591 U/L (45-117) Aspartate Amino Transf (AST/SGOT) 87 U/L (15-37) 63 U/L (15-37) Alanine Aminotransferase (ALT/SGPT) 168 U/L (12-78) 141 U/L (12-78) Total Bilirubin 2.4 MG/DL (0.2-1.0) 2.1 MG/DL (0.2-1.0) Imaging Last Impressions Abdomen X-Ray 02/11/17 1605 Signed Impressions: Service Date/Time: January 16:13 - CONCLUSION: 1. Nonspecific gas pattern. 2. The biliary stent catheter is projected over the central and right of the abdomen. Viraj Ramirez MD Chest X-Ray 02/11/17 1436 Signed Impressions: Service Date/Time: January 15:04 - CONCLUSION: Focal density within the right paratracheal stripe. This could relate to tortuosity of the patient's vasculature given the rotation of the film. I cannot exclude an infiltrate. Otherwise, clear lungs. Kevin Montgomery Jr., MD GI Procedure 02/11/17 0000 Signed Impressions: Service Date/Time: January 18:03 - CONCLUSION: ERCP as above with a possible filling defect in the central intrahepatic biliary duct region and a stent seen on the last image.. Shai Pulido MD Foot X-Ray 02/11/17 0000 Signed Impressions: Service Date/Time: January 15:05 - CONCLUSION: Status post interval amputation of the fourth digit. The remaining bony structures are intact. Viraj Ramirez MD PE at Discharge GENERAL: Elderly gentleman sitting on the bed with at bedside in no acute distress. SKIN: Warm and dry. Minimal jaundice noted in face and on chest. Right fourth digit, status post amputation, with surrounding erythema. HEENT: Atraumatic, normocephalic with extraocular motions intact. Mucous membranes moist. No rhinorrhea. No visible JVD or lymphadenopathy appreciated. CARDIOVASCULAR: Regular rate and rhythm without murmurs, gallops, or rubs. RESPIRATORY: Clear to auscultation bilaterallywith. No increased work of breathing. GASTROINTESTINAL: Abdomen soft, non-tender, protuberant with positive bowel sounds. No hepatosplenomegaly appreciated. MUSCULOSKELETAL: Extremities without cyanosis or edema. No joint tenderness, effusion, or edema noted. No calf tenderness. NEUROLOGICAL: Alert and oriented 3. Motor and sensory grossly within normal limits. Patient ambulating well per report. Hospital Course Ascending cholangitis: On admission, patient with T 102.0, RR 28, 88% on room air, requiring 2L O2 via NC. Suspected source of infection: ascending cholangitis. Labs: * WBC: 5.7 (02/15) <- 5.7 (02/14) <- 9.2 (02/13) <- 15.0 (02/12) <- 9.7 (02/11) * Hgb: 11.9 (02/15) <- 11.4 (02/14) <- 11 (02/13) <- 11.7 (02/12) <- 14.3 (02/11) * Lactic Acid: 1.9 (02/11) * Total Bilirubin: 2.1 (02/16) <- 2.4 (02/15) <- 3.8 (02/13) <- 4.1 (02/12) <- 3.8 ( 02/11) * Direct Bilirubin: 3.6 (02/12) * AST: 63 (/) <- 87 (02/15) <- 142 (02/13) <- 374 (02/12) <- 661 (02/11) * ALT: 141 (/) <- 169 (02/15) <- 251 (02/13) <- 388 (02/12) <- 563 (02/11) * Alk Phos: 591 (02/16) <- 566 (02/15) <- 463 (02/13) <- 570 (02/12) <- 856 (02/11) Microbiology: * Blood culture x2 (02/13): No growth in 3 days. * Blood culture x4 (02/01): Enterobacter cloacae and Pseudomonas aeruginosa. Orders/Medications: * GI consulted. ERCP with stent placement shortly after admission on 02/11. * Zosyn 50 ml at 100 mls/hr q6hr IV. * Discharged on Levofloxacin 500mg PO daily and Flagyl 500mg PO TID x7 days. * Patient was provided with lab order for repeat CMP as discharge. Pancreatic adenocarcinoma Recent biopsy suspicious for adenocarcinoma. * Palliative consult: Patient and would like to discuss all options and make decision following consultations. * Oncology consult: Dr. Urias has arranged outpatient follow-up. * Radiation oncology consult: Dr. Huang has arranged outpatient follow-up. * Surgery consult: Patient not a surgical candidate due to age and past medical history. MARK: Likely from dehydration. Labs: * BUN: 18 (02/16) <- 20 (02/15) <- 18 (02/14) <- 22 (02/13) <- 21 (02/12) <- 24 () * Cr: 1.24 (02/16) <- 1.09 (02/15) <- 1.13 (02/14) <- 1.34 (02/13) <- 1.30 (02/12) < - 1.53 (02/11) Pt Condition on Discharge: Stable Discharge Disposition: Discharge Home Discharge Instructions DIET: Follow Instructions for: As Tolerated, No Restrictions Activities you can perform: Regular-No Restrictions Follow up Referrals: Gastroenterology - 1 Week with Rena Hardin MD Oncology - 2 Weeks with Sergio Huang MD Oncology/Hematology - 3 Weeks @ [facility] with Bebeto Urias MD PCP Follow-up - 1 Week with Trina Aguilar MD R1 Podiatry - 1 Week with Germain Lewis DPM New Orders: COMP MET PROF (CMP) - 1 Week New Medications: Insulin Aspart Inj (Novolog Inj) 1,000 Unit/10 Ml Vial 0 SQ DIRECTED for Blood Sugar Management, #10 ML 0 Refills <70:No insulin; 150-199:1U; 200 - 249:3U; 250 - 299:5U; 300 - 349:7U; Greater than 349:9U Insulin Detemir Inj (Levemir Inj) 1,000 unit/ 10 ML Vial 10 UNITS SQ BID for Blood Sugar Management, #60 INJECTION 0 Refills 10 units AC and 10 units HS Levofloxacin (Levaquin) 500 Mg Tablet 500 MG PO DAILY for Infection for 7 Days, #7 TAB 0 Refills Metronidazole (Flagyl) 500 Mg Tab 500 MG PO TID for Infection for 7 Days, #21 TAB 0 Refills Continued Medications: Cholecalciferol (Vitamin D3) 1,000 Unit Chew 1000 UNITS CHEW BID for Nutritional Supplement, #1 BOTTLE 0 Refills Empagliflozin (Jardiance) 10 Mg Tab 10 MG PO DAILY for Blood Sugar Management, #30 TAB 0 Refills Multiple Vitamin (Multiple Vitamin) 1 Tab 1 TAB PO DAILY for Nutritional Supplement, TAB 0 Refills Oxycodone (Oxycodone) 5 Mg Tab 5 MG PO Q8H PRN for pain, #21 TAB Pantoprazole (Pantoprazole) 40 Mg Tab 40 MG PO DAILY for Manage Heartburn, #30 TAB Discontinued Medications: Amoxicillin-Clavulanate (Augmentin) 875-125 Mg Tab 1 TAB PO BID for Infection, #14 TAB 0 Refills Insulin Detemir Inj (Levemir Flextouch Pen Inj) 300 unit/3 ML Pen 15 UNITS SQ HS for Blood Sugar Management for 30 Days, #30 PEN 0 Refills Insulin Detemir Inj (Levemir Inj) 1,000 unit/ 10 ML Vial 20 UNITS SQ DAILYAC for Blood Sugar Management, #30 INJECTION Do not mix with any other Insulin. Insulin Detemir Inj (Levemir Inj) 1,000 unit/ 10 ML Vial 12 UNITS SQ HS for Blood Sugar Management, #30 INJECTION Do not mix with any other Insulin. Trina Aguilar MD R1 Feb 16, 2017 15:41
== END 2017-02-16 14:24 | disposition home or self-care (01) | DRG 444 ==
LOC: NEPE 14:19 → NEDA 16:32 → N07B 19:35 → HCIN 02-14 11:19
PROVIDERS: ADMIT Family Medicine; ATTEND Family Medicine
PROC: 0FPB8DZ Removal of Intraluminal Device from Hepatobiliary Duct, Via Natural or Artificial Opening Endoscopic (ICD-10-PCS; 2017-02-11)
PROC: 0F798DZ Dilation of Common Bile Duct with Intraluminal Device, Via Natural or Artificial Opening Endoscopic (ICD-10-PCS; 2017-02-11)
PROC: 0FC98ZZ Extirpation of Matter from Common Bile Duct, Via Natural or Artificial Opening Endoscopic (ICD-10-PCS; principal; 2017-02-11 17:15)
DX: K80.31 Calculus of bile duct with cholangitis, unspecified, with obstruction (principal); I81 Portal vein thrombosis; G93.41 Metabolic encephalopathy; N17.9 Acute kidney failure, unspecified; I82.890 Acute embolism and thrombosis of other specified veins; K26.9 Duodenal ulcer, unspecified as acute or chronic, without hemorrhage or perforation; C25.0 Malignant neoplasm of head of pancreas; E78.00 Pure hypercholesterolemia, unspecified; E11.21 Type 2 diabetes mellitus with diabetic nephropathy; E11.40 Type 2 diabetes mellitus with diabetic neuropathy, unspecified; E11.65 Type 2 diabetes mellitus with hyperglycemia; E11.22 Type 2 diabetes mellitus with diabetic chronic kidney disease; J44.9 Chronic obstructive pulmonary disease, unspecified; I12.9 Hypertensive chronic kidney disease with stage 1 through stage 4 chronic kidney disease, or unspecified chronic kidney disease; N18.9 Chronic kidney disease, unspecified; Z96.659 Presence of unspecified artificial knee joint; F17.290 Nicotine dependence, other tobacco product, uncomplicated; Z79.4 Long term (current) use of insulin; H91.90 Unspecified hearing loss, unspecified ear; L97.519 Non-pressure chronic ulcer of other part of right foot with unspecified severity; E11.621 Type 2 diabetes mellitus with foot ulcer; Z89.421 Acquired absence of other right toe(s); E78.5 Hyperlipidemia, unspecified; E11.51 Type 2 diabetes mellitus with diabetic peripheral angiopathy without gangrene; E86.0 Dehydration; K57.30 Diverticulosis of large intestine without perforation or abscess without bleeding; N28.1 Cyst of kidney, acquired; K44.9 Diaphragmatic hernia without obstruction or gangrene; K29.80 Duodenitis without bleeding; R09.02 Hypoxemia; Z51.5 Encounter for palliative care; Z90.49 Acquired absence of other specified parts of digestive tract; M19.90 Unspecified osteoarthritis, unspecified site
CPT/HCPCS: 71010; 73620; 74000; 74330; 80048; 80053; 80076; 81001; 82948; 83605; 83690; 85025; 85027; 87040; 87077; 87186; 87205; 94150; 96365; 96375; C1769; C2625; J1644; J1815; J2370; J2543; J3370; J7030; J7050; Q9967

== ENCOUNTER 2017-02-20 23:20 | Emergency (ER) | payer MEDICARE, BC ==
[~2017-02-20] VITALS: Ht 177.8 cm; Wt 74.5 kg
[~2017-02-20 23:20] MED LIST changes: -AUGM875T3 PO; -INSU1INJ5 SQ; +LEVA500T33 PO; -LIDOCAINE HCL 1% PF 5 ML SYRINGE OTHER ONE; +METR-1 PO; +NOVOLOGP2 SQ; -PHENYLEPH/NS 1000 MCG/10 ML SYR IV ONE; -PROPOFOL 200 MG/20 ML AMP IV ONE
[2017-02-20 23:22] VITALS: BP 192/77; PULSE 70; RESP 20; TEMP 98.1; O2SAT 97
[2017-02-21] MEDS ORDERED: SODIUM CHLORIDE 0.9% FLUSH 10 ML FLUSH IVF PRN (00:30)
[2017-02-21 01:02] LABS: BLOOD, URINE NEG (NEG); GLUCOSE,URINE 1000 mg/dL (NEG); KETONE, URINE NEG (NEG); NITRITE,URINE NEG (NEG); PH, URINE 5.5 (5.0-8.5); URINE COLOR LIGHT-YELLOW (YELLW/STRAW)
[2017-02-21 01:02] LABS: AUTOMATED NEUTROPHIL # 5.5 TH/MM3 (1.8-7.7); BASOPHIL # 0.1 TH/MM3 (0-0.2); BASOPHIL % 0.9 % (0.0-2.0); EOSINOPHIL # 0.2 TH/MM3 (0-0.4); EOSINOPHIL % 3.1 % (0.0-4.0); HEMATOCRIT 39.1 % (39.0-51.0); HEMO FLAGS DIFF FINAL; LYMPH % 16.1 % (9.0-44.0); LYMPHOCYTE # 1.3 TH/MM3 (1.0-4.8); MEAN CELL VOLUME 98.8 FL (80.0-100.0); MEAN CORPUSCULAR HGB CONC 33.4 % (32.0-36.0); NEUT % 69.9 % (16.0-70.0); PLATELET COUNT 203 TH/MM3 (150-450); RED BLOOD COUNT 3.96 MIL/MM3 (4.50-5.90); RED CELL DISTRIBUTION WIDTH 15.2 % (11.6-17.2); WHITE BLOOD COUNT 7.9 TH/MM3 (4.0-11.0)
[2017-02-21 01:03] LABS: COMMENT (UR) CULT NOT INDICATED; CULTURE IF INDICATED CULT NOT INDICATED
--- NOTE | 2017-02-21 01:11 | PD ---
HPI Chief Complaint: Diabetic Time Seen by Provider: 00:25 Travel History International Travel<30 days: No Contact w/Intl Traveler<30days: No Traveled to known affect area: No History of Present Illness HPI 81-year-old male presents to the emergency department for complaint of hyperglycemia. Patient has history of diabetes. Patient was recently hospitalized here at [facility] with diagnosis of pancreatic mass consistent with adenocarcinoma. Patient also during recent hospitalization underwent ERCP and sphincterotomy with stent placement for cholangitis and was treated with antibiotic and did well with recent discharge. Subsequently he has had issues with good blood sugar control. Patient is on Jardiance and Levemir for blood sugar control. Patient's had no recent fever chills nausea vomiting chest pain shortness of breath abdominal pain dysuria frequency urgency skin rash joint pain or swelling. This evening before receiving his evening dose of medications for blood sugar Accu-Chek was greater than 500 so administered additional dose of insulin and then recheck blood sugar around 10:45 remain elevated so decided to bring him to the emergency room for further evaluation. Patient has felt well the whole time. Patient presently is voicing no concerns or complaints. In the emergency department triage blood sugar was 438 but at time of being placed in the room his blood sugar had decreased to 367. PFSH Past Medical History Narrative Medical Pancreatic adenocarcinoma, chronic kidney disease COPD type 2 diabetes dyslipidemia hypertension peripheral neuropathy cholecystectomy and ERCP was stents tobacco use occasional alcohol use; nursing notes reviewed Arthritis: No Asthma: No Heart Rhythm Problems: No Cancer: Yes (pancreatic cancer) Cardiovascular Problems: Yes High Cholesterol: Yes Chest Pain: Yes Congestive Heart Failure: No COPD: Yes Diabetes: Yes (insulin) Patient Takes Glucophage: No Diminished Hearing: Yes GERD: No Genitourinary: Yes Hiatal Hernia: No Hypertension: Yes Immune Disorder: No Implanted Vascular Access Dvce: Yes Kidney Stones: No Musculoskeletal: No Neurologic: No Psychiatric: No Reproductive: No Respiratory: Yes Renal Failure: No Sickle Cell Disease: No Sleep Apnea: No Thyroid Disease: No Ulcer: No Tetanus Vaccination: < 5 Years Influenza Vaccination: Yes Past Surgical History Abdominal Surgery: Yes Body Medical Devices: screws in knee Cholecystectomy: Yes Joint Replacement: Yes (knee replacement) Other Surgery: Yes Social History Alcohol Use: No Tobacco Use: No Substance Use: No Allergies-Medications (Allergen,Severity, Reaction): Coded Allergies: No Known Allergies (Unverified , 02/20/17) Reported Meds & Prescriptions Reported Meds & Active Scripts Active Flagyl (Metronidazole) 500 Mg Tab 500 Mg PO TID 7 Days Levaquin (Levofloxacin) 500 Mg Tablet 500 Mg PO DAILY 7 Days Novolog Inj (Insulin Aspart) 1,000 Unit/10 Ml Vial 0 SQ DIRECTED <70:No insulin; 150-199:1U; 200 - 249:3U; 250 - 299:5U; 300 - 349:7U; Greater than 349:9U Levemir Inj (Insulin Detemir) 1,000 unit/ 10 ML Vial 10 Units SQ BID 10 units AC and 10 units HS Pantoprazole (Pantoprazole Sodium) 40 Mg Tab 40 Mg PO DAILY Oxycodone (Oxycodone HCl) 5 Mg Tab 5 Mg PO Q8H PRN Reported Jardiance (Empagliflozin) 10 Mg Tab 10 Mg PO DAILY Multiple Vitamin 1 Tab 1 Tab PO DAILY Vitamin D3 (Cholecalciferol) 1,000 Unit Chew 1,000 Units CHEW BID Review of Systems Except as stated in HPI: all other systems reviewed are Neg General / Constitutional: No: Fever, Chills HENT: No: Congestion Cardiovascular: No: Chest Pain or Discomfort Respiratory: No: Shortness of Breath Gastrointestinal: No: Nausea, Vomiting, Diarrhea, Abdominal Pain Genitourinary: No: Frequency, Dysuria, Flank Pain Musculoskeletal: No: Myalgias, Arthralgias Skin: No Rash Neurologic: No: Weakness Psychiatric: No: Anxiety, Depression Endocrine: No: Polyuria, Polydipsia Hematologic/Lymphatic: No: Lymph Node Enlargement Physical Exam Narrative GENERAL: Well-developed well-nourished female in no acute distress no respiratory distress: GCS 15 SKIN: Warm and dry. HEAD: Normocephalic. EYES: No scleral icterus. No injection or drainage. NECK: Supple, trachea midline. No JVD or lymphadenopathy. CARDIOVASCULAR: Regular rate and rhythm without murmurs, gallops, or rubs. RESPIRATORY: Breath sounds equal bilaterally. No accessory muscle use. GASTROINTESTINAL: Abdomen soft, non-tender, nondistended. MUSCULOSKELETAL: No cyanosis, or edema. BACK: Nontender without obvious deformity. No CVA tenderness. Data Data Last Documented VS Vital Signs Date Time Temp Pulse Resp B/P (MAP) Pulse Ox O2 Delivery O2 Flow Rate FiO2 02/21/17 00:35 Room Air 02/20/17 23:22 98.1 70 20 97 Orders Orders Electrocardiogram (02/21/17:) Complete Blood Count With Diff (02/21/17:) Comprehensive Metabolic Panel (02/21/17:) Magnesium (Mg) (02/21/17:) Urinalysis - C+S If Indicated (02/21/17:) Ecg Monitoring (02/21/17:) Iv Access Insert/Monitor (02/21/17) Oximetry (02/21/17) NPO (02/21/17) Sodium Chloride 0.9% Flush (Ns Flush) (02/21/17 00:30) Troponin I (02/21/17) Sodium Chlor 0.9% 1000 Ml Inj (Ns 1000 M (02/21/17 01:30) Blood Glucose (02/21/17 01:30) Labs Laboratory Tests Test 02/21/17 00:31 02/21/17 00:43 White Blood Count 7.9 TH/MM3 Red Blood Count 3.96 MIL/MM3 Hemoglobin 13.1 GM/DL Hematocrit 39.1 % Mean Corpuscular Volume 98.8 FL Mean Corpuscular Hemoglobin 33.0 PG Mean Corpuscular Hemoglobin Concent 33.4 % Red Cell Distribution Width 15.2 % Platelet Count 203 TH/MM3 Mean Platelet Volume 10.7 FL Neutrophils (%) (Auto) 69.9 % Lymphocytes (%) (Auto) 16.1 % Monocytes (%) (Auto) 10.0 % Eosinophils (%) (Auto) 3.1 % Basophils (%) (Auto) 0.9 % Neutrophils # (Auto) 5.5 TH/MM3 Lymphocytes # (Auto) 1.3 TH/MM3 Monocytes # (Auto) 0.8 TH/MM3 Eosinophils # (Auto) 0.2 TH/MM3 Basophils # (Auto) 0.1 TH/MM3 CBC Comment DIFF FINAL Differential Comment Blood Urea Nitrogen 28 MG/DL Creatinine 1.55 MG/DL Random Glucose 380 MG/DL Total Protein 8.2 GM/DL Albumin 3.0 GM/DL Calcium Level 8.6 MG/DL Magnesium Level 2.0 MG/DL Alkaline Phosphatase 499 U/L Aspartate Amino Transf (AST/SGOT) 35 U/L Alanine Aminotransferase (ALT/SGPT) 74 U/L Total Bilirubin 1.2 MG/DL Sodium Level 130 MEQ/L Potassium Level 4.3 MEQ/L Chloride Level 97 MEQ/L Carbon Dioxide Level 23.8 MEQ/L Anion Gap 9 MEQ/L Estimat Glomerular Filtration Rate 43 ML/MIN Troponin I LESS THAN 0.02 NG/ML Urine Color LIGHT-YELLOW Urine Turbidity CLEAR Urine pH 5.5 Urine Specific [place] 1.022 Urine Protein NEG mg/dL Urine Glucose (UA) 1000 mg/dL Urine Ketones NEG mg/dL Urine Occult Blood NEG Urine Nitrite NEG Urine Bilirubin NEG Urine Urobilinogen LESS THAN 2.0 MG/DL Urine Leukocyte Esterase NEG Urine RBC 1 /hpf Urine WBC LESS THAN 1 /hpf Microscopic Urinalysis Comment CULT NOT INDICATED MDM Medical Decision Making Medical Screen Exam Complete: Yes Emergency Medical Condition: Yes Medical Record Reviewed: Yes Interpretation(s) EKG: Normal sinus rhythm rate 65 rare PVC left axis deviation incomplete right bundle branch block Differential Diagnosis Uncontrolled diabetes/hyperglycemia, ACS, electrolyte disturbance, UTI, viral syndrome, metabolic disturbance, Narrative Course Patient in no distress with decreasing serum glucose after additional medication administered at home; nonspecific hyperglycemia; laboratory work performed an EKG performed which reveals sinus rhythm rate 65 incomplete right bundle branch block which is old normal CBC with automated differential urinalysis shows glucosuria otherwise in normal range metabolic panel remarkable for some mild worsening of renal insufficiency and hyperglycemia alkaline phosphatase is elevated consistent with his malignancy diagnosis Patient resting well patient given a fluid bolus and repeat glucose was and patient is stable for outpatient management patient encouraged to follow-up with his primary care provider as scheduled on Wednesday. He with his management the oncology Diagnosis Primary Impression: Hyperglycemia due to type 2 diabetes mellitus Referrals: Primary Care Physician 3 days Patient Instructions: General Instructions Additional Instructions: Increase/encourage fluid hydration Continue current medications as presently prescribed Take acetaminophen as needed for fever 100.4F or greater Return to emergency department for any concerns or change in condition Med/Other Pt SpecificInfo: No Change to Meds Disposition: 01 DISCHARGE HOME Condition: Stable Sofía Will MD Feb 21, 2017 01:11
[2017-02-21 01:18] LABS: ANION GAP 9 MEQ/L (5-15); AST (GOT) 35 U/L (15-37); BICARBONATE 23.8 MEQ/L (21.0-32.0); BLOOD UREA NITROGEN 28 MG/DL (7-18); CHLORIDE 97 MEQ/L (98-107); GLOMERULAR FILTRATION RATE 43 ML/MIN (>89); POTASSIUM 4.3 MEQ/L (3.5-5.1); SODIUM (NA) 130 MEQ/L (136-145)
[2017-02-21 01:23] LABS: ALKALINE PHOSPHATASE 499 U/L (45-117); ALT (GPT) 74 U/L (12-78); TOTAL BILIRUBIN ADULT 1.2 MG/DL (0.2-1.0)
[2017-02-21] MEDS ORDERED: SODIUM CHLOR 0.9% 1000 ML INJ 1,000 ML IV ONE (01:30)
--- NOTE | 2017-02-21 12:38 | EKG ---
Date Performed: 02/21/2017 Time Performed: 00:55:13 PTAGE: 81 years EKG: Sinus rhythm WITH OCCASIONAL VENTRICULAR PREMATURE COMPLEXES MARKED LEFT AXIS DEVIATION INCOMPLETE RIGHT BUNDLE B RANCH BLOCK ABNORMAL ECG PREVIOUS TRACING 02/03/17 Since prior tracing, the marked sinus arrhythmia and PACs no longer present. The PVC is new. DOCTOR: Sai Phillips Interpretating Date/Time 02/21/2017 12:38:12
== END 2017-02-21 03:15 | disposition home or self-care (01) ==
LOC: NEPC 23:20
DX: C25.9 Malignant neoplasm of pancreas, unspecified (principal); E11.65 Type 2 diabetes mellitus with hyperglycemia; E11.22 Type 2 diabetes mellitus with diabetic chronic kidney disease; I12.9 Hypertensive chronic kidney disease with stage 1 through stage 4 chronic kidney disease, or unspecified chronic kidney disease; N18.9 Chronic kidney disease, unspecified; R94.31 Abnormal electrocardiogram [ECG] [EKG]; Z79.4 Long term (current) use of insulin
CPT/HCPCS: 80053; 81001; 83735; 84484; 85025; 93005; 96360; 99284; J7030

== ENCOUNTER 2017-03-20 11:41 | Inpatient (IN) | payer OTHER, MEDICARE, BC ==
[2017-03-20] VITALS (8 sets, daily range): BP systolic 106–132; BP diastolic 56–70; PULSE 67–95; RESP 16–20; TEMP 97.8–102.2; O2SAT 92–98
[~2017-03-20] VITALS: Ht 177.8 cm; Wt 77.3 kg
[~2017-03-20 11:41] MED LIST changes: +AMBI6.25 PO; -EMPA1TAB PO; -LEVA500T33 PO; -METR-1 PO
--- NOTE | 2017-03-20 12:04 | PD ---
HPI Chief Complaint: fever Time Seen by Provider: 12:04 Travel History International Travel<30 days: No Contact w/Intl Traveler<30days: No Traveled to known affect area: No History of Present Illness HPI 81-year-old male came to the emergency room brought by his with history of fever this morning. Temperature was 102.5 in triage. Patient has been lethargic since this morning. He woke up in the middle of the night complaining of right upper quadrant abdominal pain. Patient has history of pancreatic cancer with a stent put in. His says that 2 months ago when he was here with similar symptoms he was diagnosed with blockage of the stent and infection. The stent had to be reapplied. He supposed to see GI on the of this month to get a permanent stent placed. Currently he is not getting any chemotherapy or radiation therapy since his cancer is pretty advanced. Patient was quite lethargic and the history was provided over the . She tried giving him Tylenol at 9:00 but patient has not swallowed it but it still in his mouth. [facility] Past Medical History Narrative Medical List of his past medical, surgical, social and family history is reviewed from the nursing note. Arthritis: No Asthma: No Heart Rhythm Problems: No Cancer: Yes (pancreatic cancer) Cardiovascular Problems: Yes High Cholesterol: Yes Chest Pain: Yes Congestive Heart Failure: No COPD: Yes Diabetes: Yes (insulin) Diminished Hearing: Yes GERD: No Genitourinary: Yes Hiatal Hernia: No Hypertension: Yes Immune Disorder: No Implanted Vascular Access Dvce: Yes Kidney Stones: No Musculoskeletal: No Neurologic: No Psychiatric: No Reproductive: No Respiratory: Yes Renal Failure: No Sickle Cell Disease: No Sleep Apnea: No Thyroid Disease: No Ulcer: No Past Surgical History Abdominal Surgery: Yes Body Medical Devices: screws in knee Cholecystectomy: Yes Joint Replacement: Yes (knee replacement) Other Surgery: Yes Social History Alcohol Use: No Tobacco Use: No Substance Use: No Allergies-Medications (Allergen,Severity, Reaction): Coded Allergies: No Known Allergies (Unverified , 03/20/17) Comments No known drug allergies. Reported Meds & Prescriptions Reported Meds & Active Scripts Active Ambien CR (Zolpidem Tartrate) 6.25 Mg Tab 6.25 Mg PO HS PRN Novolog Inj (Insulin Aspart) 1,000 Unit/10 Ml Vial 0 SQ DIRECTED <70:No insulin; 150-199:1U; 200 - 249:3U; 250 - 299:5U; 300 - 349:7U; Greater than 349:9U Levemir Inj (Insulin Detemir) 1,000 unit/ 10 ML Vial 10 Units SQ BID 10 units AC and 10 units HS Pantoprazole (Pantoprazole Sodium) 40 Mg Tab 40 Mg PO DAILY Reported Multiple Vitamin 1 Tab 1 Tab PO DAILY Vitamin D3 (Cholecalciferol) 1,000 Unit Chew 1,000 Units CHEW BID Narrative Medication List of his home medications reviewed from the nursing note. Review of Systems ROS Limitations: Altered Mental Status Except as stated in HPI: all other systems reviewed are Neg General / Constitutional: Positive: Fever Physical Exam Narrative GENERAL: Lethargic, moderate distress SKIN: Focused skin assessment warm/dry. HEAD: Atraumatic. Normocephalic. EYES: Pupils equal and round. No scleral icterus. No injection or drainage. ENT: No nasal bleeding or discharge. Dry mucous membrane and lips was CARDIOVASCULAR: Regular rate and rhythm. No murmur appreciated. RESPIRATORY: No accessory muscle use. Clear to auscultation. Breath sounds equal bilaterally. GASTROINTESTINAL: Tender right upper quadrant, nondistended. Hepatic and splenic margins not palpable. MUSCULOSKELETAL: No obvious deformities. No clubbing. No cyanosis. No edema. NEUROLOGICAL: Lethargic, slurred speech. No obvious cranial nerve deficits. Motor grossly within normal limits. Slurred speech. PSYCHIATRIC: Appropriate mood and affect; insight and judgment normal. Data Data Last Documented VS Vital Signs Date Time Temp Pulse Resp B/P (MAP) Pulse Ox O2 Delivery O2 Flow Rate FiO2 03/20/17 14:44 98.9 76 16 113/64 (80) 97 Nasal Cannula 2.00 Orders Orders Sepsis Workup Initiated (03/20/17 ) Complete Blood Count With Diff (03/20/17 12:14) Comprehensive Metabolic Panel (03/20/17 12:14) Urinalysis - C+S If Indicated (03/20/17 12:14) Lactic Acid Sepsis Protocol (03/20/17 12:14) Blood Culture (03/20/17 12:14) Iv Access Insert/Monitor (03/20/17 12:14) Oxygen Administration (03/20/17 12:14) Oximetry (03/20/17 12:14) Blood Glucose (03/20/17 12:14) Ct Abd/Pel W/O Iv Contrast (03/20/17 ) Acetaminophen Supp (Tylenol Supp) (03/20/17 12:45) Sodium Chlor 0.9% 1000 Ml Inj (Ns 1000 M (03/20/17 12:45) Sodium Chlor 0.9% 1000 Ml Inj (Ns 1000 M (03/20/17 12:45) Piperacil-Tazo 4.5 Gm Premix (Zosyn 4.5 (03/20/17 12:45) Vancomycin Inj (Vancomycin Inj) (03/20/17 12:45) Admit To Inpatient (03/20/17 ) Vital Signs (Adult) Q4H (03/20/17 15:05) Activity Oob Ad Marlyn (03/20/17 15:05) Diet Regular Basic (03/20/17 Dinner) Sodium Chloride 0.9% Flush (Ns Flush) (03/20/17 15:15) Sodium Chloride 0.9% Flush (Ns Flush) (03/20/17 21:00) Acetaminophen (Tylenol) (03/20/17 15:15) Ondansetron Inj (Zofran Inj) (03/20/17 15:15) Basic Metabolic Panel (Bmp) (03/21/17 06:00) Comprehensive Metabolic Panel (03/21/17 06:00) Naloxone Inj (Narcan Inj) (03/20/17 15:15) Magnesium Hydroxide Liq (Milk Of Magnesi (03/20/17 15:15) Sennosides (Senokot) (03/20/17 15:15) Bisacodyl Supp (Dulcolax Supp) (03/20/17 15:15) Lactulose Liq (Lactulose Liq) (03/20/17 15:15) Inpatient Certification (03/20/17 ) Admit Order (Ed Use Only) (03/20/17 15:07) Labs Laboratory Tests Test 03/20/17 12:20 03/20/17 12:40 03/20/17 13:15 White Blood Count 13.7 TH/MM3 Red Blood Count 4.79 MIL/MM3 Hemoglobin 15.1 GM/DL Hematocrit 45.1 % Mean Corpuscular Volume 94.1 FL Mean Corpuscular Hemoglobin 31.5 PG Mean Corpuscular Hemoglobin Concent 33.5 % Red Cell Distribution Width 15.5 % Platelet Count 149 TH/MM3 Mean Platelet Volume 10.2 FL Neutrophils (%) (Auto) 93.7 % Lymphocytes (%) (Auto) 1.7 % Monocytes (%) (Auto) 4.3 % Eosinophils (%) (Auto) 0.1 % Basophils (%) (Auto) 0.2 % Neutrophils # (Auto) 12.9 TH/MM3 Lymphocytes # (Auto) 0.2 TH/MM3 Monocytes # (Auto) 0.6 TH/MM3 Eosinophils # (Auto) 0.0 TH/MM3 Basophils # (Auto) 0.0 TH/MM3 CBC Comment DIFF FINAL Differential Comment Lactic Acid Level 1.7 mmol/L Urine Color YELLOW Urine Turbidity CLEAR Urine pH 6.5 Urine Specific [place] 1.024 Urine Protein TRACE mg/dL Urine Glucose (UA) 1000 mg/dL Urine Ketones NEG mg/dL Urine Occult Blood NEG Urine Nitrite NEG Urine Bilirubin SMALL Urine Urobilinogen 2.0 MG/DL Urine Leukocyte Esterase NEG Urine RBC 1 /hpf Urine WBC LESS THAN 1 /hpf Microscopic Urinalysis Comment CULT NOT INDICATED Blood Urea Nitrogen 24 MG/DL Creatinine 1.16 MG/DL Random Glucose 131 MG/DL Total Protein 7.3 GM/DL Albumin 3.2 GM/DL Calcium Level 8.3 MG/DL Alkaline Phosphatase 358 U/L Aspartate Amino Transf (AST/SGOT) 366 U/L Alanine Aminotransferase (ALT/SGPT) 233 U/L Total Bilirubin 2.9 MG/DL Sodium Level 138 MEQ/L Potassium Level 4.0 MEQ/L Chloride Level 107 MEQ/L Carbon Dioxide Level 21.6 MEQ/L Anion Gap 9 MEQ/L Estimat Glomerular Filtration Rate 61 ML/MIN [facility] Medical Decision Making Medical Screen Exam Complete: Yes Emergency Medical Condition: Yes Medical Record Reviewed: Yes Differential Diagnosis Sepsis, reocclusion of the stent, dehydration Narrative Course 2:03 PM blood test results of back and LFTs are slightly elevated. Awaiting for the CT scan of his abdomen and pelvis to be done and resulted. Patient was given IV fluid hydration and antibiotic. Lactic acid is within acceptable limits. His white blood cell count is elevated. Patient will require admission. 2:38 PM based on the blood test and the CAT scan report I discussed the case with the GI confectionery laboratory manager which was Dr. Brizuela. He agreed with antibiotic and admission. They will consult on the patient. Awaiting for the hospitalist to call back. Critical Care Narrative Aggregate critical care time was 45 minutes. Time to perform other separately billable procedures was not included in the critical care time. My time did not include minutes spent treating any other patients simultaneously or on activities that did not directly contribute to the patient's treatment. The services I provided to this patient were to treat and/or prevent clinically significant deterioration that could result in: Sepsis, possible ascending cholangitis I provided critical care services requiring my management, as noted below: Chart data review, documentation time, medication orders and management, vital sign assessments/reviewing monitor data, ordering and reviewing lab tests, ordering and interpreting/reviewing x-rays and diagnostic studies, care of the patient and discussion of the patient with the admitting physicians. Procedures EKG Prior to Arrival: No Sepsis Criteria SIRS Criteria (2 or more): Temp > 100.9 or < 96.8, WBC > 22526, < 4000 or > 10 % bands Sepsis Criteria (SIRS+source): Infect source susp/known Physician Communication Physician Communication Dr. Brizuela Diagnosis Primary Impression: Sepsis Qualified Codes: A41.9 - Sepsis, unspecified organism Additional Impressions: Altered mental state Qualified Codes: R40.0 - Somnolence Pancreatic cancer Qualified Codes: C25.0 - Malignant neoplasm of head of pancreas possible ascending cholangitis Admitting Information Admitting Physician Requests: Roe Muñoz MD Mar 20, 2017 12:04
[2017-03-20 12:30] LABS: AUTOMATED NEUTROPHIL # 12.9 TH/MM3 (1.8-7.7); BASOPHIL % 0.2 % (0.0-2.0); EOSINOPHIL % 0.1 % (0.0-4.0); HEMATOCRIT 45.1 % (39.0-51.0); HEMOGLOBIN 15.1 GM/DL (13.0-17.0); LYMPH % 1.7 % (9.0-44.0); LYMPHOCYTE # 0.2 TH/MM3 (1.0-4.8); MEAN CELL VOLUME 94.1 FL (80.0-100.0); MEAN CORPUSCULAR HEMOGLOBIN 31.5 PG (27.0-34.0); MEAN CORPUSCULAR HGB CONC 33.5 % (32.0-36.0); MEAN PLATELET VOLUME 10.2 FL (7.0-11.0); MONO % 4.3 % (0.0-8.0); MONOCYTE # 0.6 TH/MM3 (0-0.9); NEUT % 93.7 % (16.0-70.0); PLATELET COUNT 149 TH/MM3 (150-450); RED BLOOD COUNT 4.79 MIL/MM3 (4.50-5.90); RED CELL DISTRIBUTION WIDTH 15.5 % (11.6-17.2); WHITE BLOOD COUNT 13.7 TH/MM3 (4.0-11.0)
[2017-03-20] MEDS ORDERED: ACETAMINOPHEN 650 MG SUPP RECTAL ONE (12:45)
[2017-03-20] MEDS ORDERED: VANCOMYCIN INJ 1,000 MG in SODIUM CHLOR 0.9% 250 ML INJ 250 ML IV ONE (12:45)
[2017-03-20] MEDS ORDERED: SODIUM CHLOR 0.9% 1000 ML INJ 1,000 ML IV ONE ×2 (12:45)
[2017-03-20] MEDS ORDERED: PIPERACIL-TAZO 4.5 GM PREMIX 100 ML IV ONE (12:45)
[2017-03-20 12:54] LABS: BILIRUBIN, URINE SMALL (NEG); BLOOD, URINE NEG (NEG); GLUCOSE,URINE 1000 mg/dL (NEG); KETONE, URINE NEG (NEG); NITRITE,URINE NEG (NEG); PH, URINE 6.5 (5.0-8.5); URINE COLOR YELLOW (YELLW/STRAW); URINE LEUKOCYTE ESTERASE NEG (NEG)
[2017-03-20 13:56] LABS: ALBUMIN 3.2 GM/DL (3.4-5.0); ALT (GPT) 233 U/L (12-78); AST (GOT) 366 U/L (15-37); BICARBONATE 21.6 MEQ/L (21.0-32.0); BLOOD UREA NITROGEN 24 MG/DL (7-18); CALCIUM 8.3 MG/DL (8.5-10.1); CHLORIDE 107 MEQ/L (98-107); CREATININE 1.16 MG/DL (0.60-1.30); GLOMERULAR FILTRATION RATE 61 ML/MIN (>89); GLUCOSE,RANDOM 131 MG/DL (74-106); SODIUM (NA) 138 MEQ/L (136-145)
[2017-03-20 13:58] LABS: ALKALINE PHOSPHATASE 358 U/L (45-117); TOTAL BILIRUBIN ADULT 2.9 MG/DL (0.2-1.0); TOTAL PROTEIN 7.3 GM/DL (6.4-8.2)
--- NOTE | 2017-03-20 14:27 | RADRPT ---
EXAM DATE/TIME: 03/20/2017 13:51 [place] COMPARISON: MRI ABDOMEN W & W/O CONTRAST, February 05, 2017, 14:25. ARTERIAL SEGMENTAL DOPPLER COMP W/TBI, 2016, 0:00. INDICATIONS : Diffuse abdomen pain today. ORAL CONTRAST: No oral contrast ingested. RADIATION DOSE: 7.31 CTDIvol (mGy) MEDICAL HISTORY : Hypertension. Chronic obstructive pulmonary disease. diabetes, pancreatic cancer, renal disease SURGICAL HISTORY : Cholecystectomy. biliary stent ENCOUNTER: Initial ACUITY: 1 day PAIN SCALE: Non-responsive LOCATION: Bilateral abdomen TECHNIQUE: Volumetric scanning of the abdomen and pelvis was performed. Using automated exposure control and ad justment of the mA and/or kV according to patient size, radiation dose was kept as low as reasonably achievable to obtain optimal diagnostic quality images. DICOM format image data is available electro nically for review and comparison. FINDINGS: There is subsegmental atelectasis in the both bases. A moderate size hiatal hernia is present. There is air in the biliary tree this patient with a stent in place. The pancreatic head and body are susp icious for neoplasm though recent MRI did not demonstrate this. Repeat examination could be considere d. This could reflect focal pancreatitis though there are no significant inflammatory changes. The ga llbladder and pancreas are unremarkable. No intrahepatic or extrahepatic ductal dilatation is seen. Examination of the pelvis demonstrates no evidence of free fluid or pelvic mass. No abnormally enlarg ed inguinal or retroperitoneal lymph nodes are present. The bladder is unremarkable. There is diverti culosis without evidence of diverticulitis. The prostate gland is moderately enlarged impinging on th e bladder base. CONCLUSION: 1. Biliary stent in place with prominence of the pancreatic head which may reflect neoplasm. Please s ee above. No evidence of biliary ductal dilatation. Peak contrast enhanced MRI could be considered. 2. Hiatal hernia 3. Basilar atelectasis Isaac Munson MD on March 20, 2017 at 14:20 Board Certified Radiologist. This report was verified electronically.
[2017-03-20] MEDS ORDERED: SODIUM CHLORIDE 0.9% FLUSH 10 ML FLUSH IV FLUSH PRN (15:15)
[2017-03-20] MEDS ORDERED: LACTULOSE SYRUP 20 GM/30 ML CUP PO PRN (15:15)
[2017-03-20] MEDS ORDERED: SENNOSIDES 8.6 MG TAB PO PRN (15:15)
[2017-03-20] MEDS ORDERED: BISACODYL 10 MG SUPP RECTAL PRN (15:15)
[2017-03-20] MEDS ORDERED: ACETAMINOPHEN 325 MG TAB PO PRN (15:15)
[2017-03-20] MEDS ORDERED: MAGNESIUM HYDROXIDE SUSP 30 ML CUP PO PRN (15:15)
[2017-03-20] MEDS ORDERED: NALOXONE HCL 0.4 MG/ML AMP IV PUSH PRN (15:15)
[2017-03-20] MEDS ORDERED: ONDANSETRON HCL 4 MG/2 ML VIAL IVP PRN (15:15)
--- NOTE | 2017-03-20 16:58 | HHI.HP ---
HPI Service [facility] Primary Care Physician Unknown Admission Diagnosis sepsis, possible ascending cholangitis, altered mental status Diagnoses: Travel History International Travel<30 Days: No Contact w/Intl Traveler <30 Da: No Traveled to Known Affected Are: No History of Present Illness 81M w/ h/o Type 2 diabetes was recently diagnosed with pancreatic cancer and was doing rather well up until last night. He complained of abdominal pain onset at 1am and then had onset of fevers and fatigue starting at 8am that worsened throughout the day. He and his recently moved down from [place] and after a few visits to doctors for epigastric/chest pain an image showed pancreatic cancer in the head of his pancreas. Subsequently he presented to the ER with jaundice and required a shunt to "clear sludge" from his common bile duct; he received antibiotics at that point for suspect ascending cholangitis. Today is a similar picture, but worse. Review of Systems Constitutional: COMPLAINS OF: Fatigue, Fever, Chills, DENIES: Weight gain, Weight loss Endocrine: DENIES: Heat/cold intolerance Eyes: DENIES: Blurred vision, Diplopia Respiratory: DENIES: Apneas, Cough, Wheezing, Sputum production Cardiovascular: DENIES: Chest pain, Palpitations, Syncope Gastrointestinal: DENIES: Constipation, Diarrhea, Nausea, Vomiting Musculoskeletal: DENIES: Joint pain Hematologic/lymphatic: DENIES: Bruising Neurologic: DENIES: Headache, Seizures, Poor Balance Psychiatric: DENIES: Mood changes, Depression Past Family Social History Past Medical History Type 2 Diabetes Past Surgical History Left knee surgery 2014 (scope) Allergies: Coded Allergies: No Known Allergies (Unverified , 03/20/17) Family History None Social History Pipe smoker 60+ years, denies alcohol use Physical Exam Vital Signs Vital Signs Date Time Temp Pulse Resp B/P (MAP) Pulse Ox O2 Delivery O2 Flow Rate FiO2 03/20/17 14:44 98.9 76 16 113/64 (80) 97 Nasal Cannula 2.00 03/20/17 13:38 82 16 106/61 (76) 97 Nasal Cannula 2.00 03/20/17 12:17 16 92 Room Air 03/20/17 12:17 96 Nasal Cannula 2.00 03/20/17 12:15 102.2 85 16 132/66 (88) 92 Room Air 03/20/17 12:12 102.2 95 16 132/66 (88) 92 Physical Exam GENERAL: This is a well-nourished, well-developed patient, who appears tired SKIN: No rashes, ecchymoses or lesions. Cool and dry. HEAD: Atraumatic. Normocephalic. No temporal or scalp tenderness. EYES: Pupils equal round and reactive. Extraocular motions intact. No scleral icterus. No injection or drainage. ENT: Nose without bleeding, purulent drainage or septal hematoma. Throat without erythema, tonsillar hypertrophy or exudate. Uvula midline. Airway patent. NECK: Trachea midline. No JVD or lymphadenopathy. Supple, nontender, no meningeal signs. CARDIOVASCULAR: Regular rate and rhythm without murmurs, gallops, or rubs. RESPIRATORY: Clear to auscultation. Breath sounds equal bilaterally. No wheezes , rales, or rhonchi. GASTROINTESTINAL: Abdomen soft, non-tender, nondistended. No hepato-splenomegaly , or palpable masses. No guarding. MUSCULOSKELETAL: Extremities without clubbing, cyanosis, or edema. No joint tenderness, effusion, or edema noted. NEUROLOGICAL: Awake and alert. Cranial nerves II through XII intact. Motor and sensory grossly within normal limits. Five out of 5 muscle strength in all muscle groups. Normal speech. Laboratory Laboratory Tests Test 03/20/17 12:20 03/20/17 12:40 03/20/17 13:15 White Blood Count 13.7 Red Blood Count 4.79 Hemoglobin 15.1 Hematocrit 45.1 Mean Corpuscular Volume 94.1 Mean Corpuscular Hemoglobin 31.5 Mean Corpuscular Hemoglobin Concent 33.5 Red Cell Distribution Width 15.5 Platelet Count 149 Mean Platelet Volume 10.2 Neutrophils (%) (Auto) 93.7 Lymphocytes (%) (Auto) 1.7 Monocytes (%) (Auto) 4.3 Eosinophils (%) (Auto) 0.1 Basophils (%) (Auto) 0.2 Neutrophils # (Auto) 12.9 Lymphocytes # (Auto) 0.2 Monocytes # (Auto) 0.6 Eosinophils # (Auto) 0.0 Basophils # (Auto) 0.0 CBC Comment DIFF FINAL Differential Comment Lactic Acid Level 1.7 Urine Color YELLOW Urine Turbidity CLEAR Urine pH 6.5 Urine Specific [place] 1.024 Urine Protein TRACE Urine Glucose (UA) 1000 Urine Ketones NEG Urine Occult Blood NEG Urine Nitrite NEG Urine Bilirubin SMALL Urine Urobilinogen 2.0 Urine Leukocyte Esterase NEG Urine RBC 1 Urine WBC LESS THAN 1 Microscopic Urinalysis Comment CULT NOT INDICATED Blood Urea Nitrogen 24 Creatinine 1.16 Random Glucose 131 Total Protein 7.3 Albumin 3.2 Calcium Level 8.3 Alkaline Phosphatase 358 Aspartate Amino Transf (AST/SGOT) 366 Alanine Aminotransferase (ALT/SGPT) 233 Total Bilirubin 2.9 Sodium Level 138 Potassium Level 4.0 Chloride Level 107 Carbon Dioxide Level 21.6 Anion Gap 9 Estimat Glomerular Filtration Rate 61 Date/Time Source Procedure Growth Status 03/20/17 12:20 Blood Peripheral Aerobic Blood Culture Pending Received 03/20/17 12:20 Blood Peripheral Anaerobic Blood Culture Pending Received Result Diagram: 03/20/17 1220 03/20/17 1315 Septic Shock Reassessment Septic shock perfusion: reassessment completed Caprini VTE Risk Assessment Caprini VTE Risk Assessment: Mod/High Risk (score >= 2) Caprini Risk Assessment Model Point Value = 1 Point Value = 2 Point Value = 3 Point Value = 5 Age 41-60 Minor surgery BMI > 25 kg/m2 Swollen legs Varicose veins or History of unexplained or recurrent spontaneous Oral contraceptives or hormone replacement Sepsis (< 1 month) Serious lung disease, including pneumonia (< 1 month) Abnormal pulmonary function Acute myocardial infarction Congestive heart failure (< 1 month) History of inflammatory bowel disease Medical patient at bed rest Age 61-74 Arthroscopic surgery Major open surgery (> 45 min) Laparoscopic surgery (> 45 min) Malignancy Confined to bed (> 72 hours) Immobilizing plaster cast Central venous access Age >= 75 History of VTE Family history of VTE Factor V Leiden Prothrombin [id number] Lupus anticoagulant Anticardiolipin antibodies Elevated serum homocysteine Heparin-induced thrombocytopenia Other congenital or acquired thrombophilia Stroke (< 1 month) Elective arthroplasty Hip, pelvis, or leg fracture Acute spinal cord injury (< 1 month) Prophylaxis Regimen Total Risk Factor Score Risk Level Prophylaxis Regimen 0-1 Low Early ambulation 2 Moderate Order ONE of the following: *Sequential Compression Device (SCD) *Heparin 5000 units SQ BID 3-4 Higher Order ONE of the following medications: *Heparin 5000 units SQ TID *Enoxaparin/Lovenox 40 mg SQ daily (WT < 150 kg, CrCl > 30 mL/min) *Enoxaparin/Lovenox 30 mg SQ daily (WT < 150 kg, CrCl > 10-29 mL/min) *Enoxaparin/Lovenox 30 mg SQ BID (WT < 150 kg, CrCl > 30 mL/min) AND/OR *Sequential Compression Device (SCD) 5 or more Highest Order ONE of the following medications: *Heparin 5000 units SQ TID (Preferred with Epidurals) *Enoxaparin/Lovenox 40 mg SQ daily (WT < 150 kg, CrCl > 30 mL/min) *Enoxaparin/Lovenox 30 mg SQ daily (WT < 150 kg, CrCl > 10-29 mL/min) *Enoxaparin/Lovenox 30 mg SQ BID (WT < 150 kg, CrCl > 30 mL/min) AND *Sequential Compression Device (SCD) Assessment and Plan Problem List: (1) Sepsis ICD Code: A41.9 - Sepsis, unspecified organism Status: Acute (2) Pancreatic adenocarcinoma ICD Code: C25.9 - Malignant neoplasm of pancreas, unspecified Status: Acute (3) Biliary obstruction ICD Code: K83.1 - Obstruction of bile duct Status: Resolved Assessment and Plan Sepsis Suspicious for ascending cholangitis secondary to biliary obstruction (hx of this) Appreciate GI consult Continue wide spectrum IV antibiotics with Vancomycin and Zosyn Follow Lactic Acid level Guarded care with Telemetry and close monitoring of vitals Pancreatic Cancer Pancreatic head with mets to Liver Hospice is following Required stent placement previously for obstruction Type 2 Diabetes Sliding scale insulin Routine accuchecks Diabetic Diet as tolerated DVT Prophylaxis Lovenox Physician Certification 2 Midnight Certification Type: Admission for Inpatient Services Order for Inpatient Services The services are ordered in accordance with Medicare regulations or non- Medicare payer requirements, as applicable. In the case of services not specified as inpatient-only, they are appropriately provided as inpatient services in accordance with the 2-midnight benchmark. Estimated LOS (days): 4 days is the estimated time the patient will need to remain in the hospital, assuming treatment plan goals are met and no additional complications. Post-Hospital Plan: Hospice Problem Qualifiers (1) Sepsis: Qualified Codes: A41.9 - Sepsis, unspecified organism Adolfo Lundy MD Mar 20, 2017 16:58
[2017-03-20] MEDS ORDERED: ACETAMINOPHEN/HYDROcodone 325 MG/7.5 MG TAB PO PRN (17:00)
[2017-03-20] MEDS: ENOXAPARIN SODIUM 40 MG/0.4 ML SYRINGE SQ SCH (18:12)
[2017-03-20] MEDS: PIPERACIL-TAZO 4.5 GM PREMIX 100 ML IV SCH (20:53)
[2017-03-20] MEDS: SODIUM CHLORIDE 0.9% FLUSH 10 ML FLUSH IV FLUSH SCH (20:53)
[2017-03-20 21:47] LABS: INTERNATIONAL NORMALIZED RATIO 1.2 RATIO; PROTHROMBIN TIME - PATIENT 12.5 SEC (9.8-11.6)
[2017-03-20] MEDS ORDERED: DEXTROSE 50% IN WATER 50 ML VIAL(D50) IV PUSH PRN (22:15)
[2017-03-20] MEDS ORDERED: GLUCAGON 1 MG/ML VIAL OTHER PRN (22:15)
[2017-03-20] MEDS: INSULIN ASPART SUPPLEMENTAL SCALE SQ SCH (22:49)
[2017-03-21 00:30] VITALS: BP_SYST 107; BP_SYST 117; BP_DIAS 56; BP_DIAS 59; PULSE 61; PULSE 74; RESP 17; RESP 18; TEMP 99.9; O2SAT 95; O2SAT 97
[2017-03-21] MEDS: VANCOMYCIN INJ 1,000 MG in SODIUM CHLOR 0.9% 250 ML INJ 250 ML IV SCH ×2 (03:06→15:19)
[2017-03-21] MEDS: PIPERACIL-TAZO 4.5 GM PREMIX 100 ML IV SCH ×3 (03:06→20:25)
[2017-03-21 05:12] VITALS: BP 100/61; PULSE 60; RESP 18; TEMP 97.7; O2SAT 97
[2017-03-21] MEDS ORDERED: INSULIN ASPART SUPPLEMENTAL SCALE SQ SCH (08:00)
[2017-03-21 08:24] VITALS: BP 93/50; PULSE 62; RESP 18; TEMP 98.8; O2SAT 96
[2017-03-21] MEDS: CHOLECALCIFEROL (VIT D3) 1000 UNIT TAB PO SCH ×2 (08:43→20:26)
[2017-03-21] MEDS: MULTIVITAMIN TAB PO SCH (08:43)
[2017-03-21] MEDS: PANTOPRAZOLE SOD 40 MG DELAYED RELEASE TAB PO SCH (08:43)
[2017-03-21] MEDS: INSULIN ASPART SUPPLEMENTAL SCALE SQ SCH ×4 (08:44→20:25)
[2017-03-21] MEDS: SODIUM CHLORIDE 0.9% FLUSH 10 ML FLUSH IV FLUSH SCH ×2 (08:44→20:26)
[2017-03-21 08:52] LABS: ALBUMIN 2.6 GM/DL (3.4-5.0); ALKALINE PHOSPHATASE 311 U/L (45-117); ALT (GPT) 188 U/L (12-78); AST (GOT) 212 U/L (15-37); BICARBONATE 24.2 MEQ/L (21.0-32.0); BLOOD UREA NITROGEN 23 MG/DL (7-18); CALCIUM 8.3 MG/DL (8.5-10.1); CHLORIDE 106 MEQ/L (98-107); CREATININE 1.24 MG/DL (0.60-1.30); GLOMERULAR FILTRATION RATE 56 ML/MIN (>89); GLUCOSE,RANDOM 147 MG/DL (74-106); SODIUM (NA) 137 MEQ/L (136-145); TOTAL BILIRUBIN ADULT 4.9 MG/DL (0.2-1.0); TOTAL PROTEIN 6.8 GM/DL (6.4-8.2)
[2017-03-21] MEDS ORDERED: INSULIN DETEMIR 100 UNITS/ML VIAL SQ SCH (09:00)
[2017-03-21 12:43] VITALS: BP 115/62; PULSE 90; RESP 18; TEMP 97.7; O2SAT 96
--- NOTE | 2017-03-21 13:57 | PD.CONS ---
HPI History of Present Illness This is a 81 year old male with metastatic pancreatic adenocarcinoma who presented with abd pain, fever, increased confusion. He has been on hospice care and they gave him morphine but pt continued to have pain and fever so brought him to ER. he is s/p ERCP and stent placement 3-4 weeks ago and is scheduled with Dr Hardin for permanent stent placement at [facility] 03/30/17. His pain is improved somewhat today. Had some nausea yesterday but that is improved as well. Per oncology note there are liver mets and pt opted for hospice. PFSH Past Medical History Type 2 Diabetes pancreatic ca with liver mets Past Surgical History Left knee surgery 2015 (scope) Coded Allergies: No Known Allergies (Unverified , 03/20/17) Family History None Social History Pipe smoker 60+ years, denies alcohol use Review of Systems Constitutional: COMPLAINS OF: Fever Eyes: DENIES: Blurred vision Ears, nose, mouth, throat: COMPLAINS OF: Hearing loss Respiratory: DENIES: Cough Cardiovascular: DENIES: Chest pain Gastrointestinal: COMPLAINS OF: Abdominal pain, Nausea, DENIES: Black stools, Bloody stools, Constipation, Diarrhea, Vomiting Genitourinary: DENIES: Hematuria Musculoskeletal: DENIES: Joint Swelling Integumentary: DENIES: Pruritus Hematologic/lymphatic: DENIES: Bruising Psychiatric: COMPLAINS OF: Confusion GI Exam Vitals I&O Vital Signs Date Time Temp Pulse Resp B/P (MAP) Pulse Ox O2 Delivery O2 Flow Rate FiO2 03/21/17 12:43 97.7 90 18 115/62 (79) 96 03/21/17 08:24 98.8 62 18 93/50 (64) 96 03/21/17 07:40 Nasal Cannula 2.00 03/21/17 05:12 97.7 60 18 100/61 (74) 97 03/21/17 00:30 99.9 74 18 117/59 (78) 97 03/20/17 20:00 98.4 67 20 115/58 (77) 98 03/20/17 17:30 97.8 75 18 119/70 (86) 96 03/20/17 17:15 Nasal Cannula 2.00 03/20/17 17:05 98.6 63 16 106/56 (73) 97 2.00 03/20/17 14:44 98.9 76 16 113/64 (80) 97 Nasal Cannula 2.00 I/O 03/20/17 03/20/17 03/20/17 03/21/17 03/21/17 03/21/17 06:59 14:59 22:59 06:59 14:59 22:59 Intake Total 2250 ml 100 ml 120 ml Output Total 900 ml 400 ml 250 ml Balance 2250 ml -800 ml -280 ml -250 ml Intake Oral 120 ml IV Total 2250 ml 100 ml Output Urine Total 900 ml 400 ml 250 ml # Voids 2 Imaging Last Impressions Abdomen/Pelvis CT 03/20/17 0000 Signed Impressions: Service Date/Time: Monday, March 20, 2017 13:51 - CONCLUSION: 1. Biliary stent in place with prominence of the pancreatic head which may reflect neoplasm. Please see above. No evidence of biliary ductal dilatation. Peak contrast enhanced MRI could be considered. 2. Hiatal hernia 3. Basilar atelectasis Isaac Munson MD Laboratory Test 03/20/17 21:09 03/21/17 07:00 Prothrombin Time 12.5 SEC Prothromb Time International Ratio 1.2 RATIO Activated Partial Thromboplast Time 27.6 SEC Blood Urea Nitrogen 23 MG/DL Creatinine 1.24 MG/DL Random Glucose 147 MG/DL Total Protein 6.8 GM/DL Albumin 2.6 GM/DL Calcium Level 8.3 MG/DL Alkaline Phosphatase 311 U/L Aspartate Amino Transf (AST/SGOT) 212 U/L Alanine Aminotransferase (ALT/SGPT) 188 U/L Total Bilirubin 4.9 MG/DL Sodium Level 137 MEQ/L Potassium Level 5.0 MEQ/L Chloride Level 106 MEQ/L Carbon Dioxide Level 24.2 MEQ/L Anion Gap 7 MEQ/L Estimat Glomerular Filtration Rate 56 ML/MIN Date/Time Source Procedure Growth Status 03/20/17 12:20 Blood Peripheral Aerobic Blood Culture - Preliminary Gram Variable Coleman Gram Positive Cocci Resulted 03/20/17 12:20 Anaerobic Blood Culture - Preliminary Gram Variable Coleman Resulted Physical Examination HEENT: PERRL; normocephalic; atraumatic; [place] CHEST: CTA CARDIAC: RRR ABDOMEN: Soft, protuberant, nontender; no hepatosplenomegaly; bowel sounds are present in all four quadrants. EXTREMITIES: No clubbing, cyanosis, or edema. SKIN: Normal; no rash; mild jaundice SHOP COORDINATOR: alert Assessment and Plan Plan ASSESSMENT - fever, abd pain, nausea, leukocytosis, elevated LFTs - ?cholangitis. on vanc , sobian, this should cover. s/p ERCP and stent placement, due to have permanent stent placed later this month. Dr Isabel will discuss this further with Dr Hardin who was to place the stent, will decide if this needs to be done sooner - metastatic pancreatic adenocarcinoma PLAN - continue abx - RINKU - supportive care - permanent stent placement, timing TBD - further recs to follow Pt seen by myself and dr Isabel and this note on his behalf Nathaly Valle Mar 21, 2017 13:57
--- NOTE | 2017-03-21 14:13 | HHI.PR ---
Subjective Remarks Follow up bacteremia, fever. Patient states that his abdominal pain has resolved. He states that he feels much better. No complaints at this time. Objective Vitals Vital Signs Date Time Temp Pulse Resp B/P (MAP) Pulse Ox O2 Delivery O2 Flow Rate FiO2 03/21/17 12:43 97.7 90 18 115/62 (79) 96 03/21/17 08:24 98.8 62 18 93/50 (64) 96 03/21/17 07:40 Nasal Cannula 2.00 03/21/17 05:12 97.7 60 18 100/61 (74) 97 03/21/17 00:30 99.9 74 18 117/59 (78) 97 03/20/17 20:00 98.4 67 20 115/58 (77) 98 03/20/17 17:30 97.8 75 18 119/70 (86) 96 03/20/17 17:15 Nasal Cannula 2.00 03/20/17 17:05 98.6 63 16 106/56 (73) 97 2.00 03/20/17 14:44 98.9 76 16 113/64 (80) 97 Nasal Cannula 2.00 I/O 03/20/17 03/20/17 03/20/17 03/21/17 03/21/17 03/21/17 07:00 15:00 23:00 07:00 15:00 23:00 Intake Total 2250 ml 100 ml 120 ml Output Total 600 ml 300 ml 400 ml 250 ml Balance 1650 ml -200 ml -280 ml -250 ml Intake Oral 120 ml IV Total 2250 ml 100 ml Output Urine Total 600 ml 300 ml 400 ml 250 ml # Voids 1 1 Result Diagram: 03/20/17 1220 03/21/17 0700 Imaging Last Impressions Abdomen/Pelvis CT 03/20/17 0000 Signed Impressions: Service Date/Time: Monday, March 20, 2017 13:51 - CONCLUSION: 1. Biliary stent in place with prominence of the pancreatic head which may reflect neoplasm. Please see above. No evidence of biliary ductal dilatation. Peak contrast enhanced MRI could be considered. 2. Hiatal hernia 3. Basilar atelectasis Isaac Munson MD Objective Remarks General: Elderly male in no acute distress. Heart: Regular rate and rhythm. No murmur. Lungs: Clear to auscultation bilaterally. No wheezes, rales, or rhonchi. Breathing is nonlabored. Abdomen: Soft, nontender, nondistended. Extremities: No lower extremity edema. Psych: Alert and oriented. Procedures None Urinary Catheter: No Vascular Central Line Catheter: No A/P Problem List: (1) Sepsis ICD Code: A41.9 - Sepsis, unspecified organism Status: Acute (2) Pancreatic adenocarcinoma ICD Code: C25.9 - Malignant neoplasm of pancreas, unspecified Status: Acute (3) Biliary obstruction ICD Code: K83.1 - Obstruction of bile duct Status: Resolved Assessment and Plan 1. Sepsis: Possible ascending cholangitis secondary to biliary obstruction. Appreciate gastroenterology recommendations. Continue antibiotics. Patient states symptoms have improved significantly. Blood cultures are positive for gram variable aliya, gram-positive cocci, and gram-negative aliya. Further ID pending. Infectious disease consult requested. 2. Pancreatic cancer: Hospice is following. Stent in place for obstruction. 3. Diabetes mellitus type 2: Monitor Accu-Cheks and cover with sliding scale insulin. Resume home dose of Levemir. 4. DVT prophylaxis: Lovenox. Discussed with Dr. Isabel, gastroenterology. Problem Qualifiers (1) Sepsis: Qualified Codes: A41.9 - Sepsis, unspecified organism Costa Greer MD Mar 21, 2017 14:13
--- NOTE | 2017-03-21 15:18 | MB ---
cc: RUFINA VAZQUEZ MD DATE OF CONSULTATION: 03/21/2017. REASON FOR CONSULTATION: Sepsis and bacteremia. REQUESTING PHYSICIAN: Dr. Costa Greer. HISTORY OF PRESENT ILLNESS: This is a 81-year-old white male who was brought to the emergency department after he developed fever. The patient notes he is supposed to be receiving hospice care but his decided to take him to the emergency department for evaluation. In the emergency department, he had a temperature of 102.2 degrees. White blood cell count was elevated. Blood cultures were taken. All four bottles of the blood cultures have bacteria. One bottle is identified so far as gram variable rods and one of the bottles has gram-negative aliya also and another has gram-positive cocci. The patient is on antibiotics. His temperature has improved. He is currently awake and alert and he denies abdominal pain, nausea, vomiting, chills or shortness of breath. The patient had a biliary stent inserted in January and a week later he it had to be exchanged because there was some blockage. He is due to have a permanent stent placement later this month. The patient was diagnosed with pancreatic cancer of the head of the pancreas. PAST MEDICAL HISTORY: 1. Diabetes mellitus type 2. 2. History of knee surgery. 3. Pancreatic cancer. ALLERGIES: NO KNOWN DRUG ALLERGIES. MEDICATIONS: 1. Levemir. 2. Vitamin D3. 3. Protonix. 5. Theragran. 6. Vancomycin. 7. Piperacillin / tazobactam. 8. [place] 7.5. 9. Lovenox. SOCIAL HISTORY: The patient is . No tobacco. No alcohol. No illicit drugs. FAMILY HISTORY: Noncontributory. REVIEW OF SYSTEMS: The review of systems is negative on a ten-point review. PHYSICAL EXAMINATION: GENERAL: This is a well-developed male who is in no acute distress. He appears comfortable. VITAL SIGNS: Include temperature 97.7, blood pressure 115/62, respirations 18, heart rate 90. HEAD, EYES, EARS, NOSE, THROAT: Extraocular movements are grossly intact. Pupils reactive to light. No icterus. Oropharynx with moist mucosa without lesions. NECK: The neck is supple without adenopathy or swelling. LUNGS: Clear breath sounds. HEART: Regular S1 and S2 without murmurs, rubs or gallops. ABDOMEN: Mildly distended, soft, no tenderness appreciated. Bowel sounds present. RECTAL: Not performed. EXTREMITIES: No clubbing or cyanosis or edema. SKIN: Pale but no rash. PSYCHIATRIC: The patient is calm and cooperative. NEUROLOGIC: No gross focal findings. LABORATORY DATA: AST 212, ALT 188, alkaline phosphatase 311, creatinine 1.24, estimated GFR 51. WBCs 13.7, platelet count 149,000, hemoglobin 15.1. Urinalysis was unremarkable. IMAGING STUDIES: CT scan of the abdomen and pelvis shows prominence of the pancreatic head. No evidence of biliary ductal dilatation. IMPRESSION: 1. Sepsis with bacteremia. 2. Likely source is the biliary system three. 3. Pancreatic cancer. RECOMMENDATIONS: 1. Continue vancomycin. 2. Continue piperacillin / tazobactam 3. Follow blood cultures. 4. Follow clinical status. Further recommendations will be given once the blood culture is available. The patient may need to have repeat blood cultures to check for clearance of bacteremia before deciding on the appropriate duration of treatment. Thank for this consultation. Rufina Vazquez MD FD/JENA /2:16 PM /2:54 PM MTDKaur
[2017-03-21 16:39] VITALS: BP 125/66; PULSE 63; RESP 18; TEMP 97.5; O2SAT 96
[2017-03-21] MEDS: ENOXAPARIN SODIUM 40 MG/0.4 ML SYRINGE SQ SCH (17:57)
[2017-03-21 20:00] VITALS: BP 139/67; PULSE 67; RESP 24; TEMP 99.1; O2SAT 95
[2017-03-21] MEDS: INSULIN DETEMIR 100 UNITS/ML VIAL SQ SCH (20:25)
[2017-03-22 01:20] VITALS: BP 116/57; PULSE 83; RESP 18; TEMP 97.9; O2SAT 94
[2017-03-22] MEDS: VANCOMYCIN INJ 1,000 MG in SODIUM CHLOR 0.9% 250 ML INJ 250 ML IV SCH ×2 (03:15→15:23)
[2017-03-22] MEDS: PIPERACIL-TAZO 4.5 GM PREMIX 100 ML IV SCH ×3 (03:15→20:00)
[2017-03-22 05:19] VITALS: BP 142/67; PULSE 67; RESP 17; TEMP 98.5; O2SAT 94
[2017-03-22] MEDS: INSULIN ASPART SUPPLEMENTAL SCALE SQ SCH ×4 (07:45→21:00)
[2017-03-22 07:54] LABS: AUTOMATED NEUTROPHIL # 5.4 TH/MM3 (1.8-7.7); BASOPHIL % 0.5 % (0.0-2.0); EOSINOPHIL # 0.2 TH/MM3 (0-0.4); EOSINOPHIL % 2.7 % (0.0-4.0); HEMATOCRIT 37.7 % (39.0-51.0); HEMOGLOBIN 12.9 GM/DL (13.0-17.0); LYMPH % 10.9 % (9.0-44.0); LYMPHOCYTE # 0.7 TH/MM3 (1.0-4.8); MEAN CELL VOLUME 95.2 FL (80.0-100.0); MEAN CORPUSCULAR HEMOGLOBIN 32.6 PG (27.0-34.0); MEAN CORPUSCULAR HGB CONC 34.2 % (32.0-36.0); MONO % 6.9 % (0.0-8.0); MONOCYTE # 0.5 TH/MM3 (0-0.9); PLATELET COUNT 104 TH/MM3 (150-450); RED BLOOD COUNT 3.96 MIL/MM3 (4.50-5.90); WHITE BLOOD COUNT 6.8 TH/MM3 (4.0-11.0)
[2017-03-22 08:16] LABS: ALBUMIN 2.7 GM/DL (3.4-5.0); ALKALINE PHOSPHATASE 300 U/L (45-117); ALT (GPT) 123 U/L (12-78); AST (GOT) 77 U/L (15-37); BICARBONATE 20.8 MEQ/L (21.0-32.0); BLOOD UREA NITROGEN 20 MG/DL (7-18); CALCIUM 8.3 MG/DL (8.5-10.1); CHLORIDE 105 MEQ/L (98-107); CREATININE 1.11 MG/DL (0.60-1.30); GLOMERULAR FILTRATION RATE 64 ML/MIN (>89); GLUCOSE,RANDOM 72 MG/DL (74-106); MAGNESIUM 1.8 MG/DL (1.5-2.5); SODIUM (NA) 136 MEQ/L (136-145); TOTAL BILIRUBIN ADULT 2.6 MG/DL (0.2-1.0)
[2017-03-22 08:24] VITALS: BP 133/76; PULSE 66; RESP 18; TEMP 98.6; O2SAT 95
[2017-03-22] MEDS: INSULIN DETEMIR 100 UNITS/ML VIAL SQ SCH ×3 (09:00→23:30)
[2017-03-22] MEDS: PANTOPRAZOLE SOD 40 MG DELAYED RELEASE TAB PO SCH (09:07)
[2017-03-22] MEDS: CHOLECALCIFEROL (VIT D3) 1000 UNIT TAB PO SCH ×2 (09:07→21:00)
[2017-03-22] MEDS: MULTIVITAMIN TAB PO SCH (09:07)
[2017-03-22] MEDS: SODIUM CHLORIDE 0.9% FLUSH 10 ML FLUSH IV FLUSH SCH ×3 (09:08→21:24)
[2017-03-22 12:11] VITALS: BP 143/65; PULSE 62; RESP 18; TEMP 97.8; O2SAT 96
--- NOTE | 2017-03-22 13:27 | HHI.IDPN ---
Note Infectious Disease Note Patient not dull achy pain at the left lower abdomen. Afebrile. Denies chills. No SOB. 81-year-old white male who was brought to the emergency department after he developed fever. In the emergency department, he had a temperature of 102.2 degrees. White blood cell count was elevated. Blood cultures were taken. All four bottles of the blood cultures have bacteria. The patient had a biliary stent inserted in January and a week later he it had to be exchanged because there was some blockage. He is due to have a permanent stent placement later this month. The patient was diagnosed with pancreatic cancer of the head of the pancreas. PAST MEDICAL HISTORY: 1. Diabetes mellitus type 2. 2. History of knee surgery. 3. Pancreatic cancer. ALLERGIES: NO KNOWN DRUG ALLERGIES. ANTIBIOTICS: Piperacillin / tazobactam. SOCIAL HISTORY: The patient is . No tobacco. No alcohol. No illicit drugs. OBJECTIVE: Vital Signs Date Time Temp Pulse Resp B/P (MAP) Pulse Ox O2 Delivery O2 Flow Rate FiO2 03/22/17 12:11 97.8 62 18 143/65 (91) 96 03/22/17 08:24 98.6 66 18 133/76 (95) 95 03/22/17 07:40 Room Air 03/22/17 05:19 98.5 67 17 142/67 (92) 94 03/22/17 01:26 95 Room Air 03/22/17 01:20 97.9 83 18 116/57 (76) 94 03/21/17 20:00 99.1 67 24 139/67 (91) 95 03/21/17 16:39 97.5 63 18 125/66 (85) 96 Laboratory Tests Test 03/22/17 06:27 White Blood Count 6.8 TH/MM3 Red Blood Count 3.96 MIL/MM3 Hemoglobin 12.9 GM/DL Hematocrit 37.7 % Mean Corpuscular Volume 95.2 FL Mean Corpuscular Hemoglobin 32.6 PG Mean Corpuscular Hemoglobin Concent 34.2 % Red Cell Distribution Width 15.0 % Platelet Count 104 TH/MM3 Mean Platelet Volume 10.0 FL Neutrophils (%) (Auto) 79.0 % Lymphocytes (%) (Auto) 10.9 % Monocytes (%) (Auto) 6.9 % Eosinophils (%) (Auto) 2.7 % Basophils (%) (Auto) 0.5 % Neutrophils # (Auto) 5.4 TH/MM3 Lymphocytes # (Auto) 0.7 TH/MM3 Monocytes # (Auto) 0.5 TH/MM3 Eosinophils # (Auto) 0.2 TH/MM3 Basophils # (Auto) 0.0 TH/MM3 CBC Comment DIFF FINAL Differential Comment Laboratory Tests Test 03/21/17 07:00 03/22/17 06:27 Blood Urea Nitrogen 23 MG/DL 20 MG/DL Creatinine 1.24 MG/DL 1.11 MG/DL Random Glucose 147 MG/DL 72 MG/DL Total Protein 6.8 GM/DL 7.0 GM/DL Albumin 2.6 GM/DL 2.7 GM/DL Calcium Level 8.3 MG/DL 8.3 MG/DL Alkaline Phosphatase 311 U/L 300 U/L Aspartate Amino Transf (AST/SGOT) 212 U/L 77 U/L Alanine Aminotransferase (ALT/SGPT) 188 U/L 123 U/L Total Bilirubin 4.9 MG/DL 2.6 MG/DL Sodium Level 137 MEQ/L 136 MEQ/L Potassium Level 5.0 MEQ/L 3.5 MEQ/L Chloride Level 106 MEQ/L 105 MEQ/L Carbon Dioxide Level 24.2 MEQ/L 20.8 MEQ/L Anion Gap 7 MEQ/L 10 MEQ/L Estimat Glomerular Filtration Rate 56 ML/MIN 64 ML/MIN Magnesium Level 1.8 MG/DL Microbiology Date/Time Source Procedure Growth Status 03/22/17 09:50 Blood Peripheral Aerobic Blood Culture Pending Received 03/22/17 09:50 Blood Peripheral Anaerobic Blood Culture Pending Received 03/22/17 09:50 Blood Peripheral Aerobic Blood Culture Pending Received 03/22/17 09:50 Blood Peripheral Anaerobic Blood Culture Pending Received 03/20/17 12:20 Blood Peripheral Aerobic Blood Culture - Preliminary Gram Negative Coleman Gram Variable Coleman Gram Positive Cocci Resulted 03/20/17 12:20 Anaerobic Blood Culture - Preliminary Gram Negative Coleman Resulted 03/20/17 12:15 Blood Peripheral Aerobic Blood Culture - Preliminary Gram Negative Coleman Resulted 03/20/17 12:15 Anaerobic Blood Culture - Preliminary Gram Negative Coleman Resulted PHYSICAL EXAMINATION: GENERAL: No acute distress. He appears comfortable. HEAD, EYES, EARS, NOSE, THROAT: Extraocular movements are grossly intact. Pupils reactive to light. No icterus. Oropharynx with moist mucosa without lesions. NECK: The neck is supple without adenopathy or swelling. LUNGS: Clear breath sounds. HEART: Regular S1 and S2 without murmurs, rubs or gallops. ABDOMEN: Mildly distended, soft, no tenderness on palpation. Bowel sounds present. EXTREMITIES: No clubbing or cyanosis or edema. SKIN: Pale but no rash. PSYCHIATRIC: Calm and cooperative. NEUROLOGIC: No gross focal findings. IMPRESSION: 1. Sepsis with bacteremia. Gram negative bacteria. ID and sensitivity pending. 2. Likely source is the biliary system. 3. Pancreatic cancer. RECOMMENDATIONS: 1. Stop vancomycin. 2. Continue piperacillin / tazobactam 3. Follow blood cultures. Repeated today. 4. Follow clinical status. Orville Vazquez MD Mar 22, 2017 13:27
--- NOTE | 2017-03-22 14:56 | HHI.GIFU ---
Subjective Remarks Pt resting in bed, napping. and friend at bedside. "I guess I'm doing ok. " C/o mild abd pain umbilical area. tolerating diet. (Nathaly Valle) Objective Vitals I&O Vital Signs Date Time Temp Pulse Resp B/P (MAP) Pulse Ox O2 Delivery O2 Flow Rate FiO2 03/22/17 12:11 97.8 62 18 143/65 (91) 96 03/22/17 08:24 98.6 66 18 133/76 (95) 95 03/22/17 07:40 Room Air 03/22/17 05:19 98.5 67 17 142/67 (92) 94 03/22/17 01:26 95 Room Air 03/22/17 01:20 97.9 83 18 116/57 (76) 94 03/21/17 20:00 99.1 67 24 139/67 (91) 95 03/21/17 16:39 97.5 63 18 125/66 (85) 96 I/O 03/21/17 03/21/17 03/21/17 03/22/17 03/22/17 03/22/17 07:00 15:00 23:00 07:00 15:00 23:00 Intake Total 120 ml 580 ml 350 ml 590 ml Output Total 400 ml 650 ml 300 ml 750 ml 900 ml Balance -280 ml -70 ml 50 ml -160 ml -900 ml Intake Oral 120 ml 480 ml 240 ml IV Total 100 ml 350 ml 350 ml Output Urine Total 400 ml 650 ml 300 ml 750 ml 900 ml Laboratory Laboratory Tests Test 03/22/17 06:27 White Blood Count 6.8 Red Blood Count 3.96 Hemoglobin 12.9 Hematocrit 37.7 Mean Corpuscular Volume 95.2 Mean Corpuscular Hemoglobin 32.6 Mean Corpuscular Hemoglobin Concent 34.2 Red Cell Distribution Width 15.0 Platelet Count 104 Mean Platelet Volume 10.0 Neutrophils (%) (Auto) 79.0 Lymphocytes (%) (Auto) 10.9 Monocytes (%) (Auto) 6.9 Eosinophils (%) (Auto) 2.7 Basophils (%) (Auto) 0.5 Neutrophils # (Auto) 5.4 Lymphocytes # (Auto) 0.7 Monocytes # (Auto) 0.5 Eosinophils # (Auto) 0.2 Basophils # (Auto) 0.0 CBC Comment DIFF FINAL Differential Comment Blood Urea Nitrogen 20 Creatinine 1.11 Random Glucose 72 Total Protein 7.0 Albumin 2.7 Calcium Level 8.3 Magnesium Level 1.8 Alkaline Phosphatase 300 Aspartate Amino Transf (AST/SGOT) 77 Alanine Aminotransferase (ALT/SGPT) 123 Total Bilirubin 2.6 Sodium Level 136 Potassium Level 3.5 Chloride Level 105 Carbon Dioxide Level 20.8 Anion Gap 10 Estimat Glomerular Filtration Rate 64 Date/Time Source Procedure Growth Status 03/22/17 09:50 Blood Peripheral Aerobic Blood Culture Pending Received 03/22/17 09:50 Blood Peripheral Anaerobic Blood Culture Pending Received Imaging Last Impressions Abdomen/Pelvis CT 03/20/17 0000 Signed Impressions: Service Date/Time: Monday, March 20, 2017 13:51 - CONCLUSION: 1. Biliary stent in place with prominence of the pancreatic head which may reflect neoplasm. Please see above. No evidence of biliary ductal dilatation. Peak contrast enhanced MRI could be considered. 2. Hiatal hernia 3. Basilar atelectasis Isaac Munson MD Physical Exam HEENT: PERRL; normocephalic; atraumatic; no jaundice. [place] CHEST: CTA CARDIAC: RRR ABDOMEN: Soft, protuberant,mild TTP umbilical area; no hepatosplenomegaly; bowel sounds are present in all four quadrants. EXTREMITIES: No clubbing, cyanosis, or edema. SKIN: Normal; no rash; no jaundice. ELECTRICAL CONTACTS ADJUSTER: No focal deficits; alert and oriented times three. (Nathaly Valle) Assessment and Plan Plan ASSESSMENT - fever, abd pain, nausea, leukocytosis, elevated LFTs - ?cholangitis. on vanc , zosyn, this should cover. s/p ERCP and stent placement, due to have permanent stent placed later this month. doing better. WBC decreasing, LFT trending down. will have permanent stent placement with Dr Hardin - metastatic pancreatic adenocarcinoma PLAN - ERCP with permanent stent placement tomorrow - NPO after MN - obtain consent - continue abx - supportive care - further recs to follow Pt seen by myself and Dr Boudreaux and this note written on her behalf (Nathaly Valle) Physician Comments seen, examined agree with above ercp/stent placement in am -palliative discussed with family (Whitney Boudreaux MD) Nathaly Valle 8, 2018 14:56 Whitney Boudreaux MD Mar 22, 2017 17:13
[2017-03-22 16:47] VITALS: BP 150/71; PULSE 59; RESP 18; TEMP 98.6; O2SAT 95
--- NOTE | 2017-03-22 16:55 | HHI.PR ---
Subjective Remarks Follow up abdominal pain, sepsis. Patient reporting left lower quadrant pain, 4/ 10. No nausea/vomiting. Normal BM today. Objective Vitals Vital Signs Date Time Temp Pulse Resp B/P (MAP) Pulse Ox O2 Delivery O2 Flow Rate FiO2 03/22/17 16:47 98.6 59 18 150/71 (97) 95 03/22/17 12:11 97.8 62 18 143/65 (91) 96 03/22/17 08:24 98.6 66 18 133/76 (95) 95 03/22/17 07:40 Room Air 03/22/17 05:19 98.5 67 17 142/67 (92) 94 03/22/17 01:26 95 Room Air 03/22/17 01:20 97.9 83 18 116/57 (76) 94 03/21/17 20:00 99.1 67 24 139/67 (91) 95 I/O 03/21/17 03/21/17 03/21/17 03/22/17 03/22/17 03/22/17 07:00 15:00 23:00 07:00 15:00 23:00 Intake Total 120 ml 580 ml 350 ml 590 ml 480 ml Output Total 400 ml 650 ml 300 ml 750 ml 900 ml 200 ml Balance -280 ml -70 ml 50 ml -160 ml -900 ml 280 ml Intake Oral 120 ml 480 ml 240 ml 480 ml IV Total 100 ml 350 ml 350 ml Output Urine Total 400 ml 650 ml 300 ml 750 ml 900 ml 200 ml Result Diagram: 03/22/17 0627 03/22/17 0627 Imaging Last Impressions Abdomen/Pelvis CT 03/20/17 0000 Signed Impressions: Service Date/Time: Monday, March 20, 2017 13:51 - CONCLUSION: 1. Biliary stent in place with prominence of the pancreatic head which may reflect neoplasm. Please see above. No evidence of biliary ductal dilatation. Peak contrast enhanced MRI could be considered. 2. Hiatal hernia 3. Basilar atelectasis Isaac Munson MD Objective Remarks General: Elderly male in no acute distress. Heart: Regular rate and rhythm. No murmur. Lungs: Clear to auscultation bilaterally. No wheezes, rales, or rhonchi. Breathing is nonlabored. Abdomen: Soft, nontender, nondistended. Extremities: No lower extremity edema. Psych: Alert and oriented. Procedures None Urinary Catheter: No Vascular Central Line Catheter: No A/P Problem List: (1) Sepsis ICD Code: A41.9 - Sepsis, unspecified organism Status: Acute (2) Pancreatic adenocarcinoma ICD Code: C25.9 - Malignant neoplasm of pancreas, unspecified Status: Acute (3) Biliary obstruction ICD Code: K83.1 - Obstruction of bile duct Status: Resolved Assessment and Plan 1. Sepsis: Possible ascending cholangitis secondary to biliary obstruction. Appreciate gastroenterology recommendations. Continue antibiotics. Scheduled for ERCP with permanent stent placement tomorrow. Blood cultures are positive for gram variable aliya, gram-positive cocci, and gram-negative aliya. Further ID pending. Appreciate infectious disease recommendations. 2. Pancreatic cancer: Hospice is following. Stent in place for obstruction. 3. Diabetes mellitus type 2: Monitor Accu-Cheks and cover with sliding scale insulin. Continue Levemir. 4. DVT prophylaxis: Lovenox. Problem Qualifiers (1) Sepsis: Qualified Codes: A41.9 - Sepsis, unspecified organism Costa Greer MD Mar 22, 2017 16:55
[2017-03-22] MEDS ORDERED: METOPROLOL TARTRATE 25 MG TAB PO PRN (17:15)
[2017-03-22] MEDS ORDERED: POVIDONE IODINE 5% (ANTISEPSIS KIT) 4 APPLICATIONS EACH NARE PRN (17:15)
[2017-03-22] MEDS ORDERED: CHLORHEXIDINE GLUCONATE 2 % 1 PACK (2 CLOTHS) TOPICAL PRN (17:15)
[2017-03-22] MEDS ORDERED: LACTATED RINGER'S 1000 ML IV PRN (17:15)
[2017-03-22] MEDS ORDERED: SODIUM CHLORID 0.9% 500 ML IV PRN (17:15)
[2017-03-22 20:30] VITALS: BP 149/90; PULSE 98; RESP 18; TEMP 98.9; O2SAT 96
[2017-03-23 00:23] VITALS: BP 146/68; PULSE 88; RESP 18; TEMP 98.2; O2SAT 93
[2017-03-23] MEDS: VANCOMYCIN INJ 1,000 MG in SODIUM CHLOR 0.9% 250 ML INJ 250 ML IV SCH (03:51)
[2017-03-23] MEDS: PIPERACIL-TAZO 4.5 GM PREMIX 100 ML IV SCH ×3 (03:52→20:45)
[2017-03-23 05:00] VITALS: BP 136/81; PULSE 87; RESP 18; TEMP 98.2; O2SAT 94
[2017-03-23 07:22] LABS: AUTOMATED NEUTROPHIL # 3.6 TH/MM3 (1.8-7.7); BASOPHIL % 0.6 % (0.0-2.0); EOSINOPHIL # 0.2 TH/MM3 (0-0.4); EOSINOPHIL % 3.4 % (0.0-4.0); HEMATOCRIT 37.9 % (39.0-51.0); HEMOGLOBIN 12.9 GM/DL (13.0-17.0); LYMPH % 14.2 % (9.0-44.0); LYMPHOCYTE # 0.7 TH/MM3 (1.0-4.8); MEAN CELL VOLUME 94.2 FL (80.0-100.0); MEAN CORPUSCULAR HEMOGLOBIN 32.1 PG (27.0-34.0); MEAN CORPUSCULAR HGB CONC 34.1 % (32.0-36.0); MEAN PLATELET VOLUME 10.2 FL (7.0-11.0); MONO % 9.9 % (0.0-8.0); MONOCYTE # 0.5 TH/MM3 (0-0.9); NEUT % 71.9 % (16.0-70.0); PLATELET COUNT 101 TH/MM3 (150-450); RED BLOOD COUNT 4.02 MIL/MM3 (4.50-5.90); RED CELL DISTRIBUTION WIDTH 14.3 % (11.6-17.2)
[2017-03-23 07:42] LABS: ALBUMIN 2.5 GM/DL (3.4-5.0); ALT (GPT) 88 U/L (12-78); AST (GOT) 37 U/L (15-37); BICARBONATE 21.2 MEQ/L (21.0-32.0); BLOOD UREA NITROGEN 17 MG/DL (7-18); CALCIUM 8.5 MG/DL (8.5-10.1); CHLORIDE 103 MEQ/L (98-107); CREATININE 1.28 MG/DL (0.60-1.30); GLOMERULAR FILTRATION RATE 54 ML/MIN (>89); GLUCOSE,RANDOM 274 MG/DL (74-106); SODIUM (NA) 134 MEQ/L (136-145)
[2017-03-23 07:48] LABS: ALKALINE PHOSPHATASE 293 U/L (45-117); TOTAL BILIRUBIN ADULT 1.4 MG/DL (0.2-1.0)
[2017-03-23] MEDS: INSULIN ASPART SUPPLEMENTAL SCALE SQ SCH ×4 (08:00→23:30)
[2017-03-23 08:05] VITALS: BP 145/78; PULSE 75; RESP 18; TEMP 98.9; O2SAT 95
[2017-03-23] MEDS: MULTIVITAMIN TAB PO SCH (08:13)
[2017-03-23] MEDS: CHOLECALCIFEROL (VIT D3) 1000 UNIT TAB PO SCH ×2 (08:13→20:43)
[2017-03-23] MEDS: SODIUM CHLORIDE 0.9% FLUSH 10 ML FLUSH IV FLUSH SCH (08:13)
[2017-03-23] MEDS: PANTOPRAZOLE SOD 40 MG DELAYED RELEASE TAB PO SCH (08:13)
[2017-03-23] MEDS: INSULIN DETEMIR 100 UNITS/ML VIAL SQ SCH (10:31)
[2017-03-23] MEDS ORDERED: PROPOFOL 200 MG/20 ML AMP IV ONE (12:00)
[2017-03-23 12:39] VITALS: BP 137/69; PULSE 65; RESP 17; TEMP 98; O2SAT 96
--- NOTE | 2017-03-23 12:50 | HHI.IDPN ---
Note Infectious Disease Note Patient feels okay. Afebrile. Denies chills. No SOB. 81-year-old white male who was brought to the emergency department after he developed fever. In the emergency department, he had a temperature of 102.2 degrees. White blood cell count was elevated. Blood cultures were taken. All four bottles of the blood cultures have bacteria. The patient had a biliary stent inserted in January and a week later he it had to be exchanged because there was some blockage. He is due to have a permanent stent placement later this month. The patient was diagnosed with pancreatic cancer of the head of the pancreas. PAST MEDICAL HISTORY: 1. Diabetes mellitus type 2. 2. History of knee surgery. 3. Pancreatic cancer. ALLERGIES: NO KNOWN DRUG ALLERGIES. ANTIBIOTICS: Piperacillin / tazobactam. SOCIAL HISTORY: The patient is . No tobacco. No alcohol. No illicit drugs. OBJECTIVE: Vital Signs Date Time Temp Pulse Resp B/P (MAP) Pulse Ox O2 Delivery O2 Flow Rate FiO2 03/23/17 12:39 98.0 65 17 137/69 (91) 96 03/23/17 08:14 Room Air 03/23/17 08:05 98.9 75 18 145/78 (100) 95 03/23/17 05:00 98.2 87 18 136/81 (99) 94 03/23/17 00:23 98.2 88 18 146/68 (94) 93 03/22/17 23:38 Room Air 03/22/17 20:30 98.9 98 18 149/90 (109) 96 03/22/17 16:47 98.6 59 18 150/71 (97) 95 Laboratory Tests Test 03/22/17 06:27 03/23/17 06:12 White Blood Count 6.8 TH/MM3 5.0 TH/MM3 Red Blood Count 3.96 MIL/MM3 4.02 MIL/MM3 Hemoglobin 12.9 GM/DL 12.9 GM/DL Hematocrit 37.7 % 37.9 % Mean Corpuscular Volume 95.2 FL 94.2 FL Mean Corpuscular Hemoglobin 32.6 PG 32.1 PG Mean Corpuscular Hemoglobin Concent 34.2 % 34.1 % Red Cell Distribution Width 15.0 % 14.3 % Platelet Count 104 TH/MM3 101 TH/MM3 Mean Platelet Volume 10.0 FL 10.2 FL Neutrophils (%) (Auto) 79.0 % 71.9 % Lymphocytes (%) (Auto) 10.9 % 14.2 % Monocytes (%) (Auto) 6.9 % 9.9 % Eosinophils (%) (Auto) 2.7 % 3.4 % Basophils (%) (Auto) 0.5 % 0.6 % Neutrophils # (Auto) 5.4 TH/MM3 3.6 TH/MM3 Lymphocytes # (Auto) 0.7 TH/MM3 0.7 TH/MM3 Monocytes # (Auto) 0.5 TH/MM3 0.5 TH/MM3 Eosinophils # (Auto) 0.2 TH/MM3 0.2 TH/MM3 Basophils # (Auto) 0.0 TH/MM3 0.0 TH/MM3 CBC Comment DIFF FINAL DIFF FINAL Differential Comment Laboratory Tests Test 03/22/17 06:27 03/23/17 06:12 Blood Urea Nitrogen 20 MG/DL 17 MG/DL Creatinine 1.11 MG/DL 1.28 MG/DL Random Glucose 72 MG/DL 274 MG/DL Total Protein 7.0 GM/DL 7.0 GM/DL Albumin 2.7 GM/DL 2.5 GM/DL Calcium Level 8.3 MG/DL 8.5 MG/DL Magnesium Level 1.8 MG/DL Alkaline Phosphatase 300 U/L 293 U/L Aspartate Amino Transf (AST/SGOT) 77 U/L 37 U/L Alanine Aminotransferase (ALT/SGPT) 123 U/L 88 U/L Total Bilirubin 2.6 MG/DL 1.4 MG/DL Sodium Level 136 MEQ/L 134 MEQ/L Potassium Level 3.5 MEQ/L 3.6 MEQ/L Chloride Level 105 MEQ/L 103 MEQ/L Carbon Dioxide Level 20.8 MEQ/L 21.2 MEQ/L Anion Gap 10 MEQ/L 10 MEQ/L Estimat Glomerular Filtration Rate 64 ML/MIN 54 ML/MIN Microbiology Date/Time Source Procedure Growth Status 03/22/17 09:50 Blood Peripheral Aerobic Blood Culture - Preliminary NO GROWTH IN 1 DAY Resulted 03/22/17 09:50 Blood Peripheral Anaerobic Blood Culture - Preliminary NO GROWTH IN 1 DAY Resulted 03/22/17 09:50 Blood Peripheral Aerobic Blood Culture - Preliminary NO GROWTH IN 1 DAY Resulted 03/22/17 09:50 Blood Peripheral Anaerobic Blood Culture - Preliminary NO GROWTH IN 1 DAY Resulted PHYSICAL EXAMINATION: GENERAL: No acute distress. HEAD, EYES, EARS, NOSE, THROAT: Extraocular movements are grossly intact. Pupils reactive to light. No icterus. Oropharynx with moist mucosa without lesions. NECK: Supple without adenopathy or swelling. LUNGS: Clear breath sounds. HEART: Regular S1 and S2 without murmurs, rubs or gallops. ABDOMEN: Mildly distended, soft, no tenderness on palpation. Bowel sounds present. EXTREMITIES: No clubbing or cyanosis or edema. SKIN: No rash. PSYCHIATRIC: Calm and cooperative. NEUROLOGIC: No gross focal findings. IMPRESSION: 1. Sepsis with bacteremia. Klebsiella and e. coli. Sensitive. 2. Likely source is the biliary system. 3. Pancreatic cancer. RECOMMENDATIONS: Continue piperacillin / tazobactam Follow blood cultures. Plans for biliary stent replacement noted. Can switch to PO Levaquin tomorrow if procedure is done today. Can discharge on PO Levaquin 750 daily x 10 more days. I am signing off. Please call if further input is needed. Orville Vazquez MD Mar 23, 2017 12:50
--- NOTE | 2017-03-23 15:06 | HHI.PR ---
Subjective Remarks Follow up abdominal pain, sepsis. Patient reports only mild abdominal pain. Going for ERCP with stent replacement this afternoon. Objective Vitals Vital Signs Date Time Temp Pulse Resp B/P (MAP) Pulse Ox O2 Delivery O2 Flow Rate FiO2 03/23/17 12:39 98.0 65 17 137/69 (91) 96 03/23/17 08:14 Room Air 03/23/17 08:05 98.9 75 18 145/78 (100) 95 03/23/17 05:00 98.2 87 18 136/81 (99) 94 03/23/17 00:23 98.2 88 18 146/68 (94) 93 03/22/17 23:38 Room Air 03/22/17 20:30 98.9 98 18 149/90 (109) 96 03/22/17 16:47 98.6 59 18 150/71 (97) 95 I/O 03/22/17 03/22/17 03/22/17 03/23/17 03/23/17 03/23/17 06:59 14:59 22:59 06:59 14:59 22:59 Intake Total 590 ml 100 ml 830 ml 590 ml Output Total 750 ml 900 ml 800 ml 1900 ml 250 ml Balance -160 ml -800 ml 30 ml -1310 ml -250 ml Intake Oral 240 ml 480 ml 240 ml IV Total 350 ml 100 ml 350 ml 350 ml Output Urine Total 750 ml 900 ml 800 ml 1900 ml 250 ml # Bowel Movements 1 Result Diagram: 03/23/17 0612 03/23/17 0612 Imaging Last Impressions Abdomen/Pelvis CT 03/20/17 0000 Signed Impressions: Service Date/Time: Monday, March 20, 2017 13:51 - CONCLUSION: 1. Biliary stent in place with prominence of the pancreatic head which may reflect neoplasm. Please see above. No evidence of biliary ductal dilatation. Peak contrast enhanced MRI could be considered. 2. Hiatal hernia 3. Basilar atelectasis Isaac Munson MD Objective Remarks General: Elderly male in no acute distress. Heart: Regular rate and rhythm. No murmur. Lungs: Clear to auscultation bilaterally. No wheezes, rales, or rhonchi. Breathing is nonlabored. Abdomen: Soft, nontender, nondistended. Extremities: No lower extremity edema. Psych: Alert and oriented. Procedures None Urinary Catheter: No Vascular Central Line Catheter: No A/P Problem List: (1) Sepsis ICD Code: A41.9 - Sepsis, unspecified organism Status: Acute (2) Pancreatic adenocarcinoma ICD Code: C25.9 - Malignant neoplasm of pancreas, unspecified Status: Acute (3) Biliary obstruction ICD Code: K83.1 - Obstruction of bile duct Status: Resolved Assessment and Plan 1. Sepsis: Possible ascending cholangitis secondary to biliary obstruction. Appreciate gastroenterology recommendations. Continue antibiotics. Scheduled for ERCP with permanent stent replacement today. Blood cultures are positive for Escherichia coli and Klebsiella, pansensitive. Appreciate infectious disease recommendations. Pain is improving. 2. Pancreatic cancer: Hospice is following. Stent in place for obstruction. ERCP with stent replacement was afternoon. 3. Diabetes mellitus type 2: Monitor Accu-Cheks and cover with sliding scale insulin. Continue Levemir. 4. DVT prophylaxis: Lovenox. Problem Qualifiers (1) Sepsis: Qualified Codes: A41.9 - Sepsis, unspecified organism Costa Greer MD Mar 23, 2017 15:06
--- NOTE | 2017-03-23 16:32 | PD.PROCEDR ---
GI Procedure PROCEDURE PERFORMED EGD with plastic stent removal ERCP with metal stent placement, balloon sweep of the duct with removal of sludge and fragmented stone INDICATION FOR PROCEDURE [] PROCEDURE: The procedure, risks and benefits were discussed with Mr. Jewell and informed consent was obtained. Anesthesia sedated him with Diprivan. He was placed in the left lateral decubitus position. EGD: The Pentax videoscope was introduced through the oropharynx and advanced to the second portion of the duodenum under direct visualization. The stent was identified and was retrieved by snare without any immediate complication. ERCP: Patient was placed in a prone position. The Pentax videoscope was introduced through the oropharynx and advanced to the second portion of the duodenum where the ampula was identified. Patient was performed without any difficulty, and cholangiogram was performed which shows significant narrowing in the distal duct with some sludge, sweeping the duct with the balloon retrieved some sludge and fragments of stone, after that metallic stent 10 cm and 10 [place] was placed without any difficulty, the scope withdrawn back without immediate complication FINDINGS: Common bile duct stricture consistent with a known patient history of pancreatic cancer Sludge and fragmented stone removed by balloon Stent placement metallic 10 [place] 10 cm ESTIMATED BLOOD LOSS: None SPECIMENS REMOVED: None COMPLICATIONS: None IMPRESSION: Plastic stent removed with obstruction and cholangitis Sludge and fragment stones in the common bile duct Common bile duct stricture with metallic stent placement PLAN: Nothing by mouth until tomorrow morning Liver function tests in the morning CBC in the morning Rena Hardin MD Mar 23, 2017 16:32
--- NOTE | 2017-03-23 16:34 | HHI.GIFU ---
Subjective Remarks Patient is laying in bed comfortably, he denies abdominal pain today, no jaundice Objective Vitals I&O Vital Signs Date Time Temp Pulse Resp B/P (MAP) Pulse Ox O2 Delivery O2 Flow Rate FiO2 03/23/17 12:39 98.0 65 17 137/69 (91) 96 03/23/17 08:14 Room Air 03/23/17 08:05 98.9 75 18 145/78 (100) 95 03/23/17 05:00 98.2 87 18 136/81 (99) 94 03/23/17 00:23 98.2 88 18 146/68 (94) 93 03/22/17 23:38 Room Air 03/22/17 20:30 98.9 98 18 149/90 (109) 96 03/22/17 16:47 98.6 59 18 150/71 (97) 95 I/O 03/22/17 03/22/17 03/22/17 03/23/17 03/23/17 03/23/17 07:00 15:00 23:00 07:00 15:00 23:00 Intake Total 590 ml 100 ml 830 ml 590 ml Output Total 750 ml 900 ml 800 ml 1900 ml 250 ml Balance -160 ml -800 ml 30 ml -1310 ml -250 ml Intake Oral 240 ml 480 ml 240 ml IV Total 350 ml 100 ml 350 ml 350 ml Output Urine Total 750 ml 900 ml 800 ml 1900 ml 250 ml # Bowel Movements 1 Laboratory Laboratory Tests Test 03/23/17 06:12 White Blood Count 5.0 Red Blood Count 4.02 Hemoglobin 12.9 Hematocrit 37.9 Mean Corpuscular Volume 94.2 Mean Corpuscular Hemoglobin 32.1 Mean Corpuscular Hemoglobin Concent 34.1 Red Cell Distribution Width 14.3 Platelet Count 101 Mean Platelet Volume 10.2 Neutrophils (%) (Auto) 71.9 Lymphocytes (%) (Auto) 14.2 Monocytes (%) (Auto) 9.9 Eosinophils (%) (Auto) 3.4 Basophils (%) (Auto) 0.6 Neutrophils # (Auto) 3.6 Lymphocytes # (Auto) 0.7 Monocytes # (Auto) 0.5 Eosinophils # (Auto) 0.2 Basophils # (Auto) 0.0 CBC Comment DIFF FINAL Differential Comment Blood Urea Nitrogen 17 Creatinine 1.28 Random Glucose 274 Total Protein 7.0 Albumin 2.5 Calcium Level 8.5 Alkaline Phosphatase 293 Aspartate Amino Transf (AST/SGOT) 37 Alanine Aminotransferase (ALT/SGPT) 88 Total Bilirubin 1.4 Sodium Level 134 Potassium Level 3.6 Chloride Level 103 Carbon Dioxide Level 21.2 Anion Gap 10 Estimat Glomerular Filtration Rate 54 Date/Time Source Procedure Growth Status 03/22/17 09:50 Blood Peripheral Aerobic Blood Culture - Preliminary NO GROWTH IN 1 DAY Resulted 03/22/17 09:50 Blood Peripheral Anaerobic Blood Culture - Preliminary NO GROWTH IN 1 DAY Resulted Physical Exam HEENT: PERRL; normocephalic; atraumatic; no jaundice. [place] CHEST: CTA CARDIAC: RRR ABDOMEN: Soft, protuberant,mild TTP umbilical area; no hepatosplenomegaly; bowel sounds are present in all four quadrants. EXTREMITIES: No clubbing, cyanosis, or edema. SKIN: Normal; no rash; no jaundice. PROCUREMENT ACCOUNTANT: No focal deficits; alert and oriented times three. Assessment and Plan Plan ASSESSMENT - fever, abd pain, nausea, leukocytosis, elevated LFTs - ?cholangitis. on vanc shawn, this should cover. s/p ERCP and stent placement, due to have permanent stent placed later this month. doing better. WBC decreasing, LFT trending down. will have permanent stent placement with Dr Hardin - metastatic pancreatic adenocarcinoma 03/23/2016 patient is doing better, improved white blood cells and liver function test, underwent upper endoscopy with snare plastic stent removal ERCP and metallic stent placement, clearing the duct from sludge and fragmented stone IMPRESSION: Plastic stent removed with obstruction and cholangitis Sludge and fragment stones in the common bile duct Common bile duct stricture with metallic stent placement PLAN: Nothing by mouth until tomorrow morning Liver function tests in the morning CBC in the morning Pt seen by myself and Dr Boudreaux and this note written on her behalf Rena Hardin MD Mar 23, 2017 16:34
[2017-03-23] MEDS ORDERED: DO NOT ADM ANY ANTICOAGULANT DRUGS PRN (16:35)
--- NOTE | 2017-03-23 17:11 | RADRPT ---
EXAM DATE/TIME: 03/23/2017 16:17 [facility] COMPARISON: CT ABDOMEN & PELVIS W/O CONTRAST, March 20, 2017, 13:51. GI LAB ERCP, February 11, 2017, 18:03. INDICATIONS : Evaluate for obstruction. Stent removed and replaced with new stent. FLUORO TIME: 2.36 minutes IMAGE COUNT: 3 CONTRAST: Instilled by Ordering Physician MEDICAL HISTORY : Renal insufficiency, chronic. Diabetes mellitus type II. Hypertension. SURGICAL HISTORY : Cholecystectomy. Common bile duct stent. ENCOUNTER: Initial ACUITY: 1 day PAIN SCORE: Non-responsive. LOCATION: Abdomen. FINDINGS: An ERCP was performed by the ordering physician. 3 images are submitted. The first and second images demonstrates wiring the common bile duct with par tial opacification of the common bile duct and central intrahepatic ducts. There is apparent concentr ic stenosis of the mid to distal common bile duct. Final image demonstrates a metallic stent in the c ommon bile duct with again concentric stenosis of the mid to distal. CONCLUSION: ERCP as above. Lowell Gomez MD on March 23, 2017 at 17:06 Board Certified Radiologist. This report was verified electronically.
[2017-03-23 17:49] VITALS: BP 155/76; PULSE 53; RESP 16; TEMP 97.5; O2SAT 97
[2017-03-23] MEDS ORDERED: DEXT 5%-NACL 0.9% 1000 ML INJ 1,000 ML IV SCH (18:45)
[2017-03-23 20:00] VITALS: BP 130/69; PULSE 52; RESP 18; TEMP 97.7; O2SAT 97
[2017-03-24] VITALS: BP 142/70; PULSE 54; RESP 18; TEMP 97.2; O2SAT 94
[2017-03-24 04:00] VITALS: BP 126/81; PULSE 87; RESP 18; TEMP 98.2; O2SAT 94
[2017-03-24] MEDS: PIPERACIL-TAZO 4.5 GM PREMIX 100 ML IV SCH ×2 (04:08→13:44)
[2017-03-24 07:47] VITALS: BP 145/71; PULSE 54; RESP 18; TEMP 98.5; O2SAT 97
[2017-03-24] MEDS: INSULIN ASPART SUPPLEMENTAL SCALE SQ SCH ×3 (08:00→17:58)
[2017-03-24] MEDS: CHOLECALCIFEROL (VIT D3) 1000 UNIT TAB PO SCH (08:35)
[2017-03-24] MEDS: MULTIVITAMIN TAB PO SCH (08:35)
[2017-03-24] MEDS: PANTOPRAZOLE SOD 40 MG DELAYED RELEASE TAB PO SCH (08:35)
[2017-03-24] MEDS: SODIUM CHLORIDE 0.9% FLUSH 10 ML FLUSH IV FLUSH SCH (08:39)
[2017-03-24] MEDS: INSULIN DETEMIR 100 UNITS/ML VIAL SQ SCH (08:39)
[2017-03-24 09:41] LABS: HEMATOCRIT 39.4 % (39.0-51.0); HEMOGLOBIN 13.2 GM/DL (13.0-17.0); MEAN CELL VOLUME 94.1 FL (80.0-100.0); MEAN CORPUSCULAR HEMOGLOBIN 31.5 PG (27.0-34.0); MEAN CORPUSCULAR HGB CONC 33.5 % (32.0-36.0); MEAN PLATELET VOLUME 9.4 FL (7.0-11.0); PLATELET COUNT 119 TH/MM3 (150-450); RED BLOOD COUNT 4.19 MIL/MM3 (4.50-5.90); RED CELL DISTRIBUTION WIDTH 14.5 % (11.6-17.2); WHITE BLOOD COUNT 5.7 TH/MM3 (4.0-11.0)
[2017-03-24 10:16] LABS: ALBUMIN 2.5 GM/DL (3.4-5.0); DIRECT BILIRUBIN ADULT 0.8 MG/DL (0.0-0.2)
[2017-03-24 10:18] LABS: INDIRECT BILIRUBIN 0.4 MG/DL (0.0-0.8); TOTAL BILIRUBIN ADULT 1.2 MG/DL (0.2-1.0); TOTAL PROTEIN 6.9 GM/DL (6.4-8.2)
[2017-03-24 11:47] VITALS: BP 142/71; PULSE 64; RESP 18; TEMP 98; O2SAT 96
--- NOTE | 2017-03-24 15:02 | HHI.PR ---
Subjective Remarks Follow-up abdominal pain. Patient states that he feels much better today. No abdominal pain, nausea, vomiting. States that he has been ambulating well. Objective Vitals Vital Signs Date Time Temp Pulse Resp B/P (MAP) Pulse Ox O2 Delivery O2 Flow Rate FiO2 03/24/17 11:47 98.0 64 18 142/71 (94) 96 03/24/17 08:40 Room Air 03/24/17 07:47 98.5 54 18 145/71 (95) 97 03/24/17 04:00 98.2 87 18 126/81 (96) 94 03/24/17 00:00 97.2 54 18 142/70 (94) 94 03/23/17 20:45 Room Air 03/23/17 20:00 97.7 52 18 130/69 (89) 97 03/23/17 17:49 97.5 53 16 155/76 (102) 97 03/23/17 17:10 54 16 131/60 (83) 98 Nasal Cannula 2 03/23/17 16:55 80 16 132/58 (82) 97 Nasal Cannula 2 03/23/17 16:37 98.1 59 16 112/57 (75) 95 Nasal Cannula 2 I/O 03/23/17 03/23/17 03/23/17 03/24/17 03/24/17 03/24/17 07:00 15:00 23:00 07:00 15:00 23:00 Intake Total 590 ml Output Total 1900 ml 250 ml 350 ml 200 ml Balance -1310 ml -250 ml -350 ml -200 ml Intake Oral 240 ml IV Total 350 ml Output Urine Total 1900 ml 250 ml 350 ml 200 ml # Bowel Movements 1 Result Diagram: 03/24/17 0844 03/24/17 0039 Imaging Last Impressions GI Procedure 03/23/17 0000 Signed Impressions: Service Date/Time: Thursday, March 23, 2017 16:17 - CONCLUSION: ERCP as above. Lowell Gomez MD Abdomen/Pelvis CT 03/20/17 0000 Signed Impressions: Service Date/Time: Monday, March 20, 2017 13:51 - CONCLUSION: 1. Biliary stent in place with prominence of the pancreatic head which may reflect neoplasm. Please see above. No evidence of biliary ductal dilatation. Peak contrast enhanced MRI could be considered. 2. Hiatal hernia 3. Basilar atelectasis Isaac Munson MD Objective Remarks General: Elderly male in no acute distress. Heart: Regular rate and rhythm. No murmur. Lungs: Clear to auscultation bilaterally. No wheezes, rales, or rhonchi. Breathing is nonlabored. Abdomen: Soft, nontender, nondistended. Extremities: No lower extremity edema. Psych: Alert and oriented. Procedures 03/23/17 ERCP with biliary stent placement Urinary Catheter: No Vascular Central Line Catheter: No A/P Problem List: (1) Sepsis ICD Code: A41.9 - Sepsis, unspecified organism Status: Acute (2) Pancreatic adenocarcinoma ICD Code: C25.9 - Malignant neoplasm of pancreas, unspecified Status: Acute (3) Biliary obstruction ICD Code: K83.1 - Obstruction of bile duct Status: Resolved Assessment and Plan 1. Sepsis: Possible ascending cholangitis secondary to biliary obstruction. Appreciate gastroenterology recommendations. Continue antibiotics. Blood cultures are positive for Escherichia coli and Klebsiella, pansensitive. Appreciate infectious disease recommendations. Status post ERCP with stent replacement. Pain is improved. 2. Pancreatic cancer: Hospice is following. Stent in place for obstruction. ERCP with stent replacement was afternoon. 3. Diabetes mellitus type 2: Monitor Accu-Cheks and cover with sliding scale insulin. Continue Levemir. 4. DVT prophylaxis: Lovenox. Discharge Planning Plan for discharge home when cleared by gastroenterology. Problem Qualifiers (1) Sepsis: Qualified Codes: A41.9 - Sepsis, unspecified organism Costa Greer MD Mar 24, 2017 15:02
[2017-03-24] MEDS ORDERED: LEVEMIR SQ (15:06)
[2017-03-24] MEDS ORDERED: LEVA750T9 PO (15:06)
--- NOTE | 2017-03-24 15:06 | HHI.DCPOC ---
Discharge Care Plan Diagnosis: (1) Diabetes (2) Biliary obstruction (3) Sepsis (4) Ascending cholangitis (5) MARK (acute kidney injury) Goals to Promote Your Health * To prevent worsening of your condition and complications * To maintain your health at the optimal level Directions to Meet Your Goals Take your medications as prescribed Follow your dietary instruction Follow activity as directed Keep your appointments as scheduled Take your immunizations and boosters as scheduled If your symptoms worsen call your PCP, if no PCP go to Urgent Care Center or Emergency Room Smoking is Dangerous to Your Health. Avoid second hand smoke Call the 24-hour hour crisis hotline for domestic abuse at Costa Greer MD Mar 24, 2017 15:06
[2017-03-24] MEDS ORDERED: LEVOFLOXACIN 750 MG TAB PO SCH (16:00)
[2017-03-24 16:28] VITALS: BP 143/71; PULSE 69; RESP 18; TEMP 97.9; O2SAT 95
--- NOTE | 2017-03-24 16:28 | HHI.GIFU ---
Subjective Remarks Pt sitting on edge of bed, at bedside. "I feel pretty good." ATe peaches , jello, ice cream for lunch. Denies abd pain. (Nathaly Valle) Objective Vitals I&O Vital Signs Date Time Temp Pulse Resp B/P (MAP) Pulse Ox O2 Delivery O2 Flow Rate FiO2 03/24/17 11:47 98.0 64 18 142/71 (94) 96 03/24/17 08:40 Room Air 03/24/17 07:47 98.5 54 18 145/71 (95) 97 03/24/17 04:00 98.2 87 18 126/81 (96) 94 03/24/17 00:00 97.2 54 18 142/70 (94) 94 03/23/17 20:45 Room Air 03/23/17 20:00 97.7 52 18 130/69 (89) 97 03/23/17 17:49 97.5 53 16 155/76 (102) 97 03/23/17 17:10 54 16 131/60 (83) 98 Nasal Cannula 2 03/23/17 16:55 80 16 132/58 (82) 97 Nasal Cannula 2 03/23/17 16:37 98.1 59 16 112/57 (75) 95 Nasal Cannula 2 I/O 03/23/17 03/23/17 03/23/17 03/24/17 03/24/17 03/24/17 07:00 15:00 23:00 07:00 15:00 23:00 Intake Total 590 ml Output Total 1900 ml 250 ml 350 ml 200 ml Balance -1310 ml -250 ml -350 ml -200 ml Intake Oral 240 ml IV Total 350 ml Output Urine Total 1900 ml 250 ml 350 ml 200 ml # Bowel Movements 1 Laboratory Laboratory Tests Test 03/24/17 00:39 03/24/17 08:44 Random Glucose 179 White Blood Count 5.7 Red Blood Count 4.19 Hemoglobin 13.2 Hematocrit 39.4 Mean Corpuscular Volume 94.1 Mean Corpuscular Hemoglobin 31.5 Mean Corpuscular Hemoglobin Concent 33.5 Red Cell Distribution Width 14.5 Platelet Count 119 Mean Platelet Volume 9.4 Total Bilirubin 1.2 Direct Bilirubin 0.8 Indirect Bilirubin 0.4 Aspartate Amino Transf (AST/SGOT) 36 Alanine Aminotransferase (ALT/SGPT) 73 Alkaline Phosphatase 314 Total Protein 6.9 Albumin 2.5 Date/Time Source Procedure Growth Status 03/22/17 09:50 Blood Peripheral Aerobic Blood Culture - Preliminary NO GROWTH IN 2 DAYS Resulted 03/22/17 09:50 Blood Peripheral Anaerobic Blood Culture - Preliminary NO GROWTH IN 2 DAYS Resulted Imaging Last Impressions GI Procedure 03/23/17 0000 Signed Impressions: Service Date/Time: Thursday, March 23, 2017 16:17 - CONCLUSION: ERCP as above. Lowell Gomez MD Abdomen/Pelvis CT 03/20/17 0000 Signed Impressions: Service Date/Time: Monday, March 20, 2017 13:51 - CONCLUSION: 1. Biliary stent in place with prominence of the pancreatic head which may reflect neoplasm. Please see above. No evidence of biliary ductal dilatation. Peak contrast enhanced MRI could be considered. 2. Hiatal hernia 3. Basilar atelectasis Isaac Munson MD Physical Exam HEENT: PERRL; normocephalic; atraumatic; no jaundice. [place] CHEST: CTA CARDIAC: RRR ABDOMEN: Soft, protuberant,nontender; no hepatosplenomegaly; bowel sounds are present in all four quadrants. EXTREMITIES: No clubbing, cyanosis, or edema. SKIN: Normal; no rash; no jaundice. LEAD NETWORK ARCHITECT: No focal deficits; alert and oriented times three. (Nathaly Valle) Assessment and Plan Plan ASSESSMENT - fever, abd pain, nausea, leukocytosis, elevated LFTs - ?cholangitis. on vanc , zosyn, this should cover. s/p ERCP and stent exchange, plastic stent removed with obstruction adn cholangitis, sludge and stone fragments found, CBD duct stricture, placement metallic stent. Pt tolerating ADA diet, + BM x 2 today, LFTs decreased, WBC WNL - metastatic pancreatic adenocarcinoma PLAN - RINKU - monitor labs - ok to d/c from GI standpoint Pt seen by myself and Dr Boudreaux and this note written on her behalf (Nathaly Valle) Physician Comments seen, examined s/p ercp yesterday with stent removal and placement of metallic stent lfts better doing great ok to dc home from [facility] if dc fu office (Whitney Boudreaux MD) Nathaly Valle Mar 24, 2017 16:28 Whitney Boudreaux MD Mar 24, 2017 17:15
[2017-03-24 17:28] VITALS: O2SAT 95
--- NOTE | 2017-03-24 17:55 | HHI.DS ---
Discharge Summary Admission Date Mar 20, 2017 at 15:08 Discharge Date: Mar 24, 2017 Admitting Diagnosis sepsis, possible ascending cholangitis, altered mental status (1) Sepsis ICD Code: A41.9 - Sepsis, unspecified organism Status: Acute (2) Pancreatic adenocarcinoma ICD Code: C25.9 - Malignant neoplasm of pancreas, unspecified Status: Acute (3) Biliary obstruction ICD Code: K83.1 - Obstruction of bile duct Status: Resolved Procedures 03/23/17 ERCP with biliary stent placement Brief History - From Admission 81M w/ h/o Type 2 diabetes was recently diagnosed with pancreatic cancer and was doing rather well up until last night. He complained of abdominal pain onset at 1am and then had onset of fevers and fatigue starting at 8am that worsened throughout the day. He and his recently moved down from [place] and after a few visits to doctors for epigastric/chest pain an image showed pancreatic cancer in the head of his pancreas. Subsequently he presented to the ER with jaundice and required a shunt to "clear sludge" from his common bile duct; he received antibiotics at that point for suspect ascending cholangitis. Today is a similar picture, but worse. CBC/BMP: 03/24/17 0844 03/24/17 0039 Significant Findings Laboratory Tests Test 03/22/17 06:27 03/23/17 06:12 03/24/17 00:39 03/24/17 08:44 Red Blood Count 3.96 MIL/MM3 (4.50-5.90) 4.02 MIL/MM3 (4.50-5.90) 4.19 MIL/MM3 (4.50-5.90) Hemoglobin 12.9 GM/DL (13.0-17.0) 12.9 GM/DL (13.0-17.0) Hematocrit 37.7 % (39.0-51.0) 37.9 % (39.0-51.0) Platelet Count 104 TH/MM3 (150-450) 101 TH/MM3 (150-450) 119 TH/MM3 (150-450) Neutrophils (%) (Auto) 79.0 % (16.0-70.0) 71.9 % (16.0-70.0) Lymphocytes # (Auto) 0.7 TH/MM3 (1.0-4.8) 0.7 TH/MM3 (1.0-4.8) Blood Urea Nitrogen 20 MG/DL (7-18) Random Glucose 72 MG/DL (74-106) 274 MG/DL (74-106) 179 MG/DL (74-106) Albumin 2.7 GM/DL (3.4-5.0) 2.5 GM/DL (3.4-5.0) 2.5 GM/DL (3.4-5.0) Calcium Level 8.3 MG/DL (8.5-10.1) Alkaline Phosphatase 300 U/L (45-117) 293 U/L (45-117) 314 U/L (45-117) Aspartate Amino Transf (AST/SGOT) 77 U/L (15-37) Alanine Aminotransferase (ALT/SGPT) 123 U/L (12-78) 88 U/L (12-78) Total Bilirubin 2.6 MG/DL (0.2-1.0) 1.4 MG/DL (0.2-1.0) 1.2 MG/DL (0.2-1.0) Carbon Dioxide Level 20.8 MEQ/L (21.0-32.0) Estimat Glomerular Filtration Rate 64 ML/MIN (>89) 54 ML/MIN (>89) Monocytes (%) (Auto) 9.9 % (0.0-8.0) Sodium Level 134 MEQ/L (136-145) Direct Bilirubin 0.8 MG/DL (0.0-0.2) Imaging Last Impressions GI Procedure 03/23/17 0000 Signed Impressions: Service Date/Time: Thursday, March 23, 2017 16:17 - CONCLUSION: ERCP as above. Lowell Gomez MD Abdomen/Pelvis CT 03/20/17 0000 Signed Impressions: Service Date/Time: Monday, March 20, 2017 13:51 - CONCLUSION: 1. Biliary stent in place with prominence of the pancreatic head which may reflect neoplasm. Please see above. No evidence of biliary ductal dilatation. Peak contrast enhanced MRI could be considered. 2. Hiatal hernia 3. Basilar atelectasis Isaac Munson MD PE at Discharge General: Elderly male in no acute distress. Heart: Regular rate and rhythm. No murmur. Lungs: Clear to auscultation bilaterally. No wheezes, rales, or rhonchi. Breathing is nonlabored. Abdomen: Soft, nontender, nondistended. Extremities: No lower extremity edema. Psych: Alert and oriented. Hospital Course The patient was admitted for management of sepsis with a presumed abdominal source of infection. He was started on IV antibiotics. Gastroenterology was consulted for evaluation of abdominal pain, possible ascending cholangitis. Patient's blood cultures grew Escherichia coli and Klebsiella. Infectious disease was consulted. Patient had ERCP done by gastroenterology. Biliary stent was replaced. Patient's symptoms improved significantly. He was cleared for discharge by gastroenterology. He was felt to be stable for discharge home. Pt Condition on Discharge: Stable Discharge Disposition: Discharge Home Discharge Time: > 30 minutes Discharge Instructions DIET: Follow Instructions for: As Tolerated, No Restrictions Activities you can perform: Regular-No Restrictions Follow up Referrals: Gastroenterology - 2 Weeks with Rena Hardin MD PCP Follow-up - 1 Week New Medications: Levofloxacin (Levaquin) 750 Mg Tablet 750 MG PO DAILY for Infection, #10 TAB 0 Refills Insulin Detemir Inj (Levemir Inj) 1,000 unit/ 10 ML Vial 22 UNITS SQ BID for Blood Sugar Management, #31 INJECTION 0 Refills Do not mix with any other Insulin. Continued Medications: Cholecalciferol (Vitamin D3) 1,000 Unit Chew 1000 UNITS CHEW BID for Nutritional Supplement, #1 BOTTLE 0 Refills Insulin Aspart Inj (Novolog Inj) 1,000 Unit/10 Ml Vial 0 SQ DIRECTED for Blood Sugar Management, #10 ML 0 Refills <70:No insulin; 150-199:1U; 200 - 249:3U; 250 - 299:5U; 300 - 349:7U; Greater than 349:9U Multiple Vitamin (Multiple Vitamin) 1 Tab 1 TAB PO DAILY for Nutritional Supplement, TAB 0 Refills Pantoprazole (Pantoprazole) 40 Mg Tab 40 MG PO DAILY for Manage Heartburn, #30 TAB Discontinued Medications: Insulin Detemir Inj (Levemir Inj) 1,000 unit/ 10 ML Vial 10 UNITS SQ BID for Blood Sugar Management, #60 INJECTION 0 Refills 10 units AC and 10 units HS Zolpidem ER (Ambien CR) 6.25 Mg Tab 6.25 MG PO HS PRN for INSOMNIA, #30 TAB 2 Refills Costa Greer MD Mar 24, 2017 17:55
== END 2017-03-24 19:45 | disposition home or self-care (01) | DRG 872 ==
LOC: NEPC 11:41 → NEDA 15:08 → N05B 17:14
PROVIDERS: ADMIT Family Medicine; ATTEND Family Medicine
PROC: 0FPB8DZ Removal of Intraluminal Device from Hepatobiliary Duct, Via Natural or Artificial Opening Endoscopic (ICD-10-PCS; 2017-03-23)
PROC: 0F798DZ Dilation of Common Bile Duct with Intraluminal Device, Via Natural or Artificial Opening Endoscopic (ICD-10-PCS; 2017-03-23)
PROC: 0FC98ZZ Extirpation of Matter from Common Bile Duct, Via Natural or Artificial Opening Endoscopic (ICD-10-PCS; principal; 2017-03-23 14:58)
DX: A41.9 Sepsis, unspecified organism (principal); N17.9 Acute kidney failure, unspecified; C25.0 Malignant neoplasm of head of pancreas; K80.31 Calculus of bile duct with cholangitis, unspecified, with obstruction; C78.7 Secondary malignant neoplasm of liver and intrahepatic bile duct; J44.9 Chronic obstructive pulmonary disease, unspecified; E11.9 Type 2 diabetes mellitus without complications; I10 Essential (primary) hypertension; H91.90 Unspecified hearing loss, unspecified ear; Z79.4 Long term (current) use of insulin; F17.290 Nicotine dependence, other tobacco product, uncomplicated; E78.00 Pure hypercholesterolemia, unspecified
CPT/HCPCS: 74176; 74330; 80053; 80076; 81001; 82947; 82948; 83605; 83735; 85025; 85027; 85610; 85730; 87040; 87205; 96365; 96366; C1769; C2625; J1650; J1815; J2543; J3370; J7030; J7042; J7050